=== PATIENT | male | born 1960 | race Caucasian/White ===

== ENCOUNTER 2020-09-11 16:56 | Emergency (ER) | payer MEDICARE, MEDICAID, SELFPAY ==
[2020-09-11 17:02] VITALS: BP 127/85; PULSE 70; PULSE 97; RESP 18; TEMP 37.1; O2SAT 97; BMI 28.1
[2020-09-11 17:18] VITALS: PULSE 97; RESP 18; O2SAT 100
--- NOTE | 2020-09-11 17:22 | ED_ITS ---
HPI - General Adult General Chief complaint: General Medical Stated complaint: N/V/D Time Seen by Provider: 09/11/20 17:11 Source: patient Mode of arrival: EMS Limitations: no limitations History of Present Illness HPI narrative: patient comes to emergency room complaining of cough, epistaxis, shortness of breath. Patient states it has been ongoing for 4-5 days, also complaining of nausea vomiting and diarrhea. Patient states no one else at home is sick but him. Patient reporting subjective fever and chills MD complaint: cough Related Data Allergies Allergy/AdvReac Type Severity Reaction Status Date / Time No Known Allergies Allergy Unverified 07/21/20 19:11 [No Known Allergies*] Review of Systems Review of Systems: Constitutional : No Weight loss, reports subjective fever, chills, night sweats and fatigue ENT/Mouth : No Hearing loss, No Ear Pain, No Nasal Congestion, No Sinus Pain, No Hoarseness, No sore throat, No Rhinorrhea, No Swallowing Difficulty, reports 2 episodes of epistaxis yesterday Eyes: No Eye Pain, No Swelling, No Redness, No Foreign Body, No Discharge, No Vision Changes Cardiovascular : No Chest Pain, No Dyspnea on Exertion, No Orthopnea, No Edema, No Palpitations Respiratory : patient complaining of dry cough, intermittent shortness of breath, Worse with coughing Gastrointestinal : reports nausea vomiting and diarrhea, no abdominal pain Genitourinary : no irregular bleeding, No Dysuria, No Urinary Frequency, No Hematuria, No Urinary Incontinence, No Urgency, No Flank Pain, No Urinary Flow Changes, No Hesitancy Musculoskeletal : No joint pain, No Myalgias, No Joint Swelling Skin : No Skin Lesions, No rash Neuro : No Weakness, No Numbness, No Paresthesias, No Loss of Consciousness, No Dizziness, No Headache Psych : No Anxiety/Panic, No Depression, No SI/HI/AH/VH, No Social Issues, Heme/Lymph: No Bruising, No Bleeding,No Lymphadenopathy Endocrine : No Polyuria, No Polydipsia, No Temperature Intolerance PMF Past Medical History Medical History Anxiety Depression ETOH abuse EtOH dependence Social History Social History Alcohol intake: current Alcohol intake frequency: 3 or more drinks per day Alc ohol type: beer, wine and hard liquor Smoking Status: Current every day smoker Use of substances other than those prescribed or required for medical reasons: Yes Advance Directives: No Advance Directives Information Provided: Yes Physical Exam Vital Signs: Vital Signs: Last Vital Signs Temp 98.8 F 09/11/20 21:05 Pulse 86 09/11/20 21:05 Resp 16 09/11/20 18:52 BP 126/77 09/11/20 21:05 Pulse Ox 99 09/11/20 21:05 Body Mass Index 28.1 Appearance: Alert. Oriented X3. seems anxious. Eyes: Pupils equal, round and reactive to light. ENT: Pharynx normal. Neck: Normal inspection. Neck supple. No lymph nodes noted. No crepitus CVS: Normal heart rate and rhythm. Pulses normal. Normal S1 and S2 Respiratory: No wheezing, bilateral crackles, good air movement Abdomen: Soft and nontender. No rigidity. No distention. good BS x4 Skin: Skin warm and dry. Normal skin color. Normal skin turgor. Extremities: No lower extremity edema. No lower extremity edema. No Lacera tions. No Rash Neuro: Oriented X 3. No motor deficit. No sensory deficit. Moving all extermities. No slurred speech. Course Course Course Narrative: patient thickening lactic acid was drawn after 1 L of fluids, patient already received 3 L. patient is sleeping comfortably, no vomiting, patient has been sleeping comfortably. When patient woke up, patient became angry that she is being discharged, states that he does not want to be discharged, patient states that he does not have a ride and wants to stay for a few more hours sleeping, Patient started spitting on the floor. sepsis is not suspected. At this time, patient has no signs or symptoms of alcohol withdrawal Medical Decision Making Lab Data Result diagrams: 09/11/20 18:23 09/11/20 18:23 Labs: Lab Results 09/11/20 09/11/20 09/11/20 Range/Units 18:23 18:23 18:23 WBC 11.3 H (4.8-10.8) X10*3/uL RBC 4.68 (4.60-5.80) X10*6/uL Hgb 14.9 (14.0-18.0) g/dl Hct 41.2 L (42-52) % MCV 88.0 (80-98) fL MCH 31.8 (27.0-33.0) pg MCHC 36.2 H (31.0-36.0) g/dl RDW 12.5 (11.0-16.0) % Plt Count 275 (160-400) X10*3/uL MPV 9.1 L (9.4-12.4) fL Immature Gran % (Auto) 0.8 H (0.0-0.4) % Neut % (Auto) 78.3 H (45-73) % Lymph % (Auto) 12.5 L (20-40) % Carter % (Auto) 6.7 (2-11) % Eos % (Auto) 1.2 (0-4) % Baso % (Auto) 0.5 (0-2) % Lymph # (Auto) 1.4 (1.2-4.9) X10*3/uL Carter # (Auto) 0.8 (0.1-1.2) X10*3/uL Eos # (Auto) 0.1 (0.0-0.4) X10*3/uL Baso # (Auto) 0.1 (0.0-0.2) X10*3/uL Abs Immat Gran (auto) 0.09 H (0.00-0.03) X10*3/uL Absolute Neuts (auto) 8.8 H (2.0-8.3) X10*3/uL Absolute Nucleated RBC 0.000 (0.0-0.012) X10*3/uL Nucleated RBC % (auto) 0.0 (0.0-0.2) /100WBC Sodium 137 (135-145) mmol/L Potassium 3.6 (3.3-5.1) mmol/l Chloride 101 (96-108) mmol/L Carbon Dioxide 21 L (22-29) mmol/L Anion Gap 19 (12-20) BUN 6 L (9-16) mg/dL Creatinine 0.81 (0.5-1.4) mg/dL Estim Creat Clear Calc 87.3 Estimated GFR > 60 Random Glucose 87 (60-115) mg/dL Lactic Acid 3.1 H* (0.5-2.0) mmol/L Calcium 8.8 (8.4-10.2) mg/dL Total Bilirubin 1.1 H (0.0-1.0) mg/dL Direct Bilirubin 0.4 (0.0-0.5) mg/dL AST 67 H (5-37) U/L ALT 61 H (0-40) U/L Alkaline Phosphatase 87 (39-117) U/L Total Protein 7.0 (6.5-8.0) g/dL Albumin 4.1 (3.5-5.0) g/dL Urine Color Urine Appearance Urine pH (5.0-8.0) Ur Specific [place] (1.005-1.025) Urine Protein (NEG-TRACE) MG/DL Urine Glucose (UA) (NEG) MG/DL Urine Ketones (NEG) MG/DL Urine Blood (NEG) Urine Nitrite (NEG) Ur Leukocyte Esterase (NEG) Urine RBC (0) /HPF Urine WBC (0-4) /HPF Ur Squamous Epith Cells /LPF Urine Bacteria /LPF Urine Opiates Screen (Not Detect) Ur Barbiturates Screen (Not Detect) Ur Phencyclidine Scrn (Not Detect) Ur Amphetamines Screen (Not Detect) U Benzodiazepines Scrn (Not Detect) Urine Cocaine Screen (Not Detect) U Marijuana (THC) Screen (Not Detect) Ethyl Alcohol mg/dL Coronavirus (PCR) (Negative) 09/11/20 09/11/20 09/11/20 Range/Units 18:23 18:23 18:23 WBC (4.8-10.8) X10*3/uL RBC (4.60-5.80) X10*6/uL Hgb (14.0-18.0) g/dl Hct (42-52) % MCV (80-98) fL MCH (27.0-33.0) pg MCHC (31.0-36.0) g/dl RDW (11.0-16.0) % Plt Count (160-400) X10*3/uL MPV (9.4-12.4) fL Immature Gran % (Auto) (0.0-0.4) % Neut % (Auto) (45-73) % Lymph % (Auto) (20-40) % Carter % (Auto) (2-11) % Eos % (Auto) (0-4) % Baso % (Auto) (0-2) % Lymph # (Auto) (1.2-4.9) X10*3/uL Carter # (Auto) (0.1-1.2) X10*3/uL Eos # (Auto) (0.0-0.4) X10*3/uL Baso # (Auto) (0.0-0.2) X10*3/uL Abs Immat Gran (auto) (0.00-0.03) X10*3/uL Absolute Neuts (auto) (2.0-8.3) X10*3/uL Absolute Nucleated RBC (0.0-0.012) X10*3/uL Nucleated RBC % (auto) (0.0-0.2) /100WBC Sodium (135-145) mmol/L Potassium (3.3-5.1) mmol/l Chloride (96-108) mmol/L Carbon Dioxide (22-29) mmol/L Anion Gap (12-20) BUN (9-16) mg/dL Creatinine (0.5-1.4) mg/dL Estim Creat Clear Calc Estimated GFR Random Glucose (60-115) mg/dL Lactic Acid (0.5-2.0) mmol/L Calcium (8.4-10.2) mg/dL Total Bilirubin (0.0-1.0) mg/dL Direct Bilirubin (0.0-0.5) mg/dL AST (5-37) U/L ALT (0-40) U/L Alkaline Phosphatase (39-117) U/L Total Protein (6.5-8.0) g/dL Albumin (3.5-5.0) g/dL Urine Color Urine Appearance Urine pH (5.0-8.0) Ur Specific [place] (1.005-1.025) Urine Protein (NEG-TRACE) MG/DL Urine Glucose (UA) (NEG) MG/DL Urine Ketones (NEG) MG/DL Urine Blood (NEG) Urine Nitrite (NEG) Ur Leukocyte Esterase (NEG) Urine RBC (0) /HPF Urine WBC (0-4) /HPF Ur Squamous Epith Cells /LPF Urine Bacteria /LPF Urine Opiates Screen Not Detected (Not Detect) Ur Barbiturates Screen Not Detected (Not Detect) Ur Phencyclidine Scrn Not Detected (Not Detect) Ur Amphetamines Screen Not Detected (Not Detect) U Benzodiazepines Scrn Not Detected (Not Detect) Urine Cocaine Screen POSITIVE H (Not Detect) U Marijuana (THC) Screen Not Detected (Not Detect) Ethyl Alcohol 15 mg/dL Coronavirus (PCR) NEGATIVE (Negative) 09/11/20 09/11/20 Range/Units 19:21 20:20 WBC (4.8-10.8) X10*3/uL RBC (4.60-5.80) X10*6/uL Hgb (14.0-18.0) g/dl Hct (42-52) % MCV (80-98) fL MCH (27.0-33.0) pg MCHC (31.0-36.0) g/dl RDW (11.0-16.0) % Plt Count (160-400) X10*3/uL MPV (9.4-12.4) fL Immature Gran % (Auto) (0.0-0.4) % Neut % (Auto) (45-73) % Lymph % (Auto) (20-40) % Carter % (Auto) (2-11) % Eos % (Auto) (0-4) % Baso % (Auto) (0-2) % Lymph # (Auto) (1.2-4.9) X10*3/uL [place] # (Auto) (0.1-1.2) X10*3/uL Eos # (Auto) (0.0-0.4) X10*3/uL Baso # (Auto) (0.0-0.2) X10*3/uL Abs Immat Gran (auto) (0.00-0.03) X10*3/uL Absolute Neuts (auto) (2.0-8.3) X10*3/uL Absolute Nucleated RBC (0.0-0.012) X10*3/uL Nucleated RBC % (auto) (0.0-0.2) /100WBC Sodium (135-145) mmol/L Potassium (3.3-5.1) mmol/l Chloride (96-108) mmol/L Carbon Dioxide (22-29) mmol/L Anion Gap (12-20) BUN (9-16) mg/dL Creatinine (0.5-1.4) mg/dL Estim Creat Clear Calc Estimated GFR Random Glucose (60-115) mg/dL Lactic Acid 2.2 H* (0.5-2.0) mmol/L Calcium (8.4-10.2) mg/dL Total Bilirubin (0.0-1.0) mg/dL Direct Bilirubin (0.0-0.5) mg/dL AST (5-37) U/L ALT (0-40) U/L Alkaline Phosphatase (39-117) U/L Total Protein (6.5-8.0) g/dL Albumin (3.5-5.0) g/dL Urine Color YELLOW Urine Appearance CLEAR Urine pH 6.5 (5.0-8.0) Ur Specific [place] 1.015 (1.005-1.025) Urine Protein NEG (NEG-TRACE) MG/DL Urine Glucose (UA) NEG (NEG) MG/DL Urine Ketones 15 (NEG) MG/DL Urine Blood 2+ H (NEG) Urine Nitrite NEG (NEG) Ur Leukocyte Esterase NEG (NEG) Urine RBC 1-4 (0) /HPF Urine WBC 0 (0-4) /HPF Ur Squamous Epith Cells NONE /LPF Urine Bacteria NONE /LPF Urine Opiates Screen (Not Detect) Ur Barbiturates Screen (Not Detect) Ur Phencyclidine Scrn (Not Detect) Ur Amphetamines Screen (Not Detect) U Benzodiazepines Scrn (Not Detect) Urine Cocaine Screen (Not Detect) U Marijuana (THC) Screen (Not Detect) Ethyl Alcohol mg/dL Coronavirus (PCR) (Negative) Discharge Plan Discharge Clinical Impression: Acute dehydration, Alcohol abuse, Cocaine abuse Patient Disposition: Home, Self-Care Instructions: Cocaine Abuse (ED), Abuse of Alcohol (ED) Additional Instructions: please stop using alcohol and cocaine. Please follow-up with your primary care physician tomorrow. If you have any worsening or new symptoms, please return to the emergency room or call 911
--- NOTE | 2020-09-11 17:47 | XR_ITS ---
EXAMINATION: XR CHEST CLINICAL INFORMATION: Cough COMPARISON: 05/13/2020 TECHNIQUE: Frontal view of the chest was obtained. FINDINGS: No significant abnormality is noted involving the heart, lungs, mediastinum, bony thorax or soft tissues. XR/XR chest 1V IMPRESSION: Unremarkable examination.
[2020-09-11 18:33] LABS: MANUAL DIFF FLAG NO
[2020-09-11] MEDS: 0.9 % Sodium Chloride 1,000 ML 999 ML IVCONT ×3 (18:36→21:05)
[2020-09-11 18:51] LABS: Basophils Absolute Auto 0.1 X10*3/uL (0.0-0.2); Basophils Percent Auto 0.5 % (0-2); Eosinophils Absolute Auto 0.1 X10*3/uL (0.0-0.4); Eosinophils Percent Auto 1.2 % (0-4); Hematocrit 41.2 % (42-52); Hemoglobin 14.9 g/dl (14.0-18.0); Imm Gran Abs Auto 0.09 X10*3/uL (0.00-0.03); Imm Gran Pct Auto 0.8 % (0.0-0.4); Lymphocytes Absolute Auto 1.4 X10*3/uL (1.2-4.9); Lymphocytes Percent Auto 12.5 % (20-40); Mean Corpuscular HGB Conc 36.2 g/dl (31.0-36.0); Mean Corpuscular Hemoglobin 31.8 pg (27.0-33.0); Mean Platelet Volume 9.1 fL (9.4-12.4); Monocytes Absolute Auto 0.8 X10*3/uL (0.1-1.2); Monocytes Percent Auto 6.7 % (2-11); Neutrophils Absolute Auto 8.8 X10*3/uL (2.0-8.3); Neutrophils Percent Auto 78.3 % (45-73); Platelet Count 275 X10*3/uL (160-400); Red Blood Count 4.68 X10*6/uL (4.60-5.80); Red Cell Distribution Width 12.5 % (11.0-16.0); White Blood Count 11.3 X10*3/uL (4.8-10.8)
[2020-09-11 18:52] VITALS: BP 128/79; PULSE 87; RESP 16; TEMP 37.1; O2SAT 99
[2020-09-11 18:52] LABS: Ethanol 15 mg/dL
[2020-09-11 18:56] LABS: Alanine Aminotransferase 61 U/L (0-40); Albumin Level 4.1 g/dL (3.5-5.0); Alkaline Phosphatase 87 U/L (39-117); Anion Gap 19 (12-20); Aspartate Amino Transferase 67 U/L (5-37); Bilirubin Direct 0.4 mg/dL (0.0-0.5); Bilirubin Total 1.1 mg/dL (0.0-1.0); Blood Urea Nitrogen 6 mg/dL (9-16); Calcium 8.8 mg/dL (8.4-10.2); Carbon Dioxide 21 mmol/L (22-29); Chloride 101 mmol/L (96-108); Creatinine Clr Calc Pharmacy 87.3; Estimated Glomerular Filt Rate > 60; Glucose Random 87 mg/dL (60-115); Potassium 3.6 mmol/l (3.3-5.1); Sodium 137 mmol/L (135-145)
[2020-09-11 18:57] LABS: Amphetamine Screen Urine Not Detected (Not Detect); Barbiturates, Urine Not Detected (Not Detect); Benzodiazepines Screen Urine Not Detected (Not Detect); Cannabinoid Screen Urine Not Detected (Not Detect); Cocaine Screen Urine POSITIVE (Not Detect); Lactic Acid 3.1 mmol/L (0.5-2.0); Opiate Screen Urine Not Detected (Not Detect); Phencyclidine Screen Urine Not Detected (Not Detect)
[2020-09-11 19:27] LABS: Glucose Urine UA NEG (NEG); Leukocyte Esterase Urine NEG (NEG); Nitrite Urine NEG (NEG); PH 6.5 (5.0-8.0); Specific Gravity - Urine 1.015 (1.005-1.025); Urine Blood 2+ (NEG); Urine Ketones 15 MG/DL (NEG); Urine Protein NEG (NEG-TRACE)
[2020-09-11 19:28] LABS: Appearance Urine CLEAR; Color Urine YELLOW
[2020-09-11 19:33] LABS: WBC Urine 0 /HPF (0-4)
[2020-09-11 20:43] LABS: Lactic Acid 2.2 mmol/L (0.5-2.0)
[2020-09-11 21:05] VITALS: BP 126/77; PULSE 86; TEMP 37.1; O2SAT 99
[2020-09-11] MEDS: ondansetron HCL 4 MG/2 ML VIAL IVPUSH (21:05)
[2020-09-11 21:22] LABS: SARS COV2 PCR INHOUSE NEGATIVE (Negative)
[2020-09-11 22:00] VITALS: BP 142/76; PULSE 82; O2SAT 95
--- NOTE | 2020-09-11 22:06 | PC.NURSE ---
called pharmacy for banana bag that is ordered
[2020-09-11 22:23] LABS: Reflex Lactate? Lactic Acid Added
[2020-09-11] MEDS: Prochlorperazine Edisylate 10 MG/2 ML VIAL IVPUSH (22:24)
[2020-09-11 22:54] VITALS: BP 145/79; PULSE 81; TEMP 36.6; O2SAT 95
--- NOTE | 2020-09-11 22:55 | PC.NURSE ---
nausea and vomiting improved following zofran and compazine, pt has been sleeping for the pat 2 hours, wakes easily.
--- NOTE | 2020-09-11 23:04 | PC.NURSE ---
pt refusing 3rd lactic acid, getting dressed for discharge.
== END 2020-09-11 23:07 | disposition home or self-care (01) ==
PROVIDERS: Emergency Provider Emergency Medicine
DX: E86.0 Dehydration (principal); R05 Cough; F10.10 Alcohol abuse, uncomplicated; F14.10 Cocaine abuse, uncomplicated; Y90.0 Blood alcohol level of less than 20 mg/100 ml; F17.200 Nicotine dependence, unspecified, uncomplicated; Z20.828 Contact with and (suspected) exposure to other viral communicable diseases; Z71.6 Tobacco abuse counseling; Z71.51 Drug abuse counseling and surveillance of drug abuser
CPT/HCPCS: 36415; 71045; 80048; 80076; 80307; 80320; 81001; 83605; 85025; 87040; 96361; 96365; 96375; 99284; 99285; J2405; U0003

== ENCOUNTER 2020-11-13 13:01 | Emergency (ER) | payer MEDICARE, MEDICAID, SELFPAY ==
[2020-11-13 13:53] VITALS: BP 127/65; PULSE 108; RESP 16; TEMP 36.7; O2SAT 98; BMI 29.2
--- NOTE | 2020-11-13 14:58 | XR_ITS ---
EXAMINATION: XR CHEST CLINICAL INFORMATION: Patient shortness of breath cough COMPARISON: Chest radiograph from 09/11/2020 TECHNIQUE: 2 views of the chest were obtained. FINDINGS: There is no focal consolidation. There is no pneumothorax. The trachea is midline. Heart and mediastinal silhouette is enlarged. There is no pleural effusion. Degenerative changes of the thoracic spine. Soft tissues are unremarkable. XR/XR chest 2V IMPRESSION: No acute cardiopulmonary process.
--- NOTE | 2020-11-13 15:49 | XR_ITS ---
EXAMINATION: XR THORACIC SPINE XR LUMBAR SPINE CLINICAL INFORMATION: Status post fall with back injury and pain COMPARISON: None TECHNIQUE: 3 views of the thoracic spine and 4 views of the lumbar spine were obtained FINDINGS: 5 nonrib-bearing lumbar-type vertebral bodies. No acute visible fracture or dislocation. Multilevel degenerative changes of the thoracolumbar spine with disc space narrowing, anterior bridging osteophytes, and facet arthropathy. Vertebral body heights and disc spaces are otherwise maintained. Posterior elements are intact. Paraspinal soft tissues are unremarkable. Visualized portions of the chest are unremarkable. Partially visualized tibial arthroplasty. Bowel gas pattern is unremarkable. Atherosclerotic calcifications are visualized. XR/XR lumbar spine 2-3V IMPRESSION: 1. No acute visible fracture or dislocation. 2. Multilevel degenerative changes of the thoracolumbar spine.
--- NOTE | 2020-11-13 15:49 | XR_ITS ---
EXAMINATION: XR THORACIC SPINE XR LUMBAR SPINE CLINICAL INFORMATION: Status post fall with back injury and pain COMPARISON: None TECHNIQUE: 3 views of the thoracic spine and 4 views of the lumbar spine were obtained FINDINGS: 5 nonrib-bearing lumbar-type vertebral bodies. No acute visible fracture or dislocation. Multilevel degenerative changes of the thoracolumbar spine with disc space narrowing, anterior bridging osteophytes, and facet arthropathy. Vertebral body heights and disc spaces are otherwise maintained. Posterior elements are intact. Paraspinal soft tissues are unremarkable. Visualized portions of the chest are unremarkable. Partially visualized tibial arthroplasty. Bowel gas pattern is unremarkable. Atherosclerotic calcifications are visualized. XR/XR thoracic spine 3V IMPRESSION: 1. No acute visible fracture or dislocation. 2. Multilevel degenerative changes of the thoracolumbar spine.
--- NOTE | 2020-11-13 15:53 | ED_ITS ---
HPI - URI/Sore Throat General Chief Complaint: Upper Respiratory Symptoms Stated Complaint: not feeling well,cough,nausea Time Seen by Provider: 11/13/20 14:57 Source: patient Mode of arrival: ambulatory Limitations: no limitations History of Present Illness HPI Narrative: 60yoM c PMHx of alcohol abuse, anxiety and depression presenting to the ED c c/o URI symptoms for the past few days worse today which include c hills, body aches, generalized fatigue, sore throat, nausea, diarrhea and cough. Patient reports he recently returned back from [place] and was in the clubs drinking and no one including him were wearing mass. He also reports that a few days ago he was getting out of bed with his socks and his socks slipped any hit his mid back on the rales of his bed and since then has been having pain. Patient also interested in detox at this time. Denies head injury or loss of consciousness. Denies any fevers, headaches, dizziness, changes in vision, chest pain, shortness of breath, palpitations, dyspnea on exertion, orthopnea, vomiting, abdominal pain, dysuria or any other symptoms complaints or concerns at this time. Denies any SI/HI/auditory or visual hallucinations thoughts of self-injury. Reports that he feels safe at home. Has aide that comes every day and help some with his daily activities. Related Data Previous Rx's Medication Instructions Recorded azithromycin See Rx Instructions .ROUTE 11/13/20 .COMPLEX #6 tab lorazepam [Ativan] 1 mg PO TID PRN #10 tab 11/13/20 Allergies Allergy/AdvReac Type Severity Reaction Status Date / Time No Known Allergies Allergy Unverified 07/21/20 19:11 [No Known Allergies*] Review of Systems Review of Systems: Constitutional : + Fall/trauma, No Weight loss, No Fever, + Chills, ENT/Mouth : No Hearing loss, No Ear Pain, No Nasal Congestion, No Sinus Pain, No Hoarseness, + sore throat, No Rhinorrhea, No Swallowing Difficulty Cardiovascular : No Chest Pain, No SOB Respiratory : + Cough, No Dyspnea Gastrointestinal : + Nausea, No Vomiting, + Diarrhea, No abdominal Pain, No Hematochezia, No Melena Genitourinary : No Dysuria, No Urinary Frequency, No Hematuria, No Urinary or Bowel Incontinence/retention Musculoskeletal : + Back pain, No neck pain, No joint stiffness, No joint swelling Skin : No Skin Lesions, No rash or signs of infection Neuro : No Weakness, No radiation, No Numbness, No Paresthesias, No headache, no loss of bowel or bladder incontinence, no saddle anesthesia Denies history of IV drug usage. Yes all other systems are reviewed and are negative [facility] Past Medical History Attestation statement: The following information was validated with the patient. Medical History Anxiety Depression ETOH abuse EtOH dependence Social History Social History Alcohol intake: current Alcohol intake frequency: 3 or more drinks per day Alcohol type: beer, wine and hard liquor Smoking Status: Current every day smoker Advance Directives: No Advance Directives Information Provided: Yes Physical Exam Vital Signs: Vital Signs: Last Vital Signs Temp 98.0 F 11/13/20 13:53 Pulse 108 H 11/13/20 13:53 Resp 16 11/13/20 13:53 BP 127/65 11/13/20 13:53 Pulse Ox 98 11/13/20 13:53 Body Mass Index 29.2 vital signs have been reviewed as normal and appeared to be correct. Blood pressure tachycardic. Heart rate normal. Respiration rate normal. Temperature normal. Oxygen saturation normal. Appearance: Alert. Oriented X3. No acute distress. Head: Normal external exam. Normocephalic. Atraumatic. Eyes: PERRLA. EOMI. Conjunctiva and sclera normal. Eyelids normal. ENT: EAC normal. TM's Normal. Pharynx normal. Uvula midline. Moist mucous membranes. Neck: Normal inspection. Neck supple. FROM. No adenopathy. No meningeal signs. CVS: Normal heart rate and rhythm. Heart sound normal. No murmurs noted. Pulses normal throughout. Respiratory: No respiratory distress. Painless inspiration. Breath sounds normal. No wheezes/rales/rhonchi noted. Chest nontender. No accessory muscle usage noted or decreased air movement noted. Abdomen: Soft and nontender. Bowel sounds normal in all 4 quadrants. No distention noted. No organomegaly noted. No visible injury noted. Back: No CVA tenderness. Full range of motion noted. No obvious deformities, or edema. Mild para-spinal muscular tenderness from thoracic to lumbar region to coccyx. Full ROM in back and lower extremities. 5/5 strength hip extension/flexion, abduction, adduction. Mild Lumbar pain with hip flexion against resistance. Straight leg raise test negative on right; Straight leg raise test negative on left; Reflexes normal ankle and knee bilaterally; EHL motor strength normal bilaterally. Patient has a normal steady gait. No rashes/lesion/induration/fluctuance or signs of infection noted. Skin: Skin warm and dry. Normal skin color. Normal skin turgor. No rashes/lesions/lacerations noted. Extremities: Extremities exhibit normal range of motion. Extremities nontender. Neuro: Oriented X 3. No motor deficit. No sensory deficit. Reflexes normal. Course Course Course Narrative: 15:48PM - 60yoM c PMHx of alcohol abuse, anxiety and depression presenting to the ED c c/o URI symptoms s/p traveling to [place]. Second complaint of a mechanical fall with mid to lower back injury. - Concern for COVID vs PNA vs Viral Syndrome. Spinal fx vs muscle strain - Plan: Labs, CXR, Thoracic/lumbar spine, COVID/RSV/FLU/Rapid strep obtain a care team consult for detox and re-evaluate. Reevaluation(s) Reevaluation #1: - all labs WNL. ETOH level negative. COVID/RSV/flu swab negative. Rapid strep negative. Chest x-ray within normal limits no evidence of pneumonia or any other acute processes. X-ray of thoracic and lumbar spine revealed chronic changes such as arthritis no acute processes noted. - I spoke to Kelly Avilez from the CARE Team who spoke to [facility] and they reported that they will have a bed most likely tomorrow for detox therefore they requested a drug screen and EKG for medical clearance Time: 17:25 Reevaluation #2: EKG normal sinus rhythm no acute ischemic changes and similar compared to prior EKG. Obtained at this time awaiting results. Time: 17:54 MDM - URI/Sore Throat Medical Records Attestation: I reviewed the patient's medical records. Lab Data Attestation: I reviewed the patient's lab results. Result diagrams: 11/13/20 16:49 11/13/20 16:49 Labs: Lab Results 11/13/20 11/13/20 11/13/20 Range/Units 15:30 16:48 16:49 WBC 10.6 (4.8-10.8) X10*3/uL RBC 5.05 (4.60-5.80) X10*6/uL Hgb 16.1 (14.0-18.0) g/dl Hct 45.6 (42-52) % MCV 90.3 (80-98) fL MCH 31.9 (27.0-33.0) pg MCHC 35.3 (31.0-36.0) g/dl RDW 12.4 (11.0-16.0) % Plt Count 292 (160-400) X10*3/uL MPV 9.2 L (9.4-12.4) fL Immature Gran % (Auto) 0.6 H (0.0-0.4) % Neut % (Auto) 74.4 H (45-73) % Lymph % (Auto) 14.7 L (20-40) % [place] % (Auto) 7.6 (2-11) % Eos % (Auto) 1.9 (0-4) % Baso % (Auto) 0.8 (0-2) % Lymph # (Auto) 1.6 (1.2-4.9) X10*3/uL [place] # (Auto) 0.8 (0.1-1.2) X10*3/uL Eos # (Auto) 0.2 (0.0-0.4) X10*3/uL Baso # (Auto) 0.1 (0.0-0.2) X10*3/uL Abs Immat Gran (auto) 0.06 H (0.00-0.03) X10*3/uL Absolute Neuts (auto) 7.9 (2.0-8.3) X10*3/uL Absolute Nucleated RBC 0.000 (0.0-0.012) X10*3/uL Nucleated RBC % (auto) 0.0 (0.0-0.2) /100WBC Hold Blue Top Sodium (135-145) mmol/L Potassium (3.3-5.1) mmol/l Chloride (96-108) mmol/L Carbon Dioxide (22-29) mmol/L Anion Gap (12-20) BUN (9-16) mg/dL Creatinine (0.5-1.4) mg/dL Estim Creat Clear Calc Estimated GFR Random Glucose (60-115) mg/dL Calcium (8.4-10.2) mg/dL Magnesium (1.6-2.6) mg/dL Total Bilirubin (0.0-1.0) mg/dL Direct Bilirubin (0.0-0.5) mg/dL AST (5-37) U/L ALT (0-40) U/L Alkaline Phosphatase (39-117) U/L Total Protein (6.5-8.0) g/dL Albumin (3.5-5.0) g/dL Ethyl Alcohol < 10 mg/dL Coronavirus (PCR) NEGATIVE (Negative) Influenza Type A (PCR) NEGATIVE (Negative) Influenza Type B (PCR) NEGATIVE (Negative) RSV RNA Qual (PCR) NEGATIVE (Negative) 11/13/20 11/13/20 Range/Units 16:49 16:49 WBC (4.8-10.8) X10*3/uL RBC (4.60-5.80) X10*6/uL Hgb (14.0-18.0) g/dl Hct (42-52) % MCV (80-98) fL MCH (27.0-33.0) pg MCHC (31.0-36.0) g/dl RDW (11.0-16.0) % Plt Count (160-400) X10*3/uL MPV (9.4-12.4) fL Immature Gran % (Auto) (0.0-0.4) % Neut % (Auto) (45-73) % Lymph % (Auto) (20-40) % [place] % (Auto) (2-11) % Eos % (Auto) (0-4) % Baso % (Auto) (0-2) % Lymph # (Auto) (1.2-4.9) X10*3/uL [place] # (Auto) (0.1-1.2) X10*3/uL Eos # (Auto) (0.0-0.4) X10*3/uL Baso # (Auto) (0.0-0.2) X10*3/uL Abs Immat Gran (auto) (0.00-0.03) X10*3/uL Absolute Neuts (auto) (2.0-8.3) X10*3/uL Absolute Nucleated RBC (0.0-0.012) X10*3/uL Nucleated RBC % (auto) (0.0-0.2) /100WBC Hold Blue Top SEE NOTE Sodium 140 (135-145) mmol/L Potassium 4.1 (3.3-5.1) mmol/l Chloride 106 (96-108) mmol/L Carbon Dioxide 21 L (22-29) mmol/L Anion Gap 17 (12-20) BUN 10 D (9-16) mg/dL Creatinine 0.81 (0.5-1.4) mg/dL Estim Creat Clear Calc 88.7 Estimated GFR > 60 Random Glucose 100 (60-115) mg/dL Calcium 8.9 (8.4-10.2) mg/dL Magnesium 2.3 (1.6-2.6) mg/dL Total Bilirubin 0.9 (0.0-1.0) mg/dL Direct Bilirubin 0.4 (0.0-0.5) mg/dL AST 29 D (5-37) U/L ALT 39 (0-40) U/L Alkaline Phosphatase 91 (39-117) U/L Total Protein 7.1 (6.5-8.0) g/dL Albumin 4.2 (3.5-5.0) g/dL Ethyl Alcohol mg/dL Coronavirus (PCR) (Negative) Influenza Type A (PCR) (Negative) Influenza Type B (PCR) (Negative) RSV RNA Qual (PCR) (Negative) Imaging Data Chest x-ray: Attestation: I personally reviewed and interpreted this imaging study as follows: Radiologist's impression: FINDINGS: There is no focal consolidation. There is no pneumothorax. The trachea is midline. Heart and mediastinal silhouette is enlarged. There is no pleural effusion. Degenerative changes of the thoracic spine. Soft tissues are unremarkable. IMPRESSION: No acute cardiopulmonary process. Thoracic/lumbar x-rays: Attestation: I personally reviewed and interpreted this imaging study as follows: Radiologist's impression: FINDINGS: 5 nonrib-bearing lumbar-type vertebral bodies. No acute visible fracture or dislocation. Multilevel degenerative changes of the thoracolumbar spine with disc space narrowing, anterior bridging osteophytes, and facet arthropathy. Vertebral body heights and disc spaces are otherwise maintained. Posterior elements are intact. Paraspinal soft tissues are unremarkable. Visualized portions of the chest are unremarkable. Partially visualized tibial arthroplasty. Bowel gas pattern is unremarkable. Atherosclerotic calcifications are visualized. IMPRESSION: 1. No acute visible fracture or dislocation. 2. Multilevel degenerative changes of the thoracolumbar spine. ECG Data Attestation: I personally reviewed and interpreted this ECG as follows: ECG interpretation date: 11/13/20 ECG interpretation time: 17:24 Interpretation: Normal sinus rhythm with a ventricular rate of 85 with a normal VA interval normal QRS duration normal QT/QTC interval. No acute ischemic changes and similar when compared to prior EKG 06/12/2020. Discharge Plan Discharge Clinical Impression: Viral infection, Fall, Back strain Patient Disposition: Home, Self-Care Instructions: Viral Syndrome (ED) Additional Instructions: You had a negative COVID swab/RSV/flu and rapid strep. You spoke to the care team and they called [facility] and they might have a bed for detox tomorrow please continue calling [facility] for possible admission tomorrow. Prescriptions: New lorazepam [Ativan] 1 mg tablet 1 mg PO TID PRN (Reason: anxiety) Qty: 10 RF: 0 azithromycin 250 mg tablet See Rx Instructions .ROUTE .COMPLEX Qty: 6 RF: 0 Referrals: Physician,Unknown [Primary Care Provider] - 2 days (your pcp) Print Language: Belarusian
[2020-11-13 16:34] LABS: Influenza A PCR NEGATIVE (Negative); Influenza B PCR NEGATIVE (Negative); Resp Syncy Virus RNA Qual PCR NEGATIVE (Negative); SARS COV2 PCR INHOUSE NEGATIVE (Negative)
--- NOTE | 2020-11-13 16:54 | ECG_ITS ---
Test Reason : UPPER RESPIRATORY Blood Pressure : / mmHG Vent. Rate : 085 BPM Atrial Rate : 085 BPM P-R Int : 120 ms QRS Dur : 084 ms QT Int : 360 ms P-R-T Axes : 043 051 059 degrees QTc Int : 428 ms Normal sinus rhythm Normal ECG When compared with ECG of 12-JUN-2020 10:53, No significant change was found Referred By: Lucretia Eckert Electronically Signed By:DIVINA DAUGHERTY MD
[2020-11-13 16:55] LABS: Basophils Absolute Auto 0.1 X10*3/uL (0.0-0.2); Basophils Percent Auto 0.8 % (0-2); Eosinophils Absolute Auto 0.2 X10*3/uL (0.0-0.4); Eosinophils Percent Auto 1.9 % (0-4); Hematocrit 45.6 % (42-52); Hemoglobin 16.1 g/dl (14.0-18.0); Imm Gran Abs Auto 0.06 X10*3/uL (0.00-0.03); Imm Gran Pct Auto 0.6 % (0.0-0.4); Lymphocytes Absolute Auto 1.6 X10*3/uL (1.2-4.9); Lymphocytes Percent Auto 14.7 % (20-40); MANUAL DIFF FLAG NO; Mean Corpuscular HGB Conc 35.3 g/dl (31.0-36.0); Mean Corpuscular Hemoglobin 31.9 pg (27.0-33.0); Mean Corpuscular Volume 90.3 fL (80-98); Mean Platelet Volume 9.2 fL (9.4-12.4); Monocytes Absolute Auto 0.8 X10*3/uL (0.1-1.2); Monocytes Percent Auto 7.6 % (2-11); Neutrophils Absolute Auto 7.9 X10*3/uL (2.0-8.3); Neutrophils Percent Auto 74.4 % (45-73); Platelet Count 292 X10*3/uL (160-400); Red Blood Count 5.05 X10*6/uL (4.60-5.80); Red Cell Distribution Width 12.4 % (11.0-16.0); White Blood Count 10.6 X10*3/uL (4.8-10.8)
[2020-11-13 17:14] LABS: Ethanol < 10 mg/dL
[2020-11-13 17:18] LABS: Alanine Aminotransferase 39 U/L (0-40); Albumin Level 4.2 g/dL (3.5-5.0); Alkaline Phosphatase 91 U/L (39-117); Anion Gap 17 (12-20); Aspartate Amino Transferase 29 U/L (5-37); Bilirubin Direct 0.4 mg/dL (0.0-0.5); Bilirubin Total 0.9 mg/dL (0.0-1.0); Blood Urea Nitrogen 10 mg/dL (9-16); Calcium 8.9 mg/dL (8.4-10.2); Carbon Dioxide 21 mmol/L (22-29); Chloride 106 mmol/L (96-108); Creatinine Clr Calc Pharmacy 88.7; Estimated Glomerular Filt Rate > 60; Glucose Random 100 mg/dL (60-115); Magnesium 2.3 mg/dL (1.6-2.6); Potassium 4.1 mmol/l (3.3-5.1); Sodium 140 mmol/L (135-145); Total Protein 7.1 g/dL (6.5-8.0)
[2020-11-13 17:58] VITALS: BP 157/75; PULSE 97; RESP 18; TEMP 36.6; O2SAT 97
[2020-11-13 18:09] LABS: Amphetamine Screen Urine Not Detected (Not Detect); Barbiturates, Urine Not Detected (Not Detect); Benzodiazepines Screen Urine Not Detected (Not Detect); Cannabinoid Screen Urine Not Detected (Not Detect); Cocaine Screen Urine Not Detected (Not Detect); Opiate Screen Urine Not Detected (Not Detect); Phencyclidine Screen Urine Not Detected (Not Detect)
== END 2020-11-13 18:18 | disposition home or self-care (01) ==
PROVIDERS: Physician Assistant Medical; Emergency Provider Emergency Medicine
DX: B34.9 Viral infection, unspecified (principal); M54.5 Low back pain; F33.1 Major depressive disorder, recurrent, moderate; M79.10 Myalgia, unspecified site; R05 Cough; Z20.822 Contact with and (suspected) exposure to COVID-19; Z79.899 Other long term (current) drug therapy
CPT/HCPCS: 0241U; 36415; 71046; 72072; 72100; 80048; 80076; 80307; 80320; 83735; 85025; 87071; 87147; 87880; 93005; 99284

== ENCOUNTER 2021-09-30 15:35 | Emergency (ER) | payer MEDICARE, MEDICAID, SELFPAY ==
--- NOTE | ~2021-09-30 | XR_ITS ---
EXAMINATION: XR CHEST CLINICAL INFORMATION: Chest pain. COMPARISON: Chest radiograph dated 11/13/2020. TECHNIQUE: 2 views of the chest were obtained. FINDINGS: The lungs are clear. The cardiomediastinal silhouette is normal in size. There is no pleural effusion or pneumothorax. No acute osseous abnormality. XR/XR chest 2V IMPRESSION: No acute cardiopulmonary findings.
--- NOTE | ~2021-09-30 | XR_ITS ---
EXAMINATION: XR SHOULDER, RIGHT CLINICAL INFORMATION: Right shoulder pain following a fall. COMPARISON: None TECHNIQUE: AP external rotation, Grashey, scapular Y, and axillary views of the right shoulder. FINDINGS: No acute fracture or dislocation. Large acromioclavicular marginal osteophytes with prominent subacromial spurring. Severe glenohumeral joint space narrowing with bony remodeling and large marginal osteophytes. Small ossification adjacent to the greater tuberosity which could represent an unfused osteophyte versus calcific tendinitis. XR/XR shoulder RT min 2V IMPRESSION: No acute fracture or dislocation. Severe glenohumeral and acromioclavicular osteoarthritis. Prominent subacromial spurring. Unfused osteophyte versus calcific tendinitis adjacent to the greater tuberosity.
--- NOTE | ~2021-09-30 | CT_ITS ---
EXAMINATION: CT HEAD WITHOUT CONTRAST CT CERVICAL SPINE WITHOUT CONTRAST CLINICAL INFORMATION: Fall, hit head, neck pain. COMPARISON: None TECHNIQUE: Contiguous axial imaging was performed from the skull base to vertex without intravenous administration of contrast. Contiguous axial imaging was performed from the upper chest through the skull base without intravenous administration of contrast. Coronal and sagittal reformats were obtained at the acquisition workstation. This CT examination was performed using dose optimization techniques as appropriate, variously including the following: *Automated exposure control *Adjustment of mA and/or kV according to patient size (this includes techniques or standardized protocols for targeted exams where dose is matched to indication/reason for exam; i.e. extremities or head) *Use of iterative reconstruction technique DLP: 390 mGy-cm FINDINGS: Head: There is no evidence of acute intracranial hemorrhage or edematous territorial infarction. A few foci of hypoattenuation in the periventricular and deep white matter are consistent with mild microangiopathy. Hernandez-white matter differentiation is preserved. The ventricles are normal in size and configuration. No evidence for obstructive hydrocephalus. No abnormal mass effect or midline shift. No extra-axial fluid collections. No acute soft tissue or osseous abnormalities. Partial opacification of the frontal sinuses and several ethmoid air cells. The mastoids are clear. Cervical Spine: The atlantooccipital and atlantoaxial articulations remain well aligned. Straightening of the normal cervical lordosis. Otherwise, there is anatomic alignment of the vertebral bodies and posterior elements. No evidence of acute fracture or subluxation. Multilevel cervical spondylosis with disc space narrowing, anterior osteophytes and uncovertebral hypertrophy leading to varying degrees of neural foraminal encroachment and central canal narrowing. There is no prevertebral soft tissue swelling. The thyroid gland and remaining cervical soft tissues are normal in appearance. The lung apices demonstrate pleural thickening/scarring. CT/CT cervical spine wo con IMPRESSION: No acute intracranial pathology. Mild chronic microangiopathy. No acute cervical abnormalities. Moderate multilevel cervical spondylosis.
[2021-09-30 15:39] VITALS: BP 168/84; PULSE 110; O2SAT 96
[2021-09-30 15:40] VITALS: BP 139/80; PULSE 100; RESP 18; TEMP 36.4; O2SAT 100; BMI 32.9
--- NOTE | 2021-09-30 15:50 | ECG_ITS ---
Test Reason : DYSPNEA Blood Pressure : / mmHG Vent. Rate : 097 BPM Atrial Rate : 097 BPM P-R Int : 122 ms QRS Dur : 086 ms QT Int : 360 ms P-R-T Axes : 044 036 054 degrees QTc Int : 457 ms Normal sinus rhythm Normal ECG When compared with ECG of 13-NOV-2020 17:24, No significant change was found Referred By: Yue Lino Electronically Signed By:JIAN JOSHI MD
--- NOTE | 2021-09-30 15:51 | ED.ALCOHOL ---
HPI - Alcohol General Chief Complaint: ETOH/Substance Use Stated Complaint: detox Time Seen by Provider: 09/30/21 15:42 Source: patient Mode of arrival: EMS Limitations: no limitations History of Present Illness HPI narrative: 61-year-old male past medical history significant for ETOH abuse/dependence, depression, anxiety presents to the emergency department with complaints of chest pain, right shoulder pain, and seeking detox from alcohol. Patient tells me that he has been drinking a lot more than he should, he states that he usually drinks 6-7 tall boys of beer a day or as much as possible and he usually drinks 2-4 shots of whiskey per day. He tells 4 days ago he fell, injuring his right shoulder, he states his drinking habits have been getting worse, and he noticed this after falling. He complains of right shoulder pain worse with movement better at rest. Also mentions he is having substernal chest pain , it is severe, stabbing in nature 10/10 and nonradiating. He tells me other than this he is feeling fine, but he wants to cut down on drinking. He tells me he has been in detox before, any feels like it helped him for the time being. He mentions his last drink was about 40 minutes ago. MD complaint: alcohol intoxication and alcohol dependence Last drink: Just prior to admission (40 mins ago ) Amount of alcohol consumed: few beers Chronic alcohol use: Yes Previous visits for alcohol intoxication: No Recent trauma: Yes (fall 3-4 days ago ) Associated symptoms: other (chest pain, right shoulder pain. ) Treatments prior to arrival: none Related Data Previous Rx's Medication Instructions Recorded azithromycin 250 mg tablet See Rx Instructions .ROUTE 11/13/20 .COMPLEX #6 tab lorazepam 1 mg tablet (Ativan) 1 mg PO TID PRN #10 tab 11/13/20 Allergies Allergy/AdvReac Type Severity Reaction Status Date / Time No Known Allergies Allergy Unverified 07/21/20 19:11 [No Known Allergies*] Review of Systems Review of Systems: Constitutional : No Fever, No Chills ENT/Mouth : No sore throat, No Rhinorrhea Eyes: No Eye Pain, No Swelling, No Redness Cardiovascular : + Chest Pain, No SOB Respiratory : No Cough, No Sputum Gastrointestinal : No Nausea, No Vomiting, No Diarrhea, No abdominal Pain Genitourinary : No Dysuria, No Hematuria Musculoskeletal : + joint pain, No Myalgias, No Joint Swelling Skin : No Skin Lesions, No rash Neuro : No Weakness, No Numbness Psych : No Anxiety, No Depression, No SI/HI/AH/VH, + alcohol use Heme/Lymph: No Bruising, No Bleeding Endocrine : No Polyuria, No Polydipsia All other systems reviewed and are negative PMFSH Past Medical History Attestation statement: The following information was validated with the patient. Source: old records reviewed and nursing notes reviewed Medical History Anxiety Depression ETOH abuse EtOH dependence Social History Social History Alcohol intake: current Alcohol intake frequency: 3 or more drinks per day Alcohol type: beer Patient Tobacco Use Status: Current someday Tobacco user Advance Directives: No Advance Directives Information Provided: No Physical Exam Vital Signs: Vital Signs: Last Vital Signs Temp 97.6 F 09/30/21 15:40 Pulse 100 09/30/21 15:40 Resp 18 09/30/21 15:40 BP 139/80 09/30/21 15:40 Pulse Ox 100 09/30/21 15:40 Body Mass Index 32.9 VSS Appearance: Alert.? Oriented X3.? No acute distress.? Appears anxious. Head: Normocephalic, atraumatic, no step-offs or deformities Eyes: Pupils equal, round and reactive to light.? ENT: Pharynx normal.?No tongue fasciculation Neck: Normal inspection.? Neck supple.? CVS: Normal heart rate and rhythm.? Pulses normal.?+ pain with palpation of anterior chest wall Respiratory: No respiratory distress.? Breath sounds normal.? Abdomen: Soft and nontender.? Skin: Skin warm and dry.? Normal skin color.? Normal skin turgor.? Extremities: No lower extremity edema.? No calf ttp. 5/5 strength to bilateral upper and lower extremities. No resting tremors or fasciculations noted. Back: No midline tenderness, no C-spine tenderness, full range of motion, no CVA tenderness bilaterally Neuro: Oriented X 3.? No motor deficit.? No sensory deficit. CN 2-12 intact. Course Reevaluation(s) Reevaluation #1: Chest x-ray with no acute findings. X-ray of right shoulder significant for osteoarthritis, no acute fractures or dislocations. No acute electrolyte abnormalities. Transaminases noted to be elevated, likely secondary to ETOH abuse/dependence. Ethanol 174. Trop 5.[address] head/brain and c-spine will rule out bleed given patients ETOH history At this time patient tells me that his chest pain has resolved, it only hurts with palpation. This is likely costochondritis secondary to his fall. I do not suspect that this is ACS, no need for 2nd troponin at this time. I discussed this case with who agrees with my plan. Patient has been medically cleared, and is safe for discharge to a detox facility. Patient has been given strict return precautions, he should return to the emergency department with new or worsening symptoms, chest pain, shortness of breath, fevers, chills, nausea, vomiting, abdominal pain, weakness, vision changes, headache neck pain. I have advised patient to stop drinking, and highly encouraged him to go to detox. Time: 16:44 Reevaluation #2: Spoke to cost recovery technician who states that [facility] in [place] has a bed for the patient whenever patient is medically cleared. He will work on figuring out a ride for the patient. Time: 17:19 Reevaluation #3: CT head/brain and cervical spine negative. Time: 17:24 Additional Reevaluation(s): 1725 At this time 1725 patient has been medically cleared. He will be going to detox at around 9:00 p.m.. At this time he has been placed in physician observation to allow more time for placement in a detox. At time being placed in physician observation vital signs are stable. Lungs are clear, S1-S2 appreciated free of murmurs, abdomen soft nontender nondistended, no focal neuro deficits. Patient is well, and excited to go to detox. customer care team coach is currently working on getting patient arrived to the [facility] detox facility in [place]. MDM - Alcohol MDM Narrative Medical decision making narrative: 0926 61-year-old male past medical history significant for anxiety, depression, alcohol abuse/dependence presents to the emergency department seeking detox and with right shoulder pain status post fall 3-4 days ago, and severe 10/10 nonradiating substernal chest pain x1 day. Patient tells me he drinks as much as possible regarding beer and 2-4 shots of whisky a day. He states that he drinks every day. Last drink was approximately 40 minutes prior to his arrival. He has never had an alcohol withdrawal seizure in the past. Upon exam patient appears anxious, no acute distress. S1-S2 appreciated free of murmurs. There is pain with palpation of anterior chest wall. Lungs are clear to auscultation. Abdomen soft nontender nondistended. 5/5 strength upper and lower extremities. No focal neuro deficits. No resting tremors. No fasciculations noted upon exam. No asterixis or signs of acute alcohol withdrawal at this time. Patient does not appear to be in acute alcohol withdrawal at this time. Plan at this time is to obtain an x-ray of the right shoulder, chest, basic labs, ethanol, troponin. I will consult the care team and cost recovery technician haim. I will give patient fluids, Zofran and Ativan. Patient is not complaining of headache, dizziness, vision changes, or neck pain, at this time I do not think a CT of the head is warranted. He is also not on blood thinners. Medical Records Attestation: I reviewed the patient's medical records. Lab Data Attestation: I reviewed the patient's lab results. Result diagrams: 09/30/21 15:57 09/30/21 15:57 Labs: Lab Results 09/30/21 09/30/21 09/30/21 Range/Units 15:57 15:57 15:57 WBC 10.5 (4.8-10.8) X10*3/uL RBC 5.10 (4.60-5.80) X10*6/uL Hgb 16.0 (14.0-18.0) g/dl Hct 45.8 (42.0-52.0) % MCV 89.8 (80.0-98.0) fL MCH 31.4 (27.0-33.0) pg MCHC 34.9 (31.0-36.0) g/dl RDW 12.5 (11.0-16.0) % Plt Count 331 (160-400) X10*3/uL MPV 8.8 L (9.4-12.4) fL Immature Gran % (Auto) 0.7 H (0.0-0.4) % Neut % (Auto) 75.9 H (45-73) % Lymph % (Auto) 13.8 L (20-40) % [place] % (Auto) 7.8 (2-11) % Eos % (Auto) 1.1 (0-4) % Baso % (Auto) 0.7 (0-2) % Lymph # (Auto) 1.5 (1.2-4.9) X10*3/uL [place] # (Auto) 0.8 (0.1-1.2) X10*3/uL Eos # (Auto) 0.1 (0.0-0.4) X10*3/uL Baso # (Auto) 0.1 (0.0-0.2) X10*3/uL Abs Immat Gran (auto) 0.07 H (0.00-0.03) X10*3/uL Absolute Neuts (auto) 7.9 (2.0-8.3) x10*3/uL Absolute Nucleated RBC 0.000 (0.0-0.012) X10*3/uL Nucleated RBC % (auto) 0.0 (0.0-0.2) /100WBC Sodium 143 (135-145) mmol/L Potassium 4.0 (3.3-5.1) mmol/L Chloride 106 (96-108) mmol/L Carbon Dioxide 23 (22-29) mmol/L Anion Gap 18 (12-20) BUN 8 L (9-16) mg/dL Creatinine 0.97 (0.5-1.4) mg/dL Estim Creat Clear Calc 72.1 Estimated GFR > 60 Random Glucose 105 (60-115) mg/dL Calcium 9.4 (8.4-10.2) mg/dL Magnesium 2.4 (1.6-2.6) mg/dL Total Bilirubin 0.5 (0.0-1.0) mg/dL AST 40 H (5-37) U/L ALT 48 H (0-40) U/L Alkaline Phosphatase 81 (39-117) U/L Troponin I High Sens (<3.5-35.0) ng/L Total Protein 6.9 (6.5-8.0) g/dL Albumin 4.0 (3.5-5.0) g/dL Ethyl Alcohol mg/dL COVID-19 ([facility]IA) Negative (Negative) COVID-19 Clin Com See Note 09/30/21 09/30/21 Range/Units 15:57 15:57 WBC (4.8-10.8) X10*3/uL RBC (4.60-5.80) X10*6/uL Hgb (14.0-18.0) g/dl Hct (42.0-52.0) % MCV (80.0-98.0) fL MCH (27.0-33.0) pg MCHC (31.0-36.0) g/dl RDW (11.0-16.0) % Plt Count (160-400) X10*3/uL MPV (9.4-12.4) fL Immature Gran % (Auto) (0.0-0.4) % Neut % (Auto) (45-73) % Lymph % (Auto) (20-40) % [place] % (Auto) (2-11) % Eos % (Auto) (0-4) % Baso % (Auto) (0-2) % Lymph # (Auto) (1.2-4.9) X10*3/uL [place] # (Auto) (0.1-1.2) X10*3/uL Eos # (Auto) (0.0-0.4) X10*3/uL Baso # (Auto) (0.0-0.2) X10*3/uL Abs Immat Gran (auto) (0.00-0.03) X10*3/uL Absolute Neuts (auto) (2.0-8.3) x10*3/uL Absolute Nucleated RBC (0.0-0.012) X10*3/uL Nucleated RBC % (auto) (0.0-0.2) /100WBC Sodium (135-145) mmol/L Potassium (3.3-5.1) mmol/L Chloride (96-108) mmol/L Carbon Dioxide (22-29) mmol/L Anion Gap (12-20) BUN (9-16) mg/dL Creatinine (0.5-1.4) mg/dL Estim Creat Clear Calc Estimated GFR Random Glucose (60-115) mg/dL Calcium (8.4-10.2) mg/dL Magnesium (1.6-2.6) mg/dL Total Bilirubin (0.0-1.0) mg/dL AST (5-37) U/L ALT (0-40) U/L Alkaline Phosphatase (39-117) U/L Troponin I High Sens 5.2 (<3.5-35.0) ng/L Total Protein (6.5-8.0) g/dL Albumin (3.5-5.0) g/dL Ethyl Alcohol 174 mg/dL COVID-19 ([facility]LVIA) (Negative) COVID-19 Clin Com Imaging Data Chest x-ray: Attestation: I personally reviewed and interpreted this imaging study as follows: Radiologist's impression: FINDINGS: The lungs are clear. The cardiomediastinal silhouette is normal in size. There is no pleural effusion or pneumothorax. No acute osseous abnormality. XR/XR chest 2V IMPRESSION: No acute cardiopulmonary findings. Right shoulder x-ray.: Attestation: I personally reviewed and interpreted this imaging study as follows: Radiologist's impression: XR/XR shoulder RT min 2V IMPRESSION: No acute fracture or dislocation. ? Severe glenohumeral and acromioclavicular osteoarthritis. Prominent subacromial spurring. ? Unfused osteophyte versus calcific tendinitis adjacent to the greater tuberosity. CT head/brain, cervical spine.: Attestation: I personally reviewed and interpreted this imaging study as follows: Radiologist's impression: CT/CT cervical spine wo con IMPRESSION: No acute intracranial pathology. ? Mild chronic microangiopathy. ? No acute cervical abnormalities. ? Moderate multilevel cervical spondylosis. ? ECG Data ECG #1: Attestation: I personally reviewed and interpreted this ECG as follows: ECG interpretation date: 09/30/21 ECG interpretation time: 16:12 Prior ECG tracings: available for review Interpretation: Ventricular rate of 97, FL normal QRS normal, QT/ QTC normal. EKG shows normal sinus rhythm. No ST elevations or inversions. No acute ischemia. No acute changes when compared with November 13, 2020. Critical Care Time Critical Care Time Critical Care Time: No Discharge Plan Discharge Clinical Impression: ETOH abuse, Acute costochondritis, Acute pain of right shoulder EtOH dependence Qualifiers: Substance use status: uncomplicated Qualified Code(s): F10.20 - Alcohol dependence, uncomplicated Fall Qualifiers: Encounter type: initial encounter Qualified Code(s): W19.XXXA - Unspecified fall, initial encounter Osteoarthritis Qualifiers: Osteoarthritis location: shoulder Osteoarthritis type: primary Laterality: right Qualified Code(s): M19.011 - Primary osteoarthritis, right shoulder Patient Disposition: Home, Self-Care Instructions: Abuse of Alcohol (ED), Alcohol Dependence (ED), Alcohol Use Disorder (ED) Additional Instructions: Take your medications as prescribed. Follow-up with your primary care provider this week. Return to the emergency department with new or worsening symptoms. Such as fevers, chills, nausea, vomiting, abdominal pain, chest pain, shortness of breath, headache, vision changes, weakness. In case of emergency call 911 Prescriptions: No Action lorazepam [Ativan] 1 mg tablet 1 mg PO TID PRN (Reason: anxiety) Qty: 10 RF: 0 azithromycin 250 mg tablet See Rx Instructions .ROUTE .COMPLEX Qty: 6 RF: 0 Referrals: Physician,Unknown J [Primary Care Provider] - 2 days
[2021-09-30 16:02] LABS: Basophils Absolute Auto 0.1 X10*3/uL (0.0-0.2); Basophils Percent Auto 0.7 % (0-2); Eosinophils Absolute Auto 0.1 X10*3/uL (0.0-0.4); Eosinophils Percent Auto 1.1 % (0-4); Hematocrit 45.8 % (42.0-52.0); Imm Gran Abs Auto 0.07 X10*3/uL (0.00-0.03); Imm Gran Pct Auto 0.7 % (0.0-0.4); Lymphocytes Absolute Auto 1.5 X10*3/uL (1.2-4.9); Lymphocytes Percent Auto 13.8 % (20-40); Mean Corpuscular HGB Conc 34.9 g/dl (31.0-36.0); Mean Corpuscular Hemoglobin 31.4 pg (27.0-33.0); Mean Corpuscular Volume 89.8 fL (80.0-98.0); Mean Platelet Volume 8.8 fL (9.4-12.4); Monocytes Absolute Auto 0.8 X10*3/uL (0.1-1.2); Monocytes Percent Auto 7.8 % (2-11); Neutrophils Absolute Auto 7.9 x10*3/uL (2.0-8.3); Neutrophils Percent Auto 75.9 % (45-73); Platelet Count 331 X10*3/uL (160-400); Red Cell Distribution Width 12.5 % (11.0-16.0); White Blood Count 10.5 X10*3/uL (4.8-10.8)
[2021-09-30 16:03] LABS: MANUAL DIFF FLAG NO
[2021-09-30] MEDS: ondansetron HCL 4 MG/2 ML VIAL IVPUSH (16:08)
[2021-09-30] MEDS: 0.9 % Sodium Chloride 1,000 ML 999 ML IV (16:09)
[2021-09-30] MEDS: LORazepam 2 MG/ML VIAL 1 MG IVPUSH (16:12)
[2021-09-30 16:21] LABS: Ethanol 174 mg/dL
[2021-09-30 16:23] LABS: Alanine Aminotransferase 48 U/L (0-40); Alkaline Phosphatase 81 U/L (39-117); Anion Gap 18 (12-20); Aspartate Amino Transferase 40 U/L (5-37); Bilirubin Total 0.5 mg/dL (0.0-1.0); Blood Urea Nitrogen 8 mg/dL (9-16); Calcium 9.4 mg/dL (8.4-10.2); Carbon Dioxide 23 mmol/L (22-29); Chloride 106 mmol/L (96-108); Creatinine Clr Calc Pharmacy 72.1; Estimated Glomerular Filt Rate > 60; Glucose Random 105 mg/dL (60-115); Magnesium 2.4 mg/dL (1.6-2.6); Sodium 143 mmol/L (135-145); Total Protein 6.9 g/dL (6.5-8.0)
[2021-09-30 16:30] LABS: Troponin-I High Sensitivity 5.2 ng/L (<3.5-35.0)
[2021-09-30 16:37] LABS: COVID-19 Test Negative (Negative); IDNOW Serial# 9DD0AD1C
--- NOTE | 2021-09-30 17:40 | PC.NURSE ---
Pt is going to [facility] in [place] around 9pm tonight. Pt is tolerating PO intake and does not show any signs of withdrawal at this time.
--- NOTE | 2021-09-30 17:43 | MHC.RECOVSUP ---
Recovery Support note: Patient is a 61 year old Jordanian speaking male who presented to [facility] ED seeking detox, reporting alcohol use and a recent fall. Overhead Crane Technician met with patient to discuss ATS treatment. Patient referred to [facility]. Patient has been accepted to [facility] with an admission time scheduled for 2200. Nursing staff report patient can arrive as early as 2100 and can wait in the lobby. Yellow cab unable to transport that late and patient does not have family to provide transportation. Discussed case with CARE Team. Plan for CARE Team to order a Lyft for patient to [facility]. Discussed case with patient's ED provider.
[2021-09-30 18:36] VITALS: BP 116/66; PULSE 93; RESP 16; O2SAT 95
--- NOTE | 2021-09-30 19:13 | PC.NURSE ---
RN assumed care at 1900. Pt sleeping at this time. Vitals stable. [place] snot appear in distress. Will continue to monitor.
--- NOTE | 2021-09-30 21:14 | MHC.CARE ---
CARE Team ordered a Lyft to bring pt to [facility] for detox and provided pt with corporate driver's information.
== END 2021-09-30 21:23 | disposition home or self-care (01) ==
PROVIDERS: Physician Assistant; Emergency Provider Emergency Medicine
DX: F10.20 Alcohol dependence, uncomplicated (principal); Y90.6 Blood alcohol level of 120-199 mg/100 ml; M94.0 Chondrocostal junction syndrome [Tietze]; M25.511 Pain in right shoulder; M19.011 Primary osteoarthritis, right shoulder; F41.9 Anxiety disorder, unspecified; F17.200 Nicotine dependence, unspecified, uncomplicated; F32.A Depression, unspecified; Z20.822 Contact with and (suspected) exposure to COVID-19; Z91.81 History of falling; Z79.899 Other long term (current) drug therapy
CPT/HCPCS: 36415; 70450; 71046; 72125; 73030; 80053; 82077; 83735; 84484; 85025; 87635; 93005; 96361; 96374; 96375; 99285; J2060; J2405

== ENCOUNTER 2021-10-08 06:32 | Emergency (ER) | payer MEDICARE, MEDICAID, SELFPAY ==
--- NOTE | 2021-10-08 | ECG_ITS ---
Test Reason : GENERAL MEDICAL Blood Pressure : / mmHG Vent. Rate : 100 BPM Atrial Rate : 100 BPM P-R Int : 124 ms QRS Dur : 084 ms QT Int : 336 ms P-R-T Axes : 041 038 038 degrees QTc Int : 433 ms Normal sinus rhythm Normal ECG When compared with ECG of 30-SEP-2021 16:12, No significant change was found Referred By: Kingsley Olivares Electronically Signed By:YRN BABB
--- NOTE | ~2021-10-08 | XR_ITS ---
EXAMINATION: XR CHEST CLINICAL INFORMATION: Cough. COMPARISON: Chest x-ray 09/30/2021. TECHNIQUE: AP upright portable view of the chest was obtained. FINDINGS: The lung dove are well expanded and appear clear bilaterally. The cardiac silhouette is normal. There are no pleural effusions or pneumothorax. The central pulmonary vasculature is normal. The hilar regions appear normal. There are no acute osseous findings. XR/XR chest 1V IMPRESSION: 1. There are no acute cardiopulmonary findings.
[2021-10-08 06:36] VITALS: BP 220/120; PULSE 130; O2SAT 98; BMI 29.2
--- NOTE | 2021-10-08 06:39 | ED.GENADULT ---
HPI - General Adult General Chief complaint: General Medical Stated complaint: FEELING UNWELL/FLU LIKE SYMPTOMS Time Seen by Provider: 10/08/21 06:37 Source: patient Mode of arrival: EMS Limitations: no limitations History of Present Illness HPI narrative: This is a 61 years old the patient presented to the emergency department complaining of malaise, stating that he is withdrawing from alcohol Onset (ago): day(s) (1) Radiation: non-radiation Severity: moderate Pain Consistency: constant Relieving factors: none Exacerbating factors: none Associated symptoms: denies other symptoms Related Data Previous Rx's Medication Instructions Recorded azithromycin 250 mg tablet See Rx Instructions .ROUTE 11/13/20 .COMPLEX #6 tab lorazepam 1 mg tablet (Ativan) 1 mg PO TID PRN #10 tab 11/13/20 Allergies Allergy/AdvReac Type Severity Reaction Status Date / Time No Known Allergies Allergy Unverified 10/08/21 06:39 [No Known Allergies*] Review of Systems Review of Systems: Yes all other systems are reviewed and are negative Constitutional: Constitutional: Reports fatigue and Reports weakness Cardiovascular: Cardiovascular: Reports no additional cardiovascular complaints Respiratory: Respiratory: Reports no additional respiratory complaints Musculoskeletal: Musculoskeletal: Reports no additional musculoskeletal complaints Neurologic: Reports weakness Endocrine: Endocrine: Reports fatigue PMFSH Past Medical History Medical History Anxiety Depression ETOH abuse EtOH dependence Social History Social History Alcohol intake: current Alcohol intake frequency: 3 or more drinks per day Alcohol type: beer Patient Tobacco Use Status: Current someday Tobacco user Advance Directives: No Advance Directives Information Provided: Yes Physical Exam Vital Signs: Vital Signs: Last Vital Signs Temp 98.5 F 10/08/21 10:33 Pulse 121 H 10/08/21 10:33 Resp 18 10/08/21 10:33 BP 152/95 H 10/08/21 10:33 Pulse Ox 98 10/08/21 10:33 BMI result Body Mass Index 29.2 Const: General: cooperative and anxious Nutritional Appearance: average body habitus HENMT: Other: examination the head eyes ears nose and throat is within normal limit Face and sinus: Yes normal facial exam Mouth: Normal oral and palatal mucosa present Throat: Yes posterior oropharynx normal Neck: Neck: Yes normal visual inspection Thyroid: Thyroid normal Chest: Chest palpation & inspection: normal inspection of the chest Resp: Effort & Inspection: normal respiratory effort Auscultation: clear to auscultation bilaterally Cardio: Jugular venous distension: no JVD Rate: regular rate Rhythm: regular rhythm GI: Inspection: Yes normal to inspection Palpation (GI): Soft to palpation, not firm and nontender Auscultation: normal bowel sounds Rectal Exam - Male: Yes visual inspection normal Skin: General skin exam: no rashes or lesions noted, elasticity normal, turgor normal and atrophy Course Reevaluation(s) Reevaluation #1: Remain hemodynamically stable, labs okay, he is requesting alcohol detox , will consult care team Reevaluation #2: seen by crisis pt will be going to detox accepted to [facility] Medical Decision Making Lab Data Result diagrams: 10/08/21 08:35 10/08/21 08:35 Labs: Lab Results 10/08/21 10/08/21 10/08/21 Range/Units 08:35 08:35 08:35 WBC 8.9 (4.8-10.8) X10*3/uL RBC 5.18 (4.60-5.80) X10*6/uL Hgb 16.3 (14.0-18.0) g/dl Hct 46.3 (42.0-52.0) % MCV 89.4 (80.0-98.0) fL MCH 31.5 (27.0-33.0) pg MCHC 35.2 (31.0-36.0) g/dl RDW 12.4 (11.0-16.0) % Plt Count 282 (160-400) X10*3/uL MPV 8.6 L (9.4-12.4) fL Immature Gran % (Auto) 0.4 (0.0-0.4) % Neut % (Auto) 72.9 (45-73) % Lymph % (Auto) 14.6 L (20-40) % Cobb % (Auto) 9.0 (2-11) % Eos % (Auto) 2.4 (0-4) % Baso % (Auto) 0.7 (0-2) % Lymph # (Auto) 1.3 (1.2-4.9) X10*3/uL Cobb # (Auto) 0.8 (0.1-1.2) X10*3/uL Eos # (Auto) 0.2 (0.0-0.4) X10*3/uL Baso # (Auto) 0.1 (0.0-0.2) X10*3/uL Abs Immat Gran (auto) 0.04 H (0.00-0.03) X10*3/uL Absolute Neuts (auto) 6.5 (2.0-8.3) x10*3/uL Absolute Nucleated RBC 0.000 (0.0-0.012) X10*3/uL Nucleated RBC % (auto) 0.0 (0.0-0.2) /100WBC Sodium 141 (135-145) mmol/L Potassium 4.2 (3.3-5.1) mmol/L Chloride 106 (96-108) mmol/L Carbon Dioxide 22 (22-29) mmol/L Anion Gap 17 (12-20) BUN 8 L (9-16) mg/dL Creatinine 0.84 (0.5-1.4) mg/dL Estim Creat Clear Calc 84.4 Estimated GFR > 60 Random Glucose 112 (60-115) mg/dL Calcium 9.3 (8.4-10.2) mg/dL Magnesium 2.0 (1.6-2.6) mg/dL Total Bilirubin 0.5 (0.0-1.0) mg/dL AST 49 H (5-37) U/L ALT 78 H (0-40) U/L Alkaline Phosphatase 81 (39-117) U/L Total Protein 7.0 (6.5-8.0) g/dL Albumin 4.2 (3.5-5.0) g/dL Ethyl Alcohol mg/dL Influenza Type A (PCR) NEGATIVE (Negative) Influenza Type B (PCR) NEGATIVE (Negative) RSV RNA Qual (PCR) NEGATIVE (Negative) SARS-CoV-2 RNA (RT-PCR) NEGATIVE (Negative) 10/08/21 Range/Units 08:35 WBC (4.8-10.8) X10*3/uL RBC (4.60-5.80) X10*6/uL Hgb (14.0-18.0) g/dl Hct (42.0-52.0) % MCV (80.0-98.0) fL MCH (27.0-33.0) pg MCHC (31.0-36.0) g/dl RDW (11.0-16.0) % Plt Count (160-400) X10*3/uL MPV (9.4-12.4) fL Immature Gran % (Auto) (0.0-0.4) % Neut % (Auto) (45-73) % Lymph % (Auto) (20-40) % Cobb % (Auto) (2-11) % Eos % (Auto) (0-4) % Baso % (Auto) (0-2) % Lymph # (Auto) (1.2-4.9) X10*3/uL Cobb # (Auto) (0.1-1.2) X10*3/uL Eos # (Auto) (0.0-0.4) X10*3/uL Baso # (Auto) (0.0-0.2) X10*3/uL Abs Immat Gran (auto) (0.00-0.03) X10*3/uL Absolute Neuts (auto) (2.0-8.3) x10*3/uL Absolute Nucleated RBC (0.0-0.012) X10*3/uL Nucleated RBC % (auto) (0.0-0.2) /100WBC Sodium (135-145) mmol/L Potassium (3.3-5.1) mmol/L Chloride (96-108) mmol/L Carbon Dioxide (22-29) mmol/L Anion Gap (12-20) BUN (9-16) mg/dL Creatinine (0.5-1.4) mg/dL Estim Creat Clear Calc Estimated GFR Random Glucose (60-115) mg/dL Calcium (8.4-10.2) mg/dL Magnesium (1.6-2.6) mg/dL Total Bilirubin (0.0-1.0) mg/dL AST (5-37) U/L ALT (0-40) U/L Alkaline Phosphatase (39-117) U/L Total Protein (6.5-8.0) g/dL Albumin (3.5-5.0) g/dL Ethyl Alcohol 27 mg/dL Influenza Type A (PCR) (Negative) Influenza Type B (PCR) (Negative) RSV RNA Qual (PCR) (Negative) SARS-CoV-2 RNA (RT-PCR) (Negative) Discharge Plan Discharge Clinical Impression: Alcohol abuse, Alcohol withdrawal Patient Disposition: Home, Self-Care Instructions: Abuse of Alcohol (ED) Additional Instructions: You are been accepted to [facility],please go there as discussed Prescriptions: No Action lorazepam [Ativan] 1 mg tablet 1 mg PO TID PRN (Reason: anxiety) Qty: 10 RF: 0 azithromycin 250 mg tablet See Rx Instructions .ROUTE .COMPLEX Qty: 6 RF: 0 Discharge Date/Time: 10/08/21 12:25
[2021-10-08 06:46] VITALS: BP 157/90; PULSE 111; RESP 21; TEMP 37.6
[2021-10-08] MEDS: chlordiazePOXIDE HCl 25 MG CAPSULE 100 MG PO (06:52)
[2021-10-08 08:40] LABS: MANUAL DIFF FLAG NO
[2021-10-08 08:41] LABS: Basophils Absolute Auto 0.1 X10*3/uL (0.0-0.2); Basophils Percent Auto 0.7 % (0-2); Eosinophils Absolute Auto 0.2 X10*3/uL (0.0-0.4); Eosinophils Percent Auto 2.4 % (0-4); Hematocrit 46.3 % (42.0-52.0); Hemoglobin 16.3 g/dl (14.0-18.0); Imm Gran Abs Auto 0.04 X10*3/uL (0.00-0.03); Imm Gran Pct Auto 0.4 % (0.0-0.4); Lymphocytes Absolute Auto 1.3 X10*3/uL (1.2-4.9); Lymphocytes Percent Auto 14.6 % (20-40); Mean Corpuscular HGB Conc 35.2 g/dl (31.0-36.0); Mean Corpuscular Hemoglobin 31.5 pg (27.0-33.0); Mean Corpuscular Volume 89.4 fL (80.0-98.0); Mean Platelet Volume 8.6 fL (9.4-12.4); Monocytes Absolute Auto 0.8 X10*3/uL (0.1-1.2); Neutrophils Absolute Auto 6.5 x10*3/uL (2.0-8.3); Neutrophils Percent Auto 72.9 % (45-73); Platelet Count 282 X10*3/uL (160-400); Red Blood Count 5.18 X10*6/uL (4.60-5.80); Red Cell Distribution Width 12.4 % (11.0-16.0); White Blood Count 8.9 X10*3/uL (4.8-10.8)
[2021-10-08 08:52] LABS: Ethanol 27 mg/dL
[2021-10-08 08:56] LABS: Alanine Aminotransferase 78 U/L (0-40); Albumin Level 4.2 g/dL (3.5-5.0); Alkaline Phosphatase 81 U/L (39-117); Anion Gap 17 (12-20); Aspartate Amino Transferase 49 U/L (5-37); Bilirubin Total 0.5 mg/dL (0.0-1.0); Blood Urea Nitrogen 8 mg/dL (9-16); Calcium 9.3 mg/dL (8.4-10.2); Carbon Dioxide 22 mmol/L (22-29); Chloride 106 mmol/L (96-108); Creatinine Clr Calc Pharmacy 84.4; Estimated Glomerular Filt Rate > 60; Glucose Random 112 mg/dL (60-115); Potassium 4.2 mmol/L (3.3-5.1); Sodium 141 mmol/L (135-145)
[2021-10-08 09:21] LABS: Influenza A PCR NEGATIVE (Negative); Influenza B PCR NEGATIVE (Negative); Resp Syncy Virus RNA Qual PCR NEGATIVE (Negative); SARS COV2 PCR INHOUSE NEGATIVE (Negative)
--- NOTE | 2021-10-08 10:17 | PC.NURSE ---
pt medically cleared for transfer to the POD. RN notified.
[2021-10-08 10:33] VITALS: BP 152/95; PULSE 121; RESP 18; TEMP 36.9; O2SAT 98
[2021-10-08] MEDS: chlordiazePOXIDE HCl 25 MG CAPSULE 50 MG PO (11:57)
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
== END 2021-10-08 12:25 | disposition home or self-care (01) ==
PROVIDERS: Emergency Provider Emergency Medicine
DX: F10.139 Alcohol abuse with withdrawal, unspecified (principal); Y90.1 Blood alcohol level of 20-39 mg/100 ml; Z20.822 Contact with and (suspected) exposure to COVID-19
CPT/HCPCS: 0241U; 36415; 71045; 80053; 82077; 83735; 85025; 93005; 99284

== ENCOUNTER 2025-01-31 18:02 | Inpatient (IN) | payer MEDICARE, MEDICAID, SELFPAY ==
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
[2025-01-31 18:12] VITALS: BP 121/78; BP 130/90; PULSE 109; PULSE 115; RESP 18; TEMP 36.8; O2SAT 95; BMI 26.5
[2025-01-31 18:59] VITALS: BP 152/108; PULSE 105; RESP 18; O2SAT 95
[2025-01-31 19:00] LABS: MANUAL DIFF FLAG NO
[2025-01-31 19:02] LABS: Basophils Absolute Auto 0.1 X10*3/uL (0.0-0.2); Basophils Percent Auto 0.6 % (0-2); Eosinophils Absolute Auto 0.1 X10*3/uL (0.0-0.4); Eosinophils Percent Auto 0.6 % (0-4); Hemoglobin 14.3 g/dl (14.0-18.0); Imm Gran Abs Auto 0.05 X10*3/uL (0.00-0.03); Imm Gran Pct Auto 0.4 % (0.0-0.4); Lymphocytes Absolute Auto 1.5 X10*3/uL (1.2-4.9); Lymphocytes Percent Auto 11.6 % (20-40); Mean Corpuscular HGB Conc 36.7 g/dl (31.0-36.0); Mean Corpuscular Hemoglobin 30.8 pg (27.0-33.0); Mean Corpuscular Volume 84.1 fL (80.0-98.0); Mean Platelet Volume 8.6 fL (9.4-12.4); Neutrophils Absolute Auto 10.1 x10*3/uL (2.0-8.3); Neutrophils Percent Auto 78.8 % (45-73); Platelet Count 315 X10*3/uL (160-400); Red Blood Count 4.64 X10*6/uL (4.60-5.80); Red Cell Distribution Width 12.5 % (11.0-16.0); White Blood Count 12.9 X10*3/uL (4.8-10.8)
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
[2025-01-31 19:15] LABS: Alanine Aminotransferase 41 U/L (0-40); Albumin Level 3.7 g/dL (3.5-5.0); Alkaline Phosphatase 107 U/L (39-117); Anion Gap 19 (12-20); Aspartate Amino Transferase 229 U/L (5-37); Bilirubin Total 0.6 mg/dL (0.0-1.0); Blood Urea Nitrogen 9 mg/dL (9-16); Calcium 8.5 mg/dL (8.4-10.2); Carbon Dioxide 21 mmol/L (22-29); Chloride 105 mmol/L (96-108); Creatinine Clr Calc Pharmacy 85.6; Estimated Glomerular Filt Rate > 60; Ethanol 331 mg/dL; Glucose Random 117 mg/dL (60-115); Lipase 24 U/L (8-78); Magnesium 2.5 mg/dL (1.6-2.6); Potassium 3.7 mmol/L (3.3-5.1); Sodium 141 mmol/L (135-145); Total Protein 6.5 g/dL (6.5-8.0)
[2025-01-31] MEDS: iohexoL 350 MG/ML 100 ML INFUS..BTL 85 ML IV (19:29)
[2025-01-31 20:00] VITALS: BP 126/75; PULSE 94; RESP 18; TEMP 36.4; O2SAT 94
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
[2025-01-31 21:35] LABS: Appearance Urine Clear; Color Urine Yellow; Glucose Urine UA Negative (Negative); Leukocyte Esterase Urine Negative (Negative); Nitrite Urine Negative (Negative); UMIC TRIGGER UACC YES; Urine Blood Large (3+) (Negative); Urine Ketones Trace mg/dL (Negative); Urine Protein 30 (1+) mg/dL (Neg-Trace)
[2025-01-31 21:42] LABS: Bacteria Urine None Seen (None Seen); Hyaline Casts Urine 0-2 /LPF (0-2); RBC Urine 0-2 /HPF (0-2); Squamous Epithelial Cell Urine 0-2 /HPF (0-2); WBC Urine 0-5 /HPF (0-5)
[2025-01-31] MEDS: LORazepam 2 MG/ML VIAL 1 MG IVPUSH (21:54)
[2025-01-31 22:00] VITALS: BP 102/59; PULSE 102; RESP 18; TEMP 36.7; O2SAT 93
[2025-02-01] VITALS (7 sets, daily range): BP systolic 109–156; BP diastolic 53–76; PULSE 65–100; RESP 14–18; TEMP 36.8–37.3; O2SAT 93–100
--- NOTE | 2025-02-01 07:11 | PC.NURSE ---
patient a&ox3, vss, rr equal/non labored, rose cath patient/draining, denying pain,call ordaz within reach, plan of care ongoing
[2025-02-01] MEDS: LORazepam 2 MG/ML VIAL IVPUSH (09:32)
--- NOTE | 2025-02-01 11:42 | PC.NURSE ---
pt sleeping, wakes to verbal stimulus, complains of 9/10 generalized pain, rose cath patient/draining, rr equal/non labored, cafeteria monitor sinus tach, call ordaz within reach, plan of care ongoing
--- NOTE | 2025-02-01 12:41 | MHC.RECOVRN ---
Met with pt to follow up. Pt reports he is still interested in ATS in a day or two. Pt had been provided with written resources, denies questions or concerns for t/w. [facility] and follow up with provider regarding restarting naltrexone, if pt so desires. ED provider aware.
[2025-02-01] MEDS: 0.9 % Sodium Chloride 1,000 ML 999 ML IV ×2 (16:56→17:30)
--- NOTE | 2025-02-01 17:09 | P.HPHOSP_ITS ---
History of Present Illness Date of Service: 02/01/25 Chief Complaint: Rhabdomyolysis 64-year-old male with history of alcohol use disorder depression and anxiety presents requesting detox from home. When questioned he states he was on the floor for an unknown amount of time and could not get up. Workup in emergency room including cervical spine head abdomen pelvis and chest CTs failed to demonstrate any acute abnormalities. Initial blood work was significant for a total creatinine kinase of 10,972. When examined patient was actively withdrawing. In the emergency room he received several doses of pulse dose Ativan with limited effect. Review of Systems 2 Review of Systems: Denies chest pain Denies shortness of breath Denies nausea vomiting diarrhea Denies fever chills PMFSH Medical History EtOH dependence ETOH abuse Depression Anxiety Social History Alcohol intake: current Alcohol intake frequency: 3 or more drinks per day Alcohol type: hard liquor Patient Tobacco Use Status: Current someday Tobacco user Smoked in Last 30 Days: Yes Use of substances other than those prescribed or required for medical reasons: No Advance Directives: No Advance Directives Information Provided: Yes Meds Allergies Allergy/AdvReac Type Severity Reaction Status Date / Time No Known Allergies Allergy Verified 01/31/25 18:20 [No Known Allergies*] Active Medications: Current Medications Acetaminophen (Acetaminophen 325 Mg Tablet) 650 mg PO Q6H PRN PRN Reason: Pain, Mild 1-3,fever,headache Calcium Carbonate (Calcium Carbonate 750 Mg Tab.Chew) 750 mg PO Q4H PRN PRN Reason: Heartburn Sodium Chloride (Ns) 1,000 mls @ 999 mls/hr IV .Q1H1M [facility] Stop: 02/01/25 17:30 Last Admin: 02/01/25 16:56 Dose: 999 mls/hr Sodium Chloride (Ns) 1,000 mls @ 999 mls/hr IV .Q1H1M [facility] Stop: 02/01/25 17:30 Lactated Ringer's (Lr) 1,000 mls @ 150 mls/hr IVCONT .Q6H40M [facility] Lorazepam (Lorazepam 1 Mg Tablet) 2 mg PO Q3H PRN PRN Reason: Alcohol Withdrawal Magnesium Hydroxide (Milk Of Magnesia 30 Ml Oral.Susp) 30 ml PO DAILY PRN PRN Reason: Constipation Melatonin (Melatonin 3 Mg Tablet) 6 mg PO BEDTIME PRN PRN Reason: Insomnia Ondansetron HCl (Ondansetron Hcl 4 Mg/2 Ml Vial) 4 mg IVPUSH Q8H PRN PRN Reason: Nausea and Vomiting Pharmacy Consult (Consult Rx Etoh Phenob Im/Po) 1 each MISCELLANE ONCE PRN; Protocol PRN Reason: Consult order Sodium Chloride (0.9 % Sodium Chloride Flush 3 Ml Syringe) 3 ml IVFLUSH QSHIFT [facility] Physical Exam 2 Vital Signs and Narrative: Vital Signs: Last Vital Signs Temp 99.1 F 02/01/25 15:53 Pulse 66 02/01/25 15:53 Resp 16 02/01/25 15:53 BP 156/74 H 02/01/25 15:53 Pulse Ox 100 02/01/25 15:53 O2 Del Method Room Air 02/01/25 15:53 BMI result Body Mass Index 26.5 Const: Other: Awake alert tremulous Resp: Other: Clear to auscultation bilaterally no rales rhonchi or wheezes Cardio: Other: No S4; positive S1-S2; no S3 murmurs rubs or gallops GI: Other: Soft nontender nondistended normoactive bowel sounds Neuro: Other: Cranial nerves 2-12 grossly intact as tested. Moving all extremities with equal power. Sensation and gait could not be tested Extrem: Other: No edema bilaterally Results Labs 01/31/25 18:57 01/31/25 18:57 Labs: Laboratory Results - last 24 hr 01/31/25 01/31/25 02/01/25 18:57 21:26 15:07 MCV 84.1 MCH 30.8 MCHC 36.7 H RDW 12.5 Plt Count 315 MPV 8.6 L Immature Gran % (Auto) 0.4 Neut % (Auto) 78.8 H Lymph % (Auto) 11.6 L [place] % (Auto) 8.0 Eos % (Auto) 0.6 Baso % (Auto) 0.6 Lymph # (Auto) 1.5 [place] # (Auto) 1.0 Eos # (Auto) 0.1 Baso # (Auto) 0.1 Abs Immat Gran (auto) 0.05 H Absolute Neuts (auto) 10.1 H Absolute Nucleated RBC 0.000 Nucleated RBC % (auto) 0.0 Anion Gap 19 Estim Creat Clear Calc 85.6 Estimated GFR > 60 Random Glucose 117 H Calcium 8.5 D Magnesium 2.5 Total Bilirubin 0.6 AST 229 H ALT 41 H Alkaline Phosphatase 107 Total Creatine Kinase 85794 H Total Protein 6.5 Albumin 3.7 Lipase 24 Urine Color Yellow Urine Appearance Clear Urine pH 6.0 Ur Specific [place] 1.020 Urine Protein 30 (1+) H Urine Glucose (UA) Negative Urine Ketones Trace Urine Blood Large (3+) H Urine Nitrite Negative Ur Leukocyte Esterase Negative Urine RBC 0-2 Urine WBC 0-5 Ur Squamous Epith Cells 0-2 Urine Bacteria None Seen Hyaline Casts 0-2 Ethyl Alcohol 331 H* Assessment and Plan (1) Rhabdomyolysis: Qualifiers: Rhabdomyolysis type: traumatic Encounter type: initial encounter Q ualified Code(s): T79.6XXA - Traumatic ischemia of muscle, initial encounter Status: Acute (2) Alcohol use disorder: Status: Acute (3) Acute urinary retention: Status: Acute Plan 64-year-old male with a history of alcohol use disorder presents to the emergency room after unknown downtime at home. Patient states he fell and was unable to get up after a drinking binge. He is unclear the duration of his downtime. In the emergency room workup consistent with rhabdomyolysis along with acute alcohol withdrawal 1. Acute rhabdomyolysis -we will repeat total CK however given hematuria we will alkalinize urine with [id number] at 150 an hour -follow renals/divalents -continue [place] to monitor adequate urine output 2. Acute alcohol withdrawal -start phenobarb protocol at 10 milligrams/kilogram loading dose -CIWA scale -seizure precautions Lovenox Full code We will required at least 2 midnights going forward of inpatient stay to treat acute rhabdomyolysis with IV fluids and maintain on CIWA scale. This can not be achieved a lesser acute setting Quality Stroke Does the patient have a stroke diagnosis?: No VTE Prior VTE?: No VTE Risk Level:: Medical - moderate - high VTE Device Contraindication: Treatment Not Indicated VTE Drug Contraindication: N/A - Med Ordered
[2025-02-01] MEDS: PHENobarbitaL sodium 130 MG/ML IM ONCE 237 MG IM (17:29)
[2025-02-01 17:39] LABS: MANUAL DIFF FLAG NO
[2025-02-01 17:42] LABS: Basophils Absolute Auto 0.1 X10*3/uL (0.0-0.2); Basophils Percent Auto 0.5 % (0-2); Eosinophils Absolute Auto 0.1 X10*3/uL (0.0-0.4); Eosinophils Percent Auto 1.3 % (0-4); Hematocrit 36.3 % (42.0-52.0); Hemoglobin 13.2 g/dl (14.0-18.0); Imm Gran Abs Auto 0.07 X10*3/uL (0.00-0.03); Imm Gran Pct Auto 0.7 % (0.0-0.4); Lymphocytes Absolute Auto 0.9 X10*3/uL (1.2-4.9); Lymphocytes Percent Auto 8.5 % (20-40); Mean Corpuscular HGB Conc 36.4 g/dl (31.0-36.0); Mean Corpuscular Hemoglobin 31.3 pg (27.0-33.0); Mean Platelet Volume 9.6 fL (9.4-12.4); Monocytes Absolute Auto 0.8 X10*3/uL (0.1-1.2); Monocytes Percent Auto 7.1 % (2-11); Neutrophils Absolute Auto 8.7 x10*3/uL (2.0-8.3); Neutrophils Percent Auto 81.9 % (45-73); Platelet Count 212 X10*3/uL (160-400); Red Blood Count 4.22 X10*6/uL (4.60-5.80); Red Cell Distribution Width 12.3 % (11.0-16.0); White Blood Count 10.6 X10*3/uL (4.8-10.8)
--- NOTE | 2025-02-01 17:43 | PC.NURSE ---
pt a&o person/place, pt medicated with phenobarb per order, pt changed to inpt bed, traffic monitor specialist intact, ivf running per order, calling pharmacy for missing med, seizure precautions placed, call ordaz within reach, plan of care ongoing.
[2025-02-01 18:02] LABS: Alanine Aminotransferase 27 U/L (0-40); Alkaline Phosphatase 86 U/L (39-117); Anion Gap 12 (12-20); Aspartate Amino Transferase 143 U/L (5-37); Bilirubin Total 1.4 mg/dL (0.0-1.0); Blood Urea Nitrogen 10 mg/dL (9-16); Calcium 7.9 mg/dL (8.4-10.2); Carbon Dioxide 24 mmol/L (22-29); Chloride 106 mmol/L (96-108); Creatinine Clr Calc Pharmacy 96.5; Estimated Glomerular Filt Rate > 60; Glucose Fasting 100 mg/dL (60-99); Sodium 138 mmol/L (135-145); Total Protein 5.4 g/dL (6.5-8.0)
[2025-02-01 18:34] LABS: Influenza A PCR NEGATIVE (Negative); Influenza B PCR NEGATIVE (Negative); Resp Syncy Virus RNA Qual PCR NEGATIVE (Negative); SARS COV2 PCR INHOUSE NEGATIVE (Negative)
[2025-02-01] MEDS: Sodium Bicarbonate 8.4% 150 MEQ in Dextrose 5 % 850 ML 100 MEQ IV (18:49)
--- NOTE | 2025-02-01 18:54 | PHA.MEDREC ---
Pharmacy Consult ? Medication Reconciliation Pharmacy has completed the medication reconciliation. Contacted [facility] for med list. Patient states he is ONLY taking Gabapentin and trazodone at bedtime. In the past year Finasteride, tamsulosin, b12, and naltrexone have been filled at the [facility] ,but patient states he has not been taking .
[2025-02-01] MEDS: PHENobarbitaL sodium 65 MG/ML VIAL Q3Hx2 178 MG IM (20:32)
--- NOTE | 2025-02-01 20:43 | PC.NURSE ---
Patient is alert and oriented x3, VSS, doughnut fryer in place, sinus rhythm hr 80-83. Patient complaints of generalized pain 6/10 at present, CIWA score 2, patient medicated with phenobarb IM per MAR, tolerated well. Patient curretnly resting in a hospital bed, seizure precautions in place, call ordaz within patient's reach.
[2025-02-01 22:45] LABS: B Type Natriuretic Peptide 37 pg/mL (<100)
--- NOTE | 2025-02-01 23:26 | PM.EVENT ---
Event Note Date of Service: 02/01/25 Event Note: Received sign out per Dr. Whitlock, checked Bicarb and it is now normalized so Bicarb drip stopped and started NS. CPKs trending down but still highly elevated. Giving 250 mls of 0.9 NS X2 over 2 hours and will then start 125 mls per hour. UPdated Dr Lopez as well. Time Spent With Patient Time: Total time managing care of this patient today ____ minutes.
[2025-02-02] VITALS (7 sets, daily range): BP systolic 122–135; BP diastolic 60–72; PULSE 74–97; RESP 14–18; TEMP 36.1–36.8; O2SAT 95–99
[2025-02-02] MEDS: 0.9 % Sodium Chloride 500 ML 250 ML IVCONT (00:27)
[2025-02-02] MEDS: 0.9 % Sodium Chloride Flush 3 ML SYRINGE IVFLUSH ×2 (00:30→08:51)
[2025-02-02] MEDS: PHENobarbitaL sodium 65 MG/ML VIAL Q3Hx2 178 MG IM (00:30)
[2025-02-02] MEDS: 0.9 % Sodium Chloride 1,000 ML 125 ML IVCONT ×3 (02:53→20:48)
[2025-02-02 08:18] LABS: MANUAL DIFF FLAG NO
[2025-02-02 08:29] LABS: Basophils Percent Auto 0.4 % (0-2); Eosinophils Absolute Auto 0.4 X10*3/uL (0.0-0.4); Hematocrit 36.7 % (42.0-52.0); Hemoglobin 13.2 g/dl (14.0-18.0); Imm Gran Abs Auto 0.04 X10*3/uL (0.00-0.03); Imm Gran Pct Auto 0.4 % (0.0-0.4); Lymphocytes Absolute Auto 0.9 X10*3/uL (1.2-4.9); Lymphocytes Percent Auto 9.8 % (20-40); Mean Corpuscular Hemoglobin 31.2 pg (27.0-33.0); Mean Corpuscular Volume 86.8 fL (80.0-98.0); Mean Platelet Volume 9.9 fL (9.4-12.4); Monocytes Absolute Auto 0.5 X10*3/uL (0.1-1.2); Monocytes Percent Auto 5.8 % (2-11); Neutrophils Absolute Auto 7.2 x10*3/uL (2.0-8.3); Neutrophils Percent Auto 79.6 % (45-73); Platelet Count 240 X10*3/uL (160-400); Red Blood Count 4.23 X10*6/uL (4.60-5.80); Red Cell Distribution Width 12.2 % (11.0-16.0); White Blood Count 9.1 X10*3/uL (4.8-10.8)
[2025-02-02 08:48] LABS: Alanine Aminotransferase 27 U/L (0-40); Albumin Level 2.9 g/dL (3.5-5.0); Alkaline Phosphatase 84 U/L (39-117); Anion Gap 9 (12-20); Aspartate Amino Transferase 114 U/L (5-37); Bilirubin Total 1.2 mg/dL (0.0-1.0); Blood Urea Nitrogen 7 mg/dL (9-16); Calcium 8.1 mg/dL (8.4-10.2); Carbon Dioxide 27 mmol/L (22-29); Chloride 107 mmol/L (96-108); Creatinine Clr Calc Pharmacy 103.1; Estimated Glomerular Filt Rate > 60; Glucose Random 86 mg/dL (60-115); Potassium 3.5 mmol/L (3.3-5.1); Sodium 139 mmol/L (135-145); Total Protein 5.3 g/dL (6.5-8.0)
[2025-02-02] MEDS: PHENobarbitaL 15 MG TABLET 45 MG PO ×2 (08:51→20:37)
[2025-02-02] MEDS: ondansetron HCL 4 MG/2 ML VIAL IVPUSH (08:56)
[2025-02-02] MEDS: Acetaminophen 325 MG TABLET 650 MG PO (09:05)
--- NOTE | 2025-02-02 09:14 | MHC.CM.PN ---
IMM 02/02/25, Pt lives alone, he states that his PCP is Dr. Henry at [facility], we have Tessa Kim as PCP, he said he has a card with her name, has not met her. No HCP, discussed, he declined to complete one at this time. He said he has home health services 1 x a week for 2-3 hrs. For DME: he has walker, cane, scooter. He is a . He will need assistance with transportation home at [place]. DCP: home, self care. CM to follow for DC needs.
--- NOTE | 2025-02-02 11:14 | HO.ADDICTCON ---
History of Present Illness Date of Service: 02/02/2025 Chief Complaint: rhabdomyolosis HPI Narrative: Patient is a 64 year old male, medically admitted with rhabdomyolysis and acute alcohol withdrawal. Seen yesterday by Recovery Support RN while in ED as he was considering ATS admission, however labs showed rhabdo and withdrawal sx were also present, so decision admit. Patient seen in room 474. He is awake, alert, engaged in interview. Reports he started drinking 4-5 days ago after 2 years of not drinking any alcohol. He had been receiving Vivitrol injections up until a couple of months ago , when he says he decided to switch back to oral naltrexone. He states oral naltrexone not as effective in managing cravings. Drinking 6 22 oz beers and 6 nips of whiskey daily, prior to presenting to ED. He is engaged in treatment with [facility] and his providers are on [place] . He lives at [facility] on [address] and feels that he has strong supports He reports feeling pain all over, especially in my legs --notified attending, Dr. Perez Also reporting nausea. CIWA score 4 this morning. Pheno taper in place. No restlessness or diaphoresis noted ETOh level 323 at admission UDS not collected--patient denies any substance use aside from alcohol AUDIT-C Brief Intervention This insurance underwriter sales met with patient to discuss current alcohol use and concerns related to increased risk of alcohol related problems. Discussed how alcohol use has impacted health, including negative impact on mental health and overall physical wellbeing. Discussed risk reduction strategies including drinking below the recommended limit. Medical Evaluation Reviewed: Yes Review of Systems Constitutional: Reports as per HPI, Reports difficulty sleeping, Reports malaise and Reports weakness Gastrointestinal: Denies loose stools and Reports nausea Reports weakness Psychiatric: Reports anxiety Diagnostics Vital Signs (24Hr): Vital Signs - 24 hr 02/01/25 11:15 02/01/25 15:53 02/01/25 17:58 Temperature 98.8 F 99.1 F Pulse Rate 95 66 81 Respiratory Rate 15 16 15 Blood Pressure 130/66 156/74 H 138/70 Pulse Oximetry 93 100 Oxygen Delivery Method Room Air Room Air Room Air 02/01/25 20:41 02/02/25 00:33 02/02/25 02:00 Temperature 98.4 F 98.3 F 98.0 F Pulse Rate 92 79 77 Respiratory Rate 16 14 16 Blood Pressure 109/76 135/72 127/69 Pulse Oximetry 94 95 95 Oxygen Delivery Method Room Air Room Air Room Air 02/02/25 03:37 02/02/25 08:00 Temperature 98.0 F 96.9 F Pulse Rate 74 97 Respiratory Rate 16 17 Blood Pressure 125/62 127/72 Pulse Oximetry 96 99 Oxygen Delivery Method Room Air Room Air BMI result Body Mass Index 26.5 Labs 02/02/25 07:10 02/02/25 07:10 Labs: Laboratory Results - last 48 hr 01/31/25 01/31/25 02/01/25 18:57 21:26 15:07 WBC 12.9 H RBC 4.64 Hgb 14.3 Hct 39.0 L MCV 84.1 MCH 30.8 MCHC 36.7 H RDW 12.5 Plt Count 315 MPV 8.6 L Immature Gran % (Auto) 0.4 Neut % (Auto) 78.8 H Lymph % (Auto) 11.6 L Glenn % (Auto) 8.0 Eos % (Auto) 0.6 Baso % (Auto) 0.6 Lymph # (Auto) 1.5 Glenn # (Auto) 1.0 Eos # (Auto) 0.1 Baso # (Auto) 0.1 Abs Immat Gran (auto) 0.05 H Absolute Neuts (auto) 10.1 H Absolute Nucleated RBC 0.000 Nucleated RBC % (auto) 0.0 Sodium 141 Potassium 3.7 Chloride 105 Carbon Dioxide 21 L Anion Gap 19 BUN 9 Creatinine 0.71 Estim Creat Clear Calc 85.6 Estimated GFR > 60 Random Glucose 117 H Fasting Glucose Calcium 8.5 D Magnesium 2.5 Total Bilirubin 0.6 AST 229 H ALT 41 H Alkaline Phosphatase 107 Total Creatine Kinase 26173 H B-Natriuretic Peptide Total Protein 6.5 Albumin 3.7 Lipase 24 Urine Color Yellow Urine Appearance Clear Urine pH 6.0 Ur Specific [place] 1.020 Urine Protein 30 (1+) H Urine Glucose (UA) Negative Urine Ketones Trace Urine Blood Large (3+) H Urine Nitrite Negative Ur Leukocyte Esterase Negative Urine RBC 0-2 Urine WBC 0-5 Ur Squamous Epith Cells 0-2 Urine Bacteria None Seen Hyaline Casts 0-2 Ethyl Alcohol 331 H* Influenza Type A (PCR) Influenza Type B (PCR) RSV RNA Qual (PCR) SARS-CoV-2 RNA (RT-PCR) 0302/01/25 02/01/25 17:35 17:48 22:14 WBC 10.6 RBC 4.22 L Hgb 13.2 L Hct 36.3 L MCV 86.0 MCH 31.3 MCHC 36.4 H RDW 12.3 Plt Count 212 D MPV 9.6 Immature Gran % (Auto) 0.7 H Neut % (Auto) 81.9 H Lymph % (Auto) 8.5 L Glenn % (Auto) 7.1 Eos % (Auto) 1.3 Baso % (Auto) 0.5 Lymph # (Auto) 0.9 L [place] # (Auto) 0.8 Eos # (Auto) 0.1 Baso # (Auto) 0.1 Abs Immat Gran (auto) 0.07 H Absolute Neuts (auto) 8.7 H Absolute Nucleated RBC 0.000 Nucleated RBC % (auto) 0.0 Sodium 138 Potassium 4.0 Chloride 106 Carbon Dioxide 24 Anion Gap 12 BUN 10 Creatinine 0.63 Estim Creat Clear Calc 96.5 Estimated GFR > 60 Random Glucose Fasting Glucose 100 H Calcium 7.9 L D Magnesium Total Bilirubin 1.4 H AST 143 H ALT 27 Alkaline Phosphatase 86 Total Creatine Kinase 9374 H 7672 H B-Natriuretic Peptide 37 Total Protein 5.4 L Albumin 3.0 L Lipase Urine Color Urine Appearance Urine pH Ur Specific [place] Urine Protein Urine Glucose (UA) Urine Ketones Urine Blood Urine Nitrite Ur Leukocyte Esterase Urine RBC Urine WBC Ur Squamous Epith Cells Urine Bacteria Hyaline Casts Ethyl Alcohol Influenza Type A (PCR) NEGATIVE Influenza Type B (PCR) NEGATIVE RSV RNA Qual (PCR) NEGATIVE SARS-CoV-2 RNA (RT-PCR) NEGATIVE 02/02/25 07:10 WBC 9.1 RBC 4.23 L Hgb 13.2 L Hct 36.7 L MCV 86.8 MCH 31.2 MCHC 36.0 RDW 12.2 Plt Count 240 MPV 9.9 Immature Gran % (Auto) 0.4 Neut % (Auto) 79.6 H Lymph % (Auto) 9.8 L [place] % (Auto) 5.8 Eos % (Auto) 4.0 Baso % (Auto) 0.4 Lymph # (Auto) 0.9 L [place] # (Auto) 0.5 Eos # (Auto) 0.4 Baso # (Auto) 0.0 Abs Immat Gran (auto) 0.04 H Absolute Neuts (auto) 7.2 Absolute Nucleated RBC 0.000 Nucleated RBC % (auto) 0.0 Sodium 139 Potassium 3.5 Chloride 107 Carbon Dioxide 27 Anion Gap 9 L BUN 7 L Creatinine 0.59 Estim Creat Clear Calc 103.1 Estimated GFR > 60 Random Glucose 86 Fasting Glucose Calcium 8.1 L Magnesium Total Bilirubin 1.2 H AST 114 H ALT 27 Alkaline Phosphatase 84 Total Creatine Kinase B-Natriuretic Peptide Total Protein 5.3 L Albumin 2.9 L Lipase Urine Color Urine Appearance Urine pH Ur Specific [place] Urine Protein Urine Glucose (UA) Urine Ketones Urine Blood Urine Nitrite Ur Leukocyte Esterase Urine RBC Urine WBC Ur Squamous Epith Cells Urine Bacteria Hyaline Casts Ethyl Alcohol Influenza Type A (PCR) Influenza Type B (PCR) RSV RNA Qual (PCR) SARS-CoV-2 RNA (RT-PCR) Mental Status Exam Mental Status Exam Patient Appearance: Appropriate Level of Consciousness: Awake and Appropriate Patient Behavior: Appropriate Affect Description: Flat Speech Pattern: Clear Hallucinations: None Judgement: Good Medications Medications Current Medications Acetaminophen (Acetaminophen 325 Mg Tablet) 650 mg PO Q6H PRN PRN Reason: Pain, Mild 1-3,fever,headache Last Admin: 02/02/25 09:05 Dose: 650 mg Calcium Carbonate (Calcium Carbonate 750 Mg Tab.Chew) 750 mg PO Q4H PRN PRN Reason: Heartburn Gabapentin (Gabapentin 300 Mg Capsule) 300 mg PO BEDTIME [facility] Sodium Chloride (Ns) 1,000 mls @ 125 mls/hr IVCONT .Q8H [facility] Last Admin: 02/02/25 02:53 Dose: 125 mls/hr Lorazepam (Lorazepam 1 Mg Tablet) 2 mg PO Q3H PRN PRN Reason: Alcohol Withdrawal Magnesium Hydroxide (Milk Of Magnesia 30 Ml Oral.Susp) 30 ml PO DAILY PRN PRN Reason: Constipation Melatonin (Melatonin 3 Mg Tablet) 6 mg PO BEDTIME PRN PRN Reason: Insomnia Ondansetron HCl (Ondansetron Hcl 4 Mg/2 Ml Vial) 4 mg IVPUSH Q8H PRN PRN Reason: Nausea and Vomiting Last Admin: 02/02/25 08:56 Dose: 4 mg Pharmacy Consult (Consult Rx Etoh Phenob Im/Po) 1 each MISCELLANE ONCE PRN; Protocol PRN Reason: Consult order Phenobarbital (Phenobarbital 15 Mg Tablet) 45 mg PO BID [facility] Stop: 02/03/25 21:01 Last Admin: 02/02/25 08:51 Dose: 45 mg Phenobarbital (Phenobarbital 30 Mg Tablet) 30 mg PO BID [facility] Stop: 02/05/25 21:01 Phenobarbital (Phenobarbital 30 Mg Tablet) 30 mg PO DAILY [facility] Stop: 02/07/25 09:01 Sodium Chloride (0.9 % Sodium Chloride Flush 3 Ml Syringe) 3 ml IVFLUSH QSHIFT [facility] Last Admin: 02/02/25 08:51 Dose: 3 ml Allergies Allergies Allergy/AdvReac Type Severity Reaction Status Date / Time No Known Allergies Allergy Verified 01/31/25 18:20 [No Known Allergies*] Assessment & Plan Assessment & Plan (1) Alcohol use disorder: Status: Acute Code(s): F10.90 - Alcohol use, unspecified, uncomplicated Assessment and Plan: pheno taper, thiamine and folic acid in place will follow up prior to d/c to restart Naltrexone and [facility] Total time managing care of this patient today __40__ minutes. PMFSH Past Medical History Medical History EtOH dependence ETOH abuse Depression Anxiety Social History Social History Household Members: None Housing: Apartment Do you presently have visiting nurse or other home services: Yes Alcohol intake: current Alcohol intake frequency: 3 or more drinks per day Alcohol type: hard liquor Patient Tobacco Use Status: Current everyday Tobacco user Tobacco use type: Cigarette Cigarettes Per Day: 5 service: Yes
--- NOTE | 2025-02-02 12:49 | HO.PM.IMPN ---
Subjective Subjective Date of Service: 02/02/25 Interval History: requesting for diet, feels a little shaky and has unsteady gait, complaining of generalized pain. denies anxiety, no chest pain, no palpitations, no hallucinations, no acute events overnight Review of Systems all other system reviewed and resolved Physical Exam Vital Signs: Vital Signs: Last Vital Signs Temp 97.5 F 02/02/25 11:35 Pulse 82 02/02/25 11:35 Resp 18 02/02/25 11:35 BP 122/68 02/02/25 11:35 Pulse Ox 97 02/02/25 11:35 O2 Del Method Room Air 02/02/25 11:35 BMI result Body Mass Index 26.5 Const: Other: General resting comfortably in no acute distress. Neck no JVD. CVS regular rate rhythm, Respiratory lungs clear to auscultation, no respiratory distress, no wheeze, no rhonchi. Gastrointestinal abdomen soft, non tender, bowel sounds audible, Extremities no edema. Neuro non focal . Skin no rash appropriate affect Objective Data Active Medications Acetaminophen (Acetaminophen 325 Mg Tablet) 650 mg PO Q6H PRN PRN Reason: Pain, Mild 1-3,fever,headache Last Admin: 02/02/25 09:05 Dose: 650 mg Documented By: GARETT Calcium Carbonate (Calcium Carbonate 750 Mg Tab.Chew) 750 mg PO Q4H PRN PRN Reason: Heartburn Gabapentin (Gabapentin 300 Mg Capsule) 300 mg PO BEDTIME [facility] Sodium Chloride (Ns) 1,000 mls @ 125 mls/hr IVCONT .Q8H [facility] Last Admin: 02/02/25 02:53 Dose: 125 mls/hr Documented By: IGNACIA Lorazepam (Lorazepam 1 Mg Tablet) 2 mg PO Q3H PRN PRN Reason: Alcohol Withdrawal Magnesium Hydroxide (Milk Of Magnesia 30 Ml Oral.Susp) 30 ml PO DAILY PRN PRN Reason: Constipation Melatonin (Melatonin 3 Mg Tablet) 6 mg PO BEDTIME PRN PRN Reason: Insomnia Ondansetron HCl (Ondansetron Hcl 4 Mg/2 Ml Vial) 4 mg IVPUSH Q8H PRN PRN Reason: Nausea and Vomiting Last Admin: 02/02/25 08:56 Dose: 4 mg Documented By: GARETT Pharmacy Consult (Consult Rx Etoh Phenob Im/Po) 1 each MISCELLANE ONCE PRN; Protocol PRN Reason: Consult order Phenobarbital (Phenobarbital 15 Mg Tablet) 45 mg PO BID [facility] Stop: 02/03/25 21:01 Last Admin: 02/02/25 08:51 Dose: 45 mg Documented By: GARETT Phenobarbital (Phenobarbital 30 Mg Tablet) 30 mg PO BID [facility] Stop: 02/05/25 21:01 Phenobarbital (Phenobarbital 30 Mg Tablet) 30 mg PO DAILY [facility] Stop: 02/07/25 09:01 Sodium Chloride (0.9 % Sodium Chloride Flush 3 Ml Syringe) 3 ml IVFLUSH QSHIFT [facility] Last Admin: 02/02/25 08:51 Dose: 3 ml Documented By: GARETT Labs 02/02/25 07:10 02/02/25 07:10 Labs: Laboratory Results - last 24 hr 02/01/25 02/01/25 02/01/25 15:07 17:35 17:48 MCV 86.0 MCH 31.3 MCHC 36.4 H RDW 12.3 Plt Count 212 D MPV 9.6 Immature Gran % (Auto) 0.7 H Neut % (Auto) 81.9 H Lymph % (Auto) 8.5 L [place] % (Auto) 7.1 Eos % (Auto) 1.3 Baso % (Auto) 0.5 Lymph # (Auto) 0.9 L [place] # (Auto) 0.8 Eos # (Auto) 0.1 Baso # (Auto) 0.1 Abs Immat Gran (auto) 0.07 H Absolute Neuts (auto) 8.7 H Absolute Nucleated RBC 0.000 Nucleated RBC % (auto) 0.0 Anion Gap 12 Estim Creat Clear Calc 96.5 Estimated GFR > 60 Random Glucose Fasting Glucose 100 H Calcium 7.9 L D Total Bilirubin 1.4 H AST 143 H ALT 27 Alkaline Phosphatase 86 Total Creatine Kinase 89372 H 9374 H B-Natriuretic Peptide Total Protein 5.4 L Albumin 3.0 L Influenza Type A (PCR) NEGATIVE Influenza Type B (PCR) NEGATIVE RSV RNA Qual (PCR) NEGATIVE SARS-CoV-2 RNA (RT-PCR) NEGATIVE 02/01/25 02/02/25 22:14 07:10 MCV 86.8 MCH 31.2 MCHC 36.0 RDW 12.2 Plt Count 240 MPV 9.9 Immature Gran % (Auto) 0.4 Neut % (Auto) 79.6 H Lymph % (Auto) 9.8 L [place] % (Auto) 5.8 Eos % (Auto) 4.0 Baso % (Auto) 0.4 Lymph # (Auto) 0.9 L [place] # (Auto) 0.5 Eos # (Auto) 0.4 Baso # (Auto) 0.0 Abs Immat Gran (auto) 0.04 H Absolute Neuts (auto) 7.2 Absolute Nucleated RBC 0.000 Nucleated RBC % (auto) 0.0 Anion Gap 9 L Estim Creat Clear Calc 103.1 Estimated GFR > 60 Random Glucose 86 Fasting Glucose Calcium 8.1 L Total Bilirubin 1.2 H AST 114 H ALT 27 Alkaline Phosphatase 84 Total Creatine Kinase 7672 H B-Natriuretic Peptide 37 Total Protein 5.3 L Albumin 2.9 L Influenza Type A (PCR) Influenza Type B (PCR) RSV RNA Qual (PCR) SARS-CoV-2 RNA (RT-PCR) Assessment and Plan (1) Rhabdomyolysis: Status: Acute (2) Alcohol use disorder: Status: Acute (3) Acute urinary retention: Status: Acute Plan 64-year-old male with a history of alcohol use disorder presents to the emergency room after unknown downtime at home. Patient states he fell and was unable to get up after a drinking binge. He is unclear the duration of his downtime. In the emergency room workup consistent with rhabdomyolysis along with acute alcohol withdrawal 1. Acute rhabdomyolysis due to fall - CPK trending down continue IV fluids - stable renal function, monitor CPK and BMP DC [place] catheter 2. Acute alcohol withdrawal - continue phenobarb protocol, add thiamine and folic acid -CIWA scale 4/6 -seizure precautions, seen by Addiction Team 3. generalized pain due to fall as needed analgesics /PT/ stable potassium and magnesium. resume gabapentin. Lovenox Full code will require continued inpatient hospitalization to treat acute rhabdomyolysis with IV fluids and maintain on CIWA scale. This can not be achieved a lesser acute setting Quality Stroke Does the patient have a stroke diagnosis?: No VTE Prior VTE?: No VTE Risk Level:: Medical - moderate - high VTE Device Contraindication: Treatment Not Indicated VTE Drug Contraindication: N/A - Med Ordered
[2025-02-02] MEDS: Folic Acid 1 MG TABLET PO (13:00)
[2025-02-02] MEDS: Thiamine HCL 100 MG TABLET PO (13:00)
[2025-02-02 20:36] LABS: Glucose, Whole Blood 132 mg/dL (60-115)
[2025-02-02] MEDS: Tamsulosin HCL 0.4 MG CAPSULE PO (20:37)
[2025-02-02] MEDS: Gabapentin 300 MG CAPSULE PO (20:37)
--- NOTE | 2025-02-02 21:43 | PC.NURSE ---
pt bladder scanned at 21:00 for 615mmls. pt taken to commode and unable to void. MD notified and ordered to straight cath. pt straight cathed for 600mls.
[2025-02-03] VITALS (7 sets, daily range): BP systolic 107–143; BP diastolic 57–74; PULSE 65–95; RESP 16–19; TEMP 36.1–37.1; O2SAT 94–100
[2025-02-03] MEDS: 0.9 % Sodium Chloride 1,000 ML 125 ML IVCONT ×2 (05:46→12:17)
[2025-02-03] MEDS: Folic Acid 1 MG TABLET PO (08:33)
[2025-02-03] MEDS: PHENobarbitaL 15 MG TABLET 45 MG PO ×2 (08:33→19:43)
[2025-02-03] MEDS: Acetaminophen 325 MG TABLET 650 MG PO (08:34)
[2025-02-03] MEDS: Thiamine HCL 100 MG TABLET PO (08:34)
[2025-02-03 11:05] LABS: Anion Gap 11 (12-20); Blood Urea Nitrogen 7 mg/dL (9-16); Calcium 7.9 mg/dL (8.4-10.2); Carbon Dioxide 24 mmol/L (22-29); Chloride 109 mmol/L (96-108); Creatinine Clr Calc Pharmacy 88.1; Estimated Glomerular Filt Rate > 60; Glucose Random 117 mg/dL (60-115); Potassium 3.9 mmol/L (3.3-5.1); Sodium 140 mmol/L (135-145)
--- NOTE | 2025-02-03 13:01 | MHC.CM.PN ---
Addendum entered by Yvette Cartwright 02/03/25 13:53: This CM received a phone call from pts gearcase assembler at [facility], Christian Schumacher ([phone]), per Christian, he feels strongly that this pt could benefit from getting detox at the [facility] . This CM has relayed information to monomer recovery operator to review that recommendation. Original Note: EMR reviewed and per MD rounds, pt is not medically cleared for discharge due to management of rhabdomyolysis and ETOH withdrawal.
--- NOTE | 2025-02-03 14:41 | HO.PM.IMPN ---
Subjective Subjective Date of Service: 02/03/25 Interval History: Complaining of cough requesting for cough medication, denies sore throat, no fevers, no chills smokes 10-15 cigarettes a day, complaining of generalized pain mostly legs and anterior chest wall since his fall. Events from last night noted [place] catheter placed since patient was requiring straight caths for bladder scan greater than 500 Review of Systems All other system reviewed and are negative. Physical Exam Vital Signs: Vital Signs: Last Vital Signs Temp 97.6 F 02/03/25 11:00 Pulse 73 02/03/25 11:00 Resp 18 02/03/25 11:00 BP 140/66 H 02/03/25 11:00 Pulse Ox 96 02/03/25 11:00 O2 Del Method Room Air 02/03/25 11:00 BMI result Body Mass Index 26.5 Const: Other: General resting comfortably in no acute distress. Neck no JVD. CVS regular rate rhythm, Respiratory lungs clear to auscultation, no respiratory distress, no wheeze, no rhonchi. Gastrointestinal abdomen soft, non tender, bowel sounds audible, Extremities no edema. Neuro non focal . Skin no rash appropriate affect Objective Data Active Medications Acetaminophen (Acetaminophen 325 Mg Tablet) 650 mg PO Q6H PRN PRN Reason: Pain, Mild 1-3,fever,headache Last Admin: 02/03/25 08:34 Dose: 650 mg Documented By: GARETT Calcium Carbonate (Calcium Carbonate 750 Mg Tab.Chew) 750 mg PO Q4H PRN PRN Reason: Heartburn Folic Acid (Folic Acid 1 Mg Tablet) 1 mg PO DAILY [facility] Last Admin: 02/03/25 08:33 Dose: 1 mg Documented By: GARETT Gabapentin (Gabapentin 300 Mg Capsule) 300 mg PO BEDTIME [facility] Last Admin: 02/02/25 20:37 Dose: 300 mg Documented By: IGNACIA Sodium Chloride (Ns) 1,000 mls @ 125 mls/hr IVCONT .Q8H [facility] Last Admin: 02/03/25 12:17 Dose: 125 mls/hr Documented By: GARETT Lorazepam (Lorazepam 1 Mg Tablet) 2 mg PO Q3H PRN PRN Reason: Alcohol Withdrawal Magnesium Hydroxide (Milk Of Magnesia 30 Ml Oral.Susp) 30 ml PO DAILY PRN PRN Reason: Constipation Melatonin (Melatonin 3 Mg Tablet) 6 mg PO BEDTIME PRN PRN Reason: Insomnia Ondansetron HCl (Ondansetron Hcl 4 Mg/2 Ml Vial) 4 mg IVPUSH Q8H PRN PRN Reason: Nausea and Vomiting Last Admin: 02/02/25 08:56 Dose: 4 mg Documented By: GARETT Pharmacy Consult (Consult Rx Etoh Phenob Im/Po) 1 each MISCELLANE ONCE PRN; Protocol PRN Reason: Consult order Phenobarbital (Phenobarbital 15 Mg Tablet) 45 mg PO BID [facility] Stop: 02/03/25 21:01 Last Admin: 02/03/25 08:33 Dose: 45 mg Documented By: GARETT Phenobarbital (Phenobarbital 30 Mg Tablet) 30 mg PO BID [facility] Stop: 02/05/25 21:01 Phenobarbital (Phenobarbital 30 Mg Tablet) 30 mg PO DAILY [facility] Stop: 02/07/25 09:01 Sodium Chloride (0.9 % Sodium Chloride Flush 3 Ml Syringe) 3 ml IVFLUSH QSHIFT [facility] Last Admin: 02/03/25 08:34 Dose: Not Given Documented By: GARETT Non-Admin Reason: IV Running Tamsulosin HCl (Tamsulosin Hcl 0.4 Mg Capsule) 0.4 mg PO BEDTIME [facility] Last Admin: 02/02/25 20:37 Dose: 0.4 mg Documented By: IGNACIA Thiamine HCl (Thiamine Hcl 100 Mg Tablet) 100 mg PO DAILY [facility] Last Admin: 02/03/25 08:34 Dose: 100 mg Documented By: GARETT Labs 02/02/25 07:10 02/03/25 10:34 Labs: Laboratory Results - last 24 hr 02/02/25 02/03/25 20:07 10:34 Anion Gap 11 L Estim Creat Clear Calc 88.1 Estimated GFR > 60 POC Glucose 132 H Random Glucose 117 H Calcium 7.9 L Magnesium 2.0 Total Creatine Kinase 1843 H Assessment and Plan (1) Rhabdomyolysis: Status: Acute (2) Acute urinary retention: Status: Acute (3) Alcohol use disorder: Status: Acute Plan 64-year-old male with a history of alcohol use disorder presents to the emergency room after unknown downtime at home. Patient states he fell and was unable to get up after a drinking binge. He is unclear the duration of his downtime. In the emergency room workup consistent with rhabdomyolysis along with acute alcohol withdrawal 1. Acute rhabdomyolysis due to fall - CPK trending down gradually, continue IV fluids - stable renal function, monitor CPK and BMP 2. Acute alcohol withdrawal - continue phenobarb protocol, add thiamine and folic acid -seizure precautions, seen by Addiction Team 3. generalized pain due to fall as needed analgesics /PT/ stable potassium and magnesium. resume gabapentin. 4. Urinary retention continue [place] catheter Flomax 0.4 mg added, patient has issues with voiding in the past takes a long time to empty bladder recommend outpatient urology follow-up and voiding trial in 2 weeks. 5. Tobacco use disorder Counseling done, place on nicotine patch, added cough medication. Felixx Full code will require continued inpatient hospitalization to treat acute rhabdomyolysis with IV fluids and maintain on CIWA scale. This can not be achieved a lesser acute setting Quality Stroke Does the patient have a stroke diagnosis?: No VTE Prior VTE?: No VTE Risk Level:: Medical - moderate - high VTE Device Contraindication: Treatment Not Indicated VTE Drug Contraindication: N/A - Med Ordered
[2025-02-03] MEDS: Nicotine 14 MG PATCH.TD24 TRANSDERMA (15:11)
[2025-02-03] MEDS: guaiFENesin DM 100/10/5 ML 5 ML SYRUP 10 ML PO (15:12)
--- NOTE | 2025-02-03 15:18 | P.PNADD_ITS ---
Subjective Subjective Date of Service: 02/03/25 Reason For Visit: rhabdomyolosis Interim History: Patient seen in follow up for AUD and withdrawal Today, patient much more engaged in interview Denies tremor, some nausea Still reporting pain all over Requesting to restart Naltrexone Hopeful about possibly regaining employment Review of Systems Constitutional: Reports as per HPI Mental Status Exam Mental Status Exam Patient Appearance: Appropriate Level of Consciousness: Awake, Appropriate and Alert Patient Behavior: Appropriate and Talkative Mood Description: Calm Affect Description: Calm Hallucinations: None Diagnostics Vital Signs (24Hr): Vital Signs - 24 hr 02/02/25 16:00 02/02/25 20:00 02/03/25 00:00 Temperature 97.7 F 98.3 F 97.4 F Pulse Rate 81 84 95 Respiratory Rate 17 16 16 Blood Pressure 126/66 130/60 130/74 Pulse Oximetry 95 96 94 Oxygen Delivery Method Room Air Room Air Room Air 02/03/25 04:00 02/03/25 07:03 02/03/25 11:00 Temperature 96.9 F 97.9 F 97.6 F Pulse Rate 65 68 73 Respiratory Rate 16 18 18 Blood Pressure 122/59 L 140/74 H 140/66 H Pulse Oximetry 94 99 96 Oxygen Delivery Method Room Air Room Air Room Air BMI result Body Mass Index 26.5 Labs 02/02/25 07:10 02/03/25 10:34 Labs: Laboratory Results - last 48 hr 02/01/25 02/01/25 02/01/25 15:07 17:35 17:48 WBC 10.6 RBC 4.22 L Hgb 13.2 L Hct 36.3 L MCV 86.0 MCH 31.3 MCHC 36.4 H RDW 12.3 Plt Count 212 D MPV 9.6 Immature Gran % (Auto) 0.7 H Neut % (Auto) 81.9 H Lymph % (Auto) 8.5 L Bland % (Auto) 7.1 Eos % (Auto) 1.3 Baso % (Auto) 0.5 Lymph # (Auto) 0.9 L Bland # (Auto) 0.8 Eos # (Auto) 0.1 Baso # (Auto) 0.1 Abs Immat Gran (auto) 0.07 H Absolute Neuts (auto) 8.7 H Absolute Nucleated RBC 0.000 Nucleated RBC % (auto) 0.0 Sodium 138 Potassium 4.0 Chloride 106 Carbon Dioxide 24 Anion Gap 12 BUN 10 Creatinine 0.63 Estim Creat Clear Calc 96.5 Estimated GFR > 60 POC Glucose Random Glucose Fasting Glucose 100 H Calcium 7.9 L D Magnesium Total Bilirubin 1.4 H AST 143 H ALT 27 Alkaline Phosphatase 86 Total Creatine Kinase 17569 H 9374 H B-Natriuretic Peptide Total Protein 5.4 L Albumin 3.0 L Influenza Type A (PCR) NEGATIVE Influenza Type B (PCR) NEGATIVE RSV RNA Qual (PCR) NEGATIVE SARS-CoV-2 RNA (RT-PCR) NEGATIVE 02/01/25 02/02/25 02/02/25 22:14 07:10 20:07 WBC 9.1 RBC 4.23 L Hgb 13.2 L Hct 36.7 L MCV 86.8 MCH 31.2 MCHC 36.0 RDW 12.2 Plt Count 240 MPV 9.9 Immature Gran % (Auto) 0.4 Neut % (Auto) 79.6 H Lymph % (Auto) 9.8 L Bland % (Auto) 5.8 Eos % (Auto) 4.0 Baso % (Auto) 0.4 Lymph # (Auto) 0.9 L Bland # (Auto) 0.5 Eos # (Auto) 0.4 Baso # (Auto) 0.0 Abs Immat Gran (auto) 0.04 H Absolute Neuts (auto) 7.2 Absolute Nucleated RBC 0.000 Nucleated RBC % (auto) 0.0 Sodium 139 Potassium 3.5 Chloride 107 Carbon Dioxide 27 Anion Gap 9 L BUN 7 L Creatinine 0.59 Estim Creat Clear Calc 103.1 Estimated GFR > 60 POC Glucose 132 H Random Glucose 86 Fasting Glucose Calcium 8.1 L Magnesium Total Bilirubin 1.2 H AST 114 H ALT 27 Alkaline Phosphatase 84 Total Creatine Kinase 7672 H B-Natriuretic Peptide 37 Total Protein 5.3 L Albumin 2.9 L Influenza Type A (PCR) Influenza Type B (PCR) RSV RNA Qual (PCR) SARS-CoV-2 RNA (RT-PCR) 02/03/25 10:34 WBC RBC Hgb Hct MCV MCH MCHC RDW Plt Count MPV Immature Gran % (Auto) Neut % (Auto) Lymph % (Auto) Bland % (Auto) Eos % (Auto) Baso % (Auto) Lymph # (Auto) Bland # (Auto) Eos # (Auto) Baso # (Auto) Abs Immat Gran (auto) Absolute Neuts (auto) Absolute Nucleated RBC Nucleated RBC % (auto) Sodium 140 Potassium 3.9 Chloride 109 H Carbon Dioxide 24 Anion Gap 11 L BUN 7 L Creatinine 0.69 Estim Creat Clear Calc 88.1 Estimated GFR > 60 POC Glucose Random Glucose 117 H Fasting Glucose Calcium 7.9 L Magnesium 2.0 Total Bilirubin AST ALT Alkaline Phosphatase Total Creatine Kinase 1843 H B-Natriuretic Peptide Total Protein Albumin Influenza Type A (PCR) Influenza Type B (PCR) RSV RNA Qual (PCR) SARS-CoV-2 RNA (RT-PCR) Medications Medications Current Medications Acetaminophen (Acetaminophen 325 Mg Tablet) 650 mg PO Q6H PRN PRN Reason: Pain, Mild 1-3,fever,headache Last Admin: 02/03/25 08:34 Dose: 650 mg Calcium Carbonate (Calcium Carbonate 750 Mg Tab.Chew) 750 mg PO Q4H PRN PRN Reason: Heartburn Folic Acid (Folic Acid 1 Mg Tablet) 1 mg PO DAILY [facility] Last Admin: 02/03/25 08:33 Dose: 1 mg Gabapentin (Gabapentin 300 Mg Capsule) 300 mg PO BEDTIME [facility] Last Admin: 02/02/25 20:37 Dose: 300 mg Guaifenesin/Dextromethorphan (Guaifenesin Dm 100/10/5 Ml 5 Ml Syrup) 10 ml PO Q6H PRN PRN Reason: Cough Last Admin: 02/03/25 15:12 Dose: 10 ml Sodium Chloride (Ns) 1,000 mls @ 125 mls/hr IVCONT .Q8H [facility] Last Admin: 02/03/25 12:17 Dose: 125 mls/hr Lorazepam (Lorazepam 1 Mg Tablet) 2 mg PO Q3H PRN PRN Reason: Alcohol Withdrawal Magnesium Hydroxide (Milk Of Magnesia 30 Ml Oral.Susp) 30 ml PO DAILY PRN PRN Reason: Constipation Melatonin (Melatonin 3 Mg Tablet) 6 mg PO BEDTIME PRN PRN Reason: Insomnia Nicotine (Nicotine 14 Mg Patch.Td24) 14 mg TRANSDERMA DAILY [facility] Last Admin: 02/03/25 15:11 Dose: 14 mg Ondansetron HCl (Ondansetron Hcl 4 Mg/2 Ml Vial) 4 mg IVPUSH Q8H PRN PRN Reason: Nausea and Vomiting Last Admin: 02/02/25 08:56 Dose: 4 mg Pharmacy Consult (Consult Rx Etoh Phenob Im/Po) 1 each MISCELLANE ONCE PRN; Protocol PRN Reason: Consult order Phenobarbital (Phenobarbital 15 Mg Tablet) 45 mg PO BID [facility] Stop: 02/03/25 21:01 Last Admin: 02/03/25 08:33 Dose: 45 mg Phenobarbital (Phenobarbital 30 Mg Tablet) 30 mg PO BID [facility] Stop: 02/05/25 21:01 Phenobarbital (Phenobarbital 30 Mg Tablet) 30 mg PO DAILY [facility] Stop: 02/07/25 09:01 Sodium Chloride (0.9 % Sodium Chloride Flush 3 Ml Syringe) 3 ml IVFLUSH QSHIFT [facility] Last Admin: 02/03/25 15:12 Dose: Not Given Tamsulosin HCl (Tamsulosin Hcl 0.4 Mg Capsule) 0.4 mg PO BEDTIME [facility] Last Admin: 02/02/25 20:37 Dose: 0.4 mg Thiamine HCl (Thiamine Hcl 100 Mg Tablet) 100 mg PO DAILY [facility] Last Admin: 02/03/25 08:34 Dose: 100 mg Allergies Allergies Allergy/AdvReac Type Severity Reaction Status Date / Time No Known Allergies Allergy Verified 01/31/25 18:20 [No Known Allergies*] Assessment & Plan Assessment & Plan (1) Alcohol use disorder: Status: Acute Code(s): F10.90 - Alcohol use, unspecified, uncomplicated Assessment and Plan: * completing pheno taper * restart naltrexone in AM * recovery support RN to follow up regarding community follow up Total time managing care of this patient today _25___ minutes.
--- NOTE | 2025-02-03 16:11 | MHC.RECOVRN ---
Spoke with Christian, pts director of casework from [place] [employer]. Christian reports he has been working with patient for 7-8 years and informs t/w pt has been to [facility] many times and believes it would be beneficial for pt to transfer there. Christian reports [facility] contains ATS and inpatient behavioral health. Christian reports historically, pt will be in recovery 4-6 months prior to a recurrence. Christian does report pt had been in recovery over 1 year prior to most recent recurrence. T/w asked Christian if pt could go to building [facility] even if he was through acute withdrawal. Christian unsure. T/w left message with a supervisor speech at [facility] to find out above information. Awaiting return call. After speaking with Christian, t/w met with pt to inquire if he would be interested in inpatient [place] treatment. Pt reports he is unsure and would like to think about it as he might be able to salvage his job and needs to meet with someone next week. Plan for patient to ponder and t/w to follow up tomorrow.
[2025-02-03] MEDS: Tamsulosin HCL 0.4 MG CAPSULE PO (19:44)
[2025-02-03] MEDS: Gabapentin 300 MG CAPSULE PO (19:45)
[2025-02-03] MEDS: Melatonin 3 MG TABLET 6 MG PO (19:46)
[2025-02-03] MEDS: traZODone HCL 50 MG TABLET 150 MG PO (20:21)
[2025-02-03] MEDS: traMADoL HCL 50 MG TABLET 25 MG PO (20:21)
[2025-02-04] VITALS (7 sets, daily range): BP systolic 111–152; BP diastolic 50–72; PULSE 58–89; RESP 12–19; TEMP 35.9–37; O2SAT 94–100
[2025-02-04] MEDS: guaiFENesin DM 100/10/5 ML 5 ML SYRUP 10 ML PO (09:18)
[2025-02-04] MEDS: Nicotine 14 MG PATCH.TD24 TRANSDERMA (09:18)
[2025-02-04] MEDS: Naltrexone HCl 50 MG TABLET PO (09:19)
[2025-02-04] MEDS: Thiamine HCL 100 MG TABLET PO (09:19)
[2025-02-04] MEDS: PHENobarbitaL 30 MG TABLET PO ×2 (09:19→20:49)
[2025-02-04] MEDS: Folic Acid 1 MG TABLET PO (09:19)
[2025-02-04] MEDS: 0.9 % Sodium Chloride Flush 3 ML SYRINGE IVFLUSH ×3 (09:20→23:30)
[2025-02-04 10:37] LABS: Anion Gap 7 (12-20); Blood Urea Nitrogen 7 mg/dL (9-16); Calcium 8.5 mg/dL (8.4-10.2); Carbon Dioxide 29 mmol/L (22-29); Chloride 108 mmol/L (96-108); Creatinine Clr Calc Pharmacy 96.5; Estimated Glomerular Filt Rate > 60; Glucose Random 139 mg/dL (60-115); Potassium 3.9 mmol/L (3.3-5.1); Sodium 140 mmol/L (135-145)
--- NOTE | 2025-02-04 12:39 | P.PNIM_ITS ---
Subjective Subjective Date of Service: 02/04/25 Interval History: Complaining of generalized pain mostly lower back and legs, has been mostly in bed since admission. Tolerating diet no nausea, no vomiting, no abdominal pain, no acute events overnight. Denies tremors, no worsening anxiety, no palpitations, no sweating. Review of Systems All other system reviewed and are negative Physical Exam 2 Vital Signs: Vital Signs: Last Vital Signs Temp 98.6 F 02/04/25 11:45 Pulse 76 02/04/25 11:45 Resp 16 02/04/25 11:45 BP 111/50 L 02/04/25 11:45 Pulse Ox 97 02/04/25 11:45 O2 Del Method Room Air 02/04/25 11:45 BMI result Body Mass Index 26.5 Const: Other: General resting comfortably in no acute distress. Neck no JVD. CVS regular rate rhythm, Respiratory lungs clear to auscultation, no respiratory distress, no wheeze, no rhonchi. Gastrointestinal abdomen soft, non tender, bowel sounds audible, Extremities no edema, . Neuro non focal . Skin no rash, right knee abrasion/dry scab. appropriate affect Objective Data Active Medications Acetaminophen (Acetaminophen 325 Mg Tablet) 650 mg PO Q6H PRN PRN Reason: Pain, Mild 1-3,fever,headache Last Admin: 02/03/25 08:34 Dose: 650 mg Documented By: GARETT Calcium Carbonate (Calcium Carbonate 750 Mg Tab.Chew) 750 mg PO Q4H PRN PRN Reason: Heartburn Folic Acid (Folic Acid 1 Mg Tablet) 1 mg PO DAILY [facility] Last Admin: 02/04/25 09:19 Dose: 1 mg Documented By: STEVEN Gabapentin (Gabapentin 300 Mg Capsule) 300 mg PO BEDTIME [facility] Last Admin: 02/03/25 19:45 Dose: 300 mg Documented By: ANAM Guaifenesin/Dextromethorphan (Guaifenesin Dm 100/10/5 Ml 5 Ml Syrup) 10 ml PO Q6H PRN PRN Reason: Cough Last Admin: 02/04/25 09:18 Dose: 10 ml Documented By: STEVEN Magnesium Hydroxide (Milk Of Magnesia 30 Ml Oral.Susp) 30 ml PO DAILY PRN PRN Reason: Constipation Melatonin (Melatonin 3 Mg Tablet) 6 mg PO BEDTIME PRN PRN Reason: Insomnia Last Admin: 02/03/25 19:46 Dose: 6 mg Documented By: ANAM Naltrexone HCl (Naltrexone Hcl 50 Mg Tablet) 50 mg PO DAILY [facility] Last Admin: 02/04/25 09:19 Dose: 50 mg Documented By: STVEEN Nicotine (Nicotine 14 Mg Patch.Td24) 14 mg TRANSDERMA DAILY [facility] Last Admin: 02/04/25 09:18 Dose: 14 mg Documented By: STEVEN Ondansetron HCl (Ondansetron Hcl 4 Mg/2 Ml Vial) 4 mg IVPUSH Q8H PRN PRN Reason: Nausea and Vomiting Last Admin: 02/02/25 08:56 Dose: 4 mg Documented By: RIOSCLILA Oxycodone HCl (Oxycodone Hcl Immed Release 5 Mg Tablet) 5 mg PO Q6H PRN PRN Reason: Pain, Moderate(Pain Scale 4-6) Pharmacy Consult (Consult Rx Etoh Phenob Im/Po) 1 each MISCELLANE ONCE PRN; Protocol PRN Reason: Consult order Phenobarbital (Phenobarbital 30 Mg Tablet) 30 mg PO BID [facility] Stop: 02/05/25 21:01 Last Admin: 02/04/25 09:19 Dose: 30 mg Documented By: STEVEN Phenobarbital (Phenobarbital 30 Mg Tablet) 30 mg PO DAILY [facility] Stop: 02/07/25 09:01 Sodium Chloride (0.9 % Sodium Chloride Flush 3 Ml Syringe) 3 ml IVFLUSH QSHIFT [facility] Last Admin: 02/04/25 09:20 Dose: 3 ml Documented By: STEVEN Tamsulosin HCl (Tamsulosin Hcl 0.4 Mg Capsule) 0.4 mg PO BEDTIME [facility] Last Admin: 02/03/25 19:44 Dose: 0.4 mg Documented By: ANAM Thiamine HCl (Thiamine Hcl 100 Mg Tablet) 100 mg PO DAILY [facility] Last Admin: 02/04/25 09:19 Dose: 100 mg Documented By: STEVEN Trazodone HCl (Trazodone Hcl 50 Mg Tablet) 150 mg PO BEDTIME PRN PRN Reason: Insomnia Last Admin: 02/03/25 20:21 Dose: 150 mg Documented By: ANAM Labs 02/02/25 07:10 02/04/25 09:40 Labs: Laboratory Results - last 24 hr 02/04/25 09:40 Hold Purple Top SEE NOTE Anion Gap 7 L Estim Creat Clear Calc 96.5 Estimated GFR > 60 Random Glucose 139 H Calcium 8.5 D Total Creatine Kinase 797 H Assessment and Plan (1) Rhabdomyolysis: Status: Acute (2) Acute urinary retention: Status: Acute (3) Alcohol use disorder: Status: Acute Plan 64-year-old male with a history of alcohol use disorder presents to the emergency room after unknown downtime at home. Patient states he fell and was unable to get up after a drinking binge. He is unclear the duration of his downtime. In the emergency room workup consistent with rhabdomyolysis along with acute alcohol withdrawal 1. Acute rhabdomyolysis due to fall - [place] 77138 to 797, dc IV fluids, push by mouth fluids - stable renal function - recommend ambulation out of bed to chair, consult PT of unsteady gait 2. Acute alcohol withdrawal - continue phenobarb protocol, thiamine and folic acid -seizure precautions, seen by Addiction Team patient thinking about inpatient treatment at [place]. 3. generalized pain due to fall as needed analgesics /PT/ stable potassium and magnesium. Continue home dose of gabapentin. 4. Urinary retention continue [place] catheter Flomax 0.4 mg added, patient has issues with voiding in the past takes a long time to empty bladder ,recommend outpatient urology follow-up and voiding trial in 2 weeks. 5. Tobacco use disorder Counseling done, place on nicotine patch, cough medication. Lovenox Full code will require continued inpatient hospitalization to treat acute rhabdomyolysis and phenobarb protocol for alcohol withdrawal, maintain on CIWA scale. This can not be achieved in less acute setting. Quality Stroke Does the patient have a stroke diagnosis?: No VTE Prior VTE?: No VTE Risk Level:: Medical - moderate - high VTE Device Contraindication: Treatment Not Indicated VTE Drug Contraindication: N/A - Med Ordered
--- NOTE | 2025-02-04 12:47 | MHC.RECOVRN ---
Met with pt to follow up regarding interest in ATS. Pt sitting in bed, awake, alert, engages in conversation. Pt reports he would like to have meeting with former employer prior to going into treatment. Plan for pt to discharge home when medically clear and [facility] Pt denies questions or concerns for t/w.
[2025-02-04] MEDS: oxyCODONE HCl Immed Release 5 MG TABLET PO ×2 (12:52→20:49)
--- NOTE | 2025-02-04 14:35 | MHC.CM.PN ---
PT is recommending STR; CM will follow.
[2025-02-04] MEDS: ondansetron HCL 4 MG/2 ML VIAL IVPUSH (15:47)
--- NOTE | 2025-02-04 16:14 | MHC.CM.PN ---
PT recommending STR. Patient is agreeable to plan and has accepted a bed at [facility], 1st choice. CM will continue to follow.
[2025-02-04] MEDS: Gabapentin 300 MG CAPSULE PO (20:49)
[2025-02-04] MEDS: Tamsulosin HCL 0.4 MG CAPSULE PO (20:49)
[2025-02-04] MEDS: traZODone HCL 50 MG TABLET 150 MG PO (21:53)
[2025-02-05] VITALS (8 sets, daily range): BP systolic 106–128; BP diastolic 57–69; PULSE 61–84; RESP 16–18; TEMP 36.2–37.2; O2SAT 95–98
[2025-02-05] MEDS: oxyCODONE HCl Immed Release 5 MG TABLET PO ×2 (03:34→12:31)
[2025-02-05] MEDS: Thiamine HCL 100 MG TABLET PO (08:36)
[2025-02-05] MEDS: PHENobarbitaL 30 MG TABLET PO ×2 (08:36→21:06)
[2025-02-05] MEDS: Nicotine 14 MG PATCH.TD24 TRANSDERMA (08:36)
[2025-02-05] MEDS: Folic Acid 1 MG TABLET PO (08:36)
[2025-02-05] MEDS: 0.9 % Sodium Chloride Flush 3 ML SYRINGE IVFLUSH (08:39)
--- NOTE | 2025-02-05 13:57 | MHC.CM.PN ---
IMM 02/05/25 Per MD rounds Patient is medically cleared to discharge to [facility] today. [facility] has initiated the insurance authorization process. Authorization is still pending.
--- NOTE | 2025-02-05 15:59 | P.DS_ITS ---
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 When questioned he states he was on the floor for an unknown amount of time and could not get up. Workup in emergency room including cervical spine head abdomen pelvis and chest CTs failed to demonstrate any acute abnormalities. Initial blood work was significant for a total creatinine kinase of 10,972. When examined patient was actively withdrawing. In the emergency room he received several doses of pulse dose Ativan with limited effect. Hospital course: 64-year-old male with a history of alcohol use disorder presents to the emergency room after unknown downtime at home. Patient states he fell and was unable to get up after a drinking binge. He is unclear the duration of his downtime. In the emergency room workup consistent with rhabdomyolysis along with acute alcohol withdrawal 1. Acute rhabdomyolysis due to fall, CP[place] 66352 to 797, treated w ith IV fluids renal function stable recommend to drink plenty of fluids seen by Physical therapy they are recommending short-term rehab, therefore being discharged to rehab facility. 2. Acute alcohol withdrawal treated with phenobarb protocol, thiamine and folic acid, seen by Addiction Team [facility]. 3. generalized pain due to fall recommend to take Tylenol/oxycodone as needed and continue home gabapentin. 4. Urinary retention continue [place] catheter, Flomax 0.4 mg , patient has issues with voiding in the past takes a long time to empty bladder ,recommend outpatient urology follow-up and voiding trial in 2 weeks. 5. Tobacco use disorder Counseling done, place on nicotine patch. Time Attestation Discharge Coordination Time (in mins): 40 Quality: Safe Use of Opioids Does Pt have an Active Cancer Diagnosis on the Problem List?: No Quality: Stroke Does the patient have a stroke diagnosis?: No Physical Exam Vital Signs: Vital Signs: Last Vital Signs Temp 97.9 F 02/05/25 15:45 Pulse 76 02/05/25 15:45 Resp 16 02/05/25 15:45 BP 113/69 02/05/25 15:45 Pulse Ox 97 02/05/25 15:45 O2 Del Method Room Air 02/05/25 15:45 BMI result Body Mass Index 26.5 Const: Other: General resting comfortably in no acute distress. Neck no JVD. CVS regular rate rhythm, Respiratory lungs clear to auscultation, no respiratory distress, no wheeze, no rhonchi. Gastrointestinal abdomen soft, non tender, bowel sounds audible, Extremities no edema, . Neuro non focal . Skin right knee abrasion/dry scab. appropriate affect Discharge Plan Discharge Anticipated Discharge Date/Time: 02/05/25 15:54 Patient Disposition: Xfer SNF Discharge Diagnosis: Alcohol use disorder/withdrawal Rhabdomyolysis Mechanical fall Urinary retention Referrals: Tessa Kim MD [Primary Care Provider] - 1 Week Discharge Medications: New thiamine mononitrate (vit B1) 100 mg Tablet 100 mg PO DAILY Qty: 30 0RF nicotine 14 mg/24 hr Patch 24 Hour 14 mg transdermal DAILY Qty: 28 0RF folic acid 1 mg Tablet 1 mg PO DAILY Qty: 30 0RF acetaminophen 325 mg Tablet 650 mg PO Q6H PRN (Reason: Pain, Mild 1-3,Fever,Headache) Qty: 30 0RF tamsulosin 0.4 mg Capsule 0.4 mg PO BEDTIME Qty: 30 0RF oxycodone 5 mg Tablet 5 mg PO Q6H PRN (Reason: Pain, Moderate(Pain Scale 4-6)) Qty: 20 0RF Rx Instructions: Partial Fill upon patient request. Continued trazodone 100 mg Tablet 150 mg PO BEDTIME PRN (Reason: Sleep) gabapentin 300 mg Capsule 300 mg PO BEDTIME Discharge Orders: Discharge Order (Routine); Ordered 02/05/25 Ordered By: Merced Perez Diet: Advance to usual diet Activity on Discharge: As tolerated Stand Alone Forms: Patient Portal Discharge page Print Language: Portuguese Care Plan Goals: Alcohol use disorder treated with phenobarb protocol strongly recommend to abstain from alcohol Mechanical fall/rhabdomyolysis drink plenty of fluids Take high-protein diet/ensure b.i.d. Urinary retention continue [place] catheter take Flomax and outpatient follow-up with Urology Health Concerns: Alcohol use disorder. Plan of Treatment: Outpatient follow-up with primary care physician and Urology Dr. Espinal in 2 weeks for voiding trial Assessment: As above
[2025-02-05] MEDS: Gabapentin 300 MG CAPSULE PO (21:06)
[2025-02-05] MEDS: Tamsulosin HCL 0.4 MG CAPSULE PO (21:06)
--- NOTE | 2025-02-05 21:59 | PC.NURSE ---
Patient scheduled for 1800 discharge to [facility] facility, patient still here after rounds report at 1915, EMS running behind. Patient in room, sitting in recliner, ate his dinner, IV removed by previous shift RN, Charge nurse completed discharge paperwork previous shift, monitored until supervisor of instruction by this leader writer, alert, oriented, no complaints of pain, vss rose catheter draining yellow urine and emptied by LOCKSTITCH COLLAR SETTER just prior to EMS pickup. Bedtime medications due were administered by this leader writer and discharge medication list was updated. Patient report given to EMS male staff, patient left agreeably with all belongings, discharge papers, and via stretcher at 2132.
--- NOTE | 2025-02-08 10:45 | PC.NURSE ---
On 02/04/25 at 1252 patient was administered oxycodone 5 mg for pain 06/13 per patient request.
== END 2025-02-05 21:38 | disposition skilled nursing facility (03) | DRG 565 ==
LOC: HO.ED 02-01 16:26 → HO.EDOVER 02-01 17:08 → HO.IMC 02-02 00:27 → HO.S3 02-04 14:16
PROVIDERS: Physician Assistant Medical; Admitting Provider Hospitalist; Emergency Provider Emergency Medicine; PCP Pediatrics; Visit Provider Hospitalist
DX: T79.6XXA Traumatic ischemia of muscle, initial encounter (principal); F10.239 Alcohol dependence with withdrawal, unspecified; F17.210 Nicotine dependence, cigarettes, uncomplicated; Z71.6 Tobacco abuse counseling; Z20.822 Contact with and (suspected) exposure to COVID-19; Y90.8 Blood alcohol level of 240 mg/100 ml or more; W19.XXXA Unspecified fall, initial encounter; F10.229 Alcohol dependence with intoxication, unspecified; R31.0 Gross hematuria; R33.9 Retention of urine, unspecified; Z79.899 Other long term (current) drug therapy
CPT/HCPCS: 0241U; 36415; 70450; 71250; 72125; 74177; 80048; 80053; 80307; 81001; 82550; 82947; 83690; 83735; 83880; 85025; 97110; 97116; 97162; 99285; J2060; J2405; J2560; Q9967; S9485

== ENCOUNTER → 2025-01-31 18:23 | Outpatient (BNV) | payer MEDICARE, MEDICAID, SELFPAY | PROVIDERS: Emergency Provider Emergency Medicine; PCP Pediatrics; Visit Provider Student in an Organized Health Care Education/Training Program | DX: N32.89 Other specified disorders of bladder (principal); S29.9XXA Unspecified injury of thorax, initial encounter; M47.812 Spondylosis without myelopathy or radiculopathy, cervical region; S09.90XA Unspecified injury of head, initial encounter | CPT/HCPCS: 70450; 71250; 72125; 74177 ==

== ENCOUNTER → 2025-02-01 17:02 | Outpatient (BNV) | payer MEDICARE, MEDICAID, SELFPAY | PROVIDERS: Admitting Provider Hospitalist; Emergency Provider Emergency Medicine; PCP Pediatrics; Visit Provider Nurse Practitioner Psychiatric/Mental Health | DX: F10.90 Alcohol use, unspecified, uncomplicated (principal) | CPT/HCPCS: 99231 ==

== ENCOUNTER → 2025-02-01 17:02 | Outpatient (BNV) | payer MEDICARE, MEDICAID, SELFPAY | PROVIDERS: Admitting Provider Hospitalist; Emergency Provider Emergency Medicine; PCP Pediatrics; Visit Provider Nurse Practitioner Psychiatric/Mental Health | DX: F10.90 Alcohol use, unspecified, uncomplicated (principal) | CPT/HCPCS: 99222 ==

== ENCOUNTER → 2025-02-01 17:02 | Outpatient (BNV) | payer MEDICARE, MEDICAID, SELFPAY | PROVIDERS: Admitting Provider Hospitalist; Emergency Provider Emergency Medicine; PCP Pediatrics; Visit Provider Hospitalist | DX: T79.6XXA Traumatic ischemia of muscle, initial encounter (principal); F10.90 Alcohol use, unspecified, uncomplicated; R33.8 Other retention of urine | CPT/HCPCS: 99223; 99233; 99239; 99499 ==

== ENCOUNTER 2025-02-08 14:44 | Emergency (ER) | payer OTHER, SELFPAY ==
[2025-02-08 14:51] VITALS: BP 124/38; BP 132/68; PULSE 78; PULSE 82; RESP 16; TEMP 37.4; O2SAT 100; O2SAT 99; BMI 25.0
--- NOTE | 2025-02-08 15:15 | PC.NURSE ---
a&ox4. vss and up to date. pt [facility] from [facility] c/o redness/swelling/pain to tip of penis. [facility] attempted to aspirate the tip of his penis w/o success. pt presenting d/t increased pain. denies fevers/chills/drainage. recent rose catheter changed on 01/27. catheter patent/draining/intact draining clear pale yellow urine. abdomen nondistended. pt changed into hospital attire. pending evaluation by provider. on RA w/o difficulty. no sob/wob noted. respirations even/unlabored. plan of care ongoing. call ordaz placed within reach.
--- NOTE | 2025-02-08 16:28 | ED_ITS ---
HPI - Male Genitourinary General Chief complaint: Urogenital-Male Stated complaint: PT STS F/C AREA PAIN/RED PER EMS Time Seen by Provider: 02/08/25 16:18 Source: patient Limitations: no limitations History of Present Illness ED Provider: Nella Rose PA-C HPI Narrative: 64-year-old male with a history of alcohol use disorder, depression, anxiety, recent urinary retention now with indwelling Rose, just discharged from the hospital on February 05 for the retention with alcohol withdrawal, presents from rehab with penile pain x2 days. Patient developed swelling inferior to the glans penis 2 days ago. Swelling, erythema and pain have progressed. Related Data Home Medications ?Medication ?Instructions ?Recorded ?Confirmed gabapentin 300 mg capsule 300 mg PO BEDTIME 02/01/25 02/01/25 trazodone 100 mg tablet 150 mg PO BEDTIME PRN Sleep 02/01/25 02/01/25 Previous Rx's ?Medication ?Instructions ?Recorded acetaminophen 325 mg tablet 650 mg (2 x 325 mg) PO Q6H PRN 02/05/25 Pain, Mild 1-3,Fever,Headache #30 tabs folic acid 1 mg tablet 1 mg PO DAILY #30 tabs 02/05/25 nicotine 14 mg/24 hr daily 14 mg transdermal DAILY #28 ea 02/05/25 transdermal patch oxycodone 5 mg tablet 5 mg PO Q6H PRN Pain, 02/05/25 Moderate(Pain Scale 4-6) #20 tabs tamsulosin 0.4 mg capsule 0.4 mg PO BEDTIME #30 caps 02/05/25 thiamine mononitrate (vit B1) 100 100 mg PO DAILY #30 tabs 02/05/25 mg tablet Allergies Allergy/AdvReac Type Severity Reaction Status Date / Time No Known Allergies Allergy Verified 02/08/25 14:53 [No Known Allergies*] Review of Systems 2 Review of Systems: Yes all other systems are reviewed and are negative Constitutional: Constitutional: Denies fatigue and Denies fever(s) Gastrointestinal: Gastrointestinal: Denies abdominal pain, Denies nausea and Denies vomiting Genitourinary: Genitourinary: Denies dysuria and Denies penile discharge Endocrine: Endocrine: Denies fatigue PMF Past Medical History Attestation statement: The following information was validated with the patient. Medical History EtOH dependence ETOH abuse Depression Anxiety Social History Social History Household Members: None Housing: Apartment Do you presently have visiting nurse or other home services: Yes Alcohol intake: current Alcohol intake frequency: 3 or more drinks per day Alcohol type: hard liquor Patient Tobacco Use Status: Current everyday Tobacco user Tobacco use type: Cigarette Cigarettes Per Day: 5 Smoked in Last 30 Days: Yes Use of substances other than those prescribed or required for medical reasons: No Advance Directives: No Advance Directives Information Provided: No Do you have a plan to hurt others: No Plan service: Yes Physical Exam 2 Vital Signs: Vital Signs: Last Vital Signs Temp 99.2 F 02/08/25 17:57 Pulse 82 02/08/25 17:57 Resp 16 02/08/25 17:57 BP 131/69 02/08/25 17:57 Pulse Ox 98 02/08/25 17:57 O2 Del Method Room Air 02/08/25 17:57 BMI result Body Mass Index 25.0 Const: Other: Alert Orientation/consciousness: patient oriented x3 Resp: Effort & Inspection: normal respiratory effort Cardio: Other: Normal peripheral perfusion : Other: paraphimosis noted, no erythema noted over the glans penis itself no penile discharge Skin: Other: Warm dry no rash Neuro: General: patient oriented x3, gait normal, no focal motor deficits and CN's II-XI intact bilaterally Psych: Other: Calm cooperative Course Consultations Consultation #1: Dr. Espinal, gave me additional instructions on how to retract the foreskin back into place, the patient does not require any medication Time: 18:02 Medications Administered Discontinued Medications Generic Name Dose Route Start Last Admin Trade Name Freq PRN Reason Stop Dose Admin Triamcinolone Acetonide 1 appl 02/08/25 17:41 02/08/25 18:48 Triamcinolone Acet 0.1% Lotion 60 Ml Bottle TOPICAL 02/08/25 17:42 Not Given ONCE ONE Medical Decision Making Medical Decision Making MDM Narrative: 64-year-old male with a history of alcohol use disorder, depression, anxiety, recent urinary retention now with indwelling Rose, just discharged from the hospital on February 05 for the retention with alcohol withdrawal, presents from rehab with penile pain x2 days. Patient developed swelling inferior to the glans penis 2 days ago. Swelling, erythema and pain have progressed. Problem: Alcohol use disorder, urinary retention History: Per patient I have considered the following differential diagnoses: Balanitis, paraphimosis, urethritis, UTI Plan: Screening labs including a urinalysis were obtained everything is normal. I have reached out to Urology, was given instruction on how to replace the foreskin, we will attempt. In the meantime I had applied ice to the site. I have independently reviewed the following tests: Labs: No leukocytosis, not anemic, no electrolyte abnormality, urine not infected Lab Data 02/08/25 16:58 02/08/25 16:58 Labs: Lab Results 02/08/25 02/08/25 Range/Units 16:51 16:58 WBC 9.2 (4.8-10.8) X10*3/uL RBC 4.29 L (4.60-5.80) X10*6/uL Hgb 13.5 L (14.0-18.0) g/dl Hct 37.8 L (42.0-52.0) % MCV 88.1 (80.0-98.0) fL MCH 31.5 (27.0-33.0) pg MCHC 35.7 (31.0-36.0) g/dl RDW 12.8 (11.0-16.0) % Plt Count 279 (160-400) X10*3/uL MPV 9.0 L (9.4-12.4) fL Immature Gran % (Auto) 1.7 H (0.0-0.4) % Neut % (Auto) 74.4 H (45-73) % Lymph % (Auto) 11.0 L (20-40) % [place] % (Auto) 9.2 (2-11) % Eos % (Auto) 3.2 (0-4) % Baso % (Auto) 0.5 (0-2) % Lymph # (Auto) 1.0 L (1.2-4.9) X10*3/uL [place] # (Auto) 0.8 (0.1-1.2) X10*3/uL Eos # (Auto) 0.3 (0.0-0.4) X10*3/uL Baso # (Auto) 0.1 (0.0-0.2) X10*3/uL Abs Immat Gran (auto) 0.16 H (0.00-0.03) X10*3/uL Absolute Neuts (auto) 6.8 (2.0-8.3) x10*3/uL Absolute Nucleated RBC 0.000 (0.0-0.012) X10*3/uL Nucleated RBC % (auto) 0.0 (0.0-0.2) /100WBC Sodium 141 (135-145) mmol/L Potassium 5.1 D (3.3-5.1) mmol/L Chloride 107 (96-108) mmol/L Carbon Dioxide 27 (22-29) mmol/L Anion Gap 12 (12-20) BUN 11 (9-16) mg/dL Creatinine 0.67 (0.5-1.4) mg/dL Estim Creat Clear Calc 90.8 Estimated GFR > 60 Random Glucose 95 (60-115) mg/dL Calcium 8.8 (8.4-10.2) mg/dL Urine Color Yellow Urine Appearance Clear Urine pH 6.5 (5.0-9.0) Ur Specific [place] <= 1.005 (1.005-1.025) Urine Protein Negative (Neg-Trace) mg/dL Urine Glucose (UA) Negative (Negative) mg/dL Urine Ketones Negative (Negative) mg/dL Urine Blood Trace H (Negative) Urine Nitrite Negative (Negative) Ur Leukocyte Esterase Negative (Negative) Urine RBC 0-2 (0-2) /HPF Urine WBC 0-5 (0-5) /HPF Ur Squamous Epith Cells 0-2 (0-2) /HPF Urine Bacteria None Seen (None Seen) Hyaline Casts 0-2 (0-2) /LPF Discharge Plan Discharge Clinical Impression: Paraphimosis Patient Disposition: Xfer SNF Instructions: Acute Paraphimosis (ED) Additional Instructions: Your foreskin was put back in proper position. Be sure to keep the area clean and dry. Remember you need to follow up with Urology within 2 weeks to have the Rose catheter removed. Prescriptions: No Action trazodone 100 mg Tablet 150 mg PO BEDTIME PRN (Reason: Sleep) gabapentin 300 mg Capsule 300 mg PO BEDTIME thiamine mononitrate (vit B1) 100 mg Tablet 100 mg PO DAILY Qty: 30 0RF nicotine 14 mg/24 hr Patch 24 Hour 14 mg transdermal DAILY Qty: 28 0RF folic acid 1 mg Tablet 1 mg PO DAILY Qty: 30 0RF acetaminophen 325 mg Tablet 650 mg PO Q6H PRN (Reason: Pain, Mild 1-3,Fever,Headache) Qty: 30 0RF tamsulosin 0.4 mg Capsule 0.4 mg PO BEDTIME Qty: 30 0RF oxycodone 5 mg Tablet 5 mg PO Q6H PRN (Reason: Pain, Moderate(Pain Scale 4-6)) Qty: 20 0RF Rx Instructions: Partial Fill upon patient request. Referrals: Vance Espinal MD [Physician] - (urinary retention, rose in place) Print Language: Czech
[2025-02-08 16:49] VITALS: BP 129/68; PULSE 82; RESP 16; TEMP 37.1; O2SAT 97
[2025-02-08 17:00] LABS: Appearance Urine Clear; Color Urine Yellow; Glucose Urine UA Negative (Negative); Leukocyte Esterase Urine Negative (Negative); Nitrite Urine Negative (Negative); PH 6.5 (5.0-9.0); Specific Gravity - Urine <= 1.005 (1.005-1.025); UMIC TRIGGER UACC YES; Urine Blood Trace (Negative); Urine Ketones Negative (Negative); Urine Protein Negative (Neg-Trace)
[2025-02-08 17:02] LABS: MANUAL DIFF FLAG NO
[2025-02-08 17:03] LABS: Bacteria Urine None Seen (None Seen); Hyaline Casts Urine 0-2 /LPF (0-2); RBC Urine 0-2 /HPF (0-2); Squamous Epithelial Cell Urine 0-2 /HPF (0-2); WBC Urine 0-5 /HPF (0-5)
[2025-02-08 17:03] LABS: Basophils Absolute Auto 0.1 X10*3/uL (0.0-0.2); Basophils Percent Auto 0.5 % (0-2); Eosinophils Absolute Auto 0.3 X10*3/uL (0.0-0.4); Eosinophils Percent Auto 3.2 % (0-4); Hematocrit 37.8 % (42.0-52.0); Hemoglobin 13.5 g/dl (14.0-18.0); Imm Gran Abs Auto 0.16 X10*3/uL (0.00-0.03); Imm Gran Pct Auto 1.7 % (0.0-0.4); Mean Corpuscular HGB Conc 35.7 g/dl (31.0-36.0); Mean Corpuscular Hemoglobin 31.5 pg (27.0-33.0); Mean Corpuscular Volume 88.1 fL (80.0-98.0); Monocytes Absolute Auto 0.8 X10*3/uL (0.1-1.2); Monocytes Percent Auto 9.2 % (2-11); Neutrophils Absolute Auto 6.8 x10*3/uL (2.0-8.3); Neutrophils Percent Auto 74.4 % (45-73); Platelet Count 279 X10*3/uL (160-400); Red Blood Count 4.29 X10*6/uL (4.60-5.80); Red Cell Distribution Width 12.8 % (11.0-16.0); White Blood Count 9.2 X10*3/uL (4.8-10.8)
--- NOTE | 2025-02-08 17:04 | PC.NURSE ---
urine/labs obtained/sent to lab by [facility] [facility].
[2025-02-08 17:25] LABS: Anion Gap 12 (12-20); Blood Urea Nitrogen 11 mg/dL (9-16); Calcium 8.8 mg/dL (8.4-10.2); Carbon Dioxide 27 mmol/L (22-29); Chloride 107 mmol/L (96-108); Creatinine Clr Calc Pharmacy 90.8; Estimated Glomerular Filt Rate > 60; Glucose Random 95 mg/dL (60-115); Potassium 5.1 mmol/L (3.3-5.1); Sodium 141 mmol/L (135-145)
[2025-02-08 17:57] VITALS: BP 131/69; PULSE 82; RESP 16; TEMP 37.3; O2SAT 98
--- NOTE | 2025-02-08 17:58 | PC.NURSE ---
pt noted to have increased redness/swelling to tip of penis. provider bedside to assess. ice pack applied to affected area. urology consult being completed by provider. plan of care ongoing.
--- OUTSIDE RECORDS SUMMARY | 2025-02-08 18:52 | XMS_ITS | Clinical Summary ---
Author Organization [facility] [place] Address [address] [place] [address] Care Team Providers Care Dry Box Tender Name Role Phone Juan Manuel Marquez Primary Care Provider [phone] Surgical History Surgery Date Site/Laterality Comments UPPER GASTROINTESTINAL ENDOSCOPY 05/19/2010 PROCEDURE: [place] UPPER GI ENDOSCOPY PERFORMED; COMMENT: Gaping lower esophageal sphincter COLONOSCOPY 01/13/2010 PROCEDURE: HISTORICAL COLONOSCOPY; COMMENT: Negative, repeat 10 yrs HIP ARTHROPLASTY 11/06/2018 Left PROCEDURE: HISTORICAL HIP REPLACEMENT Medical History Medical History Date Comments Alcohol dependence 09/02/2020 DX:Alcohol de pendence (HCC) Anxiety 09/02/2020 DX:Anxiety BPH (benign prostatic hyperplasia) 09/02/2020 DX:BPH (benign prostatic hyperplasia) Hyperlipidemia 09/02/2020 DX:Hyperlipidemi a Insomnia 09/02/2020 DX:Insomnia Major depressive disorder, r ecurrent, moderate (CMS/HCC) 09/02/2020 DX:Major depressive disorder , recurrent, moderate (HCC) Osteoarthritis 09/02/2020 DX:Osteoarthriti s; COMMENT: Hip S/P hip replacement, left 09/02/2020 DX:S/P hip replacement, left GERD (gastroesophageal reflux disease) 0 DX:GERD (gastroesophageal reflux disease) Social History Tobacco Use Types Packs/Day Years Used Date Smoking Tobacco: Every Day Cigarettes Alcohol Use Standard Drinks/Week Comments No 0 (1 standard drink = 0.6 oz pur e alcohol) Sex and Gender Information Value Date Recorded Sex Assigned at Not on file Legal Sex Male 2:25 AM EST Gender Identity Not on file Sexual Orientation Not on file Obstetrics History Plan of Treatment Health Maintenance Due Date Last Done Comments DTaP,Tdap,and Td Vaccines (1 - Tdap) 1977 Pneumococcal Vaccine: 50+ Ye ars (1 of 1 - PCV) 2008 Zoster Vaccines (1 of 2) 2008 COVID-19 Vaccine (2023-2 5 season) 2024 Influenza Vaccine (#1) 2024 RSV Immunization Adult Patie nts (1 - 1-dose 75+ series) 2033 HIB Vaccines Aged Out No longer eligi ble based on patient's age to complete this topic HPV Vaccines Aged Out No longer eligi ble based on patient's age to complete this topic Hepatitis A Vaccines Aged Out No long er eligible based on patient's age to complete this topic Hepatitis B Vaccines Aged Out No long er eligible based on patient's age to complete this topic IPV Vaccines Aged Out No longer eligi ble based on patient's age to complete this topic MMR Vaccines Aged Out No longer eligi ble based on patient's age to complete this topic Meningococcal ACWY Vaccine Aged Out N o longer eligible based on patient's age to complete this topic Meningococcal B Vaccine Aged Out No l onger eligible based on patient's age to complete this topic RSV Immunization Patients Un nona 20 months Aged Out No longer eligible b ased on patient's age to complete this topic Varicella Vaccines Aged Out No longer eligible based on patient's age to complete this topic Care Teams Dry Box Tender Relationship Specialty Start Date End Date Juan Manuel Marquez PA [address] [place] [address] PCP - General Sterilization Specialist 07/12/20
[2025-02-08] MEDS: Lidocaine/Racepinep/Tetracaine 3 ML GEL.PF.APP TOPICAL (18:55)
--- NOTE | 2025-02-08 18:57 | PC.NURSE ---
foreskin retracted/put back into place. pt verbalizing pain level has decreased at this time. LET gel applied to affected area to promote comfort. effectiveness pending.
[2025-02-08 19:30] VITALS: BP 129/65; PULSE 79; RESP 16; TEMP 37; O2SAT 99
--- NOTE | 2025-02-08 19:40 | PC.NURSE ---
attempted to call report x3.
--- NOTE | 2025-02-08 19:46 | PC.NURSE ---
attempted to call report x3 times again, no answer.
--- NOTE | 2025-02-08 19:51 | PC.NURSE ---
ems at bedside for report. attempted to call floor x3 times, no answer. charge master specialist aware at this time.
[2025-02-08 19:52] VITALS: BP 129/65; PULSE 79; RESP 16; TEMP 37; O2SAT 99
--- NOTE | 2025-02-08 20:40 | PC.NURSE ---
report called to Monisha PENNY at [facility].
== END 2025-02-08 19:52 | disposition skilled nursing facility (03) ==
PROVIDERS: Physician Assistant Medical; Emergency Provider Emergency Medicine
DX: N47.2 Paraphimosis (principal); R33.9 Retention of urine, unspecified; R10.2 Pelvic and perineal pain; N48.89 Other specified disorders of penis; Z79.899 Other long term (current) drug therapy; F17.210 Nicotine dependence, cigarettes, uncomplicated
CPT/HCPCS: 36415; 80048; 81001; 81003; 85025; 99284

== ENCOUNTER 2025-06-22 10:47 | Emergency (ER) | payer OTHER, MEDICARE, SELFPAY ==
[2025-06-22 11:09] VITALS: BP 118/67; PULSE 103; RESP 16; TEMP 37.1; O2SAT 96; BMI 27.5
[2025-06-22 11:10] VITALS: BP 150/80; PULSE 98; O2SAT 96
--- NOTE | 2025-06-22 11:12 | ECG_ITS ---
Test Reason : CP Blood Pressure : */* mmHG Vent. Rate : 95 BPM Atrial Rate : 95 BPM P-R Int : 120 ms QRS Dur : 80 ms QT Int : 300 ms P-R-T Axes : 45 -35 64 degrees QTcB Int : 377 ms Normal sinus rhythm Left axis deviation Minimal voltage criteria for LVH, may be normal variant ( R in aVL ) Inferior infarct , possibly acute ACUTE UT / STEMI Consider right ventricular involvement in acute inferior infarct Abnormal ECG When compared with ECG of 08-Oct-2021 06:55, Significant changes have occurred Referred By: Generic ED Physician Electronically Signed By: DIVINA DAUGHERTY MD
--- NOTE | 2025-06-22 11:26 | ED.CHESTPAIN ---
HPI - Chest Pain General Chief Complaint: Chest Pain Stated Complaint: CHEST PAIN X4 Time Seen by Provider: 06/22/25 11:01 Source: patient, EMS and old records reviewed Mode of arrival: EMS Limitations: no limitations History of Present Illness ED Provider: DALIA HPI narrative: 65 yo male with PMH of ETOH use disorder no hx of drug use notes on and off chest pain with nausea and shortness of breath. Yesterday it started going to down both arms. He notes it won't go away. He has no injuries to his shoulders. He states no recent URIs. He did try to take the muscle relaxer but no relief. He notes he is a smoker but has no known history of CAD. He denies any cocaine or IVDA. He notes the pain is across his chest into both shoulders and does hurt when he breathes and tries to exert himself. He has no recent travel or procedure and no prior hx of DVT/PE Patient came in via BLS - no prehospital 12 lead was done. MD complaint: chest pain Onset (ago): day(s) (4) Timing of current episode: episodic Prior episodes: No Onset: during rest and during exertion Pain location: substernal Pain radiation: right arm and left arm Severity: severe Quality: other (pressure ) Relieving factors: nothing Exacerbating factors: exertion and inspiration Associated symptoms: nausea and dyspnea Treatment prior to arrival: aspirin (by EMS 324mg) Related Data Home Medications ?Medication ?Instructions ?Recorded ?Confirmed gabapentin 300 mg capsule 300 mg PO BEDTIME 02/01/25 02/01/25 trazodone 100 mg tablet 150 mg PO BEDTIME PRN Sleep 02/01/25 02/01/25 Previous Rx's ?Medication ?Instructions ?Recorded acetaminophen 325 mg tablet 650 mg (2 x 325 mg) PO Q6H PRN 02/05/25 Pain, Mild 1-3,Fever,Headache #30 tabs folic acid 1 mg tablet 1 mg PO DAILY #30 tabs 02/05/25 nicotine 14 mg/24 hr daily 14 mg transdermal DAILY #28 ea 02/05/25 transdermal patch oxycodone 5 mg tablet 5 mg PO Q6H PRN Pain, 02/05/25 Moderate(Pain Scale 4-6) #20 tabs tamsulosin 0.4 mg capsule 0.4 mg PO BEDTIME #30 caps 02/05/25 thiamine mononitrate (vit B1) 100 100 mg PO DAILY #30 tabs 02/05/25 mg tablet Allergies Allergy/AdvReac Type Severity Reaction Status Date / Time No Known Allergies (No Known Allergy Verified 06/22/25 11:10 Allergies*) Review of Systems Review of Systems: Constitutional : No Weight loss, No Fever, No Chills ENT/Mouth : No sore throat, No Rhinorrhea Eyes: No Eye Pain, No Swelling Cardiovascular : pos Chest Pain, pos SOB, pos Dyspnea on Exertion, No Orthopnea, No Edema, No Palpitations Respiratory : No Cough, No Sputum Gastrointestinal : pos Nausea, No Vomiting, No Diarrhea, No abdominal Pain, No Hematochezia, No Melena Genitourinary : No Dysuria, No Urinary Frequency Musculoskeletal : No joint pain, No Myalgias, No Joint Swelling Skin : No Skin Lesions, No rash Neuro : No Weakness, No Numbness, No Dizziness, No Headache All other systems reviewed and are negative [facility] Past Medical History Attestation statement: The following information was validated with the patient. Source: old records reviewed Medical History EtOH dependence ETOH abuse Depression Anxiety Social History Social History Household Members: None Housing: Apartment Do you presently have visiting nurse or other home services: Yes Alcohol intake: current Alcohol intake frequency: 3 or more drinks per day Alcohol type: hard liquor Patient Tobacco Use Status: Current everyday Tobacco user Tobacco use type: Cigarette Cigarettes Per Day: 5 Smoked in Last 30 Days: Yes Use of substances other than those prescribed or required for medical reasons: No Advance Directives: Yes Advance Directives Information Provided: Yes Advance Directives on File: No Do you have a plan to hurt others: No Plan service: Yes Physical Exam Vital Signs: Vital Signs: Last Vital Signs Temp 98.8 F 06/22/25 11:09 Pulse 96 06/22/25 11:43 Resp 18 06/22/25 11:43 BP 122/78 06/22/25 11:43 Pulse Ox 97 06/22/25 11:43 O2 Del Method Room Air 06/22/25 11:43 BMI result Body Mass Index 29.9 Appearance: Alert. Oriented X3. anxious appears uncomfortable mild acute distress. Eyes: Pupils equal, round and reactive to light. ENT: Pharynx normal. Neck: Normal inspection. Neck supple. CVS: Normal heart rate and rhythm. Pulses normal. distal pulses intact Respiratory: No respiratory distress. Breath sounds normal. Abdomen: Soft and nontender. Skin: Skin warm and clammy. Normal skin color. Normal skin turgor. Extremities: No lower extremity edema. No calf ttp Neuro: Oriented X 3. No motor deficit. No sensory deficit. CN2-12 intact Course Course Course Narrative: handed EKG at 1125 - notified unit secretary to call [facility] and for 911 EMS transfer 1136 accepted by fellow by under Dr. Aj Medications Administered Generic Name Dose Route Start Last Admin Trade Name Freq PRN Reason Stop Dose Admin Lactated Ringer's 1,000 mls @ 999 mls/hr 06/22/25 11:29 06/22/25 11:36 Lr IV 06/22/25 12:29 999 mls/hr .Q1H1M ONE Administration Discontinued Medications Generic Name Dose Route Start Last Admin Trade Name Freq PRN Reason Stop Dose Admin Atorvastatin Calcium 80 mg 06/22/25 11:29 06/22/25 11:35 Atorvastatin Calcium 80 Mg Tablet PO 06/22/25 11:30 80 mg ONCE ONE Administration Fentanyl 50 mcg 06/22/25 11:29 06/22/25 11:35 Fentanyl Citrate/Pf 100 Mcg/2 Ml Vial IVPUSH 06/22/25 11:30 50 mcg ONCE ONE Administration Protocol Heparin Sodium (Porcine) 4,000 unit 06/22/25 11:29 06/22/25 11:35 Heparin Sodium,Porcine 5,000 Unit/Ml Vial IVPUSH 06/22/25 11:30 4,000 unit ONCE ONE Administration Ticagrelor 180 mg 06/22/25 11:29 06/22/25 11:34 Ticagrelor 90 Mg Tablet PO 06/22/25 11:30 180 mg ONCE ONE Administration Medical Decision Making Medical Decision Making [facility] Narrative: 65 yo male with PMH of ETOH use disorder presents with nausea/dyspnea/ chest pain on and off x 4 days now with radiation down both shoulders - he has no known CAD he has no hx of cocaine abuse or IVDA. At this time handed EKG 1125 and noted JESSICA with q waves but with active chest pain will active STEMI protocol - already given 324mg aspirin by EMS, will add on brilinta, heparin, statin and start on IVF and IV fentanyl for pain. NO risk factors for VTE, distal pulses intact and no back pain - BP normal doubt dissection. Differential Diagnosis Differential Diagnoses: The differential diagnosis associated with the presentation includes STEMI, ACS Admission/Observation Consideration of admission/observation: Escalation of care including admission/observation considered Consult Healthcare Provider Management of the patient was discussed with: Pre Certification Specialist transfer to [facility] cath discussed with interventional fellow under Dr. Aj Lab Data MDM Lab Attestation statement: I reviewed the patient's lab results. 06/22/25 11:31 06/22/25 11:31 Labs: Lab Results 06/22/25 Range/Units 11:33 Hold Purple Top SEE NOTE Independent Interpretation I performed an independent interpretation of an: EKG Interpretation: Rate: 95 Rhythm: NSR Ravalli: left Normal P waves. Normal FLOR. Normal QRS complex. ST T wave : JESSICA elevation in III and aVF with ST depressions I and aVL qTC: 377 prior studies: changed from prior The study has been interpreted contemporaneously by me. . Independent Historian Clinical information obtained from an independent historian. History obtained from or confirmed by: EMS External Record Review External record reviewed: Outpatient record Critical Care Time Critical Care Time Critical Care Time: Yes Total Critical Care Time: 30 Attestation: review of records, medical consult, STEMI protocol, transfer to cardiac label rewinder, IV fentanyl for pain. I attest to this time spent taking care of the patient Discharge Plan Discharge Clinical Impression: ST elevation myocardial infarction (STEMI) Qualifiers: Involved coronary artery: unspecified coronary artery Qualified Code(s): I21.3 - ST elevation (STEMI) myocardial infarction of unspecified site Chest pain Qualifiers: Chest pain type: precordial pain Qualified Code(s): R07.2 - Precordial pain Patient Disposition: er [facility] Hospital Transfer Details: [facility] Prescriptions: No Action trazodone 100 mg Tablet 150 mg PO BEDTIME PRN (Reason: Sleep) gabapentin 300 mg Capsule 300 mg PO BEDTIME thiamine mononitrate (vit B1) 100 mg Tablet 100 mg PO DAILY Qty: 30 0RF nicotine 14 mg/24 hr Patch 24 Hour 14 mg transdermal DAILY Qty: 28 0RF folic acid 1 mg Tablet 1 mg PO DAILY Qty: 30 0RF acetaminophen 325 mg Tablet 650 mg PO Q6H PRN (Reason: Pain, Mild 1-3,Fever,Headache) Qty: 30 0RF tamsulosin 0.4 mg Capsule 0.4 mg PO BEDTIME Qty: 30 0RF oxycodone 5 mg Tablet 5 mg PO Q6H PRN (Reason: Pain, Moderate(Pain Scale 4-6)) Qty: 20 0RF Rx Instructions: Partial Fill upon patient request. Print Language: Sammarinese
[2025-06-22] MEDS: Lactated Ringers 1,000 ML 999 ML IV (11:36)
[2025-06-22 11:40] VITALS: BMI 29.9
[2025-06-22 11:43] VITALS: BP 122/78; PULSE 96; RESP 18; O2SAT 97
[2025-06-22 11:50] LABS: Hematocrit 44.8 % (42.0-52.0); Hemoglobin 15.6 g/dl (14.0-18.0); Imm Gran Abs Auto 0.24 X10*3/uL (0.00-0.03); Imm Gran Pct Auto 1.3 % (0.0-0.4); Lymphocytes Absolute Auto 1.0 X10*3/uL (1.2-4.9); MANUAL DIFF FLAG SCAN; Mean Corpuscular HGB Conc 34.8 g/dl (31.0-36.0); Mean Corpuscular Hemoglobin 31.0 pg (27.0-33.0); Mean Corpuscular Volume 89.1 fL (80.0-98.0); NRBC Abs Auto 0.000 X10*3/uL (0.0-0.012); NRBC Pct Auto 0.0 /100WBC (0.0-0.2); Platelet Count 253 X10*3/uL (160-400); Red Blood Count 5.03 X10*6/uL (4.60-5.80); SCAN SMEAR FLAG 1; White Blood Count 18.4 X10*3/uL (4.8-10.8)
[2025-06-22 11:51] LABS: INTERNATIONAL NORM RATIO 1.2 (0.9-1.1); Prothrombin Time 13.6 SEC (10.9-12.4)
--- NOTE | 2025-06-22 11:52 | PC.NURSE ---
EKG print out read acute [place], Dr. Mitchell physically closest to patient made aware, STEMI alert called. Patient given bilat 20 G IV, labs drawn, meds given per order see MAR. Mathur transfer currently enroute to [facility] laboratory director.
[2025-06-22 11:55] VITALS: BP 122/78; PULSE 96; RESP 18; TEMP 37.1; O2SAT 97
[2025-06-22 12:11] LABS: Alanine Aminotransferase 35 U/L (0-40); Albumin Level 3.9 g/dL (3.5-5.0); Alkaline Phosphatase 89 U/L (39-117); Anion Gap 12 (12-20); Aspartate Amino Transferase 72 U/L (5-37); Blood Urea Nitrogen 10 mg/dL (9-16); Calcium 9.2 mg/dL (8.4-10.2); Carbon Dioxide 22 mmol/L (22-29); Chloride 105 mmol/L (96-108); Creatinine Clr Calc Pharmacy 88.4; Estimated Glomerular Filt Rate > 60; Magnesium 2.2 mg/dL (1.6-2.6); Potassium 4.3 mmol/L (3.3-5.1); Sodium 135 mmol/L (135-145); Total Protein 6.9 g/dL (6.5-8.0)
[2025-06-22 12:22] LABS: Resp Syncy Virus RNA Qual PCR NEGATIVE (Negative); SARS COV2 PCR INHOUSE NEGATIVE (Negative)
[2025-06-22 12:34] LABS: Troponin-I High Sensitivity 18721.4 ng/L (<3.5-35.0)
--- OUTSIDE RECORDS SUMMARY | 2025-06-22 12:58 | XMS_ITS | Encounter Summary ---
Author Organization [employer] Address [address] [place] [address] Care Team Providers Care Railroad Conductor Name Role Phone Juan Manuel Marquez Primary Care Provider [phone] Encounter Details Date Type Department Care Team (Late st Contact Info) Description 02/11/[address] [facility] - Main Lab [address] [facility] [place] [address] Yoly Farmer, [facility] [address] [facility] [address] [place] [address] Chronic kidney disease, unspecified Social History Tobacco Use Types Packs/Day Years Used Date Smoking Tobacco: Every Day Cigarettes Alcohol Use Standard Drinks/Week Comments No 0 (1 standard drink = 0.6 oz pur e alcohol) Sex and Gender Information Value Date Recorded Sex Assigned at Not on file Legal Sex Male 2:25 AM EST Gender Identity Not on file Sexual Orientation Not on file documented as of this encounter Plan of Treatment Not on file documented as of this encounter Procedures Procedure Name Priority Date/Time Associated Diagnosis Comments COMPLETE BLOOD COUNT Routine 02/11/2025 5:39 AM EDT Chronic kidney disease, unspecified CREATINE KINASE Routine 02/11/2025 5:39 AM EDT Chronic kidney disease, unspecified BASIC METABOLIC PANEL Routine 02/11/2025 5:39 AM EDT Chronic kidney disease, unspecified documented in this encounter Results * Creatine kinase (02/11/2025 5:39 AM EDT) Total CK 68 22 - 269 unit/L LAB CHEMISTRY METHOD 02/11/2025 11:52 AM [facility] Blood Venous blood specimen / Unknown Venipuncture / Unknown 02/11/2025 5:39 AM EDT 02/11/2025 10:44 AM EDT Yoly Farmer INTERMEDIATE DESIGNER LAB BLOOD ORDERABLES Fin al Result [facility] [address] [place] [address], * (ABNORMAL) Basic metabolic panel (02/11/2025 5:39 AM EDT) [facility] Sodium 139 133 - 145 mmol/L LAB CHEMISTRY METHOD 02/11/2025 11:52 AM [facility] Potassium 4.5 3.5 - 5.5 mmol/L LAB CHEMISTRY METHOD 02/11/2025 11:52 AM [facility] Chloride 106 96 - 110 mmol/L LAB CHEMISTRY METHOD 02/11/2025 11:52 AM [facility] CO2 27 21 - 32 mmol/L LAB CHEMISTRY METHOD 02/11/2025 11:52 AM [facility] Anion Gap 6 3 - 11 LAB CHEMISTRY METHOD 02/11/2025 11:52 AM [facility] Glucose 92 70 - 100 mg/dL LAB CHEMISTRY METHOD 02/11/2025 11:52 AM [facility] BUN 15 5 - 25 mg/dL LAB CHEMISTRY METHOD 02/11/2025 11:52 AM [facility] Creatinine 0.59(L) 0.70 - 1.30 mg/dL LAB CHEMISTRY METHOD 02/11/2025 11:52 AM [facility] eGFR 107 >=60 mL/min/1. 73m2 LAB CHEMISTRY METHOD 02/11/2025 11:52 AM EDT [facility] Comment:Calculation based on the Chronic Kidney Disease Epidemiology Collaboration (CKD-EPI) equation refit without adjustment for race. BUN/Creatinine Ratio 25.4 LAB CHEMISTRY METHOD 02/11/2025 11:52 AM [facility] Calcium 8.7 8.5 - 10.5 mg/dL LAB CHEMISTRY METHOD 02/11/2025 11:52 AM [facility] Blood Venous blood specimen / Unknown Venipuncture / Unknown 02/11/2025 5:39 AM EDT 02/11/2025 10:44 AM EDT Yoly Farmer INTERMEDIATE DESIGNER LAB BLOOD ORDERABLES Fin al Result [facility] [address] [place] [address], * (ABNORMAL) Complete blood count (02/11/2025 5:39 AM EDT) WBC 9.6 4.8 - 10.8 K/mcL LAB HEMETOLOGY METHOD 02/11/2025 11:21 AM [facility] RBC 4.00(L) 4.50 - 5.50 M/mcL LAB HEMETOLOGY METHOD 02/11/2025 11:21 AM [facility] Hemoglobin 12.3(L) 13.5 - 17.5 g/dL LAB HEMETOLOGY METHOD 02/11/2025 11:21 AM [facility] Hematocrit 37.0(L) 42.0 - 54.0 % LAB HEMETOLOGY METHOD 02/11/2025 11:21 AM [facility] MCV 92.7 79.0 - 98.0 FL LAB HEMETOLOGY METHOD 02/11/2025 11:21 AM [facility] MCH 30.8 27.0 - 32.0 pcg LAB HEMETOLOGY METHOD 02/11/2025 11:21 AM EDT [facility] MCHC 33.2 32.0 - 37.0 g/dL LAB HEMETOLOGY METHOD 02/11/2025 11:21 AM EDT [facility] RDW 13.0 11.0 - 15.0 % LAB HEMETOLOGY METHOD 02/11/2025 11:21 AM EDT [facility] Platelets 291 130 - 400 K/mcL LAB HEMETOLOGY METHOD 02/11/2025 11:21 AM EDT [facility] MPV 10.0 7.0 - 11.0 FL LAB HEMETOLOGY METHOD 02/11/2025 11:21 AM EDT [facility] NRBC 0.0 <1.0 % LAB HEMETOLOGY METHOD 02/11/2025 11:21 AM EDT [facility] NRBC Absolute 0.00 <0.10 K/mcL LAB HEMETOLOGY METHOD 02/11/2025 11:21 AM EDT [facility] Blood Venous blood specimen / Unknown Venipuncture / Unknown 02/11/2025 5:39 AM EDT 02/11/2025 10:44 AM EDT Yoly Farmer INTERMEDIATE DESIGNER LAB BLOOD ORDERABLES Fin al Result [facility] [address] [place] [address], documented in this encounter Visit Diagnoses Diagnosis Chronic kidney disease, unspecified documented in this encounter Additional Health Concerns Infection Onset Date Last Indicated Resolved Time Respiratory Rule-Out 03/29/2025 03/29/2025 025 11:59 AM EDT COVID-19 Rule-Out 03/29/2025 03/29/2025 03/29/2025 11:59 AM EDT documented as of this encounter Care Teams Railroad Conductor Relationship Specialty Start Date End Date Juan Manuel Marquez PA [address] [place] [address] PCP - General Box Chipper 07/12/20 documented as of this encounter
--- NOTE | 2025-06-22 13:26 | PC.NURSE ---
Late entry patient left dept w/ bolus of LR running.
== END 2025-06-22 11:49 | disposition short-term general hospital (02) ==
PROVIDERS: Emergency Provider Emergency Medicine
DX: I21.3 ST elevation (STEMI) myocardial infarction of unspecified site (principal); R07.2 Precordial pain; R07.9 Chest pain, unspecified; R06.02 Shortness of breath; R11.0 Nausea; M25.512 Pain in left shoulder; M25.511 Pain in right shoulder; F32.A Depression, unspecified; Z79.899 Other long term (current) drug therapy
CPT/HCPCS: 36415; 80053; 83735; 84484; 85025; 85610; 87637; 93005; 96374; 96375; 99285; 99291; J1644; J3010; J7120

== ENCOUNTER → 2025-06-22 11:12 | Outpatient (BNV) | payer MEDICARE, SELFPAY | PROVIDERS: Emergency Provider Emergency Medicine; Visit Provider Internal Medicine Cardiovascular Disease | DX: I21.3 ST elevation (STEMI) myocardial infarction of unspecified site (principal) | CPT/HCPCS: 93010 ==

== ENCOUNTER 2025-07-08 08:15 | Outpatient (AMB) | payer OTHER, MEDICARE, SELFPAY ==
--- NOTE | 2025-07-08 08:18 | A.OFFVIS_ITS ---
Vital Signs 07/08/25 08:19 Height 5 ft 4 in Weight 156 lb 15.506 oz BMI 26.9 BP 100/52 L Blood Pressure Location Lt brachial Position Sitting Pulse 85 Pulse Source Pulse Oximeter Intake Visit Reasons: [facility] d/c cath Furniture Packer Required: No Allergies No Known Allergies (No Known Allergies*) Allergy (Verified 07/08/25 08:21) Medication List - Last Reconciled 07/08/25 by NADIA Zimmerman acetaminophen 650 mg (2 x 325 mg) PO Q6H PRN aspirin 81 mg PO DAILY atorvastatin (Lipitor) 80 mg PO BEDTIME folic acid 1 mg PO DAILY gabapentin 300 mg PO BEDTIME metoprolol succinate ER 25 mg PO DAILY nicotine 14 mg transdermal DAILY oxycodone 5 mg PO Q6H PRN tamsulosin 0.4 mg PO BEDTIME thiamine mononitrate (vit B1) 100 mg PO DAILY ticagrelor (Brilinta) 90 mg PO BID trazodone 150 mg PO BEDTIME PRN valsartan 20 mg PO DAILY HPI HPI [facility] d/c cath: Details: Clayton is a 65-year-old male with past medical history of alcohol use, smoking who recently presented to [facility] with chest discomfort, radiating to his arms with nausea and shortness of breath. He ruled in for inferior STEMI and was transferred to [facility] for cardiac catheterization which showed 100% occlusion of mid RCA with thrombus, PCI performed. He was started on appropriate med management and now presents for follow-up. Today he reports he has been doing well since his hospital discharge. On the day he went to the hospital he says his symptoms had already been occurring for 3 days and were increasing. He has some vague chest discomfort periodically which he has difficulty describing. He has no symptoms like what brought him to the hospital. He denies shortness of breath, PND, orthopnea or edema. No lightheadedness, presyncope, syncope. He ambulates with a cane and tells me he attends a day program. He has issues with right leg discomfort and prior left hip replacement. He reports compliance with his meds but is unsure of exactly what he is taking. [facility] Medical History EtOH dependence ETOH abuse Depression Anxiety Surgical History History of cardiac cath Social History Household Members: None Housing: Apartment Do you presently have visiting nurse or other home services: Yes Alcohol intake: current Alcohol intake frequency: 3 or more drinks per day Alcohol type: hard liquor Patient Tobacco Use Status: Current everyday Tobacco user Tobacco use type: Cigarette Cigarettes Per Day: 5 service: Yes Review of Systems Const All systems reviewed & are unremarkable except as noted in HPI and below ENT Denies dizziness Card Reports chest pain (vague discomfort), Denies chest pain at rest, Denies chest pain with activity, Denies rapid heart rate, Denies pedal edema, Denies edema, Denies leg edema, Denies lightheadedness, Denies palpitations, Denies dyspnea, Denies dyspnea on exertion and Denies orthopnea Resp Denies cough, Denies dyspnea and Denies dyspnea on exertion GI Denies hematochezia and Denies change in stool character Musc Details: uses cane for balance Denies abnormal gait, Denies limited range of motion, Denies muscle cramps, Denies muscle weakness, Denies numbness, Denies radiating pain into limb, Denies stiffness and Denies tingling Neuro Denies abnormal gait, Denies dizziness, Denies numbness and Denies tingling Endo Denies palpitations Physical Exam Vital Signs: Last Vital Signs Pulse 85 07/08/25 08:19 BP 100/52 L 07/08/25 08:19 BMI result Body Mass Index 26.9 Const General: cooperative, healthy appearing, comfortable and no acute distress Orientation/consciousness: patient oriented x3 Neck Neck: Yes normal visual inspection and Yes no JVD Resp Effort & Inspection: normal respiratory effort Auscultation: clear to auscultation bilaterally, no crackles, no rales, no rhonchi and no wheezes Cardio Rate: regular rate Rhythm: regular rhythm Heart sounds: S1 normal heart sound present, S2 normal heart sound present, no gallops, no murmurs and no rubs Neuro General: patient oriented x3 Extrem Other: right radial cath site with easily palpable right radial pulse, right hand assessment normal General: Yes normal to inspection and No no pedal edema Psych Appearance: grossly normal Mental Status: mental status grossly normal Speech and movement: Normal speech and movement present Assessment & Plan Assessment & Plan (1) ST elevation myocardial infarction (STEMI) of inferior wall: Code(s): I21.19 - ST elevation (STEMI) myocardial infarction involving other coronary artery of inferior wall Category: Medical Plan: Inferior STEMI 06/22/2025. Cardiac catheterization confirmed mid RCA 100% stenosis with thrombosis treated with PCI. EF reported as normal, basal to mid inferior akinesis. No recurrent symptoms like his prior angina. Continue aspirin indefinitely. Continue Brilinta uninterrupted for at least 1 year. Continue high-dose atorvastatin with ideal LDL goal less than 70. Continue metoprolol and valsartan. Will check echocardiogram in 6 weeks to reassess EF and wall motion. Will arrange for cardiac rehab. Cardiology follow-up 3 months, sooner if needed (2) History of cardiac cath: Comment: 06/22/2025 mid LAD 50% stenosis, left circumflex mild irregularities, less than 30% stenosis, RCA mid 100% stenosis with thrombus, PCI performed, left ventriculography with normal EF with basal to mid inferior akinesis Code(s): Z98.890 - Other specified postprocedural states Category: Surgical Plan: Right radial catheterization site well healed (3) Smoking addiction: Code(s): F17.200 - Nicotine dependence, unspecified, uncomplicated Category: Social Hx Plan: Continues to smoke daily. He has Chantix available to him but states he has not started it. He has nicotine patches which he says do not help. Encouraged to try the Chantix. (4) Hospital discharge follow-up: Code(s): Z09 - Encounter for follow-up examination after completed treatment for conditions other than malignant neoplasm Category: Medical Plan: Discharge notes reviewed (5) S/P coronary artery stent placement: Code(s): Z95.5 - Presence of coronary angioplasty implant and graft Category: Surgical Plan: PCI of the mid RCA Plan Time spent on chart review, documentation, interview, assessment, patient education Orders: Orders CA echo transthoracic complete [address]19 - ST elevation (STEMI) myocardial infarction involving other coronary artery of inferior wall, Z95.5 - Presence of coronary angioplasty implant and graft Cardiac Rehab Today I21.19 - ST elevation (STEMI) myocardial infarction involving other coronary artery of inferior wall, Z95.5 - Presence of coronary angioplasty implant and graft Coding Level of Care Code Est Pt Level 4 (34361) Complex EM visit Add On G2211 Diagnoses ST elevation myocardial infarction (STEMI) of inferior wall I21.19 History of cardiac cath Z98.890 Smoking addiction F17.200 Hospital discharge follow-up Z09 S/P coronary artery stent placement Z95.5 Time Spent (min) 32
[2025-07-08 08:19] VITALS: BP 100/52; PULSE 85; BMI 26.9
--- OUTSIDE RECORDS SUMMARY | 2025-07-08 08:33 | XMS_ITS | Clinical Summary ---
Author Organization [facility] Address [address] [place] [address] Phone Care Team Providers Care Oil Expeller Operator Name Role Phone Juan Manuel Marquez Primary Care Provider [phone] [phone] Allergies Active Allergy Reactions Criticality Noted Date Comments Levonorgestrel-Ethinyl Estrad Itching 2024 Medications finasteride (PROSCAR) 5 mg tablet Take 1 tablet (5 mg total) by mouth 1 (one) time each day. 07/02/2024 Active FLUoxetine (PROzac) 20 mg capsule Take 1 capsule (20 mg total) by mouth 1 (one) time each day. 11/15/2021 Active folic acid (FOLVITE) 1 mg tablet Take 1 tablet (1,000 mcg total) by mouth 1 (one) time each day. 11/27/2017 Active gabapentin (NEURONTIN) 300 mg capsule Take 1 capsule (300 mg total) by mouth at bedtime. 03/11/2025 Active traZODone (DESYREL) 150 mg tablet Take 1 tablet (150 mg total) by mouth at bedtime as needed for sleep. 11/15/2021 Active Active Problems Problem Noted Date Diagnosed Date Sepsis, due to unspecified o rganism, unspecified whether acute organ dysfunction present ([facility] V24, [facility] V28) 03/28/2025 Surgical History Surgery Date Site/Laterality Comments UPPER GASTROINTESTINAL ENDOSCOPY 05/19/2010 PROCEDURE: [place] UPPER GI ENDOSCOPY PERFORMED; COMMENT: Gaping lower esophageal sphincter COLONOSCOPY 01/13/2010 PROCEDURE: HISTORICAL COLONOSCOPY; COMMENT: Negative, repeat 10 yrs HIP ARTHROPLASTY 11/06/2018 Left PROCEDURE: HISTORICAL HIP REPLACEMENT Medical History Medical History Date Comments Alcohol dependence (CMS/HCC V24, CMS/[facility] V28) 09/02/2020 DX:Alcohol dependence ([facility]) Anxiety 09/02/2020 DX:Anxiety BPH (benign prostatic hyperplasia) 09/02/2020 DX:BPH (benign prostatic hyperplasia) Hyperlipidemia 09/02/2020 DX:Hyperlipidemi a Insomnia 09/02/2020 DX:Insomnia Major depressive disorder, r ecurrent, moderate ([facility] V24, [facility] V28) 09/02/2020 DX:Major depressiv e disorder, recurrent, moderate ([facility]) Osteoarthritis 09/02/2020 DX:Osteoarthriti s; COMMENT: Hip S/P hip replacement, left 09/02/2020 DX:S/P hip replacement, left GERD (gastroesophageal reflux disease) 0 DX:GERD (gastroesophageal reflux disease) Social History Tobacco Use Types Packs/Day Years Used Date Smoking Tobacco: Every Day Cigarettes Alcohol Use Standard Drinks/Week Comments Yes 6 (1 standard drink = 0.6 oz pur e alcohol) drinks daily Housing Instability Answer Date Recorde d Are you worried that in the next 2 months you may not have stable housing? No 03/29/2025 Food Access & Nutrition Answer Date Rec orded Do you have access to a vari ety of food including fruits and vegetables? Yes 03/29/2025 Access to Healthcare Answer Date Record ed Within the last 3 months, ho w many times did you visit the emergency department for your medical care? 1 03/29/2025 Health Literacy Answer Date Recorded How often do you need to hav e someone help you when you read instructions, pamphlets, or other written material from your doctor or pharmacy? Never 03/29/2025 Caregiver: How often do you need to have someone help you when you read instructions, pamphlets, or other written material from your doctor or pharmacy? Not on file 03/29/2025 Financial Risk Answer Date Recorded How hard is it for you to pa y for the very basics like food, housing, medical care, and air conditioning / heating? Not very hard 03/29/2025 Transportation Answer Date Recorded Has the lack of transportati on kept you from meetings, work, or from getting things needed for daily living? No Has the lack of transportati on kept you from medical appointments or from getting medications? No 03/29/2025 Social Isolation Answer Date Recorded How often do you feel lonely or isolated from ose around you? Always 03/29/2025 Food Risk Answer Date Recorded Within the past 12 months we worried whether our food would run out before we got money to buy more. Never true 03/29/2025 Within the past 12 months th e food we bought just didn't last and we didn't have money to get more. Never true 03/29/2025 Dependent Care Answer Date Recorded Do you need help finding or paying for care for your loved ones. For example, child welfare worker or elderly care for an older adult? No 03/29/2025 Education Answer Date Recorded Do you think completing more education or training, like finishing a GED, going to college, or learning a trade, would be helpful for you? No 03/29/2025 Employment and Income Answer Date Recor ded During the last four weeks, have you been actively looking for work? No 03/29/2025 Living Situation Answer Date Recorded What is your living situation? 0 03/29/2025 Interpersonal Safety Answer Date Record ed Physical Abuse 03/29/2025 Verbal Abuse 03/29/2025 Sex and Gender Information Value Date Recorded Sex Assigned at Not on file Legal Sex Male 2:25 AM EST Gender Identity Not on file Sexual Orientation Not on file Obstetrics History Last Filed Vital Signs Vital Sign Reading Time Taken Comments Blood Pressure 133/68 03/30/2025 8:03 AM EDT Pulse 62 03/30/2025 8:03 AM EDT Temperature 36.3 C (97.4 F) 03/30/2025 8:03 AM EDT Respiratory Rate 14 03/30/2025 8:03 AM EDT Oxygen Saturation 100% 03/30/2025 8:03 AM EDT Inhaled Oxygen Concentration - - Weight 79.4 kg (175 lb) 03/28/2025 11:56 AM EDT Height 170.7 cm (5' 7.2 ) 03/28/2025 11:56 AM ED T Body Mass Index 27.25 03/28/2025 11:56 AM EDT Plan of Treatment Health Maintenance Due Date Last Done Comments RSV Immunization Adult Patients (1 - Risk 60-74 years 1-dose series) 2018 Hepatitis A Vaccines (2 of 3 - Hep A Twinrix risk 3-dose series) 07/31/2023 07/03/2023 Hepatitis B Vaccines (2 of 3 - Hep B Twinrix risk 3-dose series) 07/31/2023 07/03/2023 Depression Screening 11/04/2024 Abdominal Aortic Aneurysm (AAA) Screen 02/11/2025 Cholesterol Screening (Lipid Panel) 02/11/2025 Colorectal Cancer Screening: Colonoscopy 02/11/2025 Hepatitis C Screening 02/11/2025 Medicare Annual Wellness Visit 02/11/2025 COVID-19 Vaccine ( season) 2025 10/09/2022, 10/19/2021, 01/31/2021, Additional history exists Influenza Vaccine (#1) 2025 , 09/04/2023, 08/07/2023, Additional history exists Social Influencers of Health Screening 03/29/2026 03/29/2025 Falls Risk Assessment 03/30/2026 03/30/2025 DTaP,Tdap,and Td Vaccines (9 - Td or Tdap) 02/14/2028 02/13/2018, 02/13/2018, 02/03/2018, Additional history exists Zoster Vaccines Completed 09/23/2018, 01/10/2018 Pneumococcal Vaccine: 50+ Years Completed 07/05/2022, 09/21/2020, 08/25/2014, Additional history exists HIB Vaccines Aged Out No longer eligi [...] to complete this topic RSV Immunization Patients Under 20 months Aged Out No longer eligible based on patient's age to complete this topic Varicella Vaccines Aged Out No longer eligible based on patient's age to complete this topic Insurance [place] - [place] [employer] MEDICARE Advance Directives * Full Code - Default (Latest Code Status on File) Date Activated Date Inactivated Comments 03/29/2025 2:10 AM 03/30/2025 3:28 PM This is orde r is used when code status has not been discussed with the patient, or code status is otherwise unknown/unconfirmed To update the patient's code status, place a code status order. Do not modify or discontinue any currently active code status orders. * Full Code - Confirmed Date Activated Date Inactivated Comments 03/28/2025 10:27 PM 03/29/2025 2:10 AM This code s tatus was ascertained in the following way: Code status discussion: discussion with patient To update the patient's code status, place a code status order. Do not modify or discontinue any currently active code status orders. Care Teams Oil Expeller Operator Relationship Specialty Start Date End Date Juan Manuel Marquez PA [address] [place] [address] PCP - General Nutrition Manager 07/12/20
--- OUTSIDE RECORDS SUMMARY | 2025-07-08 08:33 | XMS_ITS | Encounter Summary ---
Author Organization [employer] Address [address] [place] [address] Care Team Providers Care Pharmacist Technician Name Role Phone Juan Manuel Marquez Primary Care Provider [phone] Encounter Details Date Type Department Care Team (Late st Contact Info) Description 02/11/[address] [facility] - Main Lab [address] [facility] [place] [address] Yoly Farmer, [facility] [address] [facility] [address] [place] [address] Chronic kidney disease, unspecified Social [...] unit/L LAB CHEMISTRY METHOD 02/11/2025 11:52 AM [facility] Blood Venous blood specimen / Unknown Venipuncture / Unknown 02/11/2025 5:39 AM EDT 02/11/2025 10:44 AM EDT Yoly Farmer SIDING MECHANIC LAB BLOOD ORDERABLES Fin al Result [facility] [address] [place] [address], * (ABNORMAL) Basic metabolic panel (02/11/2025 5:39 AM EDT) [facility] Sodium 139 133 - 145 mmol/L LAB CHEMISTRY METHOD 02/11/2025 11:52 AM [facility] Potassium 4.5 3.5 - 5.5 mmol/L LAB CHEMISTRY METHOD 02/11/2025 11:52 AM [facility] Chloride 106 96 - 110 mmol/L LAB CHEMISTRY METHOD 02/11/2025 11:52 AM [facility] CO2 27 21 - 32 mmol/L LAB CHEMISTRY METHOD 02/11/2025 11:52 AM [facility] Anion Gap 6 3 - 11 LAB CHEMISTRY METHOD 02/11/2025 11:52 AM [facility] Glucose 92 70 - 100 mg/dL LAB CHEMISTRY METHOD 02/11/2025 11:52 AM [facility] BUN 15 5 - 25 mg/dL LAB CHEMISTRY METHOD 02/11/2025 11:52 AM [facility] Creatinine 0.59(L) 0.70 - 1.30 mg/dL LAB CHEMISTRY METHOD 02/11/2025 11:52 AM [facility] eGFR 107 >=60 mL/min/1. 73m2 LAB CHEMISTRY METHOD 02/11/2025 11:52 AM EDT [facility] Comment:Calculation based on the Chronic Kidney Disease Epidemiology Collaboration (CKD-EPI) equation refit without adjustment for race. BUN/Creatinine Ratio 25.4 LAB CHEMISTRY METHOD 02/11/2025 11:52 AM [facility] Calcium 8.7 8.5 - 10.5 mg/dL LAB CHEMISTRY METHOD 02/11/2025 11:52 AM [facility] Blood Venous blood specimen / Unknown Venipuncture / Unknown 02/11/2025 5:39 AM EDT 02/11/2025 10:44 AM EDT Yoly Farmer SIDING MECHANIC LAB BLOOD ORDERABLES Fin al Result [facility] [address] [place] [address], * (ABNORMAL) Complete blood count (02/11/2025 5:39 AM EDT) WBC 9.6 4.8 - 10.8 K/mcL LAB HEMETOLOGY METHOD 02/11/2025 11:21 AM [facility] RBC 4.00(L) 4.50 - 5.50 M/mcL LAB HEMETOLOGY METHOD 02/11/2025 11:21 AM [facility] Hemoglobin 12.3(L) 13.5 - 17.5 g/dL LAB HEMETOLOGY METHOD 02/11/2025 11:21 AM [facility] Hematocrit 37.0(L) 42.0 - 54.0 % LAB HEMETOLOGY METHOD 02/11/2025 11:21 AM [facility] MCV 92.7 79.0 - 98.0 FL LAB HEMETOLOGY METHOD 02/11/2025 11:21 AM [facility] MCH 30.8 27.0 - 32.0 pcg [...] EDT 02/11/2025 10:44 AM EDT Yoly Farmer SIDING MECHANIC LAB BLOOD ORDERABLES Fin al Result [facility] [address] [place] [address], documented in this encounter Visit Diagnoses Diagnosis Chronic kidney disease, unspecified documented in this encounter Additional Health Concerns Infection Onset Date Last Indicated Resolved Time Respiratory Rule-Out 03/29/2025 03/29/2025 025 11:59 AM EDT COVID-19 Rule-Out 03/29/2025 03/29/2025 03/29/2025 11:59 AM EDT documented as of this encounter Care Teams Pharmacist Technician Relationship Specialty Start Date End Date Juan Manuel Marquez PA [address] [place] [facility] [place] [place] [address] PCP - General Extract Operator 07/12/20 documented as of this encounter
== END 2025-07-08 08:45 | disposition home or self-care (01) ==
PROVIDERS: Visit Provider Nurse Practitioner Family
DX: I21.19 ST elevation (STEMI) myocardial infarction involving other coronary artery of inferior wall (principal); Z98.890 Other specified postprocedural states; F17.200 Nicotine dependence, unspecified, uncomplicated; Z09 Encounter for follow-up examination after completed treatment for conditions other than malignant neoplasm; Z95.5 Presence of coronary angioplasty implant and graft
CPT/HCPCS: 99214; G2211

== ENCOUNTER → 2025-07-08 08:15 | Outpatient (BNVA) | payer MEDICARE, SELFPAY | PROVIDERS: Visit Provider Nurse Practitioner Family | DX: Z09 Encounter for follow-up examination after completed treatment for conditions other than malignant neoplasm (principal); I25.2 Old myocardial infarction; F17.210 Nicotine dependence, cigarettes, uncomplicated; Z95.5 Presence of coronary angioplasty implant and graft; Z98.890 Other specified postprocedural states; Z71.6 Tobacco abuse counseling | CPT/HCPCS: 99212 ==

== ENCOUNTER 2025-07-20 09:29 | Outpatient (REF) | payer OTHER, SELFPAY ==
--- OUTSIDE RECORDS SUMMARY | 2025-07-20 12:04 | XMS_ITS | Encounter Summary ---
Author Organization [employer] Address [address] [place] [address] Care Team Providers Care Coat Finisher Name Role Phone Juan Manuel Marquez Primary Care Provider [phone] Encounter Details Date Type Department Care Team (Late st Contact Info) Description 02/11/2025 Lab Requisition [facility] - Main Lab [address] [facility] [place] [address] Yoly Farmer, [facility] [address] [facility] [address] [place] [address] Chronic kidney disease, unspecified Social [...] unit/L LAB CHEMISTRY METHOD 02/11/2025 11:52 AM [facility] Blood Venous blood specimen / Unknown Venipuncture / Unknown 02/11/2025 5:39 AM EDT 02/11/2025 10:44 AM EDT Yoly Farmer [employer] LAB BLOOD ORDERABLES Fin al Result [facility] [address] [place] [address], * (ABNORMAL) Basic metabolic panel (02/11/2025 5:39 AM EDT) [facility] Sodium 139 133 - 145 mmol/L LAB CHEMISTRY METHOD 02/11/2025 11:52 AM [facility] Potassium 4.5 3.5 - 5.5 mmol/L LAB CHEMISTRY METHOD 02/11/2025 11:52 AM [facility] Chloride 106 96 - 110 mmol/L LAB CHEMISTRY METHOD 02/11/2025 11:52 AM [facility] CO2 27 21 - 32 mmol/L LAB CHEMISTRY METHOD 02/11/2025 11:52 AM [facility] Anion Gap 6 3 - 11 LAB CHEMISTRY METHOD 02/11/2025 11:52 AM [facility] Glucose 92 70 - 100 mg/dL LAB CHEMISTRY METHOD 02/11/2025 11:52 AM [facility] BUN 15 5 - 25 mg/dL LAB CHEMISTRY METHOD 02/11/2025 11:52 AM [facility] Creatinine 0.59(L) 0.70 - 1.30 mg/dL LAB CHEMISTRY METHOD 02/11/2025 11:52 AM [facility] eGFR 107 >=60 mL/min/1. 73m2 LAB CHEMISTRY METHOD 02/11/2025 11:[address] [facility] Comment:Calculation based on the Chronic Kidney Disease Epidemiology Collaboration (CKD-EPI) equation refit without adjustment for race. BUN/Creatinine Ratio 25.4 LAB CHEMISTRY METHOD 02/11/2025 11:52 AM [facility] Calcium 8.7 8.5 - 10.5 mg/dL LAB CHEMISTRY METHOD 02/11/2025 11:52 AM [facility] Blood Venous blood specimen / Unknown Venipuncture / Unknown 02/11/2025 5:39 AM EDT 02/11/2025 10:44 AM EDT Yoly Farmer [employer] LAB BLOOD ORDERABLES Fin al Result [facility] [address] [place] [address], * (ABNORMAL) Complete blood count (02/11/2025 5:39 AM EDT) WBC 9.6 4.8 - 10.8 K/mcL LAB HEMETOLOGY METHOD 02/11/2025 11:21 AM [facility] RBC 4.00(L) 4.50 - 5.50 M/mcL LAB HEMETOLOGY METHOD 02/11/2025 11:21 AM [facility] Hemoglobin 12.3(L) 13.5 - 17.5 g/dL LAB HEMETOLOGY METHOD 02/11/2025 11:21 AM [facility] Hematocrit 37.0(L) 42.0 - 54.0 % LAB HEMETOLOGY METHOD 02/11/2025 11:21 AM [facility] MCV 92.7 79.0 - 98.0 FL LAB HEMETOLOGY METHOD 02/11/2025 11:21 AM [facility] MCH 30.8 27.0 - 32.0 pcg LAB HEMETOLOGY METHOD 02/11/2025 11:[address] [facility] MCHC 33.2 32.0 - 37.0 g/dL LAB HEMETOLOGY METHOD 02/11/2025 11:[address] [facility] RDW 13.0 11.0 - 15.0 % LAB HEMETOLOGY METHOD 02/11/2025 11:[address] [facility] Platelets 291 130 - 400 K/mcL LAB HEMETOLOGY METHOD 02/11/2025 11:[address] [facility] MPV 10.0 7.0 - 11.0 FL LAB HEMETOLOGY METHOD 02/11/2025 11:[address] [facility] NRBC 0.0 <1.0 % LAB HEMETOLOGY METHOD 02/11/2025 11:[address] [facility] NRBC Absolute 0.00 <0.10 K/mcL LAB HEMETOLOGY METHOD 02/11/2025 11:[address] [facility] Blood Venous blood specimen / Unknown Venipuncture / Unknown 02/11/2025 5:39 AM EDT 02/11/2025 10:44 AM EDT Yoly Farmer [employer] LAB BLOOD ORDERABLES Fin al Result [facility] [address] [place] [address], documented in this encounter Visit Diagnoses Diagnosis Chronic kidney disease, unspecified documented in this encounter Additional Health Concerns Infection Onset Date Last Indicated Resolved Time Respiratory Rule-Out 03/29/2025 03/29/2025 025 11:59 AM EDT COVID-19 Rule-Out 03/29/2025 03/29/2025 03/29/2025 11:59 AM EDT documented as of this encounter Care Teams Coat Finisher Relationship Specialty Start Date End Date Juan Manuel Marquez PA [address] [place] [facility] [place] [address] PCP - General Freelance Graphic Designer 07/12/20 documented as of this encounter
--- OUTSIDE RECORDS SUMMARY | 2025-07-20 12:04 | XMS_ITS | Clinical Summary ---
Author Organization [facility] Address [address] [place] [address] Phone Care Team Providers Care Medical Radiation Therapist Name Role Phone Juan Manuel Marquez Primary Care Provider [phone] [phone] Allergies Active Allergy Reactions Criticality Noted Date [...] rganism, unspecified whether acute organ dysfunction present ([facility] V24, [facility] V28) 03/28/2025 Surgical History Surgery Date Site/Laterality Comments UPPER GASTROINTESTINAL ENDOSCOPY 05/19/2010 PROCEDURE: [place] UPPER GI ENDOSCOPY PERFORMED; COMMENT: Gaping lower esophageal sphincter COLONOSCOPY 01/13/2010 PROCEDURE: HISTORICAL COLONOSCOPY; COMMENT: Negative, repeat 10 yrs HIP ARTHROPLASTY 11/06/2018 Left PROCEDURE: HISTORICAL HIP REPLACEMENT Medical History Medical History Date Comments Alcohol dependence (CMS/HCC V24, CMS/[facility] V28) 09/02/2020 DX:Alcohol dependence ([facility]) Anxiety 09/02/2020 DX:Anxiety BPH (benign prostatic hyperplasia) 09/02/2020 DX:BPH (benign prostatic hyperplasia) Hyperlipidemia 09/02/2020 DX:Hyperlipidemi a Insomnia 09/02/2020 DX:Insomnia Major depressive disorder, r ecurrent, moderate ([facility] V24, [facility] V28) 09/02/2020 DX:Major depressiv e disorder, recurrent, moderate ([facility]) Osteoarthritis 09/02/2020 DX:Osteoarthriti s; COMMENT: Hip [...] care for your loved ones. For example, attendant children's institution or elderly care for an older adult? [...] currently active code status orders. Care Teams Medical Radiation Therapist Relationship Specialty Start Date End Date Juan Manuel Marquez PA [address] [place] [address] PCP - General Annealing Furnace Operator 07/12/20
[2025-07-20 14:11] LABS: Cannabinoid Screen Urine Not Detected (Not Detect)
== END 2025-07-20 09:30 | disposition home or self-care (01) ==
LOC: HO.LAB 09:29
PROVIDERS: PCP Family Medicine; Visit Provider Internal Medicine
DX: Z51.81 Encounter for therapeutic drug level monitoring (principal)
CPT/HCPCS: 80307

== ENCOUNTER 2025-07-28 13:30 | Outpatient (RCR) | payer OTHER, SELFPAY | END 2025-08-06 09:10 | disposition home or self-care (01) | LOC: HO.CR 13:30 | PROVIDERS: PCP Family Medicine; Visit Provider Family Medicine | DX: I21.3 ST elevation (STEMI) myocardial infarction of unspecified site (principal) | CPT/HCPCS: 93798 ==

== ENCOUNTER 2025-07-30 12:56 | Emergency (ER) | payer OTHER, SELFPAY ==
[2025-07-30] VITALS (7 sets, daily range): BP systolic 115–170; BP diastolic 59–100; PULSE 69–117; RESP 16–20; TEMP 36.4–36.6; O2SAT 93–98; BMI 27.1
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
--- NOTE | ~2025-07-30 | XR_ITS ---
EXAMINATION: XR CHEST CLINICAL INFORMATION: cough COMPARISON: 10/08/2021 and 09/30/2021 TECHNIQUE: 2 views of the chest were obtained. FINDINGS: No significant abnormality is noted involving the heart, lungs, mediastinum, or soft tissues. Moderate degenerative change with osteophyte are noted in the right shoulder. There is narrowing of the right subacromial space. XR/XR chest 2V IMPRESSION: Stable chest x-ray, no acute disease. Suspected right rotator cuff tear with severe narrowing of the subacromial space. Moderate right shoulder degenerative change. Electronically signed by: Bernardo Rich MD 07/30/2025 03:22 PM EDT
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
--- NOTE | 2025-07-30 14:32 | PC.NURSE ---
Patient removed c-collar.
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
--- OUTSIDE RECORDS SUMMARY | 2025-07-30 14:52 | XMS_ITS | Data Portability ---
Author Organization [facility], Main Office Address [address] [place] [address] Care Team Providers [employer] Name Role Phone ALLIE ROUSE - 2ND FLOOR OTHER Assessment Encounter Date Assessment Date Assessment LastModified by Organization Details LastModified Time 02/11/2025 02/11/2025 greater than 40 minutes spent coordinating discharge today Not available 02/11/2025 08:26:36 Plan of Treatment Reminders Order Date Submit Date Provider Last Modified By Organization Details Last Modified Time Details Appointments None record ed. Lab None record ed. Referral None record ed. Procedures None record ed. Surgeries None record ed. Imaging None record ed. Medication Orders None record ed. Patient TargetsNo targets recorded. Patient InstructionsNo instructions recorded. Reason for Referral None Reported. 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 722251000 Active 2024 Yoly Farmer NP [address] [facility], [address], [place], [address], [facility] [employer] [facility] 5 13:54:45 Retention of urine 390449124 Active 2024 Yoly Farmer NP [address] [facility], [address], [place], [address], [facility] [employer] 5 13:54:58 Fall Active 2024 Yoly Farmer NP [address] [facility], [address], [place], [address], [facility] [employer] [facility] 13:55:14 Non-traumat ic rhabdomyoly sis 241665392 Active 2024 Yoly Farmer NP [address] [facility], [address], [place], [address], [facility] 5 13:55:25 Tobacco dependence caused by cigarettes 2602171955943 9107 Active 2024 Yoly Farmer NP [address] [facility], [address], [place], [address], [facility] 5 13:55:47 Problem Notes None recorded. Medical Equipment None Reported. Allergies No known drug allergies Vitals Date Recorded Body weight Heart rate Respiratory rate Body temperature Oxygen saturation Oxygen saturation in Arterial blood by Pulse oximetry Systolic And Diastolic Provider Name and Address Organization Details Last Updated DateTime 5 16708.2 2 g 80 /min 18 /min 97.1 [degF] 99.98 % 99.98 % 119/62 mm[Hg] Yoly Farmer NP [address] [facility], [facility] [address], [place], [address], [facility] 5 13:34:56 Date Recorded Body weight Heart rate Respiratory rate Body temperature Oxygen saturation Oxygen saturation in Arterial blood by Pulse oximetry Systolic And Diastolic Provider Name and Address Organization Details Last Updated DateTime 5 56399.2 2 g 78 /min 18 /min 97.4 [degF] 99 % 99 % 121/67 mm[Hg] Yoly Farmer NP [address] [facility], [address], [place], [address], [facility] 5 08:46:28 Date Recorded Body weight Heart rate Respiratory rate Body temperature Oxygen saturation Oxygen saturation in Arterial blood by Pulse oximetry Systolic And Diastolic Provider Name and Address Organization Details Last Updated DateTime 5 87820.2 2 g 78 /min 18 /min 97.7 [degF] 98 % 98 % 121/67 mm[Hg] Yoly Farmer NP [address] [facility], [facility] [address], [place], [address], [facility] 5 08:02:51 Social History Question Answer Notes LastModified by Organizat ion Details LastModified Time Tobacco Smoking Status Current Every Day Smoker Yoly Farmer NP [address] [facility], [facility] [address], [place], [address], [facility] 02/08/2025 14:13:32 Do You Have An Advance Directive? No Information not available 02/08/2025 What Is Your Level Of Caffeine Consumption? None Information not available 02/08/2025 What Is Your Code Status? Full Code Information not available 02/08/2025 Where Do You Live? Apartment Information not available 02/08/2025 What Was The Date Of Your Most Recent Tobacco Screening? 02/08/2025 [facility]toh And Smoking Counseling [facility] [place] Information not available 02/08/2025 Do You Have An Out Of Hospital DNR? No Information not available 02/08/2025 What Is Your Relationship Status? Unknown Information not available 02/08/2025 How Much Tobacco Do You Smoke? 1 PPD Information not available 02/08/2025 Has Tobacco Cessation Counseling Been Provided? Yes Information not available 02/08/2025 On What Date Was Tobacco Cessation Counseling Provided? 02/08/2025 Information not available 02/08/2025 Sex: Male Functional Status Question Answer Note LastModified by Organizat ion Details LastModified Time Do you use any illicit or recreational drugs? No Information not available 02/08/2025 Do you or have you ever used any other forms of tobacco or nicotine? No Information not available 02/08/2025 Mental Status None recorded. Family History Nothing Reported. Medical History No medical history recorded. Past Encounters Encounter ID Performer Location Encounter Start Date Encounter Closed Date Diagnosis/Indication Diagnosis SNOMED-CT Code Diagnosis ICD10 Code Diagnosis IMO Codes Diagnosis Note [id number] Yoly Farmer NP [facility] [place] [address] [place] [address] 02/08/2025 13:34:17 02/15/2025 11:43:25 Phimosis 185980617 N47.1 02615 with large phimosis non reducible today after 20 minutes of pressurese nd to ER for eval and treatment Tobacco de pendence caused by cigarettes 5070726926 1301133 F17.037 9713385 cont NRTnicotin e patch 14 mcg qd Non-trauma tic rhabdomyolysis 528478072 M62.82 01821999 rhabo ?resolved with ivf in hospitalbm p and cbc with ckpush po fluids Fall W19.XXXD 1652103 fall at homeoxy prn paintyl prn painsuppor tive carept ot eval and treat Retention of urine 45798 4002 R33.9 49008 noted retention in ERfoley in place and recfu with dr erica stone for removal 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 613343155 F10.19 3153066 hx of etoh abuse with relapse treated in er, sp phenobarb proptocolr estart naltrexone and vivitrol outptabsta in for etoh Generalize d aches and pains 69380345 R52 45514 sp fall with generalize painoxy prntyl prn [id number] Yoly Farmer, [place] [facility] [address] [address] 02/10/2025 08:38:42 02/15/2025 12:33:59 Phimosis 334641973 N47.1 75477 resolved in ERfu with urology Tobacco de pendence caused by cigarettes 8113075498 9118088 F17.385 0310511 continues to smoke and plans to smokeencou rage pt to quitstop NRTstop nicotine patch 14 mcg qd Non-trauma tic rhabdomyolysis 120484680 M62.82 51839005 rhabo ?resolved with ivf in hospitalbm p and cbc with ck not done yet, will reorderpus h po fluids Fall W19.XXXD 7584337 fall at home, no falls hereoxy prn paintyl prn painsuppor tive carept ot eval and treat Retention of urine 78595 4002 R33.9 61634 noted retention in ERfoley in place and rec fu with dr erica stone for removal, however he refuses to have rose in today and will remove per request02/10 nsg to follow with monitoring abd distension and and urine outpt q shift as no bladder scanner is available heremonito r need to straight cathnsg to fu with urology 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 904458328 F10.19 4600242 hx of etoh abuse with relapse treated in er, sp phenobarb protocolre start naltrexone and vivitrol outptabsta in for etoh Generalize d aches and pains 82582635 R52 57164 sp fall with generalize paindc oxy prn as he has no pain and only used oncetyl prn [id number] Yoly Farmer NP [address] [place] [address] 02/11/2025 08:01:58 02/15/2025 13:03:21 Retention of urine 807538524 R33.9 47181 noted retention in ER, now voiding without difficulty this amhosp rec fu with dr maldonado outpt for removal, however pt requested removal yest and has voiding 1000cc sinceretur n to ER for abd distention or not able to peensg to fu with urologysta rted on flomax 0.4 mg po qhs Tobacco de pendence caused by cigarettes 9023027964 4802153 F17.825 0106983 continues to smoke and plans to smokeencou rage pt to quitpt refused nicotine patch 14 mcg qdfu outpt with pcp Phimosis 310158184 N47.1 36168 resolved in ERfu with urology outpt Non-trauma tic rhabdomyolysis 997232388 M62.82 97064899 rhabo ?resolved with ivf in hospitalla bs done this am, will call him if labs abnormal as he wants to go home this ampush po fluids Fall W19.XXXD 2006716 fall at home, no falls hereoxy prn pain, will need to wean oxycodonet yl prn painsuppor tive caresafety measures 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 233535481 F10.19 4774355 hx of etoh abuse with relapse treated in er, sp phenobarb protocolre start naltrexone and vivitrol outptabsta in for etohfu with pcp outpt Generalize d aches and pains 09730654 R52 90632 sp fall with generalize painwean oxycodone 14 tabs, no further scripts will be writtentyl prn Health Concerns Section Related Observation LastModified by Organization Detai ls LastModified Time None Recorded Concern Status LastModified by Organization Details LastModified Time None Recorded Advance Directives Directive N: Payers Insurance Date Sequence Insurance Name Policy Number Policy Daigle Covered Member ID Daigle Member ID Guarantor Name 02/08/2025 1 [place]ARE [place]: [facility] Clayton Mike [id number] Clayton Mike 02/15/2025 1 [facility] (MEDICARE REPLACEMENT/A DVANTAGE - PPO) [id number] Clayton Mike [id number] Clayton Mike Notes Date Note Type Note Provider Name and Address Organization Details Recorded Time 02/08/2025 text/html Pt is a 64 yo m with pmh etoh use disorder, depression, and anxiety who presented to the ER requesting detox who was found on the floor for unknown time dx with rhabdomylosis with ck of 10,972 and active etoh withdrawal and urinary retention. It was felt he would benefit from rehab. Workup included ct scan, cspine, and ct abd notable for bladder distension and rose placed. He required IVF, ativan, and phenobarbital. He was started on tylenol, folic acid, nicotine patch, oxycodone prn, tamsulosin, and thiamine On exam, Clayton is alert and oriented x 3. He is in pain due to penis pain . Reports it has been 2 days and getting more swollen. Has rose present and draining. He has a large phimosis not reducible after 20 minutes of pressure reduction attempted. Will send to ER for treatment and eval. He is agreeable as he is afraid it will fall off if it doesn't get fixed. He does have fair blood flow to penis tip with large phimosis to left side noted. Per addiction consult note: He started drinking 4-5 days prior hospital admit after 2 yrs of sobriety. A few months ago he was on vivitrol and naltrexone. He reported drinking 6 22 oz beers and 6 nips of whiskey daily. He is followed by the [place] and lives at [place] [address]. Plan to restart naltrexone [facility]. MOLST: DNR/DNI/DNHMORSE: high risk Yoly Farmer, [place] [address] [facility], [address], [place], [address], [facility] [employer] 02/08/2025 14:27:39 02/10/2025 text/html Clayton is seen for an acute rounding visit. He is a 64 yo m with pmh etoh use disorder, depression, and anxiety who presented to the ER requesting detox who was found on the floor for unknown time dx with rhabdomylosis with ck of 10,972 and active etoh withdrawal and urinary retention. It was felt he would benefit from rehab. Hosp Workup included ct scan, cspine, and ct abd notable for bladder distension and rose placed. He required IVF, ativan, and phenobarbital. He was started on tylenol, folic acid, nicotine patch, oxycodone prn, tamsulosin, and thiamine Since here he is walking around the unit with walker without difficulty. He was sent back to the ER requiring lidocaine for reduction of phimosis and sent back later that evening on Thursday 02/08. He is smoking and nicotine patch removed. Today Clayton states he is leaving tomorrow and needs to get back to work and insists on removing the rose today. He is aware there is a risk and will still need to fu with urology but will do a voiding trial today as requested. On exam, His penis has the foreskin pulled back no phimosis noticed. He is alert and oriented x 3. Lungs clear. MOLST: DNR/DNI/DNHMORSE: high risk Yoly Farmer, [place] [address] [facility], [address], [place], [address], [facility] [employer] 02/10/2025 09:15:00 02/11/2025 text/html Clayton is seen for a discharge visit. Clayton is a 64 yo m with pmh etoh use disorder, depression, and anxiety who presented to the ER requesting detox who was found on the floor for unknown time dx with rhabdomylosis with ck of 10,972 and active etoh withdrawal and urinary retention. It was felt he would benefit from rehab. Hosp Workup included ct scan, cspine, and ct abd notable for bladder distension and rose placed. He required IVF, ativan, and phenobarbital. He was started on tylenol, folic acid, nicotine patch, oxycodone prn, tamsulosin, and thiamine He was sent back to the ER requiring lidocaine for reduction of phimosis and sent back later that evening on Thursday 02/08 as it was too painful to be reduced here. His rose was removed yesterday am and since has voided 1000cc this am. He is aware he should fu with urology and his pcp. He is aware he will need to return to urologist or ER if he cannot pee. His rhabdomyolosis cpk was drawn this am and will check result and call him this afternoon if there are any abnormalities. He is drinking lots of water. He may resume his naltexone outpt with pcp as before. Since here he is walking around the unit with walker without difficulty occasionally using a walker. He is smoking and nicotine patch removed. On exam, He is alert and oriented x 3. Lungs clear. He is insistent on leaving this am to go to work today. No other concerns. Reports diffuse pain from the fall resolving. MOLST: DNR/DNI/DNHMORSE: high risk Yoly Farmer NP [address] [facility], [address], [place], [address], [facility] [employer] [facility] 02/11/2025 08:26:41
[2025-07-30 15:27] LABS: MANUAL DIFF FLAG NO
[2025-07-30 15:34] LABS: Hematocrit 39.2 % (42.0-52.0); Hemoglobin 14.2 g/dl (14.0-18.0); Imm Gran Abs Auto 0.13 X10*3/uL (0.00-0.03); Imm Gran Pct Auto 1.2 % (0.0-0.4); Lymphocytes Absolute Auto 1.9 X10*3/uL (1.2-4.9); Mean Corpuscular HGB Conc 36.2 g/dl (31.0-36.0); Mean Corpuscular Hemoglobin 31.4 pg (27.0-33.0); Mean Corpuscular Volume 86.7 fL (80.0-98.0); NRBC Abs Auto 0.000 X10*3/uL (0.0-0.012); NRBC Pct Auto 0.0 /100WBC (0.0-0.2); Platelet Count 288 X10*3/uL (160-400); Red Blood Count 4.52 X10*6/uL (4.60-5.80); White Blood Count 10.8 X10*3/uL (4.8-10.8)
[2025-07-30 15:42] LABS: Cannabinoid Screen Urine Not Detected (Not Detect)
[2025-07-30 15:48] LABS: Alanine Aminotransferase 23 U/L (0-40); Albumin Level 3.9 g/dL (3.5-5.0); Alkaline Phosphatase 94 U/L (39-117); Anion Gap 12 (12-20); Aspartate Amino Transferase 24 U/L (5-37); Blood Urea Nitrogen 7 mg/dL (9-16); Calcium 8.2 mg/dL (8.4-10.2); Carbon Dioxide 26 mmol/L (22-29); Chloride 112 mmol/L (96-108); Creatinine Clr Calc Pharmacy 81.3; Estimated Glomerular Filt Rate > 60; Magnesium 2.5 mg/dL (1.6-2.6); Potassium 3.8 mmol/L (3.3-5.1); Sodium 146 mmol/L (135-145); Total Protein 6.6 g/dL (6.5-8.0)
--- NOTE | 2025-07-30 18:02 | PC.NURSE ---
Patient to transition home via a chair van.
== END 2025-07-30 19:25 | disposition home or self-care (01) ==
PROVIDERS: Emergency Provider Emergency Medicine Emergency Medical Services; PCP Family Medicine
DX: S00.83XA Contusion of other part of head, initial encounter (principal); F10.20 Alcohol dependence, uncomplicated; V00.831A Fall from motorized mobility scooter, initial encounter; Y93.89 Activity, other specified; Y92.480 Sidewalk as the place of occurrence of the external cause; Y99.8 Other external cause status; Z72.0 Tobacco use
CPT/HCPCS: 36415; 70450; 71046; 80053; 80307; 83735; 85025; 99284

== ENCOUNTER → 2025-07-30 14:53 | Outpatient (BNV) | payer OTHER, SELFPAY | PROVIDERS: Emergency Provider Emergency Medicine Emergency Medical Services; PCP Family Medicine; Visit Provider Radiology Diagnostic Radiology | DX: S09.90XA Unspecified injury of head, initial encounter (principal); R05.9 Cough, unspecified; M19.011 Primary osteoarthritis, right shoulder; V00.141A Fall from scooter (nonmotorized), initial encounter | CPT/HCPCS: 70450; 71046 ==

== ENCOUNTER 2025-09-17 09:45 | Inpatient (IN) | payer OTHER, SELFPAY ==
--- OUTSIDE RECORDS SUMMARY | 2025-09-13 13:27 | XMS_ITS | Encounter Summary ---
Author Organization [facility] Address [address] [place] [address] Care Team Providers Care Computer Numerical Control Programmer Name Role Phone Juan Manuel Marquez Primary Care Provider [phone] Reason for Visit * Reason Comments Alcohol Intoxication Fall Encounter Details Date Type Department Care Team (Late st Contact Info) Description 09/13/2025 1:27 PM EST - 09/13/2025 6:17 PM EST Emergency [facility] Emergency [address] [place] [address] Chest pain, unspecified type (Primary Dx) Discharge Disposition: Home or Self Care Social History Tobacco Use Types Packs/Day Years [...] do you feel lonely or isolated from th ose around you? Always 03/29/2025 Food Risk [...] for your loved ones. For example, child care attendant school or elderly care for an older adult? [...] Date Recorded What is your living situation? Unrecognized valu e 03/29/2025 Interpersonal Safety Answer Date Record ed Physical Abuse Unrecognized value 03/29/2025 Verbal Abuse Unrecognized value 03/29/2025 Sex and Gender Information Value Date Recorded Sex Assigned at Not on file Legal Sex Male 2:25 AM EST Gender Identity Not on file Sexual Orientation Not on file documented as of this encounter Last Filed Vital Signs Vital Sign Reading Time Taken Comments Blood Pressure 129/77 09/13/2025 2:28 PM EST Pulse 88 09/13/2025 2:28 PM EST Temperature 36.6 C (97.9 F) 09/13/2025 2:27 PM EST Respiratory Rate 20 09/13/2025 2:27 PM EST Oxygen Saturation 96% 09/13/2025 2:27 PM EST Inhaled Oxygen Concentration - - Weight 75.8 kg (167 lb) 09/13/2025 3:38 PM EST Height 162.6 cm (5' 4 ) 09/13/2025 3:38 PM EST Body Mass Index 28.67 09/13/2025 3:38 PM EST documented in this encounter Functional Status * Are you deaf or do you have serious difficulty hearing? Answer Date of Assessment Author No 03/29/2025 10:19 AM Martha Montelongo RN * Are you blind or do you have serious difficulty seeing, even when wearing glasses? Answer Date of Assessment Author No 03/29/2025 10:19 AM Martha Montelongo RN * Do you have serious difficulty walking or climbing stairs? Answer Date of Assessment Author No 03/29/2025 10:19 AM Martha Montelongo RN * Do you have serious difficulty dressing or bathing? Answer Date of Assessment Author No 03/29/2025 10:19 AM Martha Montelongo RN * Because of a physical, mental, or emotional condition, do you have serious difficulty doing errandsalone such as visiting the doctor? Answer Date of Assessment Author No 03/29/2025 10:19 AM Martha Montelongo RN * Calculated C-SSRS Risk Score (Lifetime/Recent) Answer Date of Assessment Author No Risk Indicated 09/13/2025 3:43 PM EST Tremayne Douglass RN * [place] Suicide Severity Rating Scale (Screener/Recent Self-Report) Question Answer Date of Assessment Author 1. Wish to be (Past 1 Month) No 025 3:43 PM Tremayne Georges RN 2. Non-Specific Active Suici [place] Thoughts (Past 1 Month) No 09/13/2025 3:43 PM Jorge Luis Georges RN 6. Suicidal Behavior (Lifetime) No 3:43 PM EST Tremayne Douglass RN documented as of this encounter Mental Status * Because of a physical, mental, or emotional condition, do you have serious difficulty concentrating, remembering, or making decisions? (5 years old or older) Answer Entry Date Author No 03/29/2025 10:19 AM Martha Montelongo RN documented in this encounter Discharge Instructions * Discharge Instructions* ADELAIDA Smith - 09/13/2025 5:16 PM EST Please do not drink alcohol this is dangerous for your health. You do have a high normal troponin which is a marker for cardiac ischemia recommend follow-up with your primary care provider for outpatient cardiology referral. Return to emergency department chest pain worsened with exertion chest pain with shortness of breath chest pain with nausea or sweating any new worsening or concerning symptoms. * Attachments The following attachments cannot be sent through Care Everywhere. * Chest Pain (Beninese) documented in this encounter Medications at Time of Discharge aspirin 81 mg chewable tablet Chew 1 tablet (81 mg total) 1 (one) time each day. 06/24/2025 atorvastatin (LIPITOR) 80 mg tablet Take 1 tablet (80 mg total) by mouth at bedtime. 06/24/2025 colchicine (COLCRYS) 0.6 mg tablet Take 1 tablet (0.6 mg total) by mouth 2 (two) times a day. 06/24/2025 FLUoxetine (PROzac) 20 mg capsule Take 1 capsule (20 mg total) by mouth 1 (one) time each day. 11/15/2021 folic acid (FOLVITE) 1 mg tablet Take 1 tablet (1,000 mcg total) by mouth 1 (one) time each day. 11/27/2017 gabapentin (NEURONTIN) 300 mg capsule Take 1 capsule (300 mg total) by mouth at bedtime. 03/11/2025 metoprolol succinate (TOPROL-XL) 25 mg 24 hr tablet Take 1 tablet (25 mg total) by mouth 1 (one) time each day. 06/24/2025 naltrexone (DEPADE) 50 mg tablet Take 1 tablet (50 mg total) by mouth 1 (one) time each day. For alcohol use disorder 11/27/2017 nicotine (NICODERM CQ) 21 mg/24 hr Apply 1 patch topically 1 (one) time each day at the same time. 08/02/2025 ticagrelor (BRILINTA) 90 mg tablet Take 1 tablet (90 mg total) by mouth 2 (two) times a day. 06/24/2025 traZODone (DESYREL) 150 mg tablet Take 1 tablet (150 mg total) by mouth at bedtime as needed for sleep. 11/15/2021 valsartan (DIOVAN) 40 mg tablet Take 0.5 tablets (20 mg total) by mouth 1 (one) time each day. For CHF 08/31/2025 varenicline tartrate (Chantix Continuing Month Box) 1 mg tablet Take 1 tablet (1 mg total) by mouth 2 (two) times a day. Use with nicotine patch combination 06/24/2025 6 finasteride (PROSCAR) 5 mg tablet Take 1 tablet (5 mg total) by mouth 1 (one) time each day. 07/02/2024 5 Flomax 0.4 mg 24 hr capsule Take 1 capsule (0.4 mg total) by mouth 1 (one) time each day. 08/07/2025 5 documented as of this encounter Discharge Disposition Disposition Code Departure Means Destination Comment s Home or Self Prison Reviewed discharge instructions with patient who verbalizes understanding and was advised to return to ED if symptoms worsen. Patient seen leaving ED with steady gait and no acute distress at this time. documented in this encounter Progress Notes * Tremayne Douglass RN - 09/13/2025 1:28 PM EST BIBA from home, neighbor/patient called (unclear), neighbor found pt on ground. ETOH confirmed per pt, states he drank beer for the past 3 days. Initially reported chest pain, denies at presentation.C/O 310 right ankle pain, no other complaints. No visible deformity per EMS. * ADELAIDA Smith - 09/13/2025 1:20 PM EST HPI Chief Complaint Patient presents with Alcohol Intoxication Fall Patient 65-year-old male with past medical history significant for alcohol dependence hyperlipidemia depression GERD brought in by ambulance after neighbor found him on the ground patient states left-sided chest pain to EMS, denies this to nursing, then tells me left-sided chest pain has been intermittent but that he has been more musculoskeletal without palpitations dyspnea arm pain or jaw pain.Patient's discomfort is not exertional in nature. He states that he has been drinking for the past 3 days which is normal for him without history of alcohol withdrawal seizures. The patient without productive cough fevers. History provided by: Patient and EMS personnel nurseryperson used: Babita Real Total: 0 [place] Coma Scale Score: 15 Patient History Medical History[1] Surgical History[2] Family History[3] Social History Tobacco Use Smoking status: Every Day Current packs/day: 1.00 Types: Cigarettes Smokeless tobacco: Not on file Substance Use Topics Alcohol use: Yes Alcohol/week: 6.0 standard drinks of alcohol Types: 2 Cans of beer, 4 Shots of liquor per week Comment: drinks daily Drug use: Not Currently Review of Systems Review of Systems All other systems reviewed and are negative. Physical Exam ED Triage Vitals [09/13/25 1427] Temp Heart Rate Resp BP 36.6 ??C (97.9 ??F) 88 20 129/77 SpO2 Temp Source Heart Rate Source Patient Position 96 % Oral Monitor Lying BP Location FiO2 (%) Right arm;Upper -- Physical Exam Vitals and nursing note reviewed. Constitutional: Appearance: Normal appearance. HENT: Head: Normocephalic and atraumatic. Cardiovascular: Rate and Rhythm: Normal rate and regular rhythm. Pulses: Normal pulses. Heart sounds: Normal heart sounds. Pulmonary: Effort: Pulmonary effort is normal. Breath sounds: Normal breath sounds. Abdominal: Palpations: Abdomen is soft. Tenderness: There is no abdominal tenderness. There is no right CVA tenderness, left CVA tenderness, guarding or rebound. Musculoskeletal: General: Normal range of motion. Cervical back: Normal range of motion and neck supple. Skin: General: Skin is warm and dry. Capillary Refill: Capillary refill takes less than 2 seconds. Neurological: General: No focal deficit present. Mental Status: He is alert. ED Course & MDM ED Course as of 09/13/25 1727 Mon Sep 13, 2025 1409 POCT Glucose, blood(!) reviewed [AW] 1512 CBC and differential(!) No clinically significant abnormality. No leukocytosis leukopenia acute anemia platelet abnormality. [AW] 1512 Troponin I High Sensitivity High normal [AW] 1512 Magnesium normal [AW] 1512 Lipase normal [AW] 1512 Comprehensive Metabolic Panel (CMP)(!) No metabolic derangement, no acidemia, no evidence of hepatic or renal injury [AW] 1702 EKG obtained at 1419, normal sinus rhythm normal axis rate [address] segment elevation depression present no ischemic T wave changes present. [AW] 1702 XR Chest 2 Views IMPRESSION: FINDINGS/IMPRESSION: Normal heart size and pulmonary vascularity. Lungs are clear and costophrenic angles are sharp. No acute osseous abnormality. Degenerative changes of the shoulders and spine. [AW] 1726 Patient with reassuring workup, patient does have high normal troponin. This is stable. Patient encouraged to follow-up with primary care doctor. Return precautions given [AW] ED Course User Index [AW] ADELAIDA Smith Clinical Impressions as of 09/13/25 1727 Chest pain, unspecified type Medical Decision Making Differential diagnosis includes musculoskeletal strain sprain, ACS, PE, pneumonia, viral syndrome. Patient's history not suggestive of dissection, pleural effusion, biliary tree pathology. Patient afebrile hemodynamically stable. Patient is clinically sober ambulatory without assistance.Patient without signs suggestive of alcohol withdrawal. Will rule out emergent medical condition. See ED course. Very low suspicion for PE given absence of hypoxia or pleuritic chest pain or tachycardia, D-dimer is not pursued. CTA is not pursued. Procedures [1] Past Medical History: Diagnosis Date Alcohol dependence ([facility] V24, [facility] V28) 09/02/2020 DX:Alcohol dependence (HCC) Anxiety 09/02/2020 DX:Anxiety BPH (benign prostatic hyperplasia) 09/02/2020 DX:BPH (benign prostatic hyperplasia) GERD (gastroesophageal reflux disease) 09/02/2020 DX:GERD (gastroesophageal reflux disease) Hyperlipidemia 09/02/2020 DX:Hyperlipidemia Insomnia 09/02/2020 DX:Insomnia Major depressive disorder, recurrent, moderate ([facility] V24, [facility] V28) 09/02/2020 DX:Major depressive disorder, recurrent, moderate ([facility]) Osteoarthritis 09/02/2020 DX:Osteoarthritis; COMMENT: Hip S/P hip replacement, left 09/02/2020 DX:S/P hip replacement, left [2] Past Surgical History: Procedure Laterality Date COLONOSCOPY 01/13/2010 PROCEDURE: HISTORICAL COLONOSCOPY; COMMENT: Negative, repeat 10 yrs HIP ARTHROPLASTY Left 11/06/2018 PROCEDURE: HISTORICAL HIP REPLACEMENT UPPER GASTROINTESTINAL ENDOSCOPY 05/19/2010 PROCEDURE: DC UPPER GI ENDOSCOPY PERFORMED; COMMENT: Gaping lower esophageal sphincter [3] No family history on file. ADELAIDA Smith 09/13/25 1727 Cosigned by Main Duncan MD at 09/13/2025 7:38 PM EST documented in this encounter Plan of Treatment Not on file documented as of this encounter Procedures Procedure Name Priority Date/Time Associated Diagnosis Comments TROPONIN I HIGH SENSITIVITY STAT 09/13/2025 4:20 PM EST XR CHEST 2 VIEWS STAT 09/13/2025 3:06 PM EST ECG 12-LEAD STAT 09/13/2025 2:19 PM EST TROPONIN I HIGH SENSITIVITY STAT 09/13/2025 2:13 PM EST CBC WITH AUTO DIFFERENTIAL STAT 09/13/2025 2:13 PM EST CBC AND DIFFERENTIAL STAT 09/13/2025 2:13 PM EST MAGNESIUM STAT 09/13/2025 2:13 PM EST LIPASE STAT 09/13/2025 2:13 PM EST COMPREHENSIVE METABOLIC PANEL STAT 09/13/2025 2:13 PM EST POCT GLUCOSE BLOOD Routine 09/13/2025 1: 58 PM EST documented in this encounter Results * Troponin I high sensitivity (09/13/2025 4:20 PM EST) High Sensitivity Troponin I 45 <=79 ng/L LAB CHEMISTRY METHOD 09/13/2025 5:09 PM EST [facility] ([facility] Blood Venous blood specimen / Unknown Venipuncture / Unknown 09/13/2025 4:20 PM EST 09/13/2025 4:38 PM EST Narrative [facility] ([facility]) [facility] - 09/13/2025 5:09 PM EST High levels of biotin in samples may falsely decrease hsTroponin values. Use caution when interpreting hsTroponin results in patients taking biotin who exhibit renal impairment (eGFR <60) or in patients taking more than 20 mg/day of biotin. us Carri SON LAB BLOOD ORDERABLES Fin al Result [facility] ([facility]) [facility] [address] [place] [address], [place] [phone] * XR Chest 2 Views (09/13/2025 3:06 PM EST) Anatomical Region Laterality Modality Body Radiographic Ana Paula ging 09/13/2025 3:23 PM EST Impressions 09/13/2025 3:23 PM EST FINDINGS/IMPRESSION: Normal heart size and pulmonary vascularity. Lungs are clear and costophrenic angles are sharp. No acute osseous abnormality. Degenerative changes of the shoulders and spine. -------- FINAL REPORT -------- Dictated By: Huber Toledo Dictated Date: 09/13/2025 15:23 ET Assigned Physician: Huber Toledo Reviewed and Electronically Signed By: Huber Toledo Signed Date: 09/13/2025 15:23 ET Workstation ID: [id number] Transcribed By: Self Edit Transcribed Date: 09/13/2025 15:23 ET Narrative 09/13/2025 3:23 PM EST XR CHEST 2 VIEWS INDICATION: chest pain TECHNIQUE: XR CHEST 2 VIEWS COMPARISON: None Procedure Note Huber Toledo MD - 09/13/2025 XR CHEST 2 VIEWS INDICATION: chest pain TECHNIQUE: XR CHEST 2 VIEWS COMPARISON: None IMPRESSION: FINDINGS/IMPRESSION: Normal heart size and pulmonary vascularity. Lungsare clear and costophrenic angles are sharp. No acute osseousabnormality. Degenerative changes of the shoulders and spine. -------- FINAL REPORT -------- Dictated By: Huber Toledo Dictated Date: 09/13/2025 15:23 ET Assigned Physician: Huber Toledo Reviewed and Electronically Signed By: Huber Toledo Signed Date: 09/13/2025 15:23 ET Workstation ID: [id number] Transcribed By: Self Edit Transcribed Date: 09/13/2025 15:23 ET us Carri SON IMG XR PROCEDURES Final Result * 12-Lead ECG (09/13/2025 2:19 PM EST) Ventricular Rate ECG 91 BPM GEMUSE Atrial Rate 91 BPM GEMUSE P-R Interval 124 ms GEMUSE QRS Duration 84 ms GEMUSE Q-T Interval 374 ms GEMUSE QTc 460 ms GEMUSE P Wave Arnold 48 degrees GEMUSE R Arnold -20 degrees GEMUSE ECG Interpretation Normal sinus rhythm Normal ECG When compared with ECG of 28-MAR-2025 12:38, T wave inversion now evident in Inferior leads Confirmed by MD Ramos, Vargas ([id number]) on 09/13/2025 5:19:16 PM GEMUSE 09/13/2025 2:19 PM EST 09/13/2025 5:19 PM EST us Carri SON ECG ORDERABLES Final Re sult GEMUSE * (ABNORMAL) CBC auto differential (09/13/2025 2:13 PM EST) Pathologist [facility] WBC 9.8 4.8 - 10.8 K/mcL LAB HEMETOLOGY METHOD 09/13/2025 2:44 PM EST [facility] RBC 4.60 4.50 - 5.50 M/[facility] LAB HEMETOLOGY METHOD 09/13/2025 2:44 PM EST [facility] Hemoglobin 14.2 13.5 - 17.5 g/dL LAB HEMETOLOGY METHOD 09/13/2025 2:44 PM EST [facility] Hematocrit 41.7(L) 42.0 - 54.0 % LAB HEMETOLOGY METHOD 09/13/2025 2:44 PM EST [facility] MCV 90.8 79.0 - 98.0 FL LAB HEMETOLOGY METHOD 09/13/2025 2:44 PM [facility] MCH 30.9 27.0 - 32.0 pcg LAB HEMETOLOGY METHOD 09/13/2025 2:44 PM [facility] MCHC 34.1 32.0 - 37.0 g/dL LAB HEMETOLOGY METHOD 09/13/2025 2:44 PM [facility] RDW 13.8 11.0 - 15.0 % LAB HEMETOLOGY METHOD 09/13/2025 2:44 PM [facility] Platelets 378 130 - 400 K/mcL LAB HEMETOLOGY METHOD 09/13/2025 2:44 PM [facility] MPV 8.9 7.0 - 11.0 FL LAB HEMETOLOGY METHOD 09/13/2025 2:44 PM [facility] NRBC 0.0 <1.0 % LAB HEMETOLOGY METHOD 09/13/2025 2:44 PM [facility] NRBC Absolute 0.00 <0.10 K/mcL LAB HEMETOLOGY METHOD 09/13/2025 2:44 PM [facility] Neutrophils Relative 61.4 % LAB HEMETOLOGY METHOD 09/13/2025 2:44 PM [facility] Lymphocytes Relative 27.3 % LAB HEMETOLOGY METHOD 09/13/2025 2:44 PM [facility] Monocytes Relative 7.4 % LAB HEMETOLOGY METHOD 09/13/2025 2:44 PM [facility] Eosinophils Relative 1.5 % LAB HEMETOLOGY METHOD 09/13/2025 2:44 PM [facility] Basophils Relative 1.1 % LAB HEMETOLOGY METHOD 09/13/2025 2:44 PM [facility] Immature Granulocytes Relative 1.3 % LAB HEMETOLOGY METHOD 09/13/2025 2:44 PM EST [facility] Neutrophils Absolute 5.98 1.50 - 7.00 K/mcL LAB HEMETOLOGY METHOD 09/13/2025 2:44 PM EST [facility] Lymphocytes Absolute 2.66 1.00 - 5.00 K/mcL LAB HEMETOLOGY METHOD 09/13/2025 2:44 PM EST [facility] Monocytes Absolute 0.72 0.20 - 1.00 K/mcL LAB HEMETOLOGY METHOD 09/13/2025 2:44 PM EST [facility] Eosinophils Absolute 0.15 0.00 - 0.50 K/[facility] LAB HEMETOLOGY METHOD 09/13/2025 2:44 PM EST [facility] Basophils Absolute 0.11 0.00 - 0.20 K/mcL LAB HEMETOLOGY METHOD 09/13/2025 2:44 PM EST [facility] Immature Granulocytes Absolute 0.13(H) 0.00 - 0.03 K/mcL LAB HEMETOLOGY METHOD 09/13/2025 2:44 PM EST [facility] Blood Venous blood specimen / Unknown Venipuncture / Unknown 09/13/2025 2:13 PM EST 09/13/2025 2:33 PM EST Carri SON LAB BLOOD ORDERABLES Fin al Result [facility]) [facility] [address] [place] [address], * Lipase (09/13/2025 2:13 PM EST) Lipase 29 13 - 75 unit/L LAB CHEMISTRY METHOD 09/13/2025 3:08 PM EST [facility] Blood Venous blood specimen / Unknown Venipuncture / Unknown 09/13/2025 2:13 PM EST 09/13/2025 2:33 PM EST Carri SON LAB BLOOD ORDERABLES Fin al Result Performing Organization Address City/[facility]/ZIP Co de Phone Number [facility] [address] [place] [address], [place] [phone] * Magnesium (09/13/2025 2:13 PM EST) [facility] Magnesium 2.5 1.9 - 2.6 mg/dL LAB CHEMISTRY METHOD 09/13/2025 3:08 PM EST [facility] Blood Venous blood specimen / Unknown Venipuncture / Unknown 09/13/2025 2:13 PM EST 09/13/2025 2:33 PM EST Carri SON LAB BLOOD ORDERABLES Fin al Result Performing Organization Address [facility] de Phone Number [facility] [address] [place] [address], [place] [phone] * Troponin I High Sensitivity (09/13/2025 2:13 PM EST) [facility] High Sensitivity Troponin I 47 <=79 ng/L LAB CHEMISTRY METHOD 09/13/2025 3:08 PM EST [facility] Blood Venous blood specimen / Unknown Venipuncture / Unknown 09/13/2025 2:13 PM EST 09/13/2025 2:33 PM EST Narrative [facility] - 09/13/2025 3:08 PM EST High levels of biotin in samples may falsely decrease hsTroponin values. Use caution when interpreting hsTroponin results in patients taking biotin who exhibit renal impairment (eGFR <60) or in patients taking more than 20 mg/day of biotin. Carri SON LAB BLOOD ORDERABLES Fin al Result Performing Organization Address City/[facility] Co de Phone Number [facility] [address] [place] [address], [place] [phone] * (ABNORMAL) Comprehensive Metabolic Panel (CMP) (09/13/2025 2:13 PM EST) Sodium 144 133 - 145 mmol/L LAB CHEMISTRY METHOD 09/13/2025 3:09 PM [facility] Potassium 3.9 3.5 - 5.5 mmol/L LAB CHEMISTRY METHOD 09/13/2025 3:09 PM [facility] Chloride 110 96 - 110 mmol/L LAB CHEMISTRY METHOD 09/13/2025 3:09 PM [facility] CO2 26 21 - 32 mmol/L LAB CHEMISTRY METHOD 09/13/2025 3:09 PM [facility] Anion Gap 8 3 - 11 LAB CHEMISTRY METHOD 09/13/2025 3:09 PM [facility] Glucose 128(H) 70 - 100 mg/dL LAB CHEMISTRY METHOD 09/13/2025 3:09 PM [facility] BUN 8 5 - 25 mg/dL LAB CHEMISTRY METHOD 09/13/2025 3:09 PM [facility] Creatinine 0.89 0.70 - 1.30 mg/dL LAB CHEMISTRY METHOD 09/13/2025 3:09 PM [facility] eGFR 94 >=60 mL/min/1. 73m2 LAB CHEMISTRY METHOD 09/13/2025 3:09 PM [facility] Comment:Calculation based on the Chronic Kidney Disease Epidemiology Collaboration (CKD-EPI) equation refit without adjustment for race. BUN/Creatinine Ratio 9.0 LAB CHEMISTRY METHOD 09/13/2025 3:09 PM [facility] Calcium 8.6 8.5 - 10.5 mg/dL LAB CHEMISTRY METHOD 09/13/2025 3:09 PM [facility] AST (SGOT) 23 10 - 42 unit/L LAB CHEMISTRY METHOD 09/13/2025 3:09 PM [facility] ALT (SGPT) 37 10 - 60 unit/L LAB CHEMISTRY METHOD 09/13/2025 3:09 PM EST [facility] Alkaline Phosphatase 101 42 - 121 unit/L LAB CHEMISTRY METHOD 09/13/2025 3:09 PM [facility] Total Protein 7.3 6.0 - 8.0 g/dL LAB CHEMISTRY METHOD 09/13/2025 3:09 PM [facility] Albumin 3.7 3.2 - 5.0 g/dL LAB CHEMISTRY METHOD 09/13/2025 3:09 PM [facility] Total Bilirubin 0.3 0.0 - 1.4 mg/dL LAB CHEMISTRY METHOD 09/13/2025 3:09 PM [facility] Blood Venous blood specimen / Unknown Venipuncture / Unknown 09/13/2025 2:13 PM EST 09/13/2025 2:33 PM EST Carri SON LAB BLOOD ORDERABLES Fin al Result [facility] [address] [place] [address], [place] [phone] * (ABNORMAL) POCT Glucose, blood (09/13/2025 1:58 PM EST) Glucose POCT 139(H) 70 - 100 mg/dL 09/13/2025 1:59 PM EST [facility] Blood Capillary blood specimen / Unknown 09/13/2025 1:58 PM EST 09/13/2025 2:00 PM EST us Generic Provider Poct LAB POINT OF CARE TEST DOCKED DEVICE UNSOLICITED RESULTS Final Result Performing Organization Address City/[facility]/ZIP Co de Phone Number [facility] [address] [place] [address], [place] [phone] documented in this encounter Visit Diagnoses Diagnosis Chest pain, unspecified type- Primary documented in this encounter Orders Lab Orders Without Results Count Last Ordered D ate First Ordered Date POCT GLUCOSE, BLOOD 1 09/13/2025 documented in this encounter Care Teams Computer Numerical Control Programmer Relationship Specialty Start Date End Date Juan Manuel Marquez PA [address] [place] [address] PCP - General Bi Data Architect 07/12/20 documented as of this encounter
--- OUTSIDE RECORDS SUMMARY | 2025-09-13 13:27 | XMS_ITS | Encounter Summary ---
Author Organization [facility] Address [address] [place] [address] Care Team Providers Care Rodeo Clown Name Role Phone Juan Manuel Marquez Primary Care Provider [phone] Reason for Visit * Reason Comments Alcohol Intoxication Fall Encounter Details Date Type Department Care Team (Late st Contact Info) Description 09/13/2025 1:27 PM EST - 09/13/2025 6:[address] [facility] [address] [place] [address] Chest pain, unspecified type (Primary [...] care for your loved ones. For example, special needs child caregiver or elderly care for an older adult? [...] 3:43 PM EST Tremayne Douglass RN * [place] Suicide Severity Rating Scale (Screener/Recent Self-Report) Question [...] sent through Care Everywhere. * Chest Pain (Emirati) documented in this encounter Medications at Time of Discharge aspirin 81 mg chewable tablet Chew 1 tablet (81 mg total) 1 (one) time each day. 06/24/2025 atorvastatin (LIPITOR) 80 mg tablet Take 1 tablet (80 mg total) by mouth at bedtime. 06/24/2025 colchicine (COLCRYS) 0.6 mg tablet Take 1 tablet (0.6 mg total) by mouth 2 (two) times a day. 06/24/2025 metoprolol succinate (TOPROL-XL) 25 mg 24 hr [...] mouth 2 (two) times a day. 06/24/2025 valsartan (DIOVAN) 40 mg tablet Take 0.5 tablets (20 mg total) by mouth 1 (one) time each day. For CHF 08/31/2025 varenicline tartrate (Chantix Continuing Month Box) 1 mg tablet Take 1 tablet (1 mg total) by mouth 2 (two) times a day. Use with nicotine patch combination 06/24/2025 FLUoxetine (PROzac) 20 mg capsule Take 1 capsule (20 mg total) by mouth 1 (one) time each day. 11/15/2021 folic acid (FOLVITE) 1 mg tablet Take 1 tablet (1,000 mcg total) by mouth 1 (one) time each day. 11/27/2017 gabapentin (NEURONTIN) 300 mg capsule Take 1 capsule (300 mg total) by mouth at bedtime. 03/11/2025 traZODone (DESYREL) 150 mg tablet Take 1 tablet (150 mg total) by mouth at bedtime as needed for sleep. 11/15/2021 Flomax 0.4 mg 24 hr capsule Take 1 capsule (0.4 mg total) by mouth 1 (one) time each day. 08/07/2025 finasteride (PROSCAR) 5 mg tablet Take 1 tablet (5 mg total) by mouth 1 (one) time each day. 07/02/2024 5 documented as of this encounter Discharge Disposition Disposition Code Departure Means Destination Comment s Home or Self [facility] Reviewed discharge instructions with patient who verbalizes [...] Initially reported chest pain, denies at presentation.C/O 3/10 right ankle pain, no other complaints. 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 V24, [facility] V28) 09/02/2020 DX:Alcohol dependence (HCC) Anxiety 09/02/2020 DX:Anxiety BPH (benign prostatic hyperplasia) 09/02/2020 DX:BPH (benign prostatic hyperplasia) GERD (gastroesophageal reflux disease) 09/02/2020 DX:GERD (gastroesophageal reflux disease) Hyperlipidemia 09/02/2020 DX:Hyperlipidemia Insomnia 09/02/2020 DX:Insomnia Major depressive disorder, recurrent, moderate ([facility] V24, [facility] [...] HIP REPLACEMENT UPPER GASTROINTESTINAL ENDOSCOPY 05/19/2010 PROCEDURE: NE UPPER GI ENDOSCOPY PERFORMED; COMMENT: Gaping lower [...] LAB CHEMISTRY METHOD 09/13/2025 5:09 PM EST [facility] Blood Venous blood specimen / Unknown Venipuncture / Unknown 09/13/2025 4:20 PM EST 09/13/2025 4:38 PM EST Narrative [facility] - 09/13/2025 5:09 PM EST High levels of biotin in samples may falsely decrease hsTroponin values. Use caution when interpreting hsTroponin results in patients taking biotin who exhibit renal impairment (eGFR <60) or in patients taking more than 20 mg/day of biotin. us Carri SON LAB BLOOD ORDERABLES Fin al Result [facility] [address] [place] [address], [place] [phone] * XR Chest 2 Views (09/13/2025 3:06 PM EST) Anatomical Region Laterality Modality Body Radiographic Ana Palua ging 09/13/2025 3:23 PM EST Impressions 09/13/2025 [...] Signed Date: 09/13/2025 15:23 ET Workstation ID: [id number] Transcribed By: Self Edit Transcribed Date: 09/13/2025 [...] Signed Date: 09/13/2025 15:23 ET Workstation ID: [id number] Transcribed By: Self Edit Transcribed Date: 09/13/2025 15:23 ET us Carri SON IMG XR PROCEDURES Final Result * 12-Lead ECG (09/13/2025 2:19 PM EST) Ventricular Rate ECG 91 BPM GEMUSE Atrial Rate 91 BPM GEMUSE P-R Interval 124 ms GEMUSE QRS Duration 84 ms GEMUSE Q-T Interval 374 ms GEMUSE QTc 460 ms GEMUSE P Wave Sawyer 48 degrees GEMUSE R Sawyer -20 degrees GEMUSE ECG Interpretation Normal sinus rhythm Normal ECG When compared with ECG of 28-MAR-2025 12:38, T wave inversion now evident in Inferior leads Confirmed by MD Ramos, Vargas ([id number]) on 09/13/2025 5:19:16 PM GEMUSE 09/13/2025 2:19 PM EST 09/13/2025 5:19 PM EST us Carri SON ECG ORDERABLES Final Re sult GEMUSE * (ABNORMAL) CBC auto differential (09/13/2025 2:13 PM EST) Pathologist [facility] WBC 9.8 4.8 - 10.8 K/mcL LAB HEMETOLOGY METHOD 09/13/2025 2:44 PM EST [facility] RBC 4.60 4.50 - 5.50 M/[facility] LAB HEMETOLOGY METHOD 09/13/2025 2:44 PM EST [facility] Hemoglobin 14.2 13.5 - 17.5 g/dL LAB HEMETOLOGY METHOD 09/13/2025 2:44 PM EST [facility] Hematocrit 41.7(L) 42.0 - 54.0 % LAB HEMETOLOGY METHOD 09/13/2025 2:44 PM EST [facility] MCV 90.8 79.0 - 98.0 FL LAB HEMETOLOGY METHOD 09/13/2025 2:44 PM [facility] MCH 30.9 27.0 - 32.0 pcg LAB HEMETOLOGY METHOD 09/13/2025 2:44 PM [facility] MCHC 34.1 32.0 - 37.0 g/dL LAB HEMETOLOGY METHOD 09/13/2025 2:44 PM [facility] RDW 13.8 11.0 - 15.0 % LAB HEMETOLOGY METHOD 09/13/2025 2:44 PM [facility] Platelets 378 130 - 400 K/mcL LAB HEMETOLOGY METHOD 09/13/2025 2:44 PM [facility] MPV 8.9 7.0 - 11.0 FL LAB HEMETOLOGY METHOD 09/13/2025 2:44 PM [facility] NRBC 0.0 <1.0 % LAB HEMETOLOGY METHOD 09/13/2025 2:44 PM [facility] NRBC Absolute 0.00 <0.10 K/mcL LAB HEMETOLOGY METHOD 09/13/2025 2:44 PM [facility] Neutrophils Relative 61.4 % LAB HEMETOLOGY METHOD 09/13/2025 2:44 PM [facility] Lymphocytes Relative 27.3 % LAB HEMETOLOGY METHOD 09/13/2025 2:44 PM [facility] Monocytes Relative 7.4 % LAB HEMETOLOGY METHOD 09/13/2025 2:44 PM [facility] Eosinophils Relative 1.5 % LAB HEMETOLOGY METHOD 09/13/2025 2:44 PM [facility] Basophils Relative 1.1 % LAB HEMETOLOGY METHOD 09/13/2025 2:44 PM [facility] Immature Granulocytes Relative 1.3 % LAB HEMETOLOGY METHOD 09/13/2025 2:44 PM EST [facility] Neutrophils Absolute 5.98 1.50 - 7.00 K/mcL LAB HEMETOLOGY METHOD 09/13/2025 2:44 PM EST [facility] Lymphocytes Absolute 2.66 1.00 - 5.00 K/mcL LAB HEMETOLOGY METHOD 09/13/2025 2:44 PM EST [facility] Monocytes Absolute 0.72 0.20 - 1.00 K/mcL LAB HEMETOLOGY METHOD 09/13/2025 2:44 PM EST [facility] Eosinophils Absolute 0.15 0.00 - 0.50 K/[facility] HEMETOLOGY METHOD 09/13/2025 2:44 PM EST [facility] Basophils Absolute 0.11 0.00 - 0.20 K/mcL LAB HEMETOLOGY METHOD 09/13/2025 2:44 PM EST [facility] Immature Granulocytes Absolute 0.13(H) 0.00 - 0.03 K/mcL LAB HEMETOLOGY METHOD 09/13/2025 2:44 PM EST [facility] Blood Venous blood specimen / Unknown Venipuncture / Unknown 09/13/2025 2:13 PM EST 09/13/2025 2:33 PM EST Carri SON LAB BLOOD ORDERABLES Fin al Result [facility]) [facility] [address] [place] [address], * Lipase (09/13/2025 2:13 PM EST) Lipase 29 13 - 75 unit/L LAB CHEMISTRY METHOD 09/13/2025 3:08 PM EST [facility] Blood Venous blood specimen / Unknown Venipuncture / Unknown 09/13/2025 2:13 PM EST 09/13/2025 2:33 PM EST Carri SON LAB BLOOD ORDERABLES Fin al Result Performing Organization Address City/[facility]/ZIP Co de Phone Number [facility] [address] [place] [address], [place] [phone] * Magnesium (09/13/2025 2:13 PM EST) [facility] Magnesium 2.5 1.9 - 2.6 mg/dL LAB CHEMISTRY METHOD 09/13/2025 3:08 PM EST [facility] Blood Venous blood specimen / Unknown Venipuncture / Unknown 09/13/2025 2:13 PM EST 09/13/2025 2:33 PM EST Carri SON LAB BLOOD ORDERABLES Fin al Result Performing Organization Address [facility] de Phone Number [facility] [address] [place] [address], [place] [phone] * Troponin I High Sensitivity (09/13/2025 2:13 PM EST) [facility] High Sensitivity Troponin I 47 <=79 ng/L LAB CHEMISTRY METHOD 09/13/2025 3:08 PM EST [facility] Blood Venous blood specimen / Unknown Venipuncture / Unknown 09/13/2025 2:13 PM EST 09/13/2025 2:33 PM EST Narrative [facility] - 09/13/2025 3:08 PM EST High levels of biotin in samples may falsely decrease hsTroponin values. Use caution when interpreting hsTroponin results in patients taking biotin who exhibit renal impairment (eGFR <60) or in patients taking more than 20 mg/day of biotin. Carri SON LAB BLOOD ORDERABLES Fin al Result Performing Organization Address City/[facility] Co de Phone Number [facility] [address] [place] [address], [place] [phone] * (ABNORMAL) Comprehensive Metabolic Panel (CMP) (09/13/2025 2:13 PM EST) Sodium 144 133 - 145 mmol/L LAB CHEMISTRY METHOD 09/13/2025 3:09 PM [facility] Potassium 3.9 3.5 - 5.5 mmol/L LAB CHEMISTRY METHOD 09/13/2025 3:09 PM [facility] Chloride 110 96 - 110 mmol/L LAB CHEMISTRY METHOD 09/13/2025 3:09 PM [facility] CO2 26 21 - 32 mmol/L LAB CHEMISTRY METHOD 09/13/2025 3:09 PM [facility] Anion Gap 8 3 - 11 LAB CHEMISTRY METHOD 09/13/2025 3:09 PM [facility] Glucose 128(H) 70 - 100 mg/dL LAB CHEMISTRY METHOD 09/13/2025 3:09 PM [facility] BUN 8 5 - 25 mg/dL LAB CHEMISTRY METHOD 09/13/2025 3:09 PM [facility] Creatinine 0.89 0.70 - 1.30 mg/dL LAB CHEMISTRY METHOD 09/13/2025 3:09 PM [facility] eGFR 94 >=60 mL/min/1. 73m2 LAB CHEMISTRY METHOD 09/13/2025 3:09 PM [facility] Comment:Calculation based on the Chronic Kidney Disease Epidemiology Collaboration (CKD-EPI) equation refit without adjustment for race. BUN/Creatinine Ratio 9.0 LAB CHEMISTRY METHOD 09/13/2025 3:09 PM [facility] Calcium 8.6 8.5 - 10.5 mg/dL LAB CHEMISTRY METHOD 09/13/2025 3:09 PM [facility] AST (SGOT) 23 10 - 42 unit/L LAB CHEMISTRY METHOD 09/13/2025 3:09 PM [facility] ALT (SGPT) 37 10 - 60 unit/L LAB CHEMISTRY METHOD 09/13/2025 3:09 PM EST [facility] Alkaline Phosphatase 101 42 - 121 unit/L LAB CHEMISTRY METHOD 09/13/2025 3:09 PM [facility] Total Protein 7.3 6.0 - 8.0 g/dL LAB CHEMISTRY METHOD 09/13/2025 3:09 PM [facility] Albumin 3.7 3.2 - 5.0 g/dL LAB CHEMISTRY METHOD 09/13/2025 3:09 PM [facility] Total Bilirubin 0.3 0.0 - 1.4 mg/dL LAB CHEMISTRY METHOD 09/13/2025 3:09 PM [facility] Blood Venous blood specimen / Unknown Venipuncture / Unknown 09/13/2025 2:13 PM EST 09/13/2025 2:33 PM EST Carri SON LAB BLOOD ORDERABLES Fin al Result [facility] [address] [place] [address], [place] [phone] * (ABNORMAL) POCT Glucose, blood (09/13/2025 1:58 PM EST) Glucose POCT 139(H) 70 - 100 mg/dL 09/13/2025 1:59 PM EST [facility] Blood Capillary blood specimen / Unknown 09/13/2025 1:58 PM EST 09/13/2025 2:00 PM EST us Generic Provider Poct LAB POINT OF CARE TEST DOCKED DEVICE UNSOLICITED RESULTS Final Result Performing Organization Address City/[facility]/ZIP Co de Phone Number [facility] [address] [place] [address], [place] [phone] documented in this encounter Visit Diagnoses Diagnosis Chest pain, unspecified type- Primary documented in this encounter Orders Lab Orders Without Results Count Last Ordered D ate First Ordered Date POCT GLUCOSE, BLOOD 1 09/13/2025 documented in this encounter Care Teams Rodeo Clown Relationship Specialty Start Date End Date Juan Manuel Marquez PA [address] [place] [address] PCP - General [employer] Worker 07/12/20 documented as of this encounter
--- OUTSIDE RECORDS SUMMARY | 2025-09-15 06:30 | XMS_ITS | Encounter Summary ---
Author Organization [facility] Address [address] [place] [id number] Care Team Providers Care Neon Glass Bender Name Role Phone Juan Manuel Marquez Primary Care Provider [phone] Reason for Visit * Reason Comments Abdominal Pain * Auth/Cert Specialty Diagnoses / Procedures Referred By Naren t Referred To Contact Diagnoses Postobstructive diuresis Procedures / Vargas Morales MD [address] [place] [address] Phone: tel: fax: [facility] Emergency [address] [place] [phone] Phone: tel: Referral ID Status Reason Start Date Expiration Date Visits Re quested Visits Authorized [id number] 1 1 Encounter Details Date Type Department Care Team (Latest Contact Info) Description 09/15/2025 6:30 AM EST - 09/16/2025 1:43 PM EST Hospital Encounter [facility] [address] [place] [phone] Anna Pillai MD [address] [place] [address] Vargas Morales MD [address] [place] [phone] Michael Nieves MD [address] [place] [address] Postobstructive diuresis (Primary Dx); Sepsis, due to unspecified organism, unspecified whether acute organ dysfunction present ([facility] V24, [facility] V28) Discharge Disposition: Home or Self Care Social [...] your loved ones. For example, child care counselor or elderly care for an older adult? [...] Date Record ed Physical Abuse Unrecognized value 09/16/2025 Verbal Abuse Unrecognized value 09/16/2025 Sex and Gender Information Value Date Recorded Sex Assigned at Not on file Legal Sex Male 2:25 AM EST Gender Identity Not on file Sexual Orientation Not on file documented as of this encounter Last Filed Vital Signs Vital Sign Reading Time Taken Comments Blood Pressure 114/52 09/16/2025 11:33 AM EST Pulse 81 09/16/2025 11:33 AM EST Temperature 36.7 C (98 F) 09/16/2025 11:33 AM EST Respiratory Rate 18 09/16/2025 11:33 AM EST Oxygen Saturation 95% 09/16/2025 11:33 AM EST Inhaled Oxygen Concentration - - Weight 75.8 kg (167 lb) 09/15/2025 6:33 AM EST Height 162.6 cm (5' 4 ) 09/15/2025 6:33 AM EST Body Mass Index 28.67 09/15/2025 6:33 AM EST documented in this encounter Functional Status [...] Date of Assessment Author No Risk Indicated 09/15/2025 6:42 AM Marcela Ramon RN * Kane Suicide Severity Rating Scale (Screener/Recent Self-Report) Question Answer Date of Assessment Author 1. Wish to be (Past 1 Month) No 09/15/2025 6:42 AM Marleni Davison RN 2. Non-Specific Active Suici [place] Thoughts (Past 1 Month) No 09/15/2025 6:42 AM Sathya Davison RN 6. Suicidal Behavior (Lifetime) No 6:42 AM Marcela Davison RN documented as of this encounter Mental Status * Because of a physical, mental, or emotional condition, do you have serious difficulty concentrating, remembering, or making decisions? (5 years old or older) Answer Entry Date Author No 03/29/2025 10:19 AM Martha Montelongo RN documented in this encounter Discharge Summaries * Michael Nieves MD - 09/16/2025 1:43 PM EST Images from the original note were not included. DISCHARGE SUMMARY Patient Information Clayton Mike : 1960 [65 y.o.] Admitting Provider Vargas Morales MD Discharge Provider Michael Nieves MD, No att. providers found Primary Care Physician ADELAIDA Arita Admission Date 09/15/2025 Discharge Date 09/16/2025 Discharge disposition-Home Summary of Hospital Problems Primary Discharge Diagnosis: Acute urinary retention Hospital Course Summary Admission HPI from H&P per admitting physician/LEONIE- Rob?? 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 Relatively vague historian in general in the ER had some difficulty teasing out the leadup to the presentation however it appears that a neighbor called 911 for the patient who endorsed feeling generally unwell. He ultimately did endorse some abdominal pain and had the urge to urinate but is having difficulty. Given the diagnosis of BPH, this is not completely unusual for him. He has been referred to urology but never met with urology. He has a Rose catheter in place now and is feeling better overall. He believes some of his lingering symptoms may be due to his alcohol use and subsequent withdrawal. Endorses a history of mild withdrawal syndrome but denies seizures, DTs, ICU lev el of care. Denies significant fevers. On arrival in the hospital, initial blood pressure was 144/81. Heart rate of 99. Respirations of 18with an SpO2 of 94% on room air and a temperature of 37.3 ??C. He had initial labs showing no significant leukocytosis. Anemia with H&H of 12.8 and 37.3 is seen. Slight hypokalemia 3.4, remainderof electrolytes are within normal limits. Nonfasting glucose 123. Renal function is preserved. Liver function testing is within normal limits. Elevated ammonia of 56 is noted. VBG was obtained and reviewed. A single high-sensitivity troponin resulted at 50, 1 hour repeat was 48. Respiratory tract viral panel is without infectious etiology. Ethanol level at 0640 this morning was 153. UA showing 75white blood cells and moderate bacteria. Urine culture is pending. ECG was without significant evidence of ischemia. Chest x-ray showed no pneumonia or pulmonary edema. CT abdomen and pelvis shows diffuse bladder wall thickening possibly related to cystitis or chronic bladder outlet obstruction andmild right and no left hydronephrosis. See remainder of radiology report for further details. Foleycatheter was ultimately placed and patient has put out about 1300 cc of urine. Repeat electrolytes are within normal limits. Admission to the medicine team has been requested. Brief Hospital course Patient is a 65 years old male who presented to the hospital with complaints of abdominal pain and overall not feeling well including generalized weakness. - Found to have urinary retention and Rose catheter was placed and he put on more than 1300 cc urine in the ED after Rose catheter placement. - CT scan abdomen pelvis showed diffuse bladder wall thickening possibly related to cystitis or chronic bladder outlet obstruction and mild right and no left hydronephrosis. - In light of postobstructive diuresis concern patient was admitted for further management. - Patient started on Flomax, finasteride. Electrolytes remained stable. Patient had urine cultures done that grew less than 100,000 CFU gram-negative bacilli. No significant UTI symptoms. Patient wastreated with antibiotic in the hospital. I have sent cefdinir for 3 days after patient was discharged and I will call the patient to inform. -[facility] I have suggested outpatient follow-up with PCP and urologist as he will require void trial outpatient.. Rose catheter education provided Physical Exam at time of Discharge Temp (24hrs), Av.8 ??C (98.3 ??F), Min:36.4 ??C (97.5 ??F), Max:37.3 ??C (99.1 ??F) Body mass index is 28.67 kg/m??. No results found for: PTWT , PTHT Physical Exam General-patient appears comfortable, no acute distress HEENT-NCAT Eyes-anicteric Cardiology-no significant murmur appreciated Respiratory-no significant wheezing appreciated abdomen-nontender nondistended Extremity-no significant lower extremity edema noted Neurology-awake alert oriented to time place and person Skin-warm and dry Follow-Up Instructions and Recommendations Outpatient follow-up with urologist for void trial Discharge Medications Your medication list CHANGE how you take these medications Instructions Last Dose Given Next Dose Due tamsulosin 0.4 mg 24 hr capsule Commonly known as: FLOMAX What changed: You were already taking a medication with the same name, and this prescription was added. Make sure you understand how and when to take each. Take 1 capsule (0.4 mg total) by mouth 1 (one) time each day. Capsules should be taken 30 minutes following the same meal each day. tamsulosin 0.4 mg 24 hr capsule Commonly known as: Flomax Start taking on: September 17, 2025 What changed: additional instructions Take 1 capsule (0.4 mg total) by mouth 1 (one) time each day. Capsules should be taken 30 minutes following the same meal each day. CONTINUE taking these medications Instructions Last Dose Given Next Dose Due aspirin 81 mg chewable tablet Chew 1 tablet (81 mg total) 1 (one) time each day. atorvastatin 80 mg tablet Commonly known as: LIPITOR Take 1 tablet (80 mg total) by mouth at bedtime. Chantix Continuing Month Box 1 mg tablet Generic drug: varenicline tartrate Take 1 tablet (1 mg total) by mouth 2 (two) times a day. Use with nicotine patch combination colchicine 0.6 mg tablet Commonly known as: COLCRYS Take 1 tablet (0.6 mg total) by mouth 2 (two) times a day. finasteride 5 mg tablet Commonly known as: PROSCAR Take 1 tablet (5 mg total) by mouth 1 (one) time each day. FLUoxetine 20 mg capsule Commonly known as: PROzac Take 1 capsule (20 mg total) by mouth 1 (one) time each day. folic acid 1 mg tablet Commonly known as: FOLVITE Take 1 tablet (1,000 mcg total) by mouth 1 (one) time each day. gabapentin 300 mg capsule Commonly known as: NEURONTIN Take 1 capsule (300 mg total) by mouth at bedtime. metoprolol succinate 25 mg 24 hr tablet Commonly known as: TOPROL-XL Take 1 tablet (25 mg total) by mouth 1 (one) time each day. naltrexone 50 mg tablet Commonly known as: DEPADE Take 1 tablet (50 mg total) by mouth 1 (one) time each day. For alcohol use disorder nicotine 21 mg/24 hr Commonly known as: NICODERM CQ Apply 1 patch topically 1 (one) time each day at the same time. ticagrelor 90 mg tablet Commonly known as: BRILINTA Take 1 tablet (90 mg total) by mouth 2 (two) times a day. traZODone 150 mg tablet Commonly known as: DESYREL Take 1 tablet (150 mg total) by mouth at bedtime as needed for sleep. valsartan 40 mg tablet Commonly known as: DIOVAN Take 0.5 tablets (20 mg total) by mouth 1 (one) time each day. For CHF Where to Get Your Medications These medications were sent to [facility] - [address] [phone] finasteride 5 mg tablet tamsulosin 0.4 mg 24 hr capsule tamsulosin 0.4 mg 24 hr capsule Lab Results Component Value Date GLUCOSE 101 (H) 09/16/2025 CALCIUM 8.2 (L) 09/16/2025 NA 142 09/16/2025 K 3.7 09/16/2025 CO2 29 09/16/2025 CL 108 09/16/2025 BUN 10 09/16/2025 CREATININE 0.98 09/16/2025 Lab Results Component Value Date WBC 6.9 09/16/2025 HGB 11.8 (L) 09/16/2025 HCT 34.5 (L) 09/16/2025 MCV 91.0 09/16/2025 PLT 234 09/16/2025 CT Abdomen Pelvis w Contrast Result Date: 09/15/2025 PROCEDURE: CT ABDOMEN/PELVIS INDICATION: Pain TECHNIQUE: CT of the abdomen and pelvis following theintravenous administration of 90cc Isovue 370. Multiplanar reformats. The examination was performedutilizing dose reduction techniques. Total DLP 828 COMPARISON: 03/28/2025 FINDINGS: LOWER THORAX: Lung bases are clear. Small hiatal hernia. Circumferential thickening of the distal esophagus. HEPATOBILIARY: Hepatic steatosis. No focal liver lesions. Gallbladder and biliary tree are normal. SPLEEN:No splenomegaly. PANCREAS: No focal mass or ductal dilatation. ADRENALS: No nodules. KIDNEYS/URETERS: No renal/ureteral calculi or solid renal mass. Mild right and no left hydronephrosis. PELVIC ORGAN S/BLADDER: Circumferential thickening of the bladder with Rose catheter in the decompressed bladder. Prostate is mildly enlarged. PERITONEUM / RETROPERITONEUM: No ascites or free air. No retroperitoneal lymphadenopathy. VESSELS: Abdominal aorta is normal in size. Portal vein is patent. GI TRACT: Colonic diverticulosis. No bowel obstruction or wall thickening. Normal appendix. BONES AND SOFT TISSUES: Left hip arthroplasty. Degenerative changes seen throughout the bones. Superficial soft tissuesare within normal limits. Chronic superior endplate fracture deformity and Schmorl's node at T12. Diffuse bladder wall thickening, possibly related to cystitis or chronic bladder outlet obstruction. Mild right and no left hydronephrosis. Small hiatal hernia. Circumferential thickening of the distal esophagus. Correlate for gastroesophageal reflux. Endoscopy could exclude neoplasm. Hepatic steatosis. -------- FINAL REPORT -------- Dictated By: TUSHAR PATTERSON Dictated Date: 09/15/2025 11:39 ET Assigned Physician: TUSHAR PATTERSON Reviewed and Electronically Signed By: TUSHAR PATTERSON Signed Date: 11/12/703538:52 ET Workstation ID: [id number] Transcribed By: Self Edit Transcribed Date: 09/15/2025 11:39 ET XR Chest 2 Views Result Date: 09/15/2025 XR CHEST 2 VIEWS INDICATION: Cough TECHNIQUE: XR CHEST 2 VIEWS COMPARISON: 09/13/2025 FINDINGS/IMPRESSION: No pneumonia or pulmonary edema. Right apical pleural- parenchymal scarring is unchanged. No pleural effusion or pneumothorax. Cardiac silhouette is normal in size. Degenerative changes seen throughout the bones. -------- FINAL REPORT -------- Dictated By: TUSHAR PATTERSON Dictated Date: 09/15/2025 09:59 ET Assigned Physician: TUSHAR PATTERSON Reviewed and Electronically Signed By: TUSHAR PATTERSON Signed Date: 09/15/2025 10:03 ET Workstation ID: [id number] Transcribed By: Self Edit Transcribed Date: 09/15/2025 09:59 ET About 38 minutes spent independently today in discharge process for this patient including but not limited to chart review, clinical decision making, care coordination. * Chantelle Vega RN - 09/16/2025 1:00 PM EST If concerning symptoms present call your PCP or return to the emergency department. Continue to take medications as prescribed. Continue to attend appointments as scheduled. Please make a post hospital follow up appointment with your PCP and a urologist. documented in this encounter Discharge Instructions * Discharge Instructions* Michael Nieves MD - 09/16/2025 12:23 PM EST Follow up with PCP and urology outpatient * Attachments The following attachments cannot be sent through Care Everywhere. * Caregiver: Caring for an Indwelling Urinary Catheter: General Info ([place]) * Indwelling Urinary Catheter Care: General Info ([place]) documented in this encounter Medications at Time of Discharge aspirin 81 mg chewable tablet Chew 1 tablet (81 mg total) 1 (one) time each day. 06/24/2025 atorvastatin (LIPITOR) 80 mg tablet Take 1 tablet (80 mg total) by mouth at bedtime. 06/24/2025 cefdinir (OMNICEF) 300 mg capsule Take 1 capsule (300 mg total) by mouth 2 (two) times a day for 3 days. 6 each 09/16/2025 5 colchicine (COLCRYS) 0.6 mg tablet Take 1 tablet (0.6 mg total) by mouth 2 (two) times a day. 06/24/2025 finasteride (PROSCAR) 5 mg tablet Take 1 tablet (5 mg total) by mouth 1 (one) time each day. 30 each 09/16/2025 5 FLUoxetine (PROzac) 20 mg capsule Take 1 [...] each day at the same time. 08/02/2025 tamsulosin (FLOMAX) 0.4 mg 24 hr capsule Take 1 capsule (0.4 mg total) by mouth 1 (one) time each day. Capsules should be taken 30 minutes following the same meal each day. 30 each 09/16/2025 6 tamsulosin (Flomax) 0.4 mg 24 hr capsule Take 1 capsule (0.4 mg total) by mouth 1 (one) time each day. Capsules should be taken 30 minutes following the same meal each day. 30 each 09/17/2025 5 ticagrelor (BRILINTA) 90 mg tablet Take 1 [...] Use with nicotine patch combination 06/24/2025 6 documented as of this encounter Ordered Prescriptions Prescription Sig Dispense Quantity Refills Last Filled Start Date End Date cefdinir (OMNICEF) 300 mg capsule Take 1 capsule (300 mg total) by mouth 2 (two) times a day for 3 days. 6 each 09/16/2025 5 tamsulosin (Flomax) 0.4 mg 24 hr capsule Take 1 capsule (0.4 mg total) by mouth 1 (one) time each day. Capsules should be taken 30 minutes following the same meal each day. 30 each 09/17/2025 5 tamsulosin (FLOMAX) 0.4 mg 24 hr capsule Take 1 capsule (0.4 mg total) by mouth 1 (one) time each day. Capsules should be taken 30 minutes following the same meal each day. 30 each 09/16/2025 6 finasteride (PROSCAR) 5 mg tablet Take 1 tablet (5 mg total) by mouth 1 (one) time each day. 30 each 09/16/2025 5 documented in this encounter Discharge Disposition Disposition Code Departure Means Destination Comment s Home or Self Care Car Home documented in this encounter Progress Notes * JULISSA Gomez - 09/16/2025 2:23 PM EST Patient aware and in agreement with discharge plan. 09/16/25 1423 Transportation Transportation at discharge [facility] providing transportation [employer] What day is the transport expected? 09/16/25 Final Discharge Disposition Home or Self Care * Chantelle Vega RN - 09/16/2025 1:35 PM EST Patient alert and oriented. Stable for discharge per Dr. Nieves. Patient expressed some concerns thathe may be getting a cold. Dr. Nieves made aware. Patient still stable for discharge per Dr. Nieves. Discharge instructions provided to patient and rose cath teaching provided. Patient stated he understood the instructions. [employer] to transport patient home. * JULISSA Gomez - 09/16/2025 12:11 PM EST Case management intake: 09/16/25 1210 Initial Transition Plan Initial Transition Plan Home Back up Transition Plan Back up Transition plan Home Health Care Discharge Planning Living Arrangements Alone Type of Residence Private residence (apartment with elevator) Assistive Devices Walker;Cane Medication Coverage Has Med Coverage Under Insurance Plan Yes Medication Affordability No concerns related to payment for meds Informed Choice Informed Choice Given? Yes Transportation Transportation at discharge Taxi HUGH: 09/17/25 Patient confirms demographics and information. [facility] [place] pamphlet provided. hr shared services consultant will remain available to assess and support. * Carmen Marquez RN - 09/16/2025 2:59 AM EST ED RN HANDOFF (All Vargas Below Must Be Completed) Reason/Diagnosis for Admission: Type of Admission: [] Medsurg, [x] Telemetry Already in a Hospital Bed: [] Yes / [x] No Room Considerations/Precautions (ex: fever, diarrhea, or any infectious concerns): [] Yes / [x] No Rib Trim Separator: [x] Yes / [] No If YES, Cardiac Rhythm: [x] NSR, [] SB, [] ST, [] A-FIB, [] A-Flutter, [] Pacemaker, [] 1st Degree HB, [] 2nd Degree HB, [] 3rd Degree HB Reason for Rib Trim Separator: O2 []Yes /[x]No If YES, how many Liters: N/A VS: Visit Vitals BP 135/73 (BP Location: Left arm, Patient Position: Sitting) Pulse 92 Temp 36.9 ??C (98.4 ??F) (Oral) Resp 20 Ht 1.626 m (64 ) Wt 75.8 kg (167 lb) SpO2 99% BMI 28.67 kg/m?? Smoking Status Every Day BSA 1.81 m?? Current Mental Status: A/O x [x]4, []3, []2, []1 IV Access: [x] Yes / [] No Field IV present: [] Yes / [x] No Hx of Violence: [] Yes / [x] No / [] Unknown Current Ambulation Status: GAIT UNSTEADY - stand pivot to commode with assistance. HIGH FALL RISK Fall Risk:[x] Yes / [] No Yellow Bracelet Applied [x] Yes / [] No Yellow Socks Applied [x] Yes / [] No Patient Belongings inventoried and BL completed: [] Yes / [x] No Patient belongings stored in the security closet: [] Yes (If Yes please supply Security bag #): [x] No Patient Medications stored in Pharmacy: [] Yes (If Yes please supply Medication Security bag #): [x] No ED Summary of Care: Pt being admitted for alcohol withdrawal and acute urinary retention requiring rose catheter placement. Pt CIWA has been below 10 for this RN. Submitted by and Phone Extension: Carmen Calvillo RN in Blue Pod * Marcela Rock RN - 09/15/2025 6:35 AM EST Pt coming in with headache/abdominal pain and leg pain, denies n/v/d, pt has productive cough, alsoadmits to etoh use last night is a daily drinker * Anna Pillai MD - 09/15/2025 6:23 AM EST EMERGENCY DEPARTMENT Transition of Care Note Room: 28/ Patient: Clayton Miek PCP: ADELAIDA Arita Patient : 1960 Patient Department: [facility] [address] [facility] [address] Dept: [phone] This patient's care was signed out to me by the offgoing provider. Please see her/his note for further details regarding initial presentation, history of present illness, physical exam, and medical decision making. Sign out: Pt with signs of alcohol withdrawal. Also has urinary retention. Also nausea and abdominal discomfort after drinking 6 beers this morning. He does report a history of BPH. See ED course forfurther care events. Vitals: 09/15/25 1724 BP: 137/73 Pulse: 93 Resp: Temp: SpO2: Anna Pillai MD 09/15/251922 documented in this encounter Plan of Treatment Not on file documented as of this encounter Procedures Procedure Name Priority Date/Time Associated Diagnosis Comments ECG ANNOTATED 09/17/2025 CBC WITH AUTO DIFFERENTIAL Routine 09/16/2025 6:22 AM EST CBC AND DIFFERENTIAL Routine 09/16/2025 6:22 AM EST BASIC METABOLIC PANEL Routine 09/16/2025 6:22 AM EST TROPONIN I HIGH SENSITIVITY Timed 09/15/2025 11:56 AM EST LIPID PANEL WITH REFLEX TO DIRECT LDL Add-On 09/15/2025 11:56 AM EST POTASSIUM STAT 09/15/2025 11:56 AM EST PHOSPHORUS STAT 09/15/2025 11:56 AM EST MAGNESIUM STAT 09/15/2025 11:[address] ABDOMEN PELVIS W CONTRAST STAT 09/15/2025 11:19 AM EST XR CHEST 2 VIEWS STAT 09/15/2025 9:50 AM EST ECG 12-LEAD STAT 09/15/2025 8:49 AM EST URINALYSIS WITH REFLEX MICROSCOPIC AND CULTURE STAT 09/15/2025 8:46 AM EST HERNANDEZ URINE CULTURE TUBE STAT 09/15/2025 8:46 AM EST URINALYSIS WITH REFLEX MICROSCOPIC AND CULTURE STAT 09/15/2025 8:46 AM EST CULTURE URINE STAT 09/15/2025 8:46 AM EST RESPIRATORY VIRUS PANEL MOLECULAR STUDY STAT 09/15/2025 8:05 AM EST TROPONIN I HIGH SENSITIVITY Timed 09/15/2025 7:33 AM EST VENOUS BLOOD GAS STAT 09/15/2025 7:33 AM EST AMMONIA STAT 09/15/2025 7:33 AM EST CBC WITH AUTO DIFFERENTIAL STAT 09/15/2025 6:40 AM EST CBC AND DIFFERENTIAL STAT 09/15/2025 6:40 AM EST MAGNESIUM Add-On 09/15/2025 6:40 AM EST LIPASE STAT 09/15/2025 6:40 AM EST ETHANOL Add-On 09/15/2025 6:40 AM EST COMPREHENSIVE METABOLIC PANEL STAT 09/15/2025 6:40 AM EST documented in this encounter Results * ECG-Annotated (09/17/2025) us Provider Onbase MD ECG ORDERABLES Final Result * (ABNORMAL) CBC auto differential (09/16/2025 6:22 AM EST) WBC 6.9 4.8 - 10.8 K/mcL LAB HEMETOLOGY METHOD 09/16/2025 7:02 AM [facility] RBC 3.80(L) 4.50 - 5.50 M/mcL LAB HEMETOLOGY METHOD 09/16/2025 7:02 AM [facility] Hemoglobin 11.8(L) 13.5 - 17.5 g/dL LAB HEMETOLOGY METHOD 09/16/2025 7:02 AM [facility] Hematocrit 34.5(L) 42.0 - 54.0 % LAB HEMETOLOGY METHOD 09/16/2025 7:02 AM [facility] MCV 91.0 79.0 - 98.0 FL LAB HEMETOLOGY METHOD 09/16/2025 7:02 AM [facility] MCH 31.1 27.0 - 32.0 pcg LAB HEMETOLOGY METHOD 09/16/2025 7:02 AM [facility] MCHC 34.2 32.0 - 37.0 g/dL LAB HEMETOLOGY METHOD 09/16/2025 7:02 AM [facility] RDW 13.2 11.0 - 15.0 % LAB HEMETOLOGY METHOD 09/16/2025 7:02 AM [facility] Platelets 234 130 - 400 K/mcL LAB HEMETOLOGY METHOD 09/16/2025 7:02 AM [facility] MPV 9.3 7.0 - 11.0 FL LAB HEMETOLOGY METHOD 09/16/2025 7:02 AM [facility] NRBC 0.0 <1.0 % LAB HEMETOLOGY METHOD 09/16/2025 7:02 AM [facility] NRBC Absolute 0.00 <0.10 K/mcL LAB HEMETOLOGY METHOD 09/16/2025 7:02 AM [facility] Neutrophils Relative 68.8 % LAB HEMETOLOGY METHOD 09/16/2025 7:02 AM [facility] Lymphocytes Relative 17.2 % LAB HEMETOLOGY METHOD 09/16/2025 7:02 AM [facility] Monocytes Relative 8.8 % LAB HEMETOLOGY METHOD 09/16/2025 7:02 AM [facility] Eosinophils Relative 4.2 % LAB HEMETOLOGY METHOD 09/16/2025 7:02 AM [facility] Basophils Relative 0.7 % LAB HEMETOLOGY METHOD 09/16/2025 7:02 AM [facility] Immature Granulocytes Relative 0.3 % LAB HEMETOLOGY METHOD 09/16/2025 7:02 AM [facility] Neutrophils Absolute 4.71 1.50 - 7.00 K/mcL LAB HEMETOLOGY METHOD 09/16/2025 7:02 AM [facility] Lymphocytes Absolute 1.18 1.00 - 5.00 K/mcL LAB HEMETOLOGY METHOD 09/16/2025 7:02 AM [facility] Monocytes Absolute 0.60 0.20 - 1.00 K/mcL LAB HEMETOLOGY METHOD 09/16/2025 7:02 AM [facility] Eosinophils Absolute 0.29 0.00 - 0.50 K/mcL LAB HEMETOLOGY METHOD 09/16/2025 7:02 AM [facility] Basophils Absolute 0.05 0.00 - 0.20 K/mcL LAB HEMETOLOGY METHOD 09/16/2025 7:02 AM [facility] Immature Granulocytes Absolute 0.02 0.00 - 0.03 K/mcL LAB HEMETOLOGY METHOD 09/16/2025 7:02 AM [facility] Blood Venous blood specimen / Unknown Venipuncture / Unknown 09/16/2025 6:22 AM EST 09/16/2025 6:53 AM EST us Vargas Morales MD LAB BLOOD ORDERABLES Final Result [facility] [address] [place] [address], * (ABNORMAL) Basic metabolic panel (09/16/2025 6:22 AM EST) Sodium 142 133 - 145 mmol/L LAB CHEMISTRY METHOD 09/16/2025 7:25 AM [facility] Potassium 3.7 3.5 - 5.5 mmol/L LAB CHEMISTRY METHOD 09/16/2025 7:25 AM [facility] Chloride 108 96 - 110 mmol/L LAB CHEMISTRY METHOD 09/16/2025 7:25 AM [facility] CO2 29 21 - 32 mmol/L LAB CHEMISTRY METHOD 09/16/2025 7:25 AM [facility] Anion Gap 5 3 - 11 LAB CHEMISTRY METHOD 09/16/2025 7:25 AM [facility] Glucose 101(H) 70 - 100 mg/dL LAB CHEMISTRY METHOD 09/16/2025 7:25 AM [facility] BUN 10 5 - 25 mg/dL LAB CHEMISTRY METHOD 09/16/2025 7:25 AM [facility] Creatinine 0.98 0.70 - 1.30 mg/dL LAB CHEMISTRY METHOD 09/16/2025 7:25 AM [facility] eGFR 85 >=60 mL/min/1. 73m2 LAB CHEMISTRY METHOD 09/16/2025 7:25 AM [facility] Comment:Calculation based on the Chronic Kidney Disease Epidemiology Collaboration (CKD-EPI) equation refit without adjustment for race. BUN/Creatinine Ratio 10.2 LAB CHEMISTRY METHOD 09/16/2025 7:25 AM [facility] Calcium 8.2(L) 8.5 - 10.5 mg/dL LAB CHEMISTRY METHOD 09/16/2025 7:25 AM [facility] Blood Venous blood specimen / Unknown Venipuncture / Unknown 09/16/2025 6:22 AM EST 09/16/2025 6:52 AM EST us Vargas Morales MD LAB BLOOD ORDERABLES Final Result [facility] [address] [place] [address], [place] [phone] * (ABNORMAL) Lipid panel with reflex to direct LDL (09/15/2025 11:56 AM EST) Cholesterol 107 0 - 200 mg/dL LAB CHEMISTRY METHOD 09/15/2025 10:25 PM [facility] Triglycerides 261(H) 0 - 150 mg/dL LAB CHEMISTRY METHOD 09/15/2025 10:25 PM [facility] HDL 47 >=40 mg/dL LAB CHEMISTRY METHOD 09/15/2025 10:25 PM [facility] LDL Calculated 8 0 - 100 mg/dL LAB CHEMISTRY METHOD 09/15/2025 10:25 PM [facility] Comment:Estimated LDL Calcul ated using equation: Total cholesterol - HDL cholesterol - (Triglycerides/5) VLDL Cholesterol Leobardo 52.2 mg/dL LAB CHEMISTRY METHOD 09/15/2025 10:25 PM [facility] Non HDL Chol. (LDL+VLDL) 60 <145 mg/dL LAB CHEMISTRY METHOD 09/15/2025 10:25 PM [facility] Chol/HDL Ratio 2.3 0.0 - 4.4 LAB CHEMISTRY METHOD 09/15/2025 10:25 PM [facility] Blood Venous blood specimen / Unknown Venipuncture / Unknown 09/15/2025 11:56 AM EST 09/15/2025 12:08 PM EST Vargas SON LAB BLOOD ORDERABLES Liana l Result Performing Organization Address [facility]/ZIP Co de Phone Number [facility] [address] [place] [address], [place] [phone] * Phosphorus (09/15/2025 11:56 AM EST) Phosphorus 2.8 2.5 - 4.5 mg/dL LAB CHEMISTRY METHOD 09/15/2025 12:36 PM EST [facility] Blood Venous blood specimen / Unknown Venipuncture / Unknown 09/15/2025 11:56 AM EST 09/15/2025 12:08 PM EST [facility] LAB BLOOD ORDERABLES Final Result Performing Organization Address [facility] Co de Phone Number [facility] [address] [place] [address], [place] [phone] * Magnesium (09/15/2025 11:56 AM EST) [facility] Magnesium 2.1 1.9 - 2.6 mg/dL LAB CHEMISTRY METHOD 09/15/2025 12:36 PM EST [facility] Blood Venous blood specimen / Unknown Venipuncture / Unknown 09/15/2025 11:56 AM EST 09/15/2025 12:08 PM EST us Palomo [facility] LAB BLOOD ORDERABLES Final Result Performing Organization Address [facility]/ZIP Co de Phone Number [facility] [address] [place] [address], [place] [phone] * Potassium (09/15/2025 11:56 AM EST) Potassium 3.7 3.5 - 5.5 mmol/L LAB CHEMISTRY METHOD 09/15/2025 12:36 PM EST [facility] Blood Venous blood specimen / Unknown Venipuncture / Unknown 09/15/2025 11:56 AM EST 09/15/2025 12:08 PM EST us Palomo SON LAB BLOOD ORDERABLES Final Result Performing Organization Address [facility] Co de Phone Number [facility] [address] [place] [address], [place] [phone] * Troponin I high sensitivity (NOW and then in 1 hour) (09/15/2025 11:56 AM EST) Pathologist [facility] High Sensitivity Troponin I 48 <=79 ng/L LAB CHEMISTRY METHOD 09/15/2025 12:38 PM EST [facility] Blood Venous blood specimen / Unknown Venipuncture / Unknown 09/15/2025 11:56 AM EST 09/15/2025 12:08 PM EST Narrative [facility] - 09/15/2025 12:38 PM EST High levels of biotin in samples may falsely decrease hsTroponin values. Use caution when interpreting hsTroponin results in patients taking biotin who exhibit renal impairment (eGFR <60) or in patients taking more than 20 mg/day of biotin. us [facility] LAB BLOOD ORDERABLES Final Result Performing Organization Address [facility] Co de Phone Number [facility] [address] [place] [address], [place] [phone] * CT Abdomen Pelvis w Contrast (09/15/2025 11:19 AM EST) Anatomical Region Laterality Modality Body Computed Tomogra phy 09/15/2025 11:3 9 AM EST Impressions 09/15/2025 11:52 AM EST Diffuse bladder wall thickening, possibly related to cystitis or chronic bladder outlet obstruction. Mild right and no left hydronephrosis. Small hiatal hernia. Circumferential thickening of the distal esophagus. Correlate for gastroesophageal reflux. Endoscopy could exclude neoplasm. Hepatic steatosis. -------- FINAL REPORT -------- Dictated By: TUSHAR PATTERSON Dictated Date: 09/15/2025 11:39 ET Assigned Physician: TUSHAR PATTERSON Reviewed and Electronically Signed By: TUSHAR PATTERSON Signed Date: 09/15/2025 11:52 ET Workstation ID: [id number] Transcribed By: Self Edit Transcribed Date: 09/15/2025 11:39 ET Narrative 09/15/2025 11:52 AM EST PROCEDURE: CT ABDOMEN/PELVIS INDICATION: Pain TECHNIQUE: CT of the abdomen and pelvis following the intravenous administration of 90cc Isovue 370. Multiplanar reformats. The examination was performed utilizing dose reduction techniques. Total DLP 828 COMPARISON: 03/28/2025 FINDINGS: LOWER THORAX: Lung bases are clear. Small hiatal hernia. Circumferential thickening of the distal esophagus. HEPATOBILIARY: Hepatic steatosis. No focal liver lesions. Gallbladder and biliary tree are normal. SPLEEN: No splenomegaly. PANCREAS: No focal mass or ductal dilatation. ADRENALS: No nodules. KIDNEYS/URETERS: No renal/ureteral calculi or solid renal mass. Mild right and no left hydronephrosis. PELVIC ORGANS/BLADDER: Circumferential thickening of the bladder with Rose catheter in the decompressed bladder. Prostate is mildly enlarged. PERITONEUM / RETROPERITONEUM: No ascites or free air. No retroperitoneal lymphadenopathy. VESSELS: Abdominal aorta is normal in size. Portal vein is patent. GI TRACT: Colonic diverticulosis. No bowel obstruction or wall thickening. Normal appendix. BONES AND SOFT TISSUES: Left hip arthroplasty. Degenerative changes seen throughout the bones. Superficial soft tissues are within normal limits. Chronic superior endplate fracture deformity and Schmorl's node at T12. Procedure Note Tushar Patterson MD - 09/15/2025 PROCEDURE: CT ABDOMEN/PELVIS INDICATION: Pain TECHNIQUE: CT of the abdomen and pelvis following the intravenousadministration of 90cc Isovue 370. Multiplanar reformats. The examinationwas performed utilizing dose reduction techniques. Total DLP 828 COMPARISON: 03/28/2025 FINDINGS: LOWER THORAX: Lung bases are clear. Small hiatal hernia. Circumferentialthickening of the distal esophagus. HEPATOBILIARY: Hepatic steatosis. No focal liver lesions. Gallbladderand biliary tree are normal. SPLEEN: No splenomegaly. PANCREAS: No focal mass or ductal dilatation. ADRENALS: No nodules. KIDNEYS/URETERS: No renal/ureteral calculi or solid renal mass. Mildright and no left hydronephrosis. PELVIC ORGANS/BLADDER: Circumferential thickening of the bladder withFoley catheter in the decompressed bladder. Prostate is mildlyenlarged. PERITONEUM / RETROPERITONEUM: No ascites or free air. No retroperitoneallymphadenopathy. VESSELS: Abdominal aorta is normal in size. Portal vein is patent. GI TRACT: Colonic diverticulosis. No bowel obstruction or wallthickening. Normal appendix. BONES AND SOFT TISSUES: Left hip arthroplasty. Degenerative changes seenthroughout the bones. Superficial soft tissues are within normal limits.Chronic superior endplate fracture deformity and Schmorl's node at T12. IMPRESSION: Diffuse bladder wall thickening, possibly related to cystitis or chronicbladder outlet obstruction. Mild right and no left hydronephrosis. Small hiatal hernia. Circumferential thickening of the distal esophagus.Correlate for gastroesophageal reflux. Endoscopy could excludeneoplasm. Hepatic steatosis. -------- FINAL REPORT -------- Dictated By: TUSHAR PATTERSON Dictated Date: 09/15/2025 11:39 ET Assigned Physician: TUSHAR PATTERSON Reviewed and Electronically Signed By: TUSHAR PATTERSON Signed Date: 09/15/2025 11:52 ET Workstation ID: [id number] Transcribed By: Self Edit Transcribed Date: 09/15/2025 11:39 ET [facility] SON IMG CT PROCEDURES Final Res ult * XR Chest 2 Views (09/15/2025 9:50 AM EST) Anatomical Region Laterality Modality Body Radiographic Ana Paula ging 09/15/2025 9:59 AM EST Impressions 09/15/2025 10:03 AM EST FINDINGS/IMPRESSION: No pneumonia or pulmonary edema. Right apical pleural-parenchymal scarring is unchanged. No pleural effusion or pneumothorax. Cardiac silhouette is normal in size. Degenerative changes seen throughout the bones. -------- FINAL REPORT -------- Dictated By: TUSHAR PATTERSON Dictated Date: 09/15/2025 09:59 ET Assigned Physician: TUSHAR PATTERSON Reviewed and Electronically Signed By: TUSHAR PATTERSON Signed Date: 09/15/2025 10:03 ET Workstation ID: [id number] Transcribed By: Self Edit Transcribed Date: 09/15/2025 09:59 ET Narrative 09/15/2025 10:03 AM EST XR CHEST 2 VIEWS INDICATION: Cough TECHNIQUE: XR CHEST 2 VIEWS COMPARISON: 09/13/2025 Procedure Note Tushar Patterson MD - 09/15/2025 XR CHEST 2 VIEWS INDICATION: Cough TECHNIQUE: XR CHEST 2 VIEWS COMPARISON: 09/13/2025 IMPRESSION: FINDINGS/IMPRESSION: No pneumonia or pulmonary edema. Right apicalpleural- parenchymal scarring is unchanged. No pleural effusion orpneumothorax. Cardiac silhouette is normal in size. Degenerative changesseen throughout the bones. -------- FINAL REPORT -------- Dictated By: TUSHAR PATTERSON Dictated Date: 09/15/2025 09:59 ET Assigned Physician: TUSHAR PATTERSON Reviewed and Electronically Signed By: TUSHAR PATTERSON Signed Date: 09/15/2025 10:03 ET Workstation ID: [id number] Transcribed By: Self Edit Transcribed Date: 09/15/2025 09:59 ET [facility] IMG XR PROCEDURES Final Res ult * 12-Lead ECG (09/15/2025 8:49 AM EST) Ventricular Rate ECG 92 BPM GEMUSE Atrial Rate 92 BPM GEMUSE P-R Interval 124 ms GEMUSE QRS Duration 84 ms GEMUSE Q-T Interval 376 ms GEMUSE QTc 464 ms GEMUSE P Wave [place] 64 degrees GEMUSE R [place] -19 degrees GEMUSE T [place] 7 degrees GEMUSE ECG Interpretation Normal sinus rhythm Normal ECG When compared with ECG of 13-SEP-2025 14:19, No significant change was found Confirmed by MARIANO CASAS ([id number]) on 09/15/2025 10:12:24 PM GEMUSE 09/15/2025 8:49 AM EST 09/15/2025 10:12 PM EST [facility] ECG ORDERABLES Final Resul t KT * (ABNORMAL) Culture urine (09/15/2025 8:46 AM EST) Culture, Urine 50,000-100,000 CFU/mL Pseudomonas aeruginosa(A) KULWANT 09/17/2025 10:17 AM EST [facility] Comment: This is an edited result. Previous organism was Gram negative bacilli on 09/16/2025 at 0808 EST. Urine Urine specimen obtained by clean catch procedure / Unknown Non-blood Collection / Unknown 09/15/2025 8:46 AM EST 09/15/2025 9:13 AM EST Narrative Organism Antibiotic Method Susceptibility Pseudomonas aeruginosa Piperacillin/Tazobactam KULWANT <=4 ug/ml: Susceptible Pseudomonas aeruginosa Ceftazidime KULWANT 2 ug/ml: Susceptible Pseudomonas aeruginosa Cefepime KULWANT 1 ug/ml: Susceptible Pseudomonas aeruginosa Meropenem KULWANT <=0.25 ug/ml: Susceptible Pseudomonas aeruginosa Amikacin KULWANT 4 ug/ml: Susceptible Pseudomonas aeruginosa Ciprofloxacin KULWANT 0.25 ug/ml: Susceptible Pseudomonas aeruginosa Levofloxacin KULWANT 0.5 ug/ml: Susceptible [facility] LAB MICROBIOLOGY - GENERAL ORDERABLES Final Result Performing Organization Address [facility] Co de Phone Number [facility] [address] [place] [address], [place] [phone] * Hernandez urine culture tube (09/15/2025 8:46 AM EST) Extra Tube Hold for add-ons. 09/15/2025 10:01 AM EST [facility] Comment:Auto resulted. Urine Urine specimen obtained by clean catch procedure / Unknown Non-blood Collection / Unknown 09/15/2025 8:46 AM EST 09/15/2025 8:52 AM EST [facility] LAB URINE ORDERABLES Final Result [facility] [address] [place] [address], [place] [phone] * (ABNORMAL) Urinalysis with reflex microscopic and culture (09/15/2025 8:46 AM EST) Specific [place] Urine 1.010 1.003 - 1.030 LAB URINALYSIS - AUTOMATED METHOD 09/15/2025 9:13 AM [facility] pH, Urine 6.5 5.0 - 8.0 pH LAB URINALYSIS - AUTOMATED METHOD 09/15/2025 9:13 AM [facility] Leukocytes, Urine Large(A) Negative LAB URINALYSIS - AUTOMATED METHOD 09/15/2025 9:13 AM [facility] Nitrite, Urine Negative Negative LAB URINALYSIS - AUTOMATED METHOD 09/15/2025 9:13 AM [facility] Protein, Urine 30(A) <=Trace mg/dL LAB URINALYSIS - AUTOMATED METHOD 09/15/2025 9:13 AM [facility] Glucose, Urine Negative Negative mg/dL LAB URINALYSIS - AUTOMATED METHOD 09/15/2025 9:13 AM [facility] Ketones, Urine Negative Negative mg/dL LAB URINALYSIS - AUTOMATED METHOD 09/15/2025 9:13 AM [facility] Urobilinogen , Urine 0.2 0.2 - 1.0 mg/dL LAB URINALYSIS - AUTOMATED METHOD 09/15/2025 9:13 AM [facility] Bilirubin, Urine Negative Negative LAB URINALYSIS - AUTOMATED METHOD 09/15/2025 9:13 AM [facility] Blood, Urine Small(A) Negative LAB URINALYSIS - AUTOMATED METHOD 09/15/2025 9:13 AM [facility] RBC, Urine 5(H) 0 - 4 /HPF 09/15/2025 9:13 AM [facility] WBC, Urine 75(H) 0 - 4 /HPF 09/15/2025 9:13 AM EST [facility] Squamous Epithelial, Urine 2 0 - 60 /LPF 09/15/2025 9:13 AM [facility] Bacteria, Urine Moderate(A) Negative /HPF 09/15/2025 9:13 AM EST [facility] Urine Urine specimen obtained by clean catch procedure / Unknown Non-blood Collection / Unknown 09/15/2025 8:46 AM EST 09/15/2025 8:52 AM EST [facility] LAB URINE ORDERABLES Final Result [facility] [address] [place] [address], [place] [phone] * Respiratory virus panel molecular study (09/15/2025 8:05 AM EST) Adenovirus Detection by PCR Not Detected Not Detected LAB MICROBIOLOGY METHOD 09/15/2025 9:18 AM [facility] Influenza A PCR Not Detected Not Detected LAB MICROBIOLOGY METHOD 09/15/2025 9:18 AM [facility] Influenza B PCR Not Detected Not Detected LAB MICROBIOLOGY METHOD 09/15/2025 9:18 AM [facility] Coronavirus 229E Not Detected Not Detected LAB MICROBIOLOGY METHOD 09/15/2025 9:18 AM [facility] Coronavirus HKU1 Not Detected Not Detected LAB MICROBIOLOGY METHOD 09/15/2025 9:18 AM [facility] Coronavirus OC43 Not Detected Not Detected LAB MICROBIOLOGY METHOD 09/15/2025 9:18 AM [facility] Coronavirus NL63 Not Detected Not Detected LAB MICROBIOLOGY METHOD 09/15/2025 9:18 AM [facility] Parainfluenza Virus 1 Not Detected Not Detected LAB MICROBIOLOGY METHOD 09/15/2025 9:18 AM [facility] Parainfluenza Virus 2 Not Detected Not Detected LAB MICROBIOLOGY METHOD 09/15/2025 9:18 AM [facility] Parainfluenza Virus 3 Not Detected Not Detected LAB MICROBIOLOGY METHOD 09/15/2025 9:18 AM [facility] Parainfluenza Virus 4 Not Detected Not Detected LAB MICROBIOLOGY METHOD 09/15/2025 9:18 AM [facility] RSV PCR Not Detected Not Detected LAB MICROBIOLOGY METHOD 09/15/2025 9:18 AM [facility] Human Metapneumovirus A and B Not Detected Not Detected LAB MICROBIOLOGY METHOD 09/15/2025 9:18 AM [facility] Rhinovirus/Entero virus Not Detected Not Detected LAB MICROBIOLOGY METHOD 09/15/2025 9:18 AM [facility] Bordetella pertussis Not Detected Not Detected LAB MICROBIOLOGY METHOD 09/15/2025 9:18 AM [facility] Bordetella parapertussis Not Detected Not Detected LAB MICROBIOLOGY METHOD 09/15/2025 9:18 AM [facility] Mycoplasma pneumo by PCR Not Detected Not Detected LAB MICROBIOLOGY METHOD 09/15/2025 9:18 AM [facility] Chlamydia pneumoniae Not Detected Not Detected LAB MICROBIOLOGY METHOD 09/15/2025 9:18 AM [facility] SARS COV-2 Not Detected Not Detected LAB MICROBIOLOGY METHOD 09/15/2025 9:18 AM [facility] Swab Both anterior nares / Unknown Non-blood Collection / Unknown 09/15/2025 8:05 AM EST 09/15/2025 8:16 AM [facility] - 09/15/2025 9:18 AM EST Testing was performed using the [employer] Respiratory Pathogen PCR Assay. All results must be correlated with the clinical findings. Results should not be used as the sole basis for diagnosis. False Negative results may occur from the presence of sequence variants in the region targeted by the assay or the presence of inhibitors. Results may be affected by concurrent antiviral/antimicrobial therapy or levels of organisms that are below the limit of detection. [facility] MICROBIOLOGY - GENERAL ORDERABLES Final Result Performing Organization Address [facility] de Phone Number [facility] [address] [place] [address], * Troponin I high sensitivity (NOW and then in 1 hour) (09/15/2025 7:33 AM EST) Pathologist [facility] High Sensitivity Troponin I 50 <=79 ng/L LAB CHEMISTRY METHOD 09/15/2025 8:17 AM EST [facility] Blood Venous blood specimen / Unknown Venipuncture / Unknown 09/15/2025 7:33 AM EST 09/15/2025 7:41 AM EST Narrative [facility] - 09/15/2025 8:17 AM EST High levels of biotin in samples may falsely decrease hsTroponin values. Use caution when interpreting hsTroponin results in patients taking biotin who exhibit renal impairment (eGFR <60) or in patients taking more than 20 mg/day of biotin. [facility] BLOOD ORDERABLES Final Result Performing Organization Address [facility] de Phone Number [facility] [address] [place] [address], * (ABNORMAL) Ammonia (09/15/2025 7:33 AM EST) Pathologist [facility] Ammonia 56(H) 11 - 35 mcmol/L LAB CHEMISTRY METHOD 09/15/2025 8:28 AM EST [facility] Comment:Hemolysis present Blood Venous blood specimen / Unknown Venipuncture / Unknown 09/15/2025 7:33 AM EST 09/15/2025 7:42 AM EST [facility] LAB BLOOD ORDERABLES Final Result Performing Organization Address [facility]/ZIP Co de Phone Number [facility] [address] [place] [address], [place] [phone] * (ABNORMAL) Venous blood gas (09/15/2025 7:33 AM EST) pH, Santos 7.45(H) 7.32 - 7.42 pH 09/15/2025 7:39 AM EST [facility] pCO2, Santos 35(L) 41 - 51 mmHg 09/15/2025 7:39 AM EST [facility] pO2, Santos 81(H) 25 - 40 mmHg 09/15/2025 7:39 AM EST [facility] HCO3, Venous 25.4 22.0 - 26.0 mmol/L 09/15/2025 7:39 AM EST [facility] O2 Sat, Santos 98.4 % 09/15/2025 7:39 AM EST [facility] Base Excess, Santos 0.7 -2.0 - 2.0 mmol/L 09/15/2025 7:39 AM EST [facility] Blood Venous blood specimen / Unknown Venipuncture / Unknown 09/15/2025 7:33 AM EST 09/15/2025 7:37 AM EST [facility] LAB BLOOD ORDERABLES Final Result [facility] [address] [place] [address], [place] [phone] * (ABNORMAL) Ethanol (09/15/2025 6:40 AM EST) Ethanol Level 153(H) 0 - 10 mg/dL LAB CHEMISTRY METHOD 09/15/2025 8:13 AM EST [facility] Blood Venous blood specimen / Unknown Venipuncture / Unknown 09/15/2025 6:40 AM EST 09/15/2025 8:13 AM EST us [facility] LAB BLOOD ORDERABLES Final Result Performing Organization Address [facility]/ZIP Co de Phone Number [facility] [address] [place] [address], [place] [phone] * Magnesium (09/15/2025 6:40 AM EST) [facility] Magnesium 2.3 1.9 - 2.6 mg/dL LAB CHEMISTRY METHOD 09/15/2025 8:13 AM EST [facility] Blood Venous blood specimen / Unknown Venipuncture / Unknown 09/15/2025 6:40 AM EST 09/15/2025 8:13 AM EST us [facility] LAB BLOOD ORDERABLES Final Result Performing Organization Address [facility] de Phone Number [facility] [address] [place] [address], [place] [phone] * (ABNORMAL) CBC auto differential (09/15/2025 6:40 AM EST) [facility] WBC 7.9 4.8 - 10.8 K/mcL LAB HEMETOLOGY METHOD 09/15/2025 8:00 AM [facility] RBC 4.10(L) 4.50 - 5.50 M/mcL LAB HEMETOLOGY METHOD 09/15/2025 8:00 AM [facility] Hemoglobin 12.8(L) 13.5 - 17.5 g/dL LAB HEMETOLOGY METHOD 09/15/2025 8:00 AM [facility] Hematocrit 37.3(L) 42.0 - 54.0 % LAB HEMETOLOGY METHOD 09/15/2025 8:00 AM [facility] MCV 90.8 79.0 - 98.0 FL LAB HEMETOLOGY METHOD 09/15/2025 8:00 AM [facility] MCH 31.1 27.0 - 32.0 pcg LAB HEMETOLOGY METHOD 09/15/2025 8:00 AM [facility] MCHC 34.3 32.0 - 37.0 g/dL LAB HEMETOLOGY METHOD 09/15/2025 8:00 AM [facility] RDW 13.5 11.0 - 15.0 % LAB HEMETOLOGY METHOD 09/15/2025 8:00 AM [facility] Platelets 302 130 - 400 K/mcL LAB HEMETOLOGY METHOD 09/15/2025 8:00 AM [facility] MPV 9.1 7.0 - 11.0 FL LAB HEMETOLOGY METHOD 09/15/2025 8:00 AM [facility] NRBC 0.0 <1.0 % LAB HEMETOLOGY METHOD 09/15/2025 8:00 AM [facility] NRBC Absolute 0.00 <0.10 K/mcL LAB HEMETOLOGY METHOD 09/15/2025 8:00 AM [facility] Neutrophils Relative 69.1 % LAB HEMETOLOGY METHOD 09/15/2025 8:00 AM [facility] Lymphocytes Relative 18.4 % LAB HEMETOLOGY METHOD 09/15/2025 8:00 AM [facility] Monocytes Relative 8.5 % LAB HEMETOLOGY METHOD 09/15/2025 8:00 AM [facility] Eosinophils Relative 2.5 % LAB HEMETOLOGY METHOD 09/15/2025 8:00 AM [facility] Basophils Relative 1.0 % LAB HEMETOLOGY METHOD 09/15/2025 8:00 AM [facility] Immature Granulocytes Relative 0.5 % LAB HEMETOLOGY METHOD 09/15/2025 8:00 AM [facility] Neutrophils Absolute 5.45 1.50 - 7.00 K/mcL LAB HEMETOLOGY METHOD 09/15/2025 8:00 AM EST [facility] Lymphocytes Absolute 1.45 1.00 - 5.00 K/[facility] LAB HEMETOLOGY METHOD 09/15/2025 8:00 AM EST [facility] Monocytes Absolute 0.67 0.20 - 1.00 K/[facility] LAB HEMETOLOGY METHOD 09/15/2025 8:00 AM EST [facility] Eosinophils Absolute 0.20 0.00 - 0.50 K/[facility] LAB HEMETOLOGY METHOD 09/15/2025 8:00 AM EST [facility] Basophils Absolute 0.08 0.00 - 0.20 K/[facility] LAB HEMETOLOGY METHOD 09/15/2025 8:00 AM EST [facility] Immature Granulocytes Absolute 0.04(H) 0.00 - 0.03 K/[facility] LAB HEMETOLOGY METHOD 09/15/2025 8:00 AM EST [facility] [facility]) [facility] Blood Venous blood specimen / Unknown Venipuncture / Unknown 09/15/2025 6:40 AM EST 09/15/2025 8:00 AM EST us [facility] LAB BLOOD ORDERABLES Final Result Performing Organization Address [facility]/ZIP Co de Phone Number [facility] [address] [place] [address], [place] [phone] * Lipase (09/15/2025 6:40 AM EST) Lipase 24 13 - 75 unit/L LAB CHEMISTRY METHOD 09/15/2025 8:13 AM EST [facility] Blood Venous blood specimen / Unknown Venipuncture / Unknown 09/15/2025 6:40 AM EST 09/15/2025 8:13 AM EST us [facility] LAB BLOOD ORDERABLES Final Result [facility] [address] [place] [address], [place] [phone] * (ABNORMAL) Comprehensive metabolic panel (09/15/2025 6:40 AM EST) Sodium 142 133 - 145 mmol/L LAB CHEMISTRY METHOD 09/15/2025 8:13 AM EST [facility] Potassium 3.4(L) 3.5 - 5.5 mmol/L LAB CHEMISTRY METHOD 09/15/2025 8:13 AM [facility] Chloride 109 96 - 110 mmol/L LAB CHEMISTRY METHOD 09/15/2025 8:13 AM [facility] CO2 26 21 - 32 mmol/L LAB CHEMISTRY METHOD 09/15/2025 8:13 AM [facility] Anion Gap 7 3 - 11 LAB CHEMISTRY METHOD 09/15/2025 8:13 AM [facility] Glucose 123(H) 70 - 100 mg/dL LAB CHEMISTRY METHOD 09/15/2025 8:13 AM [facility] BUN 9 5 - 25 mg/dL LAB CHEMISTRY METHOD 09/15/2025 8:13 AM [facility] Creatinine 0.84 0.70 - 1.30 mg/dL LAB CHEMISTRY METHOD 09/15/2025 8:13 AM [facility] eGFR 96 >=60 mL/min/1. 73m2 LAB CHEMISTRY METHOD 09/15/2025 8:13 AM [facility] Comment:Calculation based on the Chronic Kidney Disease Epidemiology Collaboration (CKD-EPI) equation refit without adjustment for race. BUN/Creatinine Ratio 10.7 LAB CHEMISTRY METHOD 09/15/2025 8:13 AM [facility] Calcium 8.2(L) 8.5 - 10.5 mg/dL LAB CHEMISTRY METHOD 09/15/2025 8:13 AM [facility] AST (SGOT) 30 10 - 42 unit/L LAB CHEMISTRY METHOD 09/15/2025 8:13 AM EST [facility] ALT (SGPT) 39 10 - 60 unit/L LAB CHEMISTRY METHOD 09/15/2025 8:13 AM EST [facility] Alkaline Phosphatase 89 42 - 121 unit/L LAB CHEMISTRY METHOD 09/15/2025 8:13 AM EST [facility] Total Protein 6.4 6.0 - 8.0 g/dL LAB CHEMISTRY METHOD 09/15/2025 8:13 AM EST [facility] Albumin 3.2 3.2 - 5.0 g/dL LAB CHEMISTRY METHOD 09/15/2025 8:13 AM EST [facility] Total Bilirubin 0.5 0.0 - 1.4 mg/dL LAB CHEMISTRY METHOD 09/15/2025 8:13 AM [facility] Blood Venous blood specimen / Unknown Venipuncture / Unknown 09/15/2025 6:40 AM EST 09/15/2025 8:13 AM EST us [facility] LAB BLOOD ORDERABLES Final Result [facility] [address] [place] [address], documented in this encounter Visit Diagnoses Diagnosis Postobstructive diuresis- Primary Postobstructive diuresis Sepsis, due to unspecified organism, unspecified whether acute organ dysfunction present ([facility] V24, [facility] V28) documented in this encounter Admitting Diagnoses Diagnosis Postobstructive diuresis documented in this encounter Administered Medications Inactive Administered Medications - up to 3 most recent administrations Medication Order MAR Action Action Date Dose Rate Site acetaminophen (TYLENOL) tablet 650 mg 650 mg, oral, Every 4 hours PRN, mild pain, headaches, fever - temperature GREATER than 38 C (100.4 F), Starting on Sat09/15/25 at 2019 Given 09/16/2025 12:19 AM EST 650 mg benzocaine-menthoL (CEPACOL SORE THROAT) 15-3.6 mg lozenge 1 lozenge 1 lozenge, Mouth/Throat, Once, On Sat09/15/25 at 1728, For 1 dose Given 09/15/2025 5:39 PM EST 1 lozenge cefTRIAXone (ROCEPHIN) 1 g in sterile water 10 mL IV syringe 1 g, intravenous, Administer over 3 Minutes, Once, On Sat09/15/25 at 1130, For 1 dose, Do not administer simultaneously with any calcium containing solutions via a Y-site in any patient., Indication: Urinary Tract/Genitourinary Given 09/15/2025 11:32 AM EST 1 g cefTRIAXone (ROCEPHIN) 1 g in sterile water 10 mL IV syringe 1 g, intravenous, Administer over 3 Minutes, Every 24 hours, First dose on Sat09/16/25 at 1100, For 7 days, Do not administer simultaneously with any calcium containing solutions via a Y-site in any patient., Indication: Urinary Tract/Genitourinary Given 09/16/2025 11:54 AM EST 1 g enoxaparin (LOVENOX) injection 40 mg 40 mg, subcutaneous, Every 24 hours scheduled, First dose on Sat09/16/25 at 0900, Indication: VTE/PE Prophylaxis Given 09/16/2025 9:55 AM EST 40 mg Left Lower Abdomen finasteride (PROSCAR) tablet 5 mg 5 mg, oral, Daily, First dose on Sat09/16/25 at 0900, Hazardous Medication Intact: - Single pair of ASTM standard [id number] certified gloves - Eye/face protection if vomit or potential to spit up - Do NOT split, crush, or open dosage units Given 09/16/2025 9:55 AM EST 5 mg folic acid (FOLVITE) tablet 1 mg 1 mg, oral, Daily, First dose on Sat09/16/25 at 0900 Given 09/16/2025 9:55 AM EST 1 mg gabapentin (NEURONTIN) capsule 300 mg 300 mg, oral, Every 8 hours scheduled, First dose on Sat09/15/25 at 0701 Given 09/16/2025 1:35 PM EST 300 mg Given 09/16/2025 5:28 AM EST 300 mg Given 09/16/2025 12:18 AM EST 300 mg iopamidoL (ISOVUE-370) 370 mg iodine /mL (76 %) injection 90 mL 90 mL, intravenous, Once in imaging, Starting on Sat09/15/25 at 1112, For 1 dose Given 09/15/2025 11:18 AM EST 90 mL lactated Ringer's bolus 1,000 mL 1,000 mL, intravenous, at 1,000 mL/hr, Administer over 1 Hours, Once, On Sat09/15/25 at 0701, For 1 dose New Bag 09/15/2025 7:22 AM EST 1,000 mL 1000 mL/hr lactated Ringer's infusion 150 mL/hr, intravenous, Continuous, Starting on Sat09/15/25 at 2020 Rate/Dose Verify 09/16/2025 3:02 AM EST 150 mL/hr 150 mL/hr New Bag 09/16/2025 12:27 AM EST 150 mL/hr 150 mL/hr lidocaine 2 % mucosal jelly urethral, Once, On Sat09/15/25 at 0900, For 1 dose Given 09/15/2025 8:20 AM EST 11 mL LORazepam (ATIVAN) injection 2 mg 2 mg, intravenous, Every 1 hour PRN, CIWA-Ar 10-18, Starting on Sat09/15/25 at 2020, Re-assess CIWA-Ar in 1 hour Hold dose and notify provider for BP LESS than 90/60, RR LESS than 10 per minute, marked somnolence, pooling of secretions, intoxicated symptoms (ataxia, slurred speech.) Notify provider if 12 mg is given within 4 hours. Prior to IV use, lorazepam injection should be DILUTED with an equal volume of compatible solution; Rate of administration should NOT exceed 2 mg/min. LORazepam (ATIVAN) injection 3 mg 3 mg, intravenous, Every 1 hour PRN, CIWA-Ar GREATER than or EQUAL to 19 WITHOUT evidence of seizure OR hallucinations, Starting on Sat09/15/25 at 2020, Re-assess CIWA-Ar in 1 hour Hold dose and notify provider for BP LESS than 90/60, RR LESS than 10 per minute, marked somnolence, pooling of secretions, intoxicated symptoms (ataxia, slurred speech.) Notify provider if 12 mg is given within 4 hours. Prior to IV use, lorazepam injection should be DILUTED with an equal volume of compatible solution; Rate of administration should NOT exceed 2 mg/min. LORazepam (ATIVAN) injection 4 mg 4 mg, intravenous, Every 1 hour PRN, CIWA-Ar GREATER than or EQUAL to 19 AND seizure OR hallucination, Starting on Sat09/15/25 at 2020, Notify provider Re-assess CIWA-Ar in 1 hour Hold dose and notify provider for BP LESS than 90/60, RR LESS than 10 per minute, marked somnolence, pooling of secretions, intoxicated symptoms (ataxia, slurred speech.) Notify provider if 12 mg is given within 4 hours. Prior to IV use, lorazepam injection should be DILUTED with an equal volume of compatible solution; Rate of administration should NOT exceed 2 mg/min. ondansetron (PF) (ZOFRAN) injection 4 mg 4 mg, intravenous, Once, On Sat09/15/25 at 1322, For 1 dose Given 09/15/2025 1:26 PM EST 4 mg ondansetron (PF) (ZOFRAN) injection 4 mg 4 mg, intravenous, Every 8 hours PRN, vomiting, nausea, Starting on Sat09/15/25 at 2019, -ONLY give IV if patient is unable to take orally. -If inadequate response within 30 minutes, proceed to next-line agent or contact provider if no further options ordered. ondansetron ODT (ZOFRAN-ODT) disintegrating tablet 4 mg 4 mg, oral, Every 8 hours PRN, vomiting, nausea, Starting on Sat09/15/25 at 2019, -Give IV if patient is unable to take orally. -If inadequate response within 30 minutes, proceed to next-line agent or contact provider if no further options ordered. For ODT tablets: -Do not remove from blister pack until just before administering. -Patient should allow tablet to dissolve on tongue. prochlorperazine (COMPAZINE) injection 10 mg 10 mg, intravenous, Every 6 hours PRN, nausea, vomiting, Starting on Sat09/15/25 at 2019, 2nd Line Option: -ONLY give IV if patient is unable to take orally. -Give IM if patient does not have IV Access -If inadequate response within 30 minutes, proceed to next-line agent or contact provider if no further options ordered. prochlorperazine (COMPAZINE) suppository 25 mg 25 mg, rectal, Every 12 hours PRN, nausea, vomiting, Starting on Sat09/15/25 at 2019, 2nd Line Option: -ONLY give KS if patient is unable to take orally and cannot receive IV/IM. -If inadequate response within 30 minutes, proceed to next-line agent or contact provider if no further options ordered. prochlorperazine (COMPAZINE) tablet 10 mg 10 mg, oral, Every 6 hours PRN, nausea, vomiting, Starting on Sat09/15/25 at 2019, 2nd Line Option: -Give IV or IM if patient is unable to take orally. -If inadequate response within 30 minutes, proceed to next-line agent or contact provider if no further options ordered. sodium chloride 0.9 % bolus 1,000 mL 1,000 mL, intravenous, at 1,000 mL/hr, Administer over 1 Hours, Once, On Sat09/15/25 at 1924, For 1 dose New Bag 09/15/2025 7:41 PM EST 1,000 mL 1000 mL/hr sodium chloride 0.9 % flush 10 mL 10 mL, intravenous, Once, On Sat09/15/25 at 1113, For 1 dose Given 09/15/2025 11:17 AM EST 10 mL sodium chloride 0.9 % flush 10 mL 10 mL, intravenous, 2 times daily, First dose on Sat09/15/25 at 2100 Given 09/16/2025 9:56 AM EST 10 mL Given 09/16/2025 12:20 AM EST 10 mL sodium chloride 0.9 % flush 10 mL 10 mL, intravenous, As needed, line care, Starting on Sat09/15/25 at 2019 tamsulosin (FLOMAX) 24 hr capsule 0.4 mg 0.4 mg, oral, Daily, First dose on Sat09/15/25 at 2020, For 21 days, For oral administration: capsules should be swallowed whole (Do not crush, chew, or open). For tube administration: open capsule and administer with water (granules should NOT be crushed). Given 09/16/2025 9:55 AM EST 0.4 mg thiamine (VITAMIN B-1) injection 100 mg 100 mg, intravenous, Once, On Sat09/15/25 at 2021, For 1 dose, If ordered IV, push slowly over 2 minutes. Given 09/16/2025 12:19 AM EST 100 mg thiamine (VITAMIN B-1) tablet 100 mg 100 mg, oral, Daily, First dose on Agnes 09/16/25 at 0900 Given 09/16/2025 9:55 AM EST 100 mg documented in this encounter Discontinued Medications Medication Sig Discontinue Reason Start Date End Da te finasteride (PROSCAR) 5 mg tablet Take 1 tablet (5 mg total) by mouth 1 (one) time each day. 07/02/2024 09/16/2025 Flomax 0.4 mg 24 hr capsule Take 1 capsule (0.4 mg total) by mouth 1 (one) time each day. Stop Taking at Discharge 08/07/2025 09/16/2025 documented as of this encounter Historical Medications * This list may reflect changes made after this encounter. varenicline tartrate (Chantix Continuing Month Box) 1 mg tablet Take 1 tablet (1 mg total) by mouth 2 (two) times a day. Use with nicotine patch combination 06/24/2025 valsartan (DIOVAN) 40 mg tablet Take 0.5 tablets (20 mg total) by mouth 1 (one) time each day. For CHF 08/31/2025 ticagrelor (BRILINTA) 90 mg tablet Take 1 tablet (90 mg total) by mouth 2 (two) times a day. 06/24/2025 nicotine (NICODERM CQ) 21 mg/24 hr Apply 1 patch topically 1 (one) time each day at the same time. 08/02/2025 naltrexone (DEPADE) 50 mg tablet Take 1 tablet (50 mg total) by mouth 1 (one) time each day. For alcohol use disorder 11/27/2017 metoprolol succinate (TOPROL-XL) 25 mg 24 hr tablet Take 1 tablet (25 mg total) by mouth 1 (one) time each day. 06/24/2025 colchicine (COLCRYS) 0.6 mg tablet Take 1 tablet (0.6 mg total) by mouth 2 (two) times a day. 06/24/2025 atorvastatin (LIPITOR) 80 mg tablet Take 1 tablet (80 mg total) by mouth at bedtime. 06/24/2025 aspirin 81 mg chewable tablet Chew 1 tablet (81 mg total) 1 (one) time each day. 06/24/2025 Flomax 0.4 mg 24 hr capsule Take 1 capsule (0.4 mg total) by mouth 1 (one) time each day. 08/07/2025 added in this encounter Active and Recently Administered Medications Times are shown in EST. Scheduled Medication Order 09/14/2025 09/15/2025 09/16/2025 benzocaine-menthoL (CEPACOL SORE THROAT) 15-3.6 mg lozenge 1 lozenge (COMPLETED) 1 lozenge, Mouth/Throat, Once, On Sat09/15/25 at 1728, For 1 dose 1739 (Given - Provider: Carmen Marquez RN) cefTRIAXone (ROCEPHIN) 1 g in sterile water 10 mL IV syringe (COMPLETED) 1 g, intravenous, Administer over 3 Minutes, Once, On Sat09/15/25 at 1130, For 1 dose, Do not administer simultaneously with any calcium containing solutions via a Y-site in any patient., Indication: Urinary Tract/Genitourinary 1132 (Given - Provider: Liana Arellano RN) cefTRIAXone (ROCEPHIN) 1 g in sterile water 10 mL IV syringe 1 g, intravenous, Administer over 3 Minutes, Every 24 hours, First dose on Agnes 09/16/25 at 1100, For 7 days, Do not administer simultaneously with any calcium containing solutions via a Y-site in any patient., Indication: Urinary Tract/Genitourinary 1154 (Given - Provid er: Concetta Griffin RN) enoxaparin (LOVENOX) injection 40 mg 40 mg, subcutaneous, Every 24 hours scheduled, First dose on Agnes 09/16/25 at 0900, Indication: VTE/PE Prophylaxis 0955 (Given - Provid er: Concetta Griffin RN) finasteride (PROSCAR) tablet 5 mg 5 mg, oral, Daily, First dose on Agnes 09/16/25 at 0900, Hazardous Medication Intact: - Single pair of ASTM standard [id number] certified gloves - Eye/face protection if vomit or potential to spit up - Do NOT split, crush, or open dosage units 0955 (Given - Provid er: Concetta Griffin RN) folic acid (FOLVITE) tablet 1 mg 1 mg, oral, Daily, First dose on Agnes 09/16/25 at 0900 0955 (Given - Provid er: Concetta Griffin RN) gabapentin (NEURONTIN) capsule 300 mg 300 mg, oral, Every 8 hours scheduled, First dose on Sat09/15/25 at 0701 0722 (Given - Provider: Liana Arellano RN)1326 (Given - Provider: Renetta Healy RN) 0018 (Given - Provider: Carmen Marquez, RN)0528 (Given - Provider: Leonides Caceres, HEMALATHA)1335 (Given - Provider: Concetta Griffin RN) iopamidoL (ISOVUE-370) 370 mg iodine /mL (76 %) injection 90 mL (COMPLETED) 90 mL, intravenous, Once in imaging, Starting on Sat09/15/25 at 1112, For 1 dose 1118 (Given - Provider: Francine Trammell) lactated Ringer's bolus 1,000 mL (COMPLETED) 1,000 mL, intravenous, at 1,000 mL/hr, Administer over 1 Hours, Once, On Sat09/15/25 at 0701, For 1 dose 0722 (New Bag - Provider: Liana Arellano RN)1031 (Stopped - Provider: Liana Arellano RN) lidocaine 2 % mucosal jelly (COMPLETED) urethral, Once, On Sat09/15/25 at 0900, For 1 dose 0820 (Given - Provider: Liana Arellano RN) ondansetron (PF) (ZOFRAN) injection 4 mg (COMPLETED) 4 mg, intravenous, Once, On Sat09/15/25 at 1322, For 1 dose 1326 (Given - Provider: Renetta Healy RN) sodium chloride 0.9 % bolus 1,000 mL (COMPLETED) 1,000 mL, intravenous, at 1,000 mL/hr, Administer over 1 Hours, Once, On Sat09/15/25 at 1924, For 1 dose 1941 (New Bag - Provider: Mak Fleming RN) 0016 (Stopped - Provider: Carmen Marquez, HEMALATHA) sodium chloride 0.9 % flush 10 mL (COMPLETED) 10 mL, intravenous, Once, On Sat09/15/25 at 1113, For 1 dose 1117 (Given - Provider: Francine Trammell) sodium chloride 0.9 % flush 10 mL(Linked Group 1) 10 mL, intravenous, 2 times daily, First dose on Sat09/15/25 at 2100 0020 (Given - Provid er: Carmen Marquez RN)0956 (Given - Provider: Concetta Griffin RN) tamsulosin (FLOMAX) 24 hr capsule 0.4 mg 0.4 mg, oral, Daily, First dose on Sat09/15/25 at 2020, For 21 days, For oral administration: capsules should be swallowed whole (Do not crush, chew, or open). For tube administration: open capsule and administer with water (granules should NOT be crushed). 3 (Hold - Provider: Lela WhiteD - Reason: Other - Comment: Start tomorrow AM per MD) 0955 (Given - Provider: Concetta Griffin RN) thiamine (VITAMIN B-1) injection 100 mg (COMPLETED) 100 mg, intravenous, Once, On Sat09/15/25 at 2021, For 1 dose, If ordered IV, push slowly over 2 minutes. 0019 (Given - Provid er: Carmen Marquez RN) thiamine (VITAMIN B-1) tablet 100 mg 100 mg, oral, Daily, First dose on Agnes 09/16/25 at 0900 0955 (Given - Provid er: Concetta Griffin RN) Continuous Medication Order 09/14/2025 09/15/2025 09/16/2025 lactated Ringer's infusion 150 mL/hr, intravenous, Continuous, Starting on Sat09/15/25 at 2020 0027 (New Bag - Prov ider: Carmen Marquez RN)0028 (Not Given - Provider: Carmen Marquez RN - Reason: Other - Comment: DUPLICATE ORDER)0302 (Rate/Dose Verify - Provider: Carmen Marquez RN)1548 (Due: Order Ending - Provider: Automatic Discharge Provider - Comment: [Order ends at this time. Document the following action when infusion is complete: Stopped]) PRN Medication Order 09/14/2025 09/15/2025 09/16/2025 acetaminophen (TYLENOL) tablet 650 mg 650 mg, oral, Every 4 hours PRN, mild pain, headaches, fever - temperature GREATER than 38 C (100.4 F), Starting on Sat09/15/25 at 2019 0019 (Given - Provid er: Carmen Marquez RN) LORazepam (ATIVAN) injection 2 mg(Linked Group 2) 2 mg, intravenous, Every 1 hour PRN, CIWA-Ar 10-18, Starting on Sat09/15/25 at 2020, Re-assess CIWA-Ar in 1 hour Hold dose and notify provider for BP LESS than 90/60, RR LESS than 10 per minute, marked somnolence, pooling of secretions, intoxicated symptoms (ataxia, slurred speech.) Notify provider if 12 mg is given within 4 hours. Prior to IV use, lorazepam injection should be DILUTED with an equal volume of compatible solution; Rate of administration should NOT exceed 2 mg/min. LORazepam (ATIVAN) injection 3 mg(Linked Group 2) 3 mg, intravenous, Every 1 hour PRN, CIWA-Ar GREATER than or EQUAL to 19 WITHOUT evidence of seizure OR hallucinations, Starting on Sat09/15/25 at 2020, Re-assess CIWA-Ar in 1 hour Hold dose and notify provider for BP LESS than 90/60, RR LESS than 10 per minute, marked somnolence, pooling of secretions, intoxicated symptoms (ataxia, slurred speech.) Notify provider if 12 mg is given within 4 hours. Prior to IV use, lorazepam injection should be DILUTED with an equal volume of compatible solution; Rate of administration should NOT exceed 2 mg/min. LORazepam (ATIVAN) injection 4 mg(Linked Group 2) 4 mg, intravenous, Every 1 hour PRN, CIWA-Ar GREATER than or EQUAL to 19 AND seizure OR hallucination, Starting on Sat09/15/25 at 2020, Notify provider Re-assess CIWA-Ar in 1 hour Hold dose and notify provider for BP LESS than 90/60, RR LESS than 10 per minute, marked somnolence, pooling of secretions, intoxicated symptoms (ataxia, slurred speech.) Notify provider if 12 mg is given within 4 hours. Prior to IV use, lorazepam injection should be DILUTED with an equal volume of compatible solution; Rate of administration should NOT exceed 2 mg/min. ondansetron (PF) (ZOFRAN) injection 4 mg(Linked Group 3) 4 mg, intravenous, Every 8 hours PRN, vomiting, nausea, Starting on Sat09/15/25 at 2019, -ONLY give IV if patient is unable to take orally. -If inadequate response within 30 minutes, proceed to next-line agent or contact provider if no further options ordered. ondansetron ODT (ZOFRAN-ODT) disintegrating tablet 4 mg(Linked Group 3) 4 mg, oral, Every 8 hours PRN, vomiting, nausea, Starting on Sat09/15/25 at 2019, -Give IV if patient is unable to take orally. -If inadequate response within 30 minutes, proceed to next-line agent or contact provider if no further options ordered. For ODT tablets: -Do not remove from blister pack until just before administering. -Patient should allow tablet to dissolve on tongue. prochlorperazine (COMPAZINE) injection 10 mg(Linked Group 4) 10 mg, intravenous, Every 6 hours PRN, nausea, vomiting, Starting on Sat09/15/25 at 2019, 2nd Line Option: -ONLY give IV if patient is unable to take orally. -Give IM if patient does not have IV Access -If inadequate response within 30 minutes, proceed to next-line agent or contact provider if no further options ordered. prochlorperazine (COMPAZINE) suppository 25 mg(Linked Group 4) 25 mg, rectal, Every 12 hours PRN, nausea, vomiting, Starting on Sat09/15/25 at 2019, 2nd Line Option: -ONLY give KS if patient is unable to take orally and cannot receive IV/IM. -If inadequate response within 30 minutes, proceed to next-line agent or contact provider if no further options ordered. prochlorperazine (COMPAZINE) tablet 10 mg(Linked Group 4) 10 mg, oral, Every 6 hours PRN, nausea, vomiting, Starting on Sat09/15/25 at 2019, 2nd Line Option: -Give IV or IM if patient is unable to take orally. -If inadequate response within 30 minutes, proceed to next-line agent or contact provider if no further options ordered. sodium chloride 0.9 % flush 10 mL(Linked Group 1) 10 mL, intravenous, As needed, line care, Starting on Sat09/15/25 at 2019 Linked Groups Order Group 1: Insert peripheral IV (COMPLETED) STAT, Once, On Sat09/15/25 at 2020, For 1 occurrence And Maintain IV access (CANCELED) Until discontinued, Starting on Sat09/15/25 at 2020, Until Specified And Saline lock IV (COMPLETED) Routine, Once, On Sat09/15/25 at 2020, For 1 occurrence And sodium chloride 0.9 % flush 10 mLJump to med 10 mL, intravenous, 2 times daily, First dose on Sat09/15/25 at 2100 And sodium chloride 0.9 % flush 10 mLJump to med 10 mL, intravenous, As needed, line care, Starting on Sat09/15/25 at 2019 Group 2: LORazepam (ATIVAN) injection 2 mgJump to med 2 mg, intravenous, Every 1 hour PRN, CIWA-Ar 10-18, Starting on Sat09/15/25 at 2020, Re-assess CIWA-Ar in 1 hour Hold dose and notify provider for BP LESS than 90/60, RR LESS than 10 per minute, marked somnolence, pooling of secretions, intoxicated symptoms (ataxia, slurred speech.) Notify provider if 12 mg is given within 4 hours. Prior to IV use, lorazepam injection should be DILUTED with an equal volume of compatible solution; Rate of administration should NOT exceed 2 mg/min. Or LORazepam (ATIVAN) injection 3 mgJump to med 3 mg, intravenous, Every 1 hour PRN, CIWA-Ar GREATER than or EQUAL to 19 WITHOUT evidence of seizure OR hallucinations, Starting on Sat09/15/25 at 2020, Re- assess CIWA-Ar in 1 hour Hold dose and notify provider for BP LESS than 90/60, RR LESS than 10 per minute, marked somnolence, pooling of secretions, intoxicated symptoms (ataxia, slurred speech.) Notify provider if 12 mg is given within 4 hours. Prior to IV use, lorazepam injection should be DILUTED with an equal volume of compatible solution; Rate of administration should NOT exceed 2 mg/min. Or LORazepam (ATIVAN) injection 4 mgJump to med 4 mg, intravenous, Every 1 hour PRN, CIWA-Ar GREATER than or EQUAL to 19 AND seizure OR hallucination, Starting on Sat09/15/25 at 2020, Notify provider Re-assess CIWA-Ar in 1 hour Hold dose and notify provider for BP LESS than 90/60, RR LESS than 10 per minute, marked somnolence, pooling of secretions, intoxicated symptoms (ataxia, slurred speech.) Notify provider if 12 mg is given within 4 hours. Prior to IV use, lorazepam injection should be DILUTED with an equal volume of compatible solution; Rate of administration should NOT exceed 2 mg/min. Group 3: ondansetron ODT (ZOFRAN-ODT) disintegrating tablet 4 mgJump to med 4 mg, oral, Every 8 hours PRN, vomiting, nausea, Starting on Sat09/15/25 at 2019, -Give IV if patient is unable to take orally. -If inadequate response within 30 minutes, proceed to next-line agent or contact provider if no further options ordered. For ODT tablets: -Do not remove from blister pack until just before administering. -Patient should allow tablet to dissolve on tongue. Or ondansetron (PF) (ZOFRAN) injection 4 mgJump to med 4 mg, intravenous, Every 8 hours PRN, vomiting, nausea, Starting on Sat09/15/25 at 2019, -ONLY give IV if patient is unable to take orally. -If inadequate response within 30 minutes, proceed to next-line agent or contact provider if no further options ordered. Group 4: prochlorperazine (COMPAZINE) tablet 10 mgJump to med 10 mg, oral, Every 6 hours PRN, nausea, vomiting, Starting on Sat09/15/25 at 2019, 2nd Line Option: -Give IV or IM if patient is unable to take orally. -If inadequate response within 30 minutes, proceed to next-line agent or contact provider if no further options ordered. Or prochlorperazine (COMPAZINE) injection 10 mgJump to med 10 mg, intravenous, Every 6 hours PRN, nausea, vomiting, Starting on Sat09/15/25 at 2019, 2nd Line Option: -ONLY give IV if patient is unable to take orally. -Give IM if patient does not have IV Access -If inadequate response within 30 minutes, proceed to next-line agent or contact provider if no further options ordered. Or prochlorperazine (COMPAZINE) suppository 25 mgJump to med 25 mg, rectal, Every 12 hours PRN, nausea, vomiting, Starting on Sat09/15/25 at 2019, 2nd Line Option: -ONLY give KS if patient is unable to take orally and cannot receive IV/IM. -If inadequate response within 30 minutes, proceed to next-line agent or contact provider if no further options ordered. documented in this encounter Orders Medications Ordered That Juan A ht Not Have Been Administered Count Last Ordered Date First Ordered Date LORazepam (ATIVAN) injection 2 mg 1 LORazepam (ATIVAN) injection 3 mg 1 LORazepam (ATIVAN) injection 4 mg 1 ondansetron (PF) (ZOFRAN) injection 4 mg 1 09/15/2025 ondansetron ODT (ZOFRAN-ODT) disintegrating tablet 4 mg 1 09/15/2025 prochlorperazine (COMPAZINE) injection 10 mg 1 09/15/2025 prochlorperazine (COMPAZINE) suppository 25 mg 1 09/15/2025 prochlorperazine (COMPAZINE) tablet 10 mg 1 09/15/2025 sodium chloride 0.9 % flush 10 mL 1 General Supply Count Last Ordered Date First Or dered Date WALKER 1 09/16/2025 Nursing Count Last Ordered Date First Orde red Date INSERT INDWELLING CATHETER 1 09/15/2025 NURSING GENERAL ASSESSMENTS AND INTERVENTIONS 1 09/15/2025 Consult Count Last Ordered Date First Orde red Date IP CONSULT TO SOCIAL WORK 1 09/16/2025 IV Count Last Ordered Date First Orde red Date INSERT PERIPHERAL IV 1 09/15/2025 SALINE LOCK IV 1 09/15/2025 Admission Count Last Ordered Date First Orde red Date ADMIT TO INPATIENT 1 09/15/2025 Discharge Count Last Ordered Date First Orde red Date DISCHARGE PATIENT 1 09/16/2025 documented in this encounter Additional Health Concerns Infection Onset Date Last Indicated Resolved Time Respiratory Rule-Out 09/15/2025 09/15/2025 025 9:18 AM EST COVID-19 Rule-Out 09/15/2025 09/15/2025 09/15/2025 9:18 AM EST documented as of this encounter Care Teams Neon Glass Bender Relationship Specialty Start Date End Date Juan Manuel Marquez PA [address] [place] [id number] PCP - General Hair Baler 07/12/20 documented as of this encounter
--- OUTSIDE RECORDS SUMMARY | 2025-09-15 06:30 | XMS_ITS | Encounter Summary ---
Author Organization [facility] Address [address] [place] [id number] Care Team Providers Care Unisaw Operator Name Role Phone Juan Manuel Marquez Primary Care Provider [phone] Reason for Visit * Reason Comments Abdominal Pain * Auth/Cert Specialty Diagnoses / Procedures Referred By Naren t Referred To Contact Diagnoses Postobstructive diuresis Procedures / Vargas Morales MD [address] [place] [address] Phone: tel: fax: [facility] Emergency [address] [place] [phone] Phone: tel: Referral ID Status Reason Start Date Expiration Date Visits Re quested Visits Authorized [id number] 1 1 Encounter Details Date Type Department Care Team (Latest Contact Info) Description 09/15/2025 6:30 AM EST - 09/16/2025 1:43 PM EST Hospital Encounter [facility] Intermediate [facility] Unit [address] [place] [phone] Anna Pillai MD [address] [place] [address] Vargas Morales MD [address] [place] [phone] Michael Nieves MD [address] [place] [address] Postobstructive diuresis (Primary Dx); Sepsis, due to unspecified organism, unspecified whether acute organ dysfunction present ([facility] V24, [facility] V28) Discharge Disposition: Home or Self Care [...] your loved ones. For example, child care nurse or elderly care for an older adult? [...] 09/15/2025 6:42 AM Marcela Ramon RN * 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..] for an Indwelling Urinary Catheter: General Info (Dominican) * Indwelling Urinary Catheter Care: General Info (Dominican) documented in this encounter Medications at Time [...] time each day. 30 each 09/16/2025 5 metoprolol succinate (TOPROL-XL) 25 mg 24 hr [...] day at the same time. 08/02/2025 tamsulosin (Flomax) 0.4 mg 24 hr capsule [...] Use with nicotine patch combination 06/24/2025 6 cefdinir (OMNICEF) 300 mg capsule Take 1 capsule (300 mg total) by mouth 2 (two) times a day for 3 days. 6 each 09/16/2025 5 FLUoxetine (PROzac) 20 mg capsule Take 1 capsule (20 mg total) by mouth 1 (one) time each day. 11/15/2021 folic acid (FOLVITE) 1 mg tablet Take 1 tablet (1,000 mcg total) by mouth 1 (one) time each day. 11/27/2017 gabapentin (NEURONTIN) 300 mg capsule Take 1 capsule (300 mg total) by mouth at bedtime. 03/11/2025 tamsulosin (FLOMAX) 0.4 mg 24 hr capsule Take 1 capsule (0.4 mg total) by mouth 1 (one) time each day. Capsules should be taken 30 minutes following the same meal each day. 30 each 09/16/2025 6 traZODone (DESYREL) 150 mg tablet Take 1 tablet (150 mg total) by mouth at bedtime as needed for sleep. 11/15/2021 documented as of this encounter Ordered Prescriptions [...] plan. 09/16/25 1423 Transportation Transportation at discharge [place] providing transportation LYFT What day is the [...] information. [facility]. [place] pamphlet provided. oil well services superintendent will remain available to assess and support. * Carmen Marquez RN - 09/16/2025 2:59 AM EST ED RN HANDOFF (All Vargas Below Must Be Completed) Reason/Diagnosis for Admission: Type of Admission: [] Medsurg, [x] Telemetry Already in a Hospital Bed: [] Yes / [x] No Room Considerations/Precautions (ex: fever, diarrhea, or any infectious concerns): [] Yes / [x] No Flower Shop Manager: [x] Yes / [] No If YES, Cardiac Rhythm: [x] NSR, [] SB, [] ST, [] A-FIB, [] A-Flutter, [] Pacemaker, [] 1st Degree HB, [] 2nd Degree HB, [] 3rd Degree HB Reason for Flower Shop Manager: O2 []Yes /[x]No If YES, how many [...] of Care Note Room: 28/ Patient: Clayton Mike PCP: ADELAIDA Arita Patient : 1960 Patient Department: [facility] [address] [address] Dept: [phone] This patient's care was signed out to [...] 137/73 Pulse: 93 Resp: Temp: SpO2: Anna Pillia MD 09/15/251922 documented in this encounter Plan of Treatment Not on file documented as of this encounter Procedures Procedure Name Priority Date/Time Associated Diagnosis Comments CBC WITH AUTO DIFFERENTIAL Routine 09/16/2025 6:22 [...] EST documented in this encounter Results * (ABNORMAL) CBC auto differential (09/16/2025 6:22 AM EST) [facility] WBC 6.9 4.8 - 10.8 K/mcL LAB HEMETOLOGY METHOD 09/16/2025 7:02 AM [facility] RBC 3.80(L) 4.50 - 5.50 M/mcL LAB HEMETOLOGY METHOD 09/16/2025 7:02 AM [facility] Hemoglobin 11.8(L) 13.5 - 17.5 g/dL LAB HEMETOLOGY METHOD 09/16/2025 7:02 AM [facility] Hematocrit 34.5(L) 42.0 - 54.0 % LAB HEMETOLOGY METHOD 09/16/2025 7:02 AM [facility] MCV 91.0 79.0 - 98.0 FL LAB HEMETOLOGY METHOD 09/16/2025 7:02 AM [facility] MCH 31.1 27.0 - 32.0 pcg LAB HEMETOLOGY METHOD 09/16/2025 7:02 AM [facility] MCHC 34.2 32.0 - 37.0 g/dL LAB HEMETOLOGY METHOD 09/16/2025 7:02 AM [facility] RDW 13.2 11.0 - 15.0 % LAB HEMETOLOGY METHOD 09/16/2025 7:02 AM [facility] Platelets 234 130 - 400 K/mcL LAB HEMETOLOGY METHOD 09/16/2025 7:02 AM [facility] MPV 9.3 7.0 - 11.0 FL LAB HEMETOLOGY METHOD 09/16/2025 7:02 AM [facility] NRBC 0.0 <1.0 % LAB HEMETOLOGY METHOD 09/16/2025 7:02 AM [facility] NRBC Absolute 0.00 <0.10 K/mcL LAB HEMETOLOGY METHOD 09/16/2025 7:02 AM [facility] Neutrophils Relative 68.8 % LAB HEMETOLOGY METHOD 09/16/2025 7:02 AM [facility] Lymphocytes Relative 17.2 % LAB HEMETOLOGY METHOD 09/16/2025 7:02 AM [facility] Monocytes Relative 8.8 % LAB HEMETOLOGY METHOD 09/16/2025 7:02 AM [facility] Eosinophils Relative 4.2 % LAB HEMETOLOGY METHOD 09/16/2025 7:02 AM [facility] Basophils Relative 0.7 % LAB HEMETOLOGY METHOD 09/16/2025 7:02 AM [facility] Immature Granulocytes Relative 0.3 % LAB HEMETOLOGY METHOD 09/16/2025 7:02 AM [facility] Neutrophils Absolute 4.71 1.50 - 7.00 K/mcL LAB HEMETOLOGY METHOD 09/16/2025 7:02 AM [facility] Lymphocytes Absolute 1.18 1.00 - 5.00 K/mcL LAB HEMETOLOGY METHOD 09/16/2025 7:02 AM [facility] Monocytes Absolute 0.60 0.20 - 1.00 K/mcL LAB HEMETOLOGY METHOD 09/16/2025 7:02 AM [facility] Eosinophils Absolute 0.29 0.00 - 0.50 K/mcL LAB HEMETOLOGY METHOD 09/16/2025 7:02 AM [facility] Basophils Absolute 0.05 0.00 - 0.20 K/mcL LAB HEMETOLOGY METHOD 09/16/2025 7:02 AM [facility] Immature Granulocytes Absolute 0.02 0.00 - 0.03 K/mcL LAB HEMETOLOGY METHOD 09/16/2025 7:02 AM [facility] Blood Venous blood specimen / Unknown Venipuncture / Unknown 09/16/2025 6:22 AM EST 09/16/2025 6:53 AM EST us Vargas Morales MD LAB BLOOD ORDERABLES Final Result [facility] [address] [place] [address], * (ABNORMAL) Basic metabolic panel (09/16/2025 6:22 AM EST) Sodium 142 133 - 145 mmol/L LAB CHEMISTRY METHOD 09/16/2025 7:25 AM EST [facility] Potassium 3.7 3.5 - 5.5 mmol/L LAB CHEMISTRY METHOD 09/16/2025 7:25 AM [facility] Chloride 108 96 - 110 mmol/L LAB CHEMISTRY METHOD 09/16/2025 7:25 AM [facility] CO2 29 21 - 32 mmol/L LAB CHEMISTRY METHOD 09/16/2025 7:25 AM [facility] Anion Gap 5 3 - 11 LAB CHEMISTRY METHOD 09/16/2025 7:25 AM [facility] Glucose 101(H) 70 - 100 mg/dL LAB CHEMISTRY METHOD 09/16/2025 7:25 AM [facility] BUN 10 5 - 25 mg/dL LAB CHEMISTRY METHOD 09/16/2025 7:25 AM [facility] Creatinine 0.98 0.70 - 1.30 mg/dL LAB CHEMISTRY METHOD 09/16/2025 7:25 AM [facility] eGFR 85 >=60 mL/min/1. 73m2 LAB CHEMISTRY METHOD 09/16/2025 7:25 AM [facility] Comment:Calculation based on the Chronic Kidney Disease Epidemiology Collaboration (CKD-EPI) equation refit without adjustment for race. BUN/Creatinine Ratio 10.2 LAB CHEMISTRY METHOD 09/16/2025 7:25 AM [facility] Calcium 8.2(L) 8.5 - 10.5 mg/dL LAB CHEMISTRY METHOD 09/16/2025 7:25 AM EST [facility] Blood Venous blood specimen / Unknown Venipuncture / Unknown 09/16/2025 6:22 AM EST 09/16/2025 6:52 AM EST Vargas Morales MD LAB BLOOD ORDERABLES Final Result [facility] [address] [place] [address], * (ABNORMAL) Lipid panel with reflex to direct LDL (09/15/2025 11:56 AM EST) Cholesterol 107 0 - 200 mg/dL LAB CHEMISTRY METHOD 09/15/2025 10:25 PM [facility] Triglycerides 261(H) 0 - 150 mg/dL LAB CHEMISTRY METHOD 09/15/2025 10:25 PM [facility] HDL 47 >=40 mg/dL LAB CHEMISTRY METHOD 09/15/2025 10:25 PM [facility] LDL Calculated 8 0 - 100 mg/dL LAB CHEMISTRY METHOD 09/15/2025 10:25 PM [facility] Comment:Estimated LDL Calcul ated using equation: Total cholesterol - HDL cholesterol - (Triglycerides/5) VLDL Cholesterol Leobardo 52.2 mg/dL LAB CHEMISTRY METHOD 09/15/2025 10:25 PM [facility] Non HDL Chol. (LDL+VLDL) 60 <145 mg/dL LAB CHEMISTRY METHOD 09/15/2025 10:25 PM [facility] Chol/HDL Ratio 2.3 0.0 - 4.4 LAB CHEMISTRY METHOD 09/15/2025 10:25 PM [facility] Blood Venous blood specimen / Unknown Venipuncture / Unknown 09/15/2025 11:56 AM EST 09/15/2025 12:08 PM EST Vargas SON LAB BLOOD ORDERABLES Liana l Result Performing Organization Address [facility]/ZIP Co de Phone Number [facility] [address] [place] [address], [place] [phone] * Phosphorus (09/15/2025 11:56 AM EST) Phosphorus 2.8 2.5 - 4.5 mg/dL LAB CHEMISTRY METHOD 09/15/2025 12:36 PM EST [facility] Blood Venous blood specimen / Unknown Venipuncture / Unknown 09/15/2025 11:56 AM EST 09/15/2025 12:08 PM EST Palomo SON LAB BLOOD ORDERABLES Final Result Performing Organization Address [facility] Co de Phone Number [facility] [address] [place] [address], * Magnesium (09/15/2025 11:56 AM EST) Magnesium 2.1 1.9 - 2.6 mg/dL LAB CHEMISTRY METHOD 09/15/2025 12:36 PM EST [facility] Blood Venous blood specimen / Unknown Venipuncture / Unknown 09/15/2025 11:56 AM EST 09/15/2025 12:08 PM EST Palomo SON LAB BLOOD ORDERABLES Final Result Performing Organization Address [facility]/ZIP Co de Phone Number [facility] [address] [place] [address], [place] [phone] * Potassium (09/15/2025 11:56 AM EST) Potassium 3.7 3.5 - 5.5 mmol/L LAB CHEMISTRY METHOD 09/15/2025 12:36 PM EST [facility] Blood Venous blood specimen / Unknown Venipuncture / Unknown 09/15/2025 11:56 AM EST 09/15/2025 12:08 PM EST us Palomo SON LAB BLOOD ORDERABLES Final Result Performing Organization Address [facility] Co de Phone Number [facility] [address] [place] [address], [place] [phone] * Troponin I high sensitivity (NOW and then in 1 hour) (09/15/2025 11:56 AM EST) High Sensitivity Troponin I 48 <=79 ng/L LAB CHEMISTRY METHOD 09/15/2025 12:38 PM EST [facility] Blood Venous blood specimen / Unknown Venipuncture / Unknown 09/15/2025 11:56 AM EST 09/15/2025 12:08 PM EST Narrative [facility] - 09/15/2025 12:38 PM EST High levels of biotin in samples may falsely decrease hsTroponin values. Use caution when interpreting hsTroponin results in patients taking biotin who exhibit renal impairment (eGFR <60) or in patients taking more than 20 mg/day of biotin. us Palomo SON LAB BLOOD ORDERABLES Final Result Performing Organization Address [facility] de Phone Number [facility] [address] [place] [address], [place] [phone] * CT Abdomen Pelvis w Contrast (09/15/2025 [...] Signed Date: 09/15/2025 11:52 ET Workstation ID: [id number] Transcribed By: Self Edit Transcribed Date: 09/15/2025 [...] Signed Date: 09/15/2025 11:52 ET Workstation ID: [id number] Transcribed By: Self Edit Transcribed Date: 09/15/2025 [...] Signed Date: 09/15/2025 10:03 ET Workstation ID: [id number] Transcribed By: Self Edit Transcribed Date: 09/15/2025 [...] Signed Date: 09/15/2025 10:03 ET Workstation ID: [id number] Transcribed By: Self Edit Transcribed Date: 09/15/2025 09:59 ET us Palomo SON IMG XR PROCEDURES Final Res ult * 12-Lead ECG (09/15/2025 8:49 AM EST) Ventricular Rate ECG 92 BPM GEMUSE Atrial Rate 92 BPM GEMUSE P-R Interval 124 ms GEMUSE QRS Duration 84 ms GEMUSE Q-T Interval 376 ms GEMUSE QTc 464 ms GEMUSE P Wave Elfrida 64 degrees GEMUSE R Elfrida -19 degrees GEMUSE T Elfrida 7 degrees GEMUSE ECG Interpretation Normal sinus rhythm Normal ECG When compared with ECG of 13-SEP-2025 14:19, No significant change was found Confirmed by MARIANO CASAS ([id number]) on 09/15/2025 10:12:24 PM GEMUSE 09/15/2025 8:49 AM EST 09/15/2025 10:12 PM EST us Palomo SON ECG ORDERABLES Final Resul t GEMUSE * (ABNORMAL) Culture urine (09/15/2025 8:46 AM EST) Culture, Urine 50,000-100,000 CFU/mL Pseudomonas aeruginosa(A) KULWANT 09/17/2025 10:17 AM EST [facility] Comment: This is an edited result. [...] GENERAL ORDERABLES Final Result Performing Organization Address City/[facility]/ZIP Co de Phone Number [facility] [address] [place] [address], [place] [phone] * Hernandez urine culture tube (09/15/2025 8:46 AM EST) Extra Tube Hold for add-ons. 09/15/2025 10:01 AM EST [facility] Comment:Auto resulted. Urine Urine specimen obtained by clean catch procedure / Unknown Non-blood Collection / Unknown 09/15/2025 8:46 AM EST 09/15/2025 8:52 AM EST Palomo SON LAB URINE ORDERABLES Final Result [facility] [address] [place] [address], [place] [phone] * (ABNORMAL) Urinalysis with reflex microscopic and culture (09/15/2025 8:46 AM EST) Specific [place] Urine 1.010 1.003 - 1.030 LAB URINALYSIS - AUTOMATED METHOD 09/15/2025 9:13 AM [facility] pH, Urine 6.5 5.0 - 8.0 pH LAB URINALYSIS - AUTOMATED METHOD 09/15/2025 9:13 AM [facility] Leukocytes, Urine Large(A) Negative LAB URINALYSIS - AUTOMATED METHOD 09/15/2025 9:13 AM [facility] Nitrite, Urine Negative Negative LAB URINALYSIS - AUTOMATED METHOD 09/15/2025 9:13 AM [facility] Protein, Urine 30(A) <=Trace mg/dL LAB URINALYSIS - AUTOMATED METHOD 09/15/2025 9:13 AM [facility] Glucose, Urine Negative Negative mg/dL LAB URINALYSIS - AUTOMATED METHOD 09/15/2025 9:13 AM [facility] Ketones, Urine Negative Negative mg/dL LAB URINALYSIS - AUTOMATED METHOD 09/15/2025 9:13 AM [facility] Urobilinogen , Urine 0.2 0.2 - 1.0 mg/dL LAB URINALYSIS - AUTOMATED METHOD 09/15/2025 9:13 AM [facility] Bilirubin, Urine Negative Negative LAB URINALYSIS - AUTOMATED METHOD 09/15/2025 9:13 AM [facility] Blood, Urine Small(A) Negative LAB URINALYSIS - AUTOMATED METHOD 09/15/2025 9:13 AM [facility] RBC, Urine 5(H) 0 - 4 /HPF 09/15/2025 9:13 AM [facility] WBC, Urine 75(H) 0 - 4 /HPF 09/15/2025 9:13 AM [facility] Squamous Epithelial, Urine 2 0 - 60 /LPF 09/15/2025 9:13 AM [facility] Bacteria, Urine Moderate(A) Negative /HPF 09/15/2025 9:13 AM [facility] Urine Urine specimen obtained by clean catch procedure / Unknown Non-blood Collection / Unknown 09/15/2025 8:46 AM EST 09/15/2025 8:52 AM EST Palomo SON LAB URINE ORDERABLES Final Result [facility] [address] [place] [address], * Respiratory virus panel molecular study (09/15/2025 8:05 AM EST) Adenovirus Detection by PCR Not Detected Not Detected LAB MICROBIOLOGY METHOD 09/15/2025 9:18 AM [facility] Influenza A PCR Not Detected Not Detected LAB MICROBIOLOGY METHOD 09/15/2025 9:18 AM [facility] Influenza B PCR Not Detected Not Detected LAB MICROBIOLOGY METHOD 09/15/2025 9:18 AM [facility] Coronavirus 229E Not Detected Not Detected LAB MICROBIOLOGY METHOD 09/15/2025 9:18 AM [facility] Coronavirus HKU1 Not Detected Not Detected LAB MICROBIOLOGY METHOD 09/15/2025 9:18 AM [facility] Coronavirus OC43 Not Detected Not Detected LAB MICROBIOLOGY METHOD 09/15/2025 9:18 AM [facility] Coronavirus NL63 Not Detected Not Detected LAB MICROBIOLOGY METHOD 09/15/2025 9:18 AM [facility] Parainfluenza Virus 1 Not Detected Not Detected LAB MICROBIOLOGY METHOD 09/15/2025 9:18 AM [facility] Parainfluenza Virus 2 Not Detected Not Detected LAB MICROBIOLOGY METHOD 09/15/2025 9:18 AM [facility] Parainfluenza Virus 3 Not Detected Not Detected LAB MICROBIOLOGY METHOD 09/15/2025 9:18 AM [facility] Parainfluenza Virus 4 Not Detected Not Detected LAB MICROBIOLOGY METHOD 09/15/2025 9:18 AM [facility] RSV PCR Not Detected Not Detected LAB MICROBIOLOGY METHOD 09/15/2025 9:18 AM [facility] Human Metapneumovirus A and B Not Detected Not Detected LAB MICROBIOLOGY METHOD 09/15/2025 9:18 AM [facility] Rhinovirus/Entero virus Not Detected Not Detected LAB MICROBIOLOGY METHOD 09/15/2025 9:18 AM [facility] Bordetella pertussis Not Detected Not Detected LAB MICROBIOLOGY METHOD 09/15/2025 9:18 AM [facility] Bordetella parapertussis Not Detected Not Detected LAB MICROBIOLOGY METHOD 09/15/2025 9:18 AM [facility] Mycoplasma pneumo by PCR Not Detected Not Detected LAB MICROBIOLOGY METHOD 09/15/2025 9:18 AM [facility] Chlamydia pneumoniae Not Detected Not Detected LAB MICROBIOLOGY METHOD 09/15/2025 9:18 AM [facility] SARS COV-2 Not Detected Not Detected LAB MICROBIOLOGY METHOD 09/15/2025 9:18 AM [facility] Swab Both anterior nares / Unknown Non-blood Collection / Unknown 09/15/2025 8:05 AM EST 09/15/2025 8:16 AM [facility] - 09/15/2025 9:18 AM EST Testing was performed using the [employer] Respiratory Pathogen PCR Assay. All results must [...] GENERAL ORDERABLES Final Result Performing Organization Address [facility]/ZIP Co de Phone Number [facility] [address] [place] [address], [place] [phone] * Troponin I high sensitivity (NOW and then in 1 hour) (09/15/2025 7:33 AM EST) Pathologist [facility] High Sensitivity Troponin I 50 <=79 ng/L LAB CHEMISTRY METHOD 09/15/2025 8:17 AM EST [facility] Blood Venous blood specimen / Unknown Venipuncture / Unknown 09/15/2025 7:33 AM EST 09/15/2025 7:41 AM EST Narrative [facility] - 09/15/2025 8:17 AM EST High levels of biotin in samples may falsely decrease hsTroponin values. Use caution when interpreting hsTroponin results in patients taking biotin who exhibit renal impairment (eGFR <60) or in patients taking more than 20 mg/day of biotin. Palomo SON LAB BLOOD ORDERABLES Final Result Performing Organization Address [facility] Co de Phone Number [facility] [address] [place] [address], [place] [phone] * (ABNORMAL) Ammonia (09/15/2025 7:33 AM EST) [facility] Ammonia 56(H) 11 - 35 mcmol/L LAB CHEMISTRY METHOD 09/15/2025 8:28 AM EST [facility] Comment:Hemolysis present Blood Venous blood specimen / Unknown Venipuncture / Unknown 09/15/2025 7:33 AM EST 09/15/2025 7:42 AM EST Palomo SON LAB BLOOD ORDERABLES Final Result Performing Organization Address City/[facility]/ZIP Co de Phone Number [facility] [address] [place] [address], [place] [phone] * (ABNORMAL) Venous blood gas (09/15/2025 7:33 AM EST) pH, Santos 7.45(H) 7.32 - 7.42 pH 09/15/2025 7:39 AM [facility] pCO2, Santos 35(L) 41 - 51 mmHg 09/15/2025 7:39 AM EST [facility] pO2, Santos 81(H) 25 - 40 mmHg 09/15/2025 7:39 AM [facility] HCO3, Venous 25.4 22.0 - 26.0 mmol/L 09/15/2025 7:39 AM [facility] O2 Sat, Santos 98.4 % 09/15/2025 7:39 AM [facility] Base Excess, Santos 0.7 -2.0 - 2.0 mmol/L 09/15/2025 7:39 AM EST [facility] Blood Venous blood specimen / Unknown Venipuncture / Unknown 09/15/2025 7:33 AM EST 09/15/2025 7:37 AM EST us Palomo SON LAB BLOOD ORDERABLES Final Result Performing Organization Address City/[facility] Co de Phone Number [facility] [address] [place] [address], * (ABNORMAL) Ethanol (09/15/2025 6:40 AM EST) Ethanol Level 153(H) 0 - 10 mg/dL LAB CHEMISTRY METHOD 09/15/2025 8:13 AM EST [facility] Blood Venous blood specimen / Unknown Venipuncture / Unknown 09/15/2025 6:40 AM EST 09/15/2025 8:13 AM EST us Palomo SON LAB BLOOD ORDERABLES Final Result [facility] [address] [place] [address], [place] [phone] * Magnesium (09/15/2025 6:40 AM EST) [facility] Magnesium 2.3 1.9 - 2.6 mg/dL LAB CHEMISTRY METHOD 09/15/2025 8:13 AM EST [facility] Blood Venous blood specimen / Unknown Venipuncture / Unknown 09/15/2025 6:40 AM EST 09/15/2025 8:13 AM EST Palomo SON LAB BLOOD ORDERABLES Final Result Performing Organization Address [facility] Co de Phone Number [facility] [address] [place] [address], * (ABNORMAL) CBC auto differential (09/15/2025 6:40 AM EST) [facility] WBC 7.9 4.8 - 10.8 K/mcL LAB HEMETOLOGY METHOD 09/15/2025 8:00 AM [facility] RBC 4.10(L) 4.50 - 5.50 M/mcL LAB HEMETOLOGY METHOD 09/15/2025 8:00 AM [facility] Hemoglobin 12.8(L) 13.5 - 17.5 g/dL LAB HEMETOLOGY METHOD 09/15/2025 8:00 AM [facility] Hematocrit 37.3(L) 42.0 - 54.0 % LAB HEMETOLOGY METHOD 09/15/2025 8:00 AM [facility] MCV 90.8 79.0 - 98.0 FL LAB HEMETOLOGY METHOD 09/15/2025 8:00 AM [facility] [facility] MCH 31.1 27.0 - 32.0 pcg LAB HEMETOLOGY METHOD 09/15/2025 8:00 AM [facility] MCHC 34.3 32.0 - 37.0 g/dL LAB HEMETOLOGY METHOD 09/15/2025 8:00 AM [facility] RDW 13.5 11.0 - 15.0 % LAB HEMETOLOGY METHOD 09/15/2025 8:00 AM [facility] LAB Platelets 302 130 - 400 K/mcL LAB HEMETOLOGY METHOD 09/15/2025 8:00 AM [facility] MPV 9.1 7.0 - 11.0 FL LAB HEMETOLOGY METHOD 09/15/2025 8:00 AM [facility] NRBC 0.0 <1.0 % LAB HEMETOLOGY METHOD 09/15/2025 8:00 AM [facility] NRBC Absolute 0.00 <0.10 K/mcL LAB HEMETOLOGY METHOD 09/15/2025 8:00 AM [facility] Neutrophils Relative 69.1 % LAB HEMETOLOGY METHOD 09/15/2025 8:00 AM [facility] Lymphocytes Relative 18.4 % LAB HEMETOLOGY METHOD 09/15/2025 8:00 AM [facility] Monocytes Relative 8.5 % LAB HEMETOLOGY METHOD 09/15/2025 8:00 AM [facility] Eosinophils Relative 2.5 % LAB HEMETOLOGY METHOD 09/15/2025 8:00 AM [facility] Basophils Relative 1.0 % LAB HEMETOLOGY METHOD 09/15/2025 8:00 AM [facility] Immature Granulocytes Relative 0.5 % LAB HEMETOLOGY METHOD 09/15/2025 8:00 AM [facility] Neutrophils Absolute 5.45 1.50 - 7.00 K/mcL LAB HEMETOLOGY METHOD 09/15/2025 8:00 AM [facility] LAB Lymphocytes Absolute 1.45 1.00 - 5.00 K/[facility] LAB HEMETOLOGY METHOD 09/15/2025 8:00 AM EST [facility] LAB Monocytes Absolute 0.67 0.20 - 1.00 K/[facility] LAB HEMETOLOGY METHOD 09/15/2025 8:00 AM EST [facility] Eosinophils Absolute 0.20 0.00 - 0.50 K/[facility] LAB HEMETOLOGY METHOD 09/15/2025 8:00 AM EST [facility] Basophils Absolute 0.08 0.00 - 0.20 K/[facility] LAB HEMETOLOGY METHOD 09/15/2025 8:00 AM EST [facility] Immature Granulocytes Absolute 0.04(H) 0.00 - 0.03 K/[facility] LAB HEMETOLOGY METHOD 09/15/2025 8:00 AM EST [facility] Blood Venous blood specimen / Unknown Venipuncture / Unknown 09/15/2025 6:40 AM EST 09/15/2025 8:00 AM EST us Palomo SON LAB BLOOD ORDERABLES Final Result [facility] [address] [place] [address], [place] [phone] * Lipase (09/15/2025 6:40 AM EST) Lipase 24 13 - 75 unit/L LAB CHEMISTRY METHOD 09/15/2025 8:13 AM EST [facility] Blood Venous blood specimen / Unknown Venipuncture / Unknown 09/15/2025 6:40 AM EST 09/15/2025 8:13 AM EST us Palomo SON LAB BLOOD ORDERABLES Final Result Performing Organization Address City/[facility]/ZIP Co de Phone Number [facility] [address] [place] [address], [place] [phone] * (ABNORMAL) Comprehensive metabolic panel (09/15/2025 6:40 AM EST) Sodium 142 133 - 145 mmol/L LAB CHEMISTRY METHOD 09/15/2025 8:13 AM [facility] Potassium 3.4(L) 3.5 - 5.5 mmol/L LAB CHEMISTRY METHOD 09/15/2025 8:13 AM [facility] Chloride 109 96 - 110 mmol/L LAB CHEMISTRY METHOD 09/15/2025 8:13 AM [facility] CO2 26 21 - 32 mmol/L LAB CHEMISTRY METHOD 09/15/2025 8:13 AM [facility] Anion Gap 7 3 - 11 LAB CHEMISTRY METHOD 09/15/2025 8:13 AM [facility] Glucose 123(H) 70 - 100 mg/dL LAB CHEMISTRY METHOD 09/15/2025 8:13 AM [facility] BUN 9 5 - 25 mg/dL LAB CHEMISTRY METHOD 09/15/2025 8:13 AM [facility] Creatinine 0.84 0.70 - 1.30 mg/dL LAB CHEMISTRY METHOD 09/15/2025 8:13 AM [facility] eGFR 96 >=60 mL/min/1. 73m2 LAB CHEMISTRY METHOD 09/15/2025 8:13 AM [facility] Comment:Calculation based on the Chronic Kidney Disease Epidemiology Collaboration (CKD-EPI) equation refit without adjustment for race. BUN/Creatinine Ratio 10.7 LAB CHEMISTRY METHOD 09/15/2025 8:13 AM [facility] Calcium 8.2(L) 8.5 - 10.5 mg/dL LAB CHEMISTRY METHOD 09/15/2025 8:13 AM [facility] AST (SGOT) 30 10 - 42 unit/L LAB CHEMISTRY METHOD 09/15/2025 8:13 AM [facility] ALT (SGPT) 39 10 - 60 unit/L LAB CHEMISTRY METHOD 09/15/2025 8:13 AM EST [facility] Alkaline Phosphatase 89 42 - 121 unit/L LAB CHEMISTRY METHOD 09/15/2025 8:13 AM EST [facility] Total Protein 6.4 6.0 - 8.0 g/dL LAB CHEMISTRY METHOD 09/15/2025 8:13 AM EST [facility] Albumin 3.2 3.2 - 5.0 g/dL LAB CHEMISTRY METHOD 09/15/2025 8:13 AM EST [facility] Total Bilirubin 0.5 0.0 - 1.4 mg/dL LAB CHEMISTRY METHOD 09/15/2025 8:13 AM EST [facility] Blood Venous blood specimen / Unknown Venipuncture / Unknown 09/15/2025 6:40 AM EST 09/15/2025 8:13 AM EST [facility] LAB BLOOD ORDERABLES Final Result [facility] [address] [place] [address], documented in this encounter Visit Diagnoses Diagnosis Postobstructive diuresis- Primary Postobstructive diuresis Sepsis, due to unspecified organism, unspecified whether acute organ dysfunction present (CMS/[facility] V24, [facility] V28) documented in this encounter Admitting Diagnoses Diagnosis Postobstructive diuresis documented in this encounter Administered Medications Inactive Administered Medications - up to 3 most recent administrations Medication Order MAR Action Action Date Dose Rate Site acetaminophen (TYLENOL) tablet 650 mg 650 mg, oral, Every 4 hours PRN, mild pain, headaches, fever - temperature GREATER than 38 C (100.4 F), Starting on Sat09/15/25 at 2020 Given 09/16/2025 12:19 AM EST 650 mg [...] at 2019, 2nd Line Option: -ONLY give UT if patient is unable to take orally [...] needed, line care, Starting on Sat09/15/25 at 2020 tamsulosin (FLOMAX) 24 hr capsule 0.4 mg [...] on Sat09/16/25 at 0900, Indication: VTE/PE Prophylaxis 0955 (Given [...] Daily, First dose on Sat09/16/25 at 0900 0955 (Given - Provid er: Concetta Griffin RN) gabapentin (NEURONTIN) capsule 300 mg 300 mg, oral, Every 8 hours scheduled, First dose on Sat09/15/25 at 0701 0722 (Given - Provider: Liana Arellano RN)1326 (Given - Provider: Renetta Healy RN) 0018 (Given - Provider: Carmen Marquez, RN)0528 (Given - Provider: Leonides Caceres RN)1335 (Given - Provider: Concetta Griffin, HEMALATHA) iopamidoL (ISOVUE-370) 370 mg iodine /mL (76 [...] On Sat09/15/25 at 1322, For 1 dose 132 (Given - Provider: Renetta Healy RN) sodium chloride 0.9 % bolus 1,000 mL (COMPLETED) 1,000 mL, intravenous, at 1,000 mL/hr, Administer over 1 Hours, Once, On Sat09/15/25 at 1924, For 1 dose 1941 (New Bag - Provider: Mak Fleming RN) 0016 (Stopped - Provider: Carmen Marquez, RN) sodium chloride 0.9 % flush 10 mL (COMPLETED) 10 mL, intravenous, Once, On Sat09/15/25 at 1113, For 1 dose 1117 (Given - Provider: Francine Trammell) sodium chloride 0.9 % flush 10 mL(Linked Group 1) 10 mL, intravenous, 2 times daily, First dose on Sat09/15/25 at 2100 0020 (Given - Provid er: Carmen Marquez, HEMALATHA)0956 (Given - Provider: Concetta Griffin, HEMALATHA) tamsulosin (FLOMAX) 24 hr capsule 0.4 mg 0.4 mg, oral, Daily, First dose on Sat09/15/25 at 2020, For 21 days, For oral administration: capsules should be swallowed whole (Do not crush, chew, or open). For tube administration: open capsule and administer with water (granules should NOT be crushed). 2122 (Hold - Provider: Lela WhiteD - Reason: [...] mg, intravenous, Every 1 hour PRN, CIWA-Ar 08-21, Starting on Sat09/15/25 at 2020, Re-assess CIWA-Ar [...] at 2019, 2nd Line Option: -ONLY give UT if patient is unable to take orally [...] at 2019, 2nd Line Option: -ONLY give UT if patient is unable to take orally and cannot receive IV/IM. -If inadequate response within 30 minutes, proceed to next-line agent or contact provider if no further options ordered. documented in this encounter Orders Medications Ordered That Juan A ht Not Have Been Administered Count Last Ordered Date First Ordered Date LORazepam (ATIVAN) injection 2 mg 1 025 LORazepam (ATIVAN) injection 3 mg 1 025 LORazepam (ATIVAN) injection 4 mg 1 025 ondansetron (PF) (ZOFRAN) injection 4 mg 1 09/15/2025 ondansetron ODT (ZOFRAN-ODT) disintegrating tablet 4 mg 1 09/15/2025 prochlorperazine (COMPAZINE) injection 10 mg 1 09/15/2025 prochlorperazine (COMPAZINE) suppository 25 mg 1 09/15/2025 prochlorperazine (COMPAZINE) tablet 10 mg 1 09/15/2025 sodium chloride 0.9 % flush 10 mL 1 025 General Supply Count Last Ordered Date First [...] documented as of this encounter Care Teams [employer]is[employer] Operator Relationship Specialty Start Date End Date Juan Manuel Marquez PA [address] [place] [address] PCP - General Refinery Operator Assistant 07/12/20 documented as of this encounter
[2025-09-17] VITALS (7 sets, daily range): BP systolic 102–164; BP diastolic 47–98; PULSE 81–118; RESP 15–20; TEMP 37.1–37.5; O2SAT 94–98; BMI 26.1
--- NOTE | ~2025-09-17 | CT_ITS ---
EXAMINATION: CT HEAD WITHOUT CONTRAST CLINICAL INFORMATION: Following: COMPARISON: CT brain 07/29/2025 TECHNIQUE: Contiguous axial imaging was performed from the skull base to vertex without intravenous administration of contrast. This CT examination was performed using dose optimization techniques as appropriate, variously including the following: *Automated exposure control *Adjustment of mA and/or kV according to patient size (this includes techniques or standardized protocols for targeted exams where dose is matched to indication/reason for exam; i.e. extremities or head) *Use of iterative reconstruction technique DLP: 692 mGy/cm. FINDINGS: There is no acute intra-axial, extra-axial bleed, masses or midline shift. There is no acute infarction evolution. There is no edema. The mendoza to white matter differentiation is maintained normal. The lateral ventricles are symmetrical in size and configuration without enlargement. Bone windows reveal no calvarial abnormality. There is no scalp soft tissue abnormality. Bilateral paranasal sinuses and mastoid air cells are well-aerated. CT/CT head/brain wo IV con IMPRESSION: No acute intracranial process seen. Electronically signed by: Rhett Sim MD 09/17/2025 05:07 PM [facility]
--- NOTE | ~2025-09-17 | CT_ITS ---
EXAMINATION: CT ABDOMEN AND PELVIS WITH CONTRAST CLINICAL INFORMATION: Abdominal pain COMPARISON: None available. TECHNIQUE: Multidetector volumetric images were obtained from the superior aspect of the liver through the pubic symphysis following administration 85 mL of Omnipaque 350 intravenous contrast. Sagittal and coronal reformatted images were obtained on the technologist's workstation. Oral contrast: No This CT examination was performed using dose optimization techniques as appropriate, variously including the following: *Automated exposure control *Adjustment of mA and/or kV according to patient size (this includes techniques or standardized protocols for targeted exams where dose is matched to indication/reason for exam; i.e. extremities or head) *Use of iterative reconstruction technique FINDINGS: LUNG BASES: The visualized lung bases are unremarkable. LIVER, GALLBLADDER, AND BILIARY TREE: Mild diffuse low attenuation is again demonstrated in the liver. The gallbladder is unremarkable with no evidence of radiopaque gallstones, gallbladder wall thickening, or obvious pericholecystic inflammatory changes. PANCREAS: Unremarkable. SPLEEN: Unremarkable. ADRENAL GLANDS: Unremarkable. KIDNEYS AND URETERS: The kidneys are normal in size, shape, and attenuation. There are no kidney stones. Moderate hydronephrosis and hydroureter present on the prior examination has resolved. BLADDER: Gross bladder distention present on prior examination has resolved. There is a [place] catheter in place. There is a moderate volume of complex heterogeneous material within the bladder including a small amount of gas. GASTROINTESTINAL TRACT: Again seen are numerous pseudodiverticula in the descending and sigmoid colon without wall thickening or inflammation. The appendix is within normal limits. ABDOMINAL WALL: No significant hernia is appreciated. LYMPH NODES: Normal. VASCULAR: Multifocal atherosclerotic calcifications are present. PELVIC VISCERA: Unremarkable. OSSEOUS STRUCTURES: Schmorl's node with mild superior endplate wedging is stable at T12. Multilevel degenerative changes are present throughout the imaged spine. There is moderate right hip osteoarthritis with superior lateral joint space narrowing and marginal osteophytes. Total hip replacement is present on the left. CT/CT abdomen pelvis w IV con IMPRESSION: The bladder is partially distended with heterogeneous material that raises concern for blood products. Infection is also the differential. Mild hepatic steatosis. Diverticulosis is present in the descending and sigmoid colon without evidence of infection. Fleischner guidelines were followed. Electronically signed by: Bernardo Rich MD 09/17/2025 12:21 PM [facility]
--- NOTE | ~2025-09-17 | XR_ITS ---
EXAMINATION: XR CHEST CLINICAL INFORMATION: cough COMPARISON: Previous chest x-ray most recent July 2025 TECHNIQUE: Frontal view of the chest was obtained. FINDINGS: Lungs are clear. No consolidation or pulmonary edema. No pleural effusion or pneumothorax. Cardiac and mediastinal contours are stable. Degenerative changes of the spine and shoulders. XR/XR chest 1V IMPRESSION: No evidence for acute disease in the chest. Electronically signed by: Maribell Zamudio MD 09/17/2025 11:23 AM [facility]
--- NOTE | 2025-09-17 10:08 | PC.NURSE ---
Pt roomed and changed placed on full monitor. VSS Provider in to eval. Pt c/o withdrawal symptoms.
--- NOTE | 2025-09-17 10:15 | PC.NURSE ---
seizure precautions in place
--- NOTE | 2025-09-17 10:15 | ED.ALCOHOL ---
HPI - Alcohol General Chief Complaint: ETOH/Substance Use Stated Complaint: low abd pain, d/c from [facility] yesterday w/ catheter Time Seen by Provider: 09/17/25 09:52 Source: patient and EMS Mode of arrival: EMS Limitations: other History of Present Illness ED Provider: chapis morales HPI narrative: Chief Complaint: ?My stomach hurts and I feel nauseated. I?m shaky and can?t walk.? History of Present Illness: The patient, recently discharged from [facility] two days ago after an admission related to alcohol use, presents with progressive symptoms since returning home. He reports the following: Last alcoholic drink approximately 2?3 days ago (prior to his [facility] discharge); denies alcohol intake today. Typical daily intake: 5?6 shots of Fireball whiskey plus 3?4 tall-boy beers. No oral intake (food or fluids) since leaving the hospital; last meal was while inpatient. Persistent nausea and diffuse abdominal discomfort without vomiting, though he has dry-heaved. Generalized tremors/shakiness that began yesterday and are now severe enough that he ?can?t walk.? Intermittent confusion both in the hospital and currently; difficulty focusing during conversation. Anxiety and mild frontal headache. Pain in knees, arms, and back; pruritus of the upper back. Non-productive cough and rhinorrhea; denies chest pain or shortness of breath. Past alcohol-related events include one to two withdrawal seizures in approximately 1994. He also fell last week and struck his head. He denies visual or auditory hallucinations, denies tactile formication (?bugs crawling?), and denies illicit drug use. The patient has an indwelling urinary catheter in place. Related Data Home Medications ?Medication ?Instructions ?Recorded ?Confirmed gabapentin 300 mg capsule 300 mg PO BEDTIME 02/01/25 07/08/25 trazodone 100 mg tablet 150 mg PO BEDTIME PRN Sleep 02/01/25 07/08/25 aspirin 81 mg tablet,delayed 81 mg PO DAILY 07/08/25 07/08/25 release atorvastatin 80 mg tablet (Lipitor) 80 mg PO BEDTIME 07/08/25 07/08/25 metoprolol succinate 25 mg 25 mg PO DAILY 07/08/25 07/08/25 tablet,extended release 24 hr ticagrelor 90 mg tablet (Brilinta) 90 mg PO BID 07/08/25 07/08/25 valsartan 40 mg tablet 20 mg PO DAILY 07/08/25 07/08/25 Previous Rx's ?Medication ?Instructions ?Recorded acetaminophen 325 mg tablet 650 mg (2 x 325 mg) PO Q6H PRN 02/05/25 Pain, Mild 1-3,Fever,Headache #30 tabs folic acid 1 mg tablet 1 mg PO DAILY #30 tabs 02/05/25 nicotine 14 mg/24 hr daily 14 mg transdermal DAILY #28 ea 02/05/25 transdermal patch oxycodone 5 mg tablet 5 mg PO Q6H PRN Pain, 02/05/25 Moderate(Pain Scale 4-6) #20 tabs tamsulosin 0.4 mg capsule 0.4 mg PO BEDTIME #30 caps 02/05/25 thiamine mononitrate (vit B1) 100 100 mg PO DAILY #30 tabs 02/05/25 mg tablet Allergies Allergy/AdvReac Type Severity Reaction Status Date / Time No Known Allergies (No Known Allergy Verified 09/17/25 09:58 Allergies*) Review of Systems Review of Systems: General: Positive for tremors and inability to ambulate. HEENT: Positive for mild headache; negative for visual/auditory hallucinations. Respiratory: Positive for cough and rhinorrhea; denies dyspnea or chest pain. Gastrointestinal: Positive for abdominal discomfort and nausea; negative for vomiting, but positive for dry heaving; no oral intake since discharge. Neurologic: Positive for tremors, intermittent confusion, prior withdrawal seizure; denies new focal weakness. Psychiatric: Positive for anxiety. Dermatologic: Positive for pruritus of upper back. Musculoskeletal: Positive for pain in knees, arms, back. (All other systems not discussed.) Yes all other systems are reviewed and are negative PMFSH Past Medical History Attestation statement: The following information was validated with the patient. Source: old records reviewed and nursing notes reviewed Medical History EtOH dependence ETOH abuse Depression Anxiety Surgical History History of cardiac cath Social History Social History Household Members: None Housing: Apartment Do you presently have visiting nurse or other home services: Yes Alcohol intake: current Alcohol intake frequency: 3 or more drinks per day Alcohol type: hard liquor Patient Tobacco Use Status: Current everyday Tobacco user Tobacco use type: Cigarette Cigarettes Per Day: 5 Advance Directives: Yes Advance Directives Information Provided: Yes Advance Directives on File: No Do you have a plan to hurt others: No Plan service: Yes Physical Exam ED Vital Signs: Vital Signs - 24 hr 09/17/25 09:57 Temperature 98.8 F Pulse Rate 101 H Respiratory Rate 19 Blood Pressure 143/74 H Pulse Oximetry 96 Oxygen Delivery Method Room Air BMI result Body Mass Index 26.1 Course Reevaluation(s) Reevaluation #1: cbc unremarkable w/ normocytic anemia. Chemistry unremarkable. Ammonia normal. UA w/o infection. Ethanol negative. CHÁVEZ negative. COVID, flu negative. CT abd and pelvis The bladder is partially distended with heterogeneous material that raises concern for blood products. Infection is also the differential.Mild hepatic steatosis. Diverticulosis is present in the descending and sigmoid colon without evidence of infection. Time: 12:27 Reevaluation #2: Patient will be admitted to the hospitalist team for acute alcohol withdrawal Medical Decision Making Medical Decision Making MDM Narrative: 899 Middle-aged male with heavy daily alcohol use presenting to the ED 2?3 days after last drink with tremors, nausea, confusion, and inability to ambulate. Physical exam notable for tongue fasciculations and asterixis. Differential includes alcohol withdrawal (possible complicated), Wernicke?s encephalopathy, dehydration/malnutrition, viral upper respiratory infection, and sequelae of recent head trauma. Comprehensive ED diagnostic workup initiated. Problem #1: Alcohol withdrawal Assessment: Heavy chronic alcohol use, last drink 2?3 days ago, now with tremors, anxiety, nausea, intermittent confusion, and history of prior withdrawal seizure?concerning for [id number] withdrawal. Plan: Thorough ED work-up ordered (labs, monitoring, medications per protocol ? specifics pending). Continuous observation; provider will reassess frequently. Fall precautions and wheelchair assistance. Consider admission for monitoring and management if symptoms worsen or complicated withdrawal suspected. Problem #2: Assessment: Diffuse abdominal discomfort and persistent nausea without vomiting; likely multifactorial (withdrawal, possible gastritis, dehydration). Plan: Include abdominal assessment in initial lab/imaging orders. Monitor for signs of GI bleeding or worsening pain. Problem #3: Viral upper respiratory symptoms Assessment: Cough and rhinorrhea without dyspnea or chest pain; viral etiology possible. Plan: Supportive care; monitor for respiratory compromise. Problem #4: Possible Wernicke?s encephalopathy Assessment: Confusion and gait instability in setting of chronic alcohol use raise concern. Plan: Include in differential; diagnostic studies ordered. Initiate high-dose IV thiamine per protocol prior to any glucose-containing fluids. Problem #5: Recent head trauma Assessment: Fall last week with head strike; no detailed evaluation yet. Plan Include head imaging in ED workup if indicated by exam or history. Monitor for signs of intracranial injury. Problem #6: Indwelling urinary catheter Assessment: Patient reports having a urinary catheter in place. No current complaints related to catheter. Plan: Assess catheter site and function during evaluation. Monitor for signs of infection or malfunction. Differential Diagnosis Differential Diagnoses: The differential diagnosis associated with the presentation includes (see above ) Admission/Observation Consideration of admission/observation: Escalation of care including admission/observation considered Consult Healthcare Provider Management of the patient was discussed with: Hospitalist Lab Data MDM Lab Attestation statement: I reviewed the patient's lab results. 09/17/25 10:45 09/17/25 10:45 Labs: Lab Results 09/17/25 09/17/25 09/17/25 Range/Units 10:45 10:55 11:36 WBC 7.6 (4.8-10.8) X10*3/uL RBC 3.71 L (4.60-5.80) X10*6/uL Hgb 11.7 L (14.0-18.0) g/dl Hct 33.3 L (42.0-52.0) % MCV 89.8 (80.0-98.0) fL MCH 31.5 (27.0-33.0) pg MCHC 35.1 (31.0-36.0) g/dl RDW 13.2 (11.0-16.0) % Plt Count 220 (160-400) X10*3/uL MPV 9.0 L (9.4-12.4) fL Immature Gran % (Auto) 0.7 H (0.0-0.4) % Neut % (Auto) 80.3 H (45-73) % Lymph % (Auto) 10.7 L (20-40) % [place] % (Auto) 6.0 (2-11) % Eos % (Auto) 1.6 (0-4) % Baso % (Auto) 0.7 (0-2) % Lymph # (Auto) 0.8 L (1.2-4.9) X10*3/uL [place] # (Auto) 0.5 (0.1-1.2) X10*3/uL Eos # (Auto) 0.1 (0.0-0.4) X10*3/uL Baso # (Auto) 0.1 (0.0-0.2) X10*3/uL Abs Immat Gran (auto) 0.05 H (0.00-0.03) X10*3/uL Absolute Neuts (auto) 6.1 (2.0-8.3) x10*3/uL Absolute Nucleated RBC 0.000 (0.0-0.012) X10*3/uL Nucleated RBC % (auto) 0.0 (0.0-0.2) /100WBC Sodium 141 (135-145) mmol/L Potassium 3.5 (3.3-5.1) mmol/L Chloride 111 H (96-108) mmol/L Carbon Dioxide 25 (22-29) mmol/L Anion Gap 9 L (12-20) BUN 8 L (9-16) mg/dL Creatinine 0.75 (0.5-1.4) mg/dL Estim Creat Clear Calc 76.9 Estimated GFR > 60 Random Glucose 102 (60-115) mg/dL Calcium 8.0 L (8.4-10.2) mg/dL Magnesium 2.0 (1.6-2.6) mg/dL Total Bilirubin 0.5 (0.0-1.0) mg/dL AST 33 (5-37) U/L ALT 28 (0-40) U/L Alkaline Phosphatase 85 (39-117) U/L Ammonia 26 (13-55) umol/L Total Protein 5.5 L (6.5-8.0) g/dL Albumin 3.2 L (3.5-5.0) g/dL Lipase 13 (8-78) U/L Urine Color Yellow Urine Appearance Clear Urine pH 6.5 (5.0-9.0) Ur Specific [place] 1.015 (1.005-1.025) Urine Protein 300 (3+) H (Neg-Trace) mg/dL Urine Glucose (UA) Negative (Negative) mg/dL Urine Ketones Negative (Negative) mg/dL Urine Blood Large (3+) H (Negative) Urine Nitrite Negative (Negative) Ur Leukocyte Esterase Moderate (2+) H (Negative) Urine RBC >20 H (0-2) /HPF Urine WBC >50 H (0-5) /HPF Ur Squamous Epith Cells 0-2 (0-2) /HPF Urine Bacteria None Seen (None Seen) Hyaline Casts 0-2 (0-2) /LPF Urine Opiates Screen Not Detected (Not Detect) Ur Buprenorphine Scrn Not Detected (Not Detect) ng/mL Ur Oxycodone Screen Not Detected (Not Detect) ng/mL Urine Methadone Screen Not Detected (Not Detect) ng/mL Urine Fentanyl Screen Not Detected (Not Detect) Ur Barbiturates Screen Not Detected (Not Detect) Ur Phencyclidine Scrn Not Detected (Not Detect) Ur Amphetamines Screen Not Detected (Not Detect) U Benzodiazepines Scrn Not Detected (Not Detect) Urine Cocaine Screen Not Detected (Not Detect) U Marijuana (THC) Screen Not Detected (Not Detect) Ethyl Alcohol < 10 mg/dL COVID-19 (SYLVIA) Negative (Negative) COVID-19 Clin Com See Note Influenza Type A (MADAI) Negative (Negative) Influenza Type B (MADAI) Negative (Negative) Influenza A & B Note See Note Independent Interpretation I performed an independent interpretation of an: CT Scan (CT/CT abdomen pelvis w IV con IMPRESSION: The bladder is partially distended with heterogeneous material that raises concern for blood products. Infection is also the differential. Mild hepatic steatosis. Diverticulosis is present in the descending and sigmoid colon without evidence of infecti) Radiology Impression Discussion of test interpretation with radiology: I have reviewed the radiologist's reading. External Record Review External record reviewed: Inpatient record, Office record, Outpatient record, Prior outpatient labs, Prior outpatient radiology, Primary care record and Outside ED record Chronic Conditions Patient?s care impacted by: Other (see hpi) Social Determinants Patient?s care significantly limited by Social Determinants of Health including: Inadequate housing, Low income, Alcoholism and drug addiction in family, Problems related to primary support group, Unemployment, Problems related to employment and Other Social Determinant of Health Medications Administered Discontinued Medications Generic Name Dose Route Start Last Admin Trade Name Freq PRN Reason Stop Dose Admin Diazepam 2.5 mg 09/17/25 10:14 09/17/25 10:23 Diazepam 10 Mg/2 Ml Cartridge IVPUSH 09/17/25 10:15 2.5 mg STAT STA Administration Folic Acid 1 mg 09/17/25 10:15 09/17/25 10:26 Folic Acid 1 Mg Tablet PO 09/17/25 10:16 1 mg ONCE ONE Administration Sodium Chloride 1,000 mls @ 999 mls/hr 09/17/25 10:15 09/17/25 12:28 Ns IV 09/17/25 11:15 Infused .Q1H1M ELKIN Infusion Iohexol 100 ml 09/17/25 11:58 09/17/25 11:58 Iohexol 350 Mg/Ml 100 Ml Infus..Btl IV 09/17/25 11:59 85 ml ONCE ONE Administration Ondansetron HCl 4 mg 09/17/25 10:21 09/17/25 10:15 Ondansetron Hcl 4 Mg/2 Ml Vial IVPUSH 09/17/25 10:22 4 mg ONCE ONE Administration Phenobarbital Sodium 273 mg 09/17/25 10:30 09/17/25 10:59 Phenobarbital Sodium 130 Mg/Ml Im Once IM 09/17/25 10:31 273 mg ONCE ONE Administration Protocol Thiamine HCl 100 mg 09/17/25 10:15 09/17/25 10:26 Thiamine Hcl 100 Mg Tablet PO 09/17/25 10:16 100 mg ONCE ONE Administration Critical Care Time Critical Care Time Critical Care Time: Yes Total Critical Care Time: 35 Attestation: I attest to this time spent taking care of the patient, obtaining history, physical, reviewing labs, imaging, speaking to my attending and or speaking to specialist. Or preforming a procedure Discharge Plan Discharge Clinical Impression: Alcohol withdrawal syndrome, Abdominal pain Patient Disposition: Admitted As Inpatient Print Language: French
[2025-09-17] MEDS: diazePAM 10 MG/2 ML CARTRIDGE 2.5 MG IVPUSH (10:23)
[2025-09-17 10:54] LABS: MANUAL DIFF FLAG NO
[2025-09-17 10:59] LABS: Hematocrit 33.3 % (42.0-52.0); Hemoglobin 11.7 g/dl (14.0-18.0); Imm Gran Abs Auto 0.05 X10*3/uL (0.00-0.03); Imm Gran Pct Auto 0.7 % (0.0-0.4); Lymphocytes Absolute Auto 0.8 X10*3/uL (1.2-4.9); Mean Corpuscular HGB Conc 35.1 g/dl (31.0-36.0); Mean Corpuscular Hemoglobin 31.5 pg (27.0-33.0); Mean Corpuscular Volume 89.8 fL (80.0-98.0); NRBC Abs Auto 0.000 X10*3/uL (0.0-0.012); NRBC Pct Auto 0.0 /100WBC (0.0-0.2); Platelet Count 220 X10*3/uL (160-400); Red Blood Count 3.71 X10*6/uL (4.60-5.80); White Blood Count 7.6 X10*3/uL (4.8-10.8)
[2025-09-17] MEDS: PHENobarbitaL sodium 130 MG/ML IM ONCE 273 MG IM (10:59)
[2025-09-17 11:09] LABS: Alanine Aminotransferase 28 U/L (0-40); Albumin Level 3.2 g/dL (3.5-5.0); Alkaline Phosphatase 85 U/L (39-117); Anion Gap 9 (12-20); Aspartate Amino Transferase 33 U/L (5-37); Blood Urea Nitrogen 8 mg/dL (9-16); Calcium 8.0 mg/dL (8.4-10.2); Carbon Dioxide 25 mmol/L (22-29); Chloride 111 mmol/L (96-108); Creatinine Clr Calc Pharmacy 76.9; Estimated Glomerular Filt Rate > 60; Lipase 13 U/L (8-78); Magnesium 2.0 mg/dL (1.6-2.6); Potassium 3.5 mmol/L (3.3-5.1); Sodium 141 mmol/L (135-145); Total Protein 5.5 g/dL (6.5-8.0)
[2025-09-17 11:16] LABS: Appearance Urine Clear; Glucose Urine UA Negative (Negative); PH 6.5 (5.0-9.0); Specific Gravity - Urine 1.015 (1.005-1.025); UMIC TRIGGER UACC YES
[2025-09-17 11:19] LABS: UACC Culture Trigger YES
[2025-09-17 11:29] LABS: COVID-19 Test Negative (Negative); IDNOW Serial# 55D5AD1C; IDNOW Serial# 58CA691E; Influenza B2 Negative (Negative)
[2025-09-17 11:57] LABS: Ammonia 26 umol/L (13-55)
[2025-09-17] MEDS: iohexoL 350 MG/ML 100 ML INFUS..BTL IV (11:58)
[2025-09-17 12:01] LABS: Cannabinoid Screen Urine Not Detected (Not Detect)
--- OUTSIDE RECORDS SUMMARY | 2025-09-17 12:07 | XMS_ITS | Encounter Summary ---
[facility] Address [id number] [place] [id number] Care Team Providers Care Veneer Stock Grader Name Role Phone Juan Manuel Marquez Primary Care Provider [phone] Encounter Details Date Type Department Care Team (Late st Contact Info) Description 02/11/2025 Lab Requisition [facility] - Main Lab [address] [facility] [place] [address] Yoly Farmer, NASIR [address] [facility] [address] [place] [id number] Chronic kidney disease, unspecified Social History Tobacco [...] * Creatine kinase (02/11/2025 5:39 AM EDT) [facility] Total CK 68 22 - 269 unit/L LAB CHEMISTRY METHOD 02/11/2025 11:52 AM [facility] Blood Venous blood specimen / Unknown Venipuncture / Unknown 02/11/2025 5:39 AM EDT 02/11/2025 10:44 AM EDT Yoly Farmer IOS PROGRAMMER LAB BLOOD ORDERABLES Fin al Result [facility] [address] [place] [address], * (ABNORMAL) Basic metabolic panel (02/11/2025 5:39 AM EDT) [facility] Sodium 139 133 - 145 mmol/L [...] 73m2 LAB CHEMISTRY METHOD 02/11/2025 11:52 AM T [facility] Comment:Calculation based on the Chronic Kidney Disease Epidemiology Collaboration (CKD-EPI) equation refit without adjustment for race. BUN/Creatinine Ratio 25.4 LAB CHEMISTRY METHOD 02/11/2025 11:52 AM [facility] Calcium 8.7 8.5 - 10.5 mg/dL LAB CHEMISTRY METHOD 02/11/2025 11:52 AM T [facility] Blood Venous blood specimen / Unknown Venipuncture / Unknown 02/11/2025 5:39 AM EDT 02/11/2025 10:44 AM EDT Yoly Farmer IOS PROGRAMMER LAB BLOOD ORDERABLES Fin al Result [facility] [address] [place] [address], * (ABNORMAL) Complete blood count (02/11/2025 5:39 [...] LAB HEMETOLOGY METHOD 02/11/2025 11:21 AM EDT [facility] MCHC 33.2 32.0 - 37.0 g/dL LAB HEMETOLOGY METHOD 02/11/2025 11:21 AM EDT [facility] RDW 13.0 11.0 - 15.0 % LAB HEMETOLOGY METHOD 02/11/2025 11:21 AM EDT [facility] Platelets 291 130 - 400 K/mcL LAB HEMETOLOGY METHOD 02/11/2025 11:21 AM EDT [facility] MPV 10.0 7.0 - 11.0 FL LAB HEMETOLOGY METHOD 02/11/2025 11:21 AM EDT [facility] NRBC 0.0 <1.0 % LAB HEMETOLOGY METHOD 02/11/2025 11:21 AM EDT [facility] NRBC Absolute 0.00 <0.10 K/mcL LAB HEMETOLOGY METHOD 02/11/2025 11:21 AM T [facility] Blood Venous blood specimen / Unknown Venipuncture / Unknown 02/11/2025 5:39 AM EDT 02/11/2025 10:44 AM EDT Yoly Farmer IOS PROGRAMMER LAB BLOOD ORDERABLES Fin al Result [facility] [address] [place] [address], documented in this encounter Visit Diagnoses Diagnosis Chronic kidney disease, unspecified documented in this encounter Additional Health Concerns Infection Onset Date Last Indicated Resolved Time Respiratory Rule-Out 03/29/2025 03/29/2025 025 11:59 AM EDT COVID-19 Rule-Out 03/29/2025 03/29/2025 03/29/2025 11:59 AM EDT Respiratory Rule-Out 09/15/2025 09/15/2025 025 9:18 AM EST COVID-19 Rule-Out 09/15/2025 09/15/2025 09/15/2025 9:18 AM EST documented as of this encounter Care Teams Veneer Stock Grader Relationship Specialty Start Date End Date Juan Manuel Marquez PA [address] [place] [phone] PCP - General Rn Clinician 07/12/20 documented as of this encounter
--- OUTSIDE RECORDS SUMMARY | 2025-09-17 12:07 | XMS_ITS | Clinical Summary ---
Author Organization [facility] Address [address] [place] [phone] Phone Care Team Providers Care Audience Coordinator Name Role Phone Juan Manuel Marquez Primary Care Provider [phone] Allergies Active Allergy Reactions Criticality Noted Date Comments Levonorgestrel-Ethinyl Estrad Itching 2024 Medications FLUoxetine (PROzac) 20 mg capsule Take 1 capsule (20 mg total) by mouth 1 (one) time each day. 11/15/19 22 Active folic acid (FOLVITE) 1 mg tablet Take 1 tablet (1,000 mcg total) by mouth 1 (one) time each day. 11/27/19 18 Active gabapentin (NEURONTIN) 300 mg capsule Take 1 capsule (300 mg total) by mouth at bedtime. 03/11/20 25 Active traZODone (DESYREL) 150 mg tablet Take 1 tablet (150 mg total) by mouth at bedtime as needed for sleep. 11/15/19 22 Active aspirin 81 mg chewable tablet Chew 1 tablet (81 mg total) 1 (one) time each day. 06/24/20 25 Active atorvastatin (LIPITOR) 80 mg tablet Take 1 tablet (80 mg total) by mouth at bedtime. 06/24/20 25 Active colchicine (COLCRYS) 0.6 mg tablet Take 1 tablet (0.6 mg total) by mouth 2 (two) times a day. 06/24/20 25 Active metoprolol succinate (TOPROL-XL) 25 mg 24 hr tablet Take 1 tablet (25 mg total) by mouth 1 (one) time each day. 06/24/20 25 Active naltrexone (DEPADE) 50 mg tablet Take 1 tablet (50 mg total) by mouth 1 (one) time each day. For alcohol use disorder 11/27/19 Active nicotine (NICODERM CQ) 21 mg/24 hr Apply 1 patch topically 1 (one) time each day at the same time. 08/02/20 Active ticagrelor (BRILINTA) 90 mg tablet Take 1 tablet (90 mg total) by mouth 2 (two) times a day. 06/24/20 Active valsartan (DIOVAN) 40 mg tablet Take 0.5 tablets (20 mg total) by mouth 1 (one) time each day. For CHF 08/31/20 Active varenicline tartrate (Chantix Continuing Month Box) 1 mg tablet Take 1 tablet (1 mg total) by mouth 2 (two) times a day. Use with nicotine patch combination 06/24/20 Active finasteride (PROSCAR) 5 mg tablet Take 1 tablet (5 mg total) by mouth 1 (one) time each day. 30 each 09/16/20 Active tamsulosin (FLOMAX) 0.4 mg 24 hr capsule Take 1 capsule (0.4 mg total) by mouth 1 (one) time each day. Capsules should be taken 30 minutes following the same meal each day. 30 each 09/16/20 Active tamsulosin (Flomax) 0.4 mg 24 hr capsule Take 1 capsule (0.4 mg total) by mouth 1 (one) time each day. Capsules should be taken 30 minutes following the same meal each day. 30 each 09/17/20 25 Active cefdinir (OMNICEF) 300 mg capsule Take 1 capsule (300 mg total) by mouth 2 (two) times a day for 3 days. 6 each 09/16/20 Active finasteride (PROSCAR) 5 mg tablet Take 1 tablet (5 mg total) by mouth 1 (one) time each day. 07/02/20 Discontinued Flomax 0.4 mg 24 hr capsule Take 1 capsule (0.4 mg total) by mouth 1 (one) time each day. 08/07/20 025 Discontinued(St op Taking at Discharge) Active Problems Problem Noted Date Diagnosed Date Postobstructive diuresis 09/15/2025 Sepsis, due to unspecified o rganism, unspecified whether acute organ dysfunction present ([facility] V24, [facility] V28) 03/28/2025 Encounters Date Type Department Care Team Description 09/15/2025 6:30 AM EST - 09/16/2025 1:43 PM EST Hospital Encounter [facility] [address] [place] [address] Anna Pillai MD Jones, Christopher, MD Kela, Kashyap Devendrabhai, MD Postobstructive diuresis (Primary Dx); Sepsis, due to unspecified organism, unspecified whether acute organ dysfunction present ([facility] V24, [facility] V28) Discharge Disposition: Home or Self Care 09/13/2025 1:27 PM EST - 09/13/2025 6:17 PM EST Emergency [facility] [address] [place] [address] Chest pain, unspecified type (Primary Dx) Discharge Disposition: Home or Self Care from Last 3 Months Surgical History Surgery Date Site/Laterality Comments UPPER GASTROINTESTINAL ENDOSCOPY 05/19/2010 PROCEDURE: IN UPPER GI ENDOSCOPY PERFORMED; COMMENT: Gaping lower esophageal sphincter COLONOSCOPY 01/13/2010 PROCEDURE: HISTORICAL COLONOSCOPY; COMMENT: Negative, repeat 10 yrs HIP ARTHROPLASTY 11/06/2018 Left PROCEDURE: HISTORICAL HIP REPLACEMENT Medical History Medical History Date Comments Alcohol dependence ([facility] V24, [facility] V28) 09/02/2020 DX:Alcohol dependence ([facility]) Anxiety 09/02/2020 DX:Anxiety BPH (benign prostatic hyperplasia) 09/02/2020 DX:BPH (benign prostatic hyperplasia) Hyperlipidemia 09/02/2020 DX:Hyperlipidemi a Insomnia 09/02/2020 DX:Insomnia Major depressive disorder, r ecurrent, moderate ([facility] V24, [facility] V28) 09/02/2020 DX:Major depressiv e disorder, recurrent, moderate ([facility]) Osteoarthritis 09/02/2020 DX:Osteoarthriti s; COMMENT: Hip [...] your loved ones. For example, child care provider or elderly care for an older adult? [...] Mass Index 28.67 09/15/2025 6:33 AM EST Plan of Treatment Health Maintenance Due Date Last Done Comments Colorectal Cancer Screening: Colonoscopy 1958 RSV Immunization Adult Patients (1 - Risk 50-74 years 1-dose series) 2008 Hepatitis A Vaccines (2 of 3 - Hep A Twinrix risk 3-dose series) 07/31/2023 07/03/2023 Hepatitis B Vaccines (2 of 3 - Hep B Twinrix risk 3-dose series) 07/31/2023 07/03/2023 Depression Screening 11/04/2024 Abdominal Aortic Aneurysm (AAA) Screen 02/11/2025 Hepatitis C Screening 02/11/2025 Medicare Annual Wellness Visit 02/11/2025 COVID-19 Vaccine ( season) 2025 10/09/2022, 10/19/2021, 01/31/2021, Additional history exists Social Influencers of Health Screening 03/29/2026 03/29/2025 Falls Risk Assessment 09/16/2026 09/16/2025 Hypertension/CHF/CAD Annual BMP Blood Test 09/16/2026 09/16/2025, 09/15/2025, 09/13/2025, Additional history exists DTaP,Tdap,and Td Vaccines (9 - Td or Tdap) 02/14/2028 02/13/2018, 02/13/2018, 02/03/2018, Additional history exists Cholesterol Screening (Lipid Panel) 09/15/2030 09/15/2025 Zoster Vaccines Completed 09/23/2018, 01/10/2018 Influenza Vaccine Completed 07/09/2025, , 09/04/2023, Additional history exists Pneumococcal Vaccine: 50+ Years Completed 07/09/2025, 07/05/2022, 09/21/2020, Additional history exists HIB Vaccines Aged Out [...] on patient's age to complete this topic Procedures Procedure Name Priority Date/Time Associated Diagnosis Comments CBC WITH AUTO DIFFERENTIAL Routine 09/16/2025 6:22 AM EST CBC AND DIFFERENTIAL Routine 09/16/2025 6:22 AM EST BASIC METABOLIC PANEL Routine 09/16/2025 6:22 AM EST LIPID PANEL WITH REFLEX TO DIRECT LDL Add-On 09/15/2025 11:56 AM EST PHOSPHORUS STAT 09/15/2025 11:56 AM EST MAGNESIUM STAT 09/15/2025 11:56 AM EST POTASSIUM STAT 09/15/2025 11:56 AM EST TROPONIN I HIGH SENSITIVITY Timed 09/15/2025 11:[address] ABDOMEN PELVIS W CONTRAST STAT 09/15/2025 11:19 AM EST XR CHEST 2 VIEWS STAT 09/15/2025 9:50 AM EST ECG 12-LEAD STAT 09/15/2025 8:49 AM EST HERNANDEZ URINE CULTURE TUBE STAT 09/15/2025 8:46 AM EST URINALYSIS WITH REFLEX MICROSCOPIC AND CULTURE STAT 09/15/2025 8:46 AM EST URINALYSIS WITH REFLEX MICROSCOPIC AND CULTURE STAT 09/15/2025 8:46 AM EST CULTURE URINE STAT 09/15/2025 8:46 AM EST RESPIRATORY VIRUS PANEL MOLECULAR STUDY STAT 09/15/2025 8:05 AM EST TROPONIN I HIGH SENSITIVITY Timed 09/15/2025 7:33 AM EST AMMONIA STAT 09/15/2025 7:33 AM EST VENOUS BLOOD GAS STAT 09/15/2025 7:33 AM EST ETHANOL Add-On 09/15/2025 6:40 AM EST MAGNESIUM Add-On 09/15/2025 6:40 AM EST CBC WITH AUTO DIFFERENTIAL STAT 09/15/2025 6:40 AM EST LIPASE STAT 09/15/2025 6:40 AM EST COMPREHENSIVE METABOLIC PANEL STAT 09/15/2025 6:40 AM EST CBC AND DIFFERENTIAL STAT 09/15/2025 6:40 AM EST TROPONIN I HIGH SENSITIVITY STAT 09/13/2025 4:20 PM EST XR CHEST 2 VIEWS STAT 09/13/2025 3:06 PM EST ECG 12-LEAD STAT 09/13/2025 2:19 PM EST CBC WITH AUTO DIFFERENTIAL STAT 09/13/2025 2:13 PM EST LIPASE STAT 09/13/2025 2:13 PM EST MAGNESIUM STAT 09/13/2025 2:13 PM EST CBC AND DIFFERENTIAL STAT 09/13/2025 2:13 PM EST TROPONIN I HIGH SENSITIVITY STAT 09/13/2025 2:13 PM EST COMPREHENSIVE METABOLIC PANEL STAT 09/13/2025 2:13 PM EST POCT GLUCOSE BLOOD Routine 09/13/2025 1: 58 PM EST from Last 3 Months Results * (ABNORMAL) CBC auto differential (09/16/2025 6:22 AM EST) Only the most recent of3 resultswithin the time period is included. WBC 6.9 4.8 - 10.8 K/mcL LAB HEMETOLOGY METHOD 09/16/2025 7:02 AM EST [facility] RBC 3.80(L) 4.50 - 5.50 M/mcL LAB HEMETOLOGY METHOD 09/16/2025 7:02 AM EST [facility] Hemoglobin 11.8(L) 13.5 - 17.5 g/dL LAB HEMETOLOGY METHOD 09/16/2025 7:02 AM [facility] Hematocrit 34.5(L) 42.0 - 54.0 % LAB HEMETOLOGY METHOD 09/16/2025 7:02 AM [facility] MCV 91.0 79.0 - 98.0 FL LAB HEMETOLOGY METHOD 09/16/2025 7:02 AM [facility] MCH 31.1 27.0 - 32.0 pcg LAB HEMETOLOGY METHOD 09/16/2025 7:02 AM [facility] MCHC 34.2 32.0 - 37.0 g/dL LAB HEMETOLOGY METHOD 09/16/2025 7:02 AM [facility] RDW 13.2 11.0 - 15.0 % LAB HEMETOLOGY METHOD 09/16/2025 7:02 AM [facility] Platelets 234 130 - 400 K/mcL LAB HEMETOLOGY METHOD 09/16/2025 7:02 AM [facility] MPV 9.3 7.0 - 11.0 FL LAB HEMETOLOGY METHOD 09/16/2025 7:02 AM [facility] NRBC 0.0 <1.0 % LAB HEMETOLOGY METHOD 09/16/2025 7:02 AM [facility] NRBC Absolute 0.00 <0.10 K/mcL LAB HEMETOLOGY METHOD 09/16/2025 7:02 AM [facility] Neutrophils Relative 68.8 % LAB HEMETOLOGY METHOD 09/16/2025 7:02 AM [facility] Lymphocytes Relative 17.2 % LAB HEMETOLOGY METHOD 09/16/2025 7:02 AM [facility] Monocytes Relative 8.8 % LAB HEMETOLOGY METHOD 09/16/2025 7:02 AM [facility] Eosinophils Relative 4.2 % LAB HEMETOLOGY METHOD 09/16/2025 7:02 AM [facility] Basophils Relative 0.7 % LAB HEMETOLOGY METHOD 09/16/2025 7:02 AM EST [facility] Immature Granulocytes Relative 0.3 % LAB HEMETOLOGY METHOD 09/16/2025 7:02 AM [facility] Neutrophils Absolute 4.71 1.50 - 7.00 K/mcL LAB HEMETOLOGY METHOD 09/16/2025 7:02 AM [facility] Lymphocytes Absolute 1.18 1.00 - 5.00 K/mcL LAB HEMETOLOGY METHOD 09/16/2025 7:02 AM [facility] Monocytes Absolute 0.60 0.20 - 1.00 K/mcL LAB HEMETOLOGY METHOD 09/16/2025 7:02 AM [facility] Eosinophils Absolute 0.29 0.00 - 0.50 K/mcL LAB HEMETOLOGY METHOD 09/16/2025 7:02 AM [facility] Basophils Absolute 0.05 0.00 - 0.20 K/mcL LAB HEMETOLOGY METHOD 09/16/2025 7:02 AM [facility] Immature Granulocytes Absolute 0.02 0.00 - 0.03 K/mcL LAB HEMETOLOGY METHOD 09/16/2025 7:02 AM [facility] Blood Venous blood specimen / Unknown Venipuncture / Unknown 09/16/2025 6:22 AM EST 09/16/2025 6:53 AM EST us Vargas Morales MD LAB BLOOD ORDERABLES Final Result [facility] [address] [place] [address], * (ABNORMAL) Basic metabolic panel (09/16/2025 6:22 AM EST) Sodium 142 133 - 145 mmol/L LAB CHEMISTRY METHOD 09/16/2025 7:25 AM EST [facility] Potassium 3.7 3.5 - 5.5 mmol/L LAB CHEMISTRY METHOD 09/16/2025 7:25 AM [facility] Chloride 108 96 - 110 mmol/L LAB CHEMISTRY METHOD 09/16/2025 7:25 AM [facility] CO2 29 21 - 32 mmol/L LAB CHEMISTRY METHOD 09/16/2025 7:25 AM [facility] Anion Gap 5 3 - 11 LAB CHEMISTRY METHOD 09/16/2025 7:25 AM [facility] Glucose 101(H) 70 - 100 mg/dL LAB CHEMISTRY METHOD 09/16/2025 7:25 AM [facility] BUN 10 5 - 25 mg/dL LAB CHEMISTRY METHOD 09/16/2025 7:25 AM [facility] Creatinine 0.98 0.70 - 1.30 mg/dL LAB CHEMISTRY METHOD 09/16/2025 7:25 AM [facility] eGFR 85 >=60 mL/min/1. 73m2 LAB CHEMISTRY METHOD 09/16/2025 7:25 AM [facility] Comment:Calculation based on the Chronic Kidney Disease Epidemiology Collaboration (CKD-EPI) equation refit without adjustment for race. BUN/Creatinine Ratio 10.2 LAB CHEMISTRY METHOD 09/16/2025 7:25 AM [facility] Calcium 8.2(L) 8.5 - 10.5 mg/dL LAB CHEMISTRY METHOD 09/16/2025 7:25 AM [facility] Blood Venous blood specimen / Unknown Venipuncture / Unknown 09/16/2025 6:22 AM EST 09/16/2025 6:52 AM EST us Vargas Morales MD LAB BLOOD ORDERABLES Final Result [facility] [address] [place] [address], * Troponin I high sensitivity (NOW and then in 1 hour) (09/15/2025 11:56 AM EST) Only the most recent of4 resultswithin the time period is included. Pathologist [facility] High Sensitivity Troponin I 48 <=79 ng/L LAB CHEMISTRY METHOD 09/15/2025 12:38 PM EST [facility] Blood Venous blood specimen / Unknown Venipuncture / Unknown 09/15/2025 11:56 AM EST 09/15/2025 12:08 PM EST [facility] - 09/15/2025 12:38 PM EST High levels of biotin in samples may falsely decrease hsTroponin values. Use caution when interpreting hsTroponin results in patients taking biotin who exhibit renal impairment (eGFR <60) or in patients taking more than 20 mg/day of biotin. us Palomo SON LAB BLOOD ORDERABLES Final Result [facility] [address] [place] [address], * (ABNORMAL) Lipid panel with reflex to direct LDL (09/15/2025 11:56 AM EST) [facility] Cholesterol 107 0 - 200 mg/dL LAB CHEMISTRY METHOD 09/15/2025 10:25 PM [facility] Triglycerides 261(H) 0 - 150 mg/dL LAB CHEMISTRY METHOD 09/15/2025 10:25 PM [facility] HDL 47 >=40 mg/dL LAB CHEMISTRY METHOD 09/15/2025 10:25 PM [facility] LDL Calculated 8 0 - 100 mg/dL LAB CHEMISTRY METHOD 09/15/2025 10:25 PM [facility] Comment:Estimated LDL Calcul ated using equation: Total cholesterol - HDL cholesterol - (Triglycerides/5) VLDL Cholesterol Leobardo 52.2 mg/dL LAB CHEMISTRY METHOD 09/15/2025 10:25 PM [facility] Non HDL Chol. (LDL+VLDL) 60 <145 mg/dL LAB CHEMISTRY METHOD 09/15/2025 10:25 PM EST [facility] Chol/HDL Ratio 2.3 0.0 - 4.4 LAB CHEMISTRY METHOD 09/15/2025 10:25 PM EST [facility] Blood Venous blood specimen / Unknown Venipuncture / Unknown 09/15/2025 11:56 AM EST 09/15/2025 12:08 PM EST Vargas SON LAB BLOOD ORDERABLES Liana l Result [facility] [address] [place] [address], [place] [phone] * Potassium (09/15/2025 11:56 AM EST) Potassium 3.7 3.5 - 5.5 mmol/L LAB CHEMISTRY METHOD 09/15/2025 12:36 PM EST [facility] Blood Venous blood specimen / Unknown Venipuncture / Unknown 09/15/2025 11:56 AM EST 09/15/2025 12:08 PM EST Palomo SON LAB BLOOD ORDERABLES Final Result [facility] [address] [place] [address], [place] [phone] * Phosphorus (09/15/2025 11:56 AM EST) Phosphorus 2.8 2.5 - 4.5 mg/dL LAB CHEMISTRY METHOD 09/15/2025 12:36 PM EST [facility] Blood Venous blood specimen / Unknown Venipuncture / Unknown 09/15/2025 11:56 AM EST 09/15/2025 12:08 PM EST us Palomo SON LAB BLOOD ORDERABLES Final Result [facility] [address] [place] [address], [place] [phone] * Magnesium (09/15/2025 11:56 AM EST) Only the most recent of3 resultswithin the time period is included. Magnesium 2.1 1.9 - 2.6 mg/dL LAB CHEMISTRY METHOD 09/15/2025 12:36 PM EST [facility] Blood Venous blood specimen / Unknown Venipuncture / Unknown 09/15/2025 11:56 AM EST 09/15/2025 12:08 PM EST Palomo SON LAB BLOOD ORDERABLES Final Result Performing Organization Address City/State/[facility] Co de Phone Number [facility] [address] [place] [address], [place] [phone] * CT Abdomen Pelvis w Contrast (09/15/2025 [...] steatosis. -------- FINAL REPORT -------- Dictated By: RONNELL LAINEZ Dictated Date: 09/15/2025 11:39 ET Assigned Physician: RONNELL LAINEZ Reviewed and Electronically Signed By: RONNELL LAINEZ Signed Date: 09/15/2025 11:52 ET Workstation ID: [id number] Transcribed By: Self Edit Transcribed Date: 09/15/2025 [...] ORGANS/BLADDER: Circumferential thickening of the bladder with [place] catheter in the decompressed bladder. Prostate is [...] and Schmorl's node at T12. Procedure Note Ronnell Lainez MD - 09/15/2025 PROCEDURE: CT ABDOMEN/PELVIS INDICATION: [...] steatosis. -------- FINAL REPORT -------- Dictated By: RONNELL LAINEZ Dictated Date: 09/15/2025 11:39 ET Assigned Physician: RONNELL LAINEZ Reviewed and Electronically Signed By: RONNELL LAINEZ Signed Date: 09/15/2025 11:52 ET Workstation ID: [id number] Transcribed By: Self Edit Transcribed Date: 09/15/2025 11:39 ET Palomo SON IMG CT PROCEDURES Final Res ult * XR Chest 2 Views (09/15/2025 9:50 AM EST) Only the most recent of2 resultswithin the time period is included. Anatomical Region Laterality Modality Body Radiographic Ana Paula ging 09/15/2025 9:59 AM EST Impressions 09/15/2025 10:03 AM EST FINDINGS/IMPRESSION: No pneumonia or pulmonary edema. Right apical pleural-parenchymal scarring is unchanged. No pleural effusion or pneumothorax. Cardiac silhouette is normal in size. Degenerative changes seen throughout the bones. -------- FINAL REPORT -------- Dictated By: RONNELL LAINEZ Dictated Date: 09/15/2025 09:59 ET Assigned Physician: RONNELL LAINEZ Reviewed and Electronically Signed By: RONNELL LAINEZ Signed Date: 09/15/2025 10:03 ET Workstation ID: [id number] Transcribed By: Self Edit Transcribed Date: 09/15/2025 09:59 ET Narrative 09/15/2025 10:03 AM EST XR CHEST 2 VIEWS INDICATION: Cough TECHNIQUE: XR CHEST 2 VIEWS COMPARISON: 09/13/2025 Procedure Note Ronnell Lainez MD - 09/15/2025 XR CHEST 2 VIEWS INDICATION: Cough TECHNIQUE: XR CHEST 2 VIEWS COMPARISON: 09/13/2025 IMPRESSION: FINDINGS/IMPRESSION: No pneumonia or pulmonary edema. Right apicalpleural- parenchymal scarring is unchanged. No pleural effusion orpneumothorax. Cardiac silhouette is normal in size. Degenerative changesseen throughout the bones. -------- FINAL REPORT -------- Dictated By: RONNELL LAINEZ Dictated Date: 09/15/2025 09:59 ET Assigned Physician: RONNELL LAINEZ Reviewed and Electronically Signed By: RONNELL LAINEZ Signed Date: 09/15/2025 10:03 ET Workstation ID: [id number] Transcribed By: Self Edit Transcribed Date: 09/15/2025 09:59 ET Palomo SON IMG XR PROCEDURES Final Res ult * 12-Lead ECG (09/15/2025 8:49 AM EST) Only the most recent of2 resultswithin the time period is included. Ventricular Rate ECG 92 BPM GEMUSE Atrial Rate 92 BPM GEMUSE P-R Interval 124 ms GEMUSE QRS Duration 84 ms GEMUSE Q-T Interval 376 ms GEMUSE QTc 464 ms GEMUSE P Wave [place] 64 degrees GEMUSE R [place] -19 degrees GEMUSE T [place] 7 degrees GEMUSE ECG Interpretation Normal sinus rhythm Normal ECG When compared with ECG of 13-SEP-2025 14:19, No significant change was found Confirmed by MARIANO CASAS ([id number]) on 09/15/2025 10:12:24 PM GEMUSE 09/15/2025 8:49 AM EST 09/15/2025 10:12 PM EST us Palomo SON ECG ORDERABLES Final Resul t GEMUSE * (ABNORMAL) Urinalysis with reflex microscopic and culture (09/15/2025 8:46 AM EST) Pathologist [facility] Specific [place] Urine 1.010 1.003 - 1.030 LAB URINALYSIS - AUTOMATED METHOD 09/15/2025 9:13 AM EST [facility] pH, Urine 6.5 5.0 - 8.0 pH LAB URINALYSIS - AUTOMATED METHOD 09/15/2025 9:13 AM [facility] Leukocytes, Urine Large(A) Negative LAB URINALYSIS - AUTOMATED METHOD 09/15/2025 9:13 AM [facility] Nitrite, Urine Negative Negative LAB URINALYSIS - AUTOMATED METHOD 09/15/2025 9:13 AM [facility] Protein, Urine 30(A) <=Trace mg/dL LAB URINALYSIS - AUTOMATED METHOD 09/15/2025 9:13 AM [facility] Glucose, Urine Negative Negative mg/dL LAB URINALYSIS - AUTOMATED METHOD 09/15/2025 9:13 AM [facility] Ketones, Urine Negative Negative mg/dL LAB URINALYSIS - AUTOMATED METHOD 09/15/2025 9:13 AM [facility] Urobilinogen , Urine 0.2 0.2 - 1.0 mg/dL LAB URINALYSIS - AUTOMATED METHOD 09/15/2025 9:13 AM [facility] Bilirubin, Urine Negative Negative LAB URINALYSIS - AUTOMATED METHOD 09/15/2025 9:13 AM [facility] Blood, Urine Small(A) Negative LAB URINALYSIS - AUTOMATED METHOD 09/15/2025 9:13 AM [facility] RBC, Urine 5(H) 0 - 4 /HPF 09/15/2025 9:13 AM [facility] WBC, Urine 75(H) 0 - 4 /HPF 09/15/2025 9:13 AM [facility] Squamous Epithelial, Urine 2 0 - 60 /LPF 09/15/2025 9:13 AM [facility] Bacteria, Urine Moderate(A) Negative /HPF 09/15/2025 9:13 AM [facility] Urine Urine specimen obtained by clean catch procedure / Unknown Non-blood Collection / Unknown 09/15/2025 8:46 AM EST 09/15/2025 8:52 AM EST Palomo SON LAB URINE ORDERABLES Final Result Performing Organization Address City/[facility]/ZIP Co de Phone Number [facility] [address] [place] [address], [place] [phone] * Hernandez urine culture tube (09/15/2025 8:46 AM EST) Pathologist [facility] Extra Tube Hold for add-ons. 09/15/2025 10:01 AM EST [facility] Comment:Auto resulted. Urine Urine specimen obtained by clean catch procedure / Unknown Non-blood Collection / Unknown 09/15/2025 8:46 AM EST 09/15/2025 8:52 AM EST Palomo SON LAB URINE ORDERABLES Final Result Performing Organization Address [facility] de Phone Number [facility] [address] [place] [address], [place] [phone] * (ABNORMAL) Culture urine (09/15/2025 8:46 AM EST) Culture, Urine 50,000-100,000 CFU/mL Pseudomonas aeruginosa(A) KULWANT 09/17/2025 10:17 AM EST [facility] Comment: This is an edited [...] LAB MICROBIOLOGY - GENERAL ORDERABLES Final Result [facility] [address] [place] [address], * Respiratory virus panel molecular study (09/15/2025 8:05 AM EST) Pathologist [facility] Adenovirus Detection by PCR Not Detected Not Detected LAB MICROBIOLOGY METHOD 09/15/2025 9:18 AM EST [facility] Influenza A PCR Not Detected Not Detected LAB MICROBIOLOGY METHOD 09/15/2025 9:18 AM EST [facility] Influenza B PCR Not Detected Not Detected LAB MICROBIOLOGY METHOD 09/15/2025 9:18 AM EST [facility] Coronavirus 229E Not Detected Not Detected LAB MICROBIOLOGY METHOD 09/15/2025 9:18 AM EST [facility] Coronavirus HKU1 Not Detected Not Detected LAB MICROBIOLOGY METHOD 09/15/2025 9:18 AM EST [facility] Coronavirus OC43 Not Detected Not Detected LAB MICROBIOLOGY METHOD 09/15/2025 9:18 AM EST [facility] Coronavirus NL63 Not Detected Not Detected LAB MICROBIOLOGY METHOD 09/15/2025 9:18 AM [facility] Parainfluenza Virus 1 Not Detected Not Detected LAB MICROBIOLOGY METHOD 09/15/2025 9:18 AM [facility] Parainfluenza Virus 2 Not Detected Not Detected LAB MICROBIOLOGY METHOD 09/15/2025 9:18 AM [facility] Parainfluenza Virus 3 Not Detected Not Detected LAB MICROBIOLOGY METHOD 09/15/2025 9:18 AM [facility] Parainfluenza Virus 4 Not Detected Not Detected LAB MICROBIOLOGY METHOD 09/15/2025 9:18 AM [facility] RSV PCR Not Detected Not Detected LAB MICROBIOLOGY METHOD 09/15/2025 9:18 AM EST [facility] Human Metapneumovirus A and B Not Detected Not Detected LAB MICROBIOLOGY METHOD 09/15/2025 9:18 AM EST [facility] Rhinovirus/Entero virus Not Detected Not Detected LAB MICROBIOLOGY METHOD 09/15/2025 9:18 AM [facility] Bordetella pertussis Not Detected Not Detected LAB MICROBIOLOGY METHOD 09/15/2025 9:18 AM [facility] Bordetella parapertussis Not Detected Not Detected LAB MICROBIOLOGY METHOD 09/15/2025 9:18 AM [facility] Mycoplasma pneumo by PCR Not Detected Not Detected LAB MICROBIOLOGY METHOD 09/15/2025 9:18 AM [facility] Chlamydia pneumoniae Not Detected Not Detected LAB MICROBIOLOGY METHOD 09/15/2025 9:18 AM [facility] SARS COV-2 Not Detected Not Detected LAB MICROBIOLOGY METHOD 09/15/2025 9:18 AM [facility] Swab Both anterior nares / Unknown Non-blood Collection / Unknown 09/15/2025 8:05 AM EST 09/15/2025 8:16 AM EST [facility] LAB - 09/15/2025 9:18 AM EST Testing was performed using the BioIntelliDOTe Respiratory Pathogen PCR Assay. All results must [...] that are below the limit of detection. us Palomo SON LAB MICROBIOLOGY - GENERAL ORDERABLES Final Result [facility] [address] [place] [address], * (ABNORMAL) Venous blood gas (09/15/2025 7:33 AM EST) Pathologist [facility] pH, Santos 7.45(H) 7.32 - 7.42 pH 09/15/2025 7:39 AM [facility] pCO2, Santos 35(L) 41 - 51 mmHg 09/15/2025 7:39 AM [facility] pO2, Santos 81(H) 25 - 40 mmHg 09/15/2025 7:39 AM [facility] HCO3, Venous 25.4 22.0 - 26.0 mmol/L 09/15/2025 7:39 AM [facility] O2 Sat, Santos 98.4 % 09/15/2025 7:39 AM [facility] Base Excess, Santos 0.7 -2.0 - 2.0 mmol/L 09/15/2025 7:39 AM [facility] Blood Venous blood specimen / Unknown Venipuncture / Unknown 09/15/2025 7:33 AM EST 09/15/2025 7:37 AM EST us Palomo SON LAB BLOOD ORDERABLES Final Result [facility] [address] [place] [address], [place] [phone] * (ABNORMAL) Ammonia (09/15/2025 7:33 AM EST) Ammonia 56(H) 11 - 35 mcmol/L LAB CHEMISTRY METHOD 09/15/2025 8:28 AM EST [facility] Comment:Hemolysis present Blood Venous blood specimen / Unknown Venipuncture / Unknown 09/15/2025 7:33 AM EST 09/15/2025 7:42 AM EST us Palomo SON LAB BLOOD ORDERABLES Final Result Performing Organization Address City/[facility]/ZIP Co de Phone Number [facility] [address] [place] [address], [place] [phone] * Lipase (09/15/2025 6:40 AM EST) Only the most recent of2 resultswithin the time period is included. Lipase 24 13 - 75 unit/L LAB CHEMISTRY METHOD 09/15/2025 8:13 AM EST [facility] Blood Venous blood specimen / Unknown Venipuncture / Unknown 09/15/2025 6:40 AM EST 09/15/2025 8:13 AM EST Palomo SON LAB BLOOD ORDERABLES Final Result Performing Organization Address City/[facility]/ZIP Co de Phone Number [facility] [address] [place] [address], * (ABNORMAL) Ethanol (09/15/2025 6:40 AM EST) Ethanol Level 153(H) 0 - 10 mg/dL LAB CHEMISTRY METHOD 09/15/2025 8:13 AM EST [facility] Blood Venous blood specimen / Unknown Venipuncture / Unknown 09/15/2025 6:40 AM EST 09/15/2025 8:13 AM EST us Palomo SON LAB BLOOD ORDERABLES Final Result Performing Organization Address City/[facility]/ZIP Co de Phone Number [facility] [address] [place] [address], [place] [phone] * (ABNORMAL) Comprehensive metabolic panel (09/15/2025 6:40 AM EST) Only the most recent of2 resultswithin the time period is included. Sodium 142 133 - 145 mmol/L LAB CHEMISTRY METHOD 09/15/2025 8:13 AM EST [facility] Potassium 3.4(L) 3.5 - 5.5 mmol/L LAB CHEMISTRY METHOD 09/15/2025 8:13 AM EST [facility] Chloride 109 96 - 110 mmol/L LAB CHEMISTRY METHOD 09/15/2025 8:13 AM [facility] CO2 26 21 - 32 mmol/L LAB CHEMISTRY METHOD 09/15/2025 8:13 AM [facility] Anion Gap 7 3 - 11 LAB CHEMISTRY METHOD 09/15/2025 8:13 AM [facility] Glucose 123(H) 70 - 100 mg/dL LAB CHEMISTRY METHOD 09/15/2025 8:13 AM [facility] BUN 9 5 - 25 mg/dL LAB CHEMISTRY METHOD 09/15/2025 8:13 AM [facility] Creatinine 0.84 0.70 - 1.30 mg/dL LAB CHEMISTRY METHOD 09/15/2025 8:13 AM [facility] eGFR 96 >=60 mL/min/1. 73m2 LAB CHEMISTRY METHOD 09/15/2025 8:13 AM [facility] Comment:Calculation based on the Chronic Kidney Disease Epidemiology Collaboration (CKD-EPI) equation refit without adjustment for race. BUN/Creatinine Ratio 10.7 LAB CHEMISTRY METHOD 09/15/2025 8:13 AM [facility] Calcium 8.2(L) 8.5 - 10.5 mg/dL LAB CHEMISTRY METHOD 09/15/2025 8:13 AM [facility] AST (SGOT) 30 10 - 42 unit/L LAB CHEMISTRY METHOD 09/15/2025 8:13 AM [facility] ALT (SGPT) 39 10 - 60 unit/L LAB CHEMISTRY METHOD 09/15/2025 8:13 AM [facility] Alkaline Phosphatase 89 42 - 121 unit/L LAB CHEMISTRY METHOD 09/15/2025 8:13 AM [facility] Total Protein 6.4 6.0 - 8.0 g/dL LAB CHEMISTRY METHOD 09/15/2025 8:13 AM [facility] Albumin 3.2 3.2 - 5.0 g/dL LAB CHEMISTRY METHOD 09/15/2025 8:13 AM EST [facility] Total Bilirubin 0.5 0.0 - 1.4 mg/dL LAB CHEMISTRY METHOD 09/15/2025 8:13 AM EST [facility] Blood Venous blood specimen / Unknown Venipuncture / Unknown 09/15/2025 6:40 AM EST 09/15/2025 8:13 AM EST Palomo SON LAB BLOOD ORDERABLES Final Result [facility] [address] [place] [address], [place] [phone] * (ABNORMAL) POCT Glucose, blood (09/13/2025 1:58 PM EST) [facility] Signature Glucose POCT 139(H) 70 - 100 mg/dL 09/13/2025 1:59 PM EST [facility] Blood Capillary blood specimen / Unknown 09/13/2025 1:58 PM EST 09/13/2025 2:00 PM EST Generic Provider Poct LAB POINT OF CARE TEST DOCKED DEVICE UNSOLICITED RESULTS Final Result Performing Organization Address City/[facility]/ZIP Co de Phone Number [facility] [address] [place] [address], [place] [phone] from Last 3 Months Insurance [place]ICA[place] - [place] [employer] MEDICARE Advance Directives * Full Code - Default (Latest Code Status on File) Date Activated Date Inactivated Comments 09/15/2025 8:20 PM 09/16/2025 3:53 PM This is or nona is used when code status has not been discussed with the patient, or code status is otherwise unknown/unconfirmed To update the patient's code status, place a code status order. Do not modify or discontinue any currently active code status orders. * Full Code - Default Date Activated Date Inactivated Comments 03/29/2025 2:10 [...] currently active code status orders. Care Teams Audience Coordinator Relationship Specialty Start Date End Date Juan Manuel Marquez PA [address] [place] [address] PCP - General Special Education Superintendent 07/12/20
--- OUTSIDE RECORDS SUMMARY | 2025-09-17 12:08 | XMS_ITS | Data Portability ---
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 403569318 Active 2024 Yoly Farmer NP [address], [address], [place], [address], [facility] [employer] [facility] 5 13:54:45 Retention of urine 623541755 Active 2024 Yoly Farmer NP [address], [address], [place], [address], [facility] [employer] 5 13:54:58 Fall Active 2024 Yoly Farmer NP [address], [address], [place], [address], [facility] [employer] [facility] 13:55:14 Non-traumat ic rhabdomyoly sis 523213115 Active 2024 Yoly Farmer NP [address], [address], [place], [address], [employer] 5 13:55:25 Tobacco dependence caused by cigarettes 9618843838902 9107 Active 2024 Yoly Farmer NP [address], [address], [place], [address], [employer] [facility] 5 13:55:47 Problem Notes None recorded. Medical Equipment None Reported. Allergies No known drug allergies Vitals Date Recorded Body weight Heart rate Respiratory rate Body temperature Oxygen saturation Oxygen saturation in Arterial blood by Pulse oximetry Systolic And Diastolic Provider Name and Address Organization Details Last Updated DateTime 5 73097.2 2 g 80 /min 18 /min 97.1 [degF] 99.98 % 99.98 % 119/62 mm[Hg] Yoly Farmer NP [address] [facility] [address], [facility] [address], [place], [address], [employer] 5 13:34:56 Date Recorded Body weight Heart rate Respiratory rate Body temperature Oxygen saturation Oxygen saturation in Arterial blood by Pulse oximetry Systolic And Diastolic Provider Name and Address Organization Details Last Updated DateTime 5 42438.2 2 g 78 /min 18 /min 97.4 [degF] 99 % 99 % 121/67 mm[Hg] Yoly Farmer NP [address] [facility] [address], [address], [place], [address], [employer] [facility] 5 08:46:28 Date Recorded Body weight Heart rate Respiratory rate Body temperature Oxygen saturation Oxygen saturation in Arterial blood by Pulse oximetry Systolic And Diastolic Provider Name and Address Organization Details Last Updated DateTime 5 51391.2 2 g 78 /min 18 /min 97.7 [degF] 98 % 98 % 121/67 mm[Hg] Yoly Farmer NP [address] [facility], [facility] [address], [place], [address], [employer] [facility] 5 08:02:51 Social History Question Answer Notes LastModified by Organizat ion Details LastModified Time Tobacco Smoking Status Current Every Day Smoker Yoly Farmer NP [address] [facility], [facility] [address], [place], [address], [facility] 02/08/2025 14:13:32 Do You Have An Advance Directive? No Information not available 02/08/2025 What Is Your Level Of Caffeine Consumption? None Information not available 02/08/2025 What Is Your Code Status? Full Code Information not available 02/08/2025 Where Do You Live? Apartment Information not available 02/08/2025 What Was The Date Of Your Most Recent Tobacco Screening? 02/08/2025 [facility]toh And Smoking [facility] Information not available 02/08/2025 Do You Have [...] ICD10 Code Diagnosis IMO Codes Diagnosis Note [id number] Yoly Farmer NP [facility] [address] [place] [address] 02/08/2025 13:34:17 02/15/2025 11:43:25 Phimosis 850754086 N47.1 24507 with large phimosis non reducible today after 20 minutes of pressurese nd to ER for eval and treatment Tobacco de pendence caused by cigarettes 8304787483 8704513 F17.490 1081750 cont NRTnicotin e patch 14 mcg qd Non-trauma tic rhabdomyolysis 682350175 M62.82 [id number] rhabo ?resolved with ivf in hospitalbm p and cbc with ckpush po fluids Fall W19.XXXD 8315840 fall at homeoxy prn paintyl prn painsuppor tive carept ot eval and treat Retention of urine 16032 4002 R33.9 35395 noted retention in ERfoley in place and recfu with dr erica stone for removal 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 991418081 F10.19 6828205 hx of etoh abuse with relapse treated in er, sp phenobarb proptocolr estart naltrexone and vivitrol outptabsta in for etoh Generalize d aches and pains 84833204 R52 94509 sp fall with generalize painoxy prntyl prn [id number] Yoly Farmer, [place] [facility] [address] [address] 02/10/2025 08:38:42 02/15/2025 12:33:59 Phimosis 073187938 N47.1 63480 resolved in ERfu with urology Tobacco de pendence caused by cigarettes 4625009792 8237634 F17.614 3491545 continues to smoke and plans to smokeencou rage pt to quitstop NRTstop nicotine patch 14 mcg qd Non-trauma tic rhabdomyolysis 937953651 M62.82 19382978 rhabo ?resolved with ivf in hospitalbm p and cbc with ck not done yet, will reorderpus h po fluids Fall W19.XXXD 5813384 fall at home, no falls hereoxy prn paintyl prn painsuppor tive carept ot eval and treat Retention of urine 96487 4002 R33.9 83762 noted retention in ERfoley in place and rec fu with dr erica stone for removal, however he refuses to have rose in today and will remove per request02/10 nsg to follow with monitoring abd distension and and urine outpt q shift as no bladder scanner is available heremonito r need to straight cathnsg to fu with urology 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 367761668 F10.19 5245646 hx of etoh abuse with relapse treated in er, sp phenobarb protocolre start naltrexone and vivitrol outptabsta in for etoh Generalize d aches and pains 33485365 R52 75795 sp fall with generalize paindc oxy prn as he has no pain and only used oncetyl prn [id number] Yoly Farmer NP [address] [address] [place] [address] 02/11/2025 08:01:58 02/15/2025 13:03:21 Retention of urine 813296973 R33.9 75963 noted retention in ER, now voiding without difficulty this amhosp rec fu with dr maldonado outpt for removal, however pt requested removal yest and has voiding 1000cc sinceretur n to ER for abd distention or not able to peensg to fu with urologysta rted on flomax 0.4 mg po qhs Tobacco de pendence caused by cigarettes 3475323727 8253262 F17.423 4934661 continues to smoke and plans to smokeencou rage pt to quitpt refused nicotine patch 14 mcg qdfu outpt with pcp Phimosis 151186541 N47.1 80025 resolved in ERfu with urology outpt Non-trauma tic rhabdomyolysis 132585403 M62.82 75923873 rhabo ?resolved with ivf in hospitalla bs done this am, will call him if labs abnormal as he wants to go home this ampush po fluids Fall W19.XXXD 0026283 fall at home, no falls hereoxy prn pain, will need to wean oxycodonet yl prn painsuppor tive caresafety measures 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 (MEDICARE REPLACEMENT/A DVANTAGE - PPO) [id number] Clayton Mike [id number] Clayton Mike Notes Date Note Type Note [...] whiskey daily. He is followed by the [place] and lives at [address]. Plan to restart naltrexone and [facility]. MOLST: DNR/DNI/DNHMORSE: high risk Yoly Farmer, [place] [address] [facility] [address], [address], [place], [address], [facility] [employer] 02/08/2025 14:27:39 02/10/2025 text/html Clayton is seen [...] DNR/DNI/DNHMORSE: high risk Yoly Farmer, [place] [address], [address], [place], [address], [facility] [employer] 02/10/2025 09:15:00 02/11/2025 text/html Clayton is seen [...] DNR/DNI/DNHMORSE: high risk Yoly Farmer NP [address] [facility] [address], [address], [place], [address], [facility] [employer] [facility] 02/11/2025 08:26:41
--- NOTE | 2025-09-17 12:58 | PM.IMHP ---
History of Present Illness Date of Service: 09/17/25 Attending physician on admission: Latha Toledo Chief Complaint: alcohol withdrawals HPI: 65-year-old male with past medical history of alcohol withdrawal, seizure, CAD, hypertension-patient was recently admitted to [facility] two days ago after an admission related to alcohol use, presents with progressive symptoms since returning home. His Last alcoholic drink approximately 2?3 days ago (prior to his [facility] discharge); denies alcohol intake today.Typical daily intake: 5?6 shots of Fireball whiskey plus 3?4 tall-boy beers. Decreased p.o. intake,.Persistent nausea and diffuse abdominal discomfort without vomiting. In ED patient's CIWA is 13. Generalized tremors/shakiness that began yesterday and are now severe enough that he ?can?t walk.?Intermittent confusion both in the hospital and currently, feel anxious, nonspecific body pains ,Non-productive cough and rhinorrhea. denies chest pain or shortness of breath. Past alcohol-related events include one to two withdrawal seizures in approximately 1994. He also fell last week and struck his head. . In addition Rose catheter was placed for urinary retention- The patient has an indwelling urinary catheter in place, in addition patient was started on Flomax and finasteride, also started on cefdinir for UTI, urine culture in [facility] Gram-negative bacilli-patient went home with Cefdinir. denies abd pain ,wants to eat. in ED: Lab imaging reviewed: CBC BMP seems fine. CTA abdomen: The bladder is partially distended with heterogeneous material that raises concern for blood products. Infection is also the differential. Mild hepatic steatosis. Diverticulosis is present in the descending and sigmoid colon without evidence of infection. In ED patient was started on phenobarb protocol, in addition received diazepam, Zofran and requested admission for alcohol withdrawals. Review of Systems Review of Systems: As above. Yes all other systems are reviewed and are negative [facility] Medical History EtOH dependence ETOH abuse Depression Anxiety Surgical History History of cardiac cath Social History Household Members: None Housing: Apartment Do you presently have visiting nurse or other home services: Yes Alcohol intake: current Alcohol intake frequency: 3 or more drinks per day Alcohol type: hard liquor Patient Tobacco Use Status: Current everyday Tobacco user Tobacco use type: Cigarette Cigarettes Per Day: 5 Advance Directives: Yes Advance Directives Information Provided: Yes Advance Directives on File: No Do you have a plan to hurt others: No Plan service: Yes Meds Allergies Allergy/AdvReac Type Severity Reaction Status Date / Time No Known Allergies (No Known Allergy Verified 09/17/25 09:58 Allergies*) Active Medications: Current Medications Acetaminophen (Acetaminophen 325 Mg Tablet) 650 mg PO Q6H PRN PRN Reason: Pain, Mild 1-3,fever,headache Calcium Carbonate (Calcium Carbonate 750 Mg Tab.Chew) 750 mg PO Q4H PRN PRN Reason: Heartburn Magnesium Hydroxide (Milk Of Magnesia 30 Ml Oral.Susp) 30 ml PO DAILY PRN PRN Reason: Constipation Melatonin (Melatonin 3 Mg Tablet) 6 mg PO BEDTIME PRN PRN Reason: Insomnia Pharmacy Consult (Consult Rx Etoh Phenob Im/Po) 1 each MISCELLANE ONCE PRN; Protocol PRN Reason: Consult order Phenobarbital (Phenobarbital 15 Mg Tablet) 45 mg PO BID ELKIN; Protocol Stop: 09/19/25 09:01 Phenobarbital (Phenobarbital 15 Mg Tablet) 15 mg PO BID ELKIN; Protocol Stop: 09/21/25 09:01 Phenobarbital (Phenobarbital 15 Mg Tablet) 15 mg PO DAILY ELKIN; Protocol Stop: 09/23/25 09:01 Phenobarbital Sodium (Phenobarbital Sodium 130 Mg/Ml Vial Im Q3hx2) 204.1 mg IM Q3H ELKIN; Protocol Stop: 09/17/25 16:31 Sodium Chloride (0.9 % Sodium Chloride Flush 3 Ml Syringe) 3 ml IVFLUSH QSHIFT [facility] Home Medications ?Medication ?Instructions ?Recorded ?Confirmed ?Last Taken ?Type gabapentin 300 mg capsule 300 mg PO BEDTIME 02/01/25 09/17/25 Unknown History trazodone 100 mg tablet 150 mg PO BEDTIME PRN Sleep 02/01/25 09/17/25 09/16/25 History aspirin 81 mg tablet,delayed 81 mg PO DAILY 07/08/25 09/17/25 Unknown History release atorvastatin 80 mg tablet (Lipitor) 80 mg PO BEDTIME 07/08/25 09/17/25 Unknown History metoprolol succinate 25 mg 25 mg PO DAILY 07/08/25 09/17/25 Unknown History tablet,extended release 24 hr ticagrelor 90 mg tablet (Brilinta) 90 mg PO BID 07/08/25 09/17/25 09/10/25 History valsartan 40 mg tablet 20 mg PO DAILY 07/08/25 09/17/25 09/13/25 History pantoprazole 40 mg tablet,delayed 40 mg PO DAILY PRN Acid Reflux 09/17/25 09/17/25 Unknown History release Physical Exam Vital Signs and Narrative: Vital Signs: Last Vital Signs Temp 98.8 F 09/17/25 09:57 Pulse 101 H 09/17/25 09:57 Resp 19 09/17/25 09:57 BP 143/74 H 09/17/25 09:57 Pulse Ox 96 09/17/25 09:57 O2 Del Method Room Air 09/17/25 09:57 BMI result Body Mass Index 26.1 Appearance: Alert.? Oriented X3 .?anxious /mild treemers . cvs: rrr, [id number] , no murmur res: clear to auscultation ,no rhonchii or wheezing abd: no rebound or guarding ,nt, bs present. ext pulses present , no cyanosis. neuro: axo3 , nonfocal. Results Labs 09/17/25 10:45 09/17/25 10:45 Labs: Laboratory Results - last 24 hr 09/17/25 09/17/25 09/17/25 10:45 10:55 11:36 MCV 89.8 MCH 31.5 MCHC 35.1 RDW 13.2 Plt Count 220 MPV 9.0 L Immature Gran % (Auto) 0.7 H Neut % (Auto) 80.3 H Lymph % (Auto) 10.7 L [place] % (Auto) 6.0 Eos % (Auto) 1.6 Baso % (Auto) 0.7 Lymph # (Auto) 0.8 L [place] # (Auto) 0.5 Eos # (Auto) 0.1 Baso # (Auto) 0.1 Abs Immat Gran (auto) 0.05 H Absolute Neuts (auto) 6.1 Absolute Nucleated RBC 0.000 Nucleated RBC % (auto) 0.0 Anion Gap 9 L Estim Creat Clear Calc 76.9 Estimated GFR > 60 Random Glucose 102 Calcium 8.0 L Magnesium 2.0 Total Bilirubin 0.5 AST 33 ALT 28 Alkaline Phosphatase 85 Ammonia 26 Total Protein 5.5 L Albumin 3.2 L Lipase 13 Urine Color Yellow Urine Appearance Clear Urine pH 6.5 Ur Specific [place] 1.015 Urine Protein 300 (3+) H Urine Glucose (UA) Negative Urine Ketones Negative Urine Blood Large (3+) H Urine Nitrite Negative Ur Leukocyte Esterase Moderate (2+) H Urine RBC >20 H Urine WBC >50 H Ur Squamous Epith Cells 0-2 Urine Bacteria None Seen Hyaline Casts 0-2 Urine Opiates Screen Not Detected Ur Buprenorphine Scrn Not Detected Ur Oxycodone Screen Not Detected Urine Methadone Screen Not Detected Urine Fentanyl Screen Not Detected Ur Barbiturates Screen Not Detected Ur Phencyclidine Scrn Not Detected Ur Amphetamines Screen Not Detected U Benzodiazepines Scrn Not Detected Urine Cocaine Screen Not Detected U Marijuana (THC) Screen Not Detected Ethyl Alcohol < 10 COVID-19 (SYLVIA) Negative COVID-19 Clin Com See Note Influenza Type A (MADAI) Negative Influenza Type B (MADAI) Negative Influenza A & B Note See Note Imaging Radiologist's Impressions: Impressions Chest X-Ray 09/17/25 11:02 IMPRESSION: No evidence for acute disease in the chest. Abdomen/Pelvis CT 09/17/25 11:56 IMPRESSION: The bladder is partially distended with heterogeneous material that raises concern for blood products. Infection is also the differential. Mild hepatic steatosis. Diverticulosis is present in the descending and sigmoid colon without evidence of infection. Fleischner guidelines were followed. Assessment and Plan (1) ETOH abuse: Status: Acute Plan 65 y/o M heavy daily alcohol use presenting to the ED 2?3 days after last drink with tremors, nausea, confusion, and inability to ambulate. Physical exam notable for tongue fasciculations and asterixis. Differential includes alcohol withdrawal (possible complicated), Wernicke?s encephalopathy, dehydration/malnutrition, viral upper respiratory infection, and sequelae of recent head trauma. Comprehensive ED diagnostic workup initiated. Alcohol withdrawal: Continue phenobarb protocol, monitor CIWA, addiction consult, thiamine, folic acid. Patient was strongly advised to abstain from alcohol abd pain Diffuse abdominal discomfort and persistent nausea without vomiting; likely multifactorial (withdrawal, possible gastritis, dehydration). ct abd seems as above no acute abnormality. plan: ppi IV fluid, patient is already eager to eat. Viral upper respiratory symptoms Assessment: Cough and rhinorrhea without dyspnea or chest pain; viral etiology possible. Plan: Supportive care; respiratory viral theatre manager closely Recent fall: We will add head CT Grossly no bruises on the head Urinary retention: Indwelling urinary catheter,? bph keep rose ,flomax ? UTI-patient was discharged from [facility] on Cefdinir -pharmacy we will reconcile antibiotics and then we will continue. HTn: Continue beta-gabriela and valsartan Cad: Continue beta-gabriela, Brilinta, statin Hlp: Continue statin. Generalized weak: PT evaluation added DVT prophylaxis with subQ Lovenox Patient will benefit from 2 midnight stay considering alcohol withdrawal-need phenobarb protocol, close CIWA monitoring . Quality Stroke Does the patient have a stroke diagnosis?: No VTE Prior VTE?: No VTE Risk Level:: Medical - moderate - high VTE Device Contraindication: N/A - Device Ordered VTE Drug Contraindication: N/A - Med Ordered
[2025-09-17] MEDS: PHENobarbitaL sodium 130 MG/ML VIAL IM Q3Hx2 204.1 MG IM ×2 (13:29→16:40)
--- NOTE | 2025-09-17 15:01 | PHA.MEDREC ---
Pharmacy Consult ? Medication Reconciliation Pharmacy has completed the medication reconciliation. [facility] Patient was able to confirm most medications. He said he doesn't take his meds when he drinks. He was able to confirm that he takes Brilinta 90 mg bid but said he hasn't taken it for about a week.
[2025-09-17] MEDS: Aspirin Enteric Coated 81 MG TABLET.DR PO (16:36)
[2025-09-17] MEDS: 0.9 % Sodium Chloride Flush 3 ML SYRINGE IVFLUSH ×2 (17:36→21:29)
[2025-09-17] MEDS: Throat Lozenge, Medicated LOZENGE 1 LOZENGE MUCOUS MEM ×2 (18:24→21:37)
--- NOTE | 2025-09-17 18:52 | PC.NURSE ---
Pt ambulated to BR to move bowels. ambulated well. now transferring to inpatient.
--- OUTSIDE RECORDS SUMMARY | 2025-09-17 20:59 | XMS_ITS | Clinical Summary ---
Author Organization [facility] Address [address] [place] [phone] Phone Care Team Providers Care Bead Wire Insulator Name Role Phone Juan Manuel Marquez Primary Care Provider [phone] Allergies Active Allergy Reactions Criticality Noted Date [...] rganism, unspecified whether acute organ dysfunction present ([facility], [facility] V28) 03/28/2025 Encounters Date Type Department Care Team Description 09/15/2025 6:30 AM EST - 09/16/2025 1:43 PM EST Hospital Encounter [facility]mediate Care Unit [address] [place] [address] Anna Pillai MD Jones, Christopher, MD Kela, Kashyap Devendrabhai, MD Postobstructive diuresis (Primary Dx); Sepsis, due to unspecified organism, unspecified whether acute organ dysfunction present ([facility] V24, [facility] V28) Discharge Disposition: Home or Self Care 09/13/2025 1:27 PM EST - 09/13/2025 6:17 PM EST Emergency [facility] Emergency [address] [place] [address] Chest pain, unspecified type (Primary Dx) Discharge Disposition: Home or Self Care from Last 3 Months Surgical History Surgery Date Site/Laterality Comments UPPER GASTROINTESTINAL ENDOSCOPY 05/19/2010 PROCEDURE: [place] UPPER GI ENDOSCOPY PERFORMED; COMMENT: Gaping lower esophageal sphincter COLONOSCOPY 01/13/2010 PROCEDURE: HISTORICAL COLONOSCOPY; COMMENT: Negative, repeat 10 yrs HIP ARTHROPLASTY 11/06/2018 Left PROCEDURE: HISTORICAL HIP REPLACEMENT Medical History Medical History Date Comments Alcohol dependence ([facility], [facility] V28) 09/02/2020 DX:Alcohol dependence ([facility]) Anxiety 09/02/2020 DX:Anxiety BPH (benign prostatic hyperplasia) 09/02/2020 DX:BPH (benign prostatic hyperplasia) Hyperlipidemia 09/02/2020 DX:Hyperlipidemi a Insomnia 09/02/2020 DX:Insomnia Major depressive disorder, r ecurrent, moderate ([facility], [facility] V28) 09/02/2020 DX:Major depressiv e disorder, recurrent, moderate ([facility]) Osteoarthritis 09/02/2020 DX:Osteoarthriti s; COMMENT: Hip [...] your loved ones. For example, child care giver or elderly care for an older adult? [...] EST from Last 3 Months Results * ECG-Annotated (09/17/2025) us Provider Onbase MD ECG ORDERABLES Final Result * (ABNORMAL) CBC auto differential (09/16/2025 6:22 AM EST) Only the most recent of3 resultswithin the time period is included. WBC 6.9 4.8 - 10.8 K/mcL LAB HEMETOLOGY METHOD 09/16/2025 7:02 AM EST [facility] RBC 3.80(L) 4.50 - 5.50 M/mcL LAB HEMETOLOGY METHOD 09/16/2025 7:02 AM EST [facility] Hemoglobin 11.8(L) 13.5 - 17.5 g/dL LAB HEMETOLOGY METHOD 09/16/2025 7:02 AM [facility] Hematocrit 34.5(L) 42.0 - 54.0 % LAB HEMETOLOGY METHOD 09/16/2025 7:02 AM [facility] MCV 91.0 79.0 - 98.0 FL LAB HEMETOLOGY METHOD 09/16/2025 7:02 AM [facility] MCH 31.1 27.0 - 32.0 pcg LAB HEMETOLOGY METHOD 09/16/2025 7:02 AM [facility] MCHC 34.2 32.0 - 37.0 g/dL LAB HEMETOLOGY METHOD 09/16/2025 7:02 AM [facility] RDW 13.2 11.0 - 15.0 % LAB HEMETOLOGY METHOD 09/16/2025 7:02 AM [facility] Platelets 234 130 - 400 K/mcL LAB HEMETOLOGY METHOD 09/16/2025 7:02 AM [facility] MPV 9.3 7.0 - 11.0 FL LAB HEMETOLOGY METHOD 09/16/2025 7:02 AM [facility] NRBC 0.0 <1.0 % LAB HEMETOLOGY METHOD 09/16/2025 7:02 AM [facility] NRBC Absolute 0.00 <0.10 K/mcL LAB HEMETOLOGY METHOD 09/16/2025 7:02 AM [facility] Neutrophils Relative 68.8 % LAB HEMETOLOGY METHOD 09/16/2025 7:02 AM [facility] Lymphocytes Relative 17.2 % LAB HEMETOLOGY METHOD 09/16/2025 7:02 AM [facility] Monocytes Relative 8.8 % LAB HEMETOLOGY METHOD 09/16/2025 7:02 AM [facility] Eosinophils Relative 4.2 % LAB HEMETOLOGY METHOD 09/16/2025 7:02 AM EST [facility] Basophils Relative 0.7 % LAB HEMETOLOGY METHOD 09/16/2025 7:02 AM [facility] Immature Granulocytes Relative 0.3 % LAB HEMETOLOGY METHOD 09/16/2025 7:02 AM [facility] Neutrophils Absolute 4.71 1.50 - 7.00 K/mcL LAB HEMETOLOGY METHOD 09/16/2025 7:02 AM EST [facility] Lymphocytes Absolute 1.18 1.00 - 5.00 K/mcL LAB HEMETOLOGY METHOD 09/16/2025 7:02 AM [facility] Monocytes Absolute 0.60 0.20 - 1.00 K/mcL LAB HEMETOLOGY METHOD 09/16/2025 7:02 AM [facility] Eosinophils Absolute 0.29 0.00 - 0.50 K/mcL LAB HEMETOLOGY METHOD 09/16/2025 7:02 AM [facility] Basophils Absolute 0.05 0.00 - 0.20 K/mcL LAB HEMETOLOGY METHOD 09/16/2025 7:02 AM [facility] Immature Granulocytes Absolute 0.02 0.00 - 0.03 K/mcL LAB HEMETOLOGY METHOD 09/16/2025 7:02 AM [facility] Blood Venous blood specimen / Unknown Venipuncture / Unknown 09/16/2025 6:22 AM EST 09/16/2025 6:53 AM EST us Vargas Morales MD LAB BLOOD ORDERABLES Final Result [facility] [address] [place] [address], * (ABNORMAL) Basic metabolic panel (09/16/2025 6:22 AM EST) Sodium 142 133 - 145 mmol/L LAB CHEMISTRY METHOD 09/16/2025 7:25 AM [facility] Potassium 3.7 3.5 - 5.5 mmol/L LAB CHEMISTRY METHOD 09/16/2025 7:25 AM [facility] Chloride 108 96 - 110 mmol/L LAB CHEMISTRY METHOD 09/16/2025 7:25 AM [facility] CO2 29 21 - 32 mmol/L LAB CHEMISTRY METHOD 09/16/2025 7:25 AM [facility] Anion Gap 5 3 - 11 LAB CHEMISTRY METHOD 09/16/2025 7:25 AM [facility] Glucose 101(H) 70 - 100 mg/dL LAB CHEMISTRY METHOD 09/16/2025 7:25 AM [facility] BUN 10 5 - 25 mg/dL LAB CHEMISTRY METHOD 09/16/2025 7:25 AM [facility] Creatinine 0.98 0.70 - 1.30 mg/dL LAB CHEMISTRY METHOD 09/16/2025 7:25 AM [facility] eGFR 85 >=60 mL/min/1. 73m2 LAB CHEMISTRY METHOD 09/16/2025 7:25 AM [facility] Comment:Calculation based on the Chronic Kidney Disease Epidemiology Collaboration (CKD-EPI) equation refit without adjustment for race. BUN/Creatinine Ratio 10.2 LAB CHEMISTRY METHOD 09/16/2025 7:25 AM [facility] Calcium 8.2(L) 8.5 - 10.5 mg/dL LAB CHEMISTRY METHOD 09/16/2025 7:25 AM [facility] Blood Venous blood specimen / Unknown Venipuncture / Unknown 09/16/2025 6:22 AM EST 09/16/2025 6:52 AM EST us Vargas Morales MD LAB BLOOD ORDERABLES Final Result [facility] [address] [place] [address], [place] [phone] * Troponin I high sensitivity (NOW and then in 1 hour) (09/15/2025 11:56 AM EST) Only the most recent of4 resultswithin the time period is included. [facility] High Sensitivity Troponin I 48 <=79 ng/L LAB CHEMISTRY METHOD 09/15/2025 12:38 PM EST [facility] Blood Venous blood specimen / Unknown Venipuncture / Unknown 09/15/2025 11:56 AM EST 09/15/2025 12:08 PM EST Narrative [facility] - 09/15/2025 12:38 PM EST High levels of biotin in samples may falsely decrease hsTroponin values. Use caution when interpreting hsTroponin results in patients taking biotin who exhibit renal impairment (eGFR <60) or in patients taking more than 20 mg/day of biotin. Palomo SON LAB BLOOD ORDERABLES Final Result [facility] [address] [place] [address], [place] [phone] * (ABNORMAL) Lipid panel with reflex to direct LDL (09/15/2025 11:56 AM EST) [facility] Cholesterol 107 0 - 200 mg/dL LAB CHEMISTRY METHOD 09/15/2025 10:25 PM EST [facility] Triglycerides 261(H) 0 - 150 mg/dL LAB CHEMISTRY METHOD 09/15/2025 10:25 PM [facility] HDL 47 >=40 mg/dL LAB CHEMISTRY METHOD 09/15/2025 10:25 PM [facility] LDL Calculated 8 0 - 100 mg/dL LAB CHEMISTRY METHOD 09/15/2025 10:25 PM [facility] Comment:Estimated LDL Calcul ated using equation: Total cholesterol - HDL cholesterol - (Triglycerides/5) VLDL Cholesterol Leobardo 52.2 mg/dL LAB CHEMISTRY METHOD 09/15/2025 10:25 PM EST [facility] Non HDL Chol. (LDL+VLDL) 60 <145 mg/dL LAB CHEMISTRY METHOD 09/15/2025 10:25 PM EST [facility] Chol/HDL Ratio 2.3 0.0 - 4.4 LAB CHEMISTRY METHOD 09/15/2025 10:25 PM EST [facility] Blood Venous blood specimen / Unknown Venipuncture / Unknown 09/15/2025 11:56 AM EST 09/15/2025 12:08 PM EST Vargas SON LAB BLOOD ORDERABLES Liana l Result [facility] [address] [place] [address], [place] [phone] * Potassium (09/15/2025 11:56 AM EST) Potassium 3.7 3.5 - 5.5 mmol/L LAB CHEMISTRY METHOD 09/15/2025 12:36 PM EST [facility] Blood Venous blood specimen / Unknown Venipuncture / Unknown 09/15/2025 11:56 AM EST 09/15/2025 12:08 PM EST Palomo SON LAB BLOOD ORDERABLES Final Result [facility] [address] [place] [address], [place] [phone] * Phosphorus (09/15/2025 11:56 AM EST) Phosphorus 2.8 2.5 - 4.5 mg/dL LAB CHEMISTRY METHOD 09/15/2025 12:36 PM EST [facility] Blood Venous blood specimen / Unknown Venipuncture / Unknown 09/15/2025 11:56 AM EST 09/15/2025 12:08 PM EST Palomo SON LAB BLOOD ORDERABLES Final Result Performing Organization Address [facility]/ZIP Co de Phone Number [facility] [address] [place] [address], [place] [phone] * Magnesium (09/15/2025 11:56 AM EST) Only the most recent of3 resultswithin the time period is included. Magnesium 2.1 1.9 - 2.6 mg/dL LAB CHEMISTRY METHOD 09/15/2025 12:36 PM EST [facility] Blood Venous blood specimen / Unknown Venipuncture / Unknown 09/15/2025 11:56 AM EST 09/15/2025 12:08 PM EST Palomo Caicedo [place] LAB BLOOD ORDERABLES Final Result Performing Organization Address [facility] de Phone Number [facility] [address] [place] [address], [place] [phone] * CT Abdomen Pelvis w Contrast (09/15/2025 [...] Signed Date: 09/15/2025 11:52 ET Workstation ID: [id number] Transcribed By: Self Edit Transcribed Date: 09/15/2025 [...] Signed Date: 09/15/2025 11:52 ET Workstation ID: [id number] Transcribed By: Self Edit Transcribed Date: 09/15/2025 [...] Signed Date: 09/15/2025 10:03 ET Workstation ID: [id number] Transcribed By: Self Edit Transcribed Date: 09/15/2025 [...] Signed Date: 09/15/2025 10:03 ET Workstation ID: [id number] Transcribed By: Self Edit Transcribed Date: 09/15/2025 [...] GEMUSE QTc 464 ms GEMUSE P Wave [place] 64 degrees GEMUSE R [place] -19 degrees GEMUSE T [place] 7 degrees GEMUSE ECG Interpretation Normal sinus rhythm Normal ECG When compared with ECG of 13-SEP-2025 14:19, No significant change was found Confirmed by MARIANO CASAS ([id number]) on 09/15/2025 10:12:24 PM GEMUSE 09/15/2025 8:49 AM EST 09/15/2025 10:12 PM EST us Palomo SON ECG ORDERABLES Final Resul t GEMUSE * (ABNORMAL) Urinalysis with reflex microscopic and culture (09/15/2025 8:46 AM EST) Specific [place] Urine 1.010 1.003 - 1.030 LAB URINALYSIS - AUTOMATED METHOD 09/15/2025 9:13 AM [facility] pH, Urine 6.5 5.0 - 8.0 pH LAB URINALYSIS - AUTOMATED METHOD 09/15/2025 9:13 AM [facility] Leukocytes, Urine Large(A) Negative LAB URINALYSIS - AUTOMATED METHOD 09/15/2025 9:13 AM [facility] Nitrite, Urine Negative Negative LAB URINALYSIS - AUTOMATED METHOD 09/15/2025 9:13 AM [facility] Protein, Urine 30(A) <=Trace mg/dL LAB URINALYSIS - AUTOMATED METHOD 09/15/2025 9:13 AM [facility] Glucose, Urine Negative Negative mg/dL LAB URINALYSIS - AUTOMATED METHOD 09/15/2025 9:13 AM [facility] Ketones, Urine Negative Negative mg/dL LAB URINALYSIS - AUTOMATED METHOD 09/15/2025 9:13 AM [facility] Urobilinogen , Urine 0.2 0.2 - 1.0 mg/dL LAB URINALYSIS - AUTOMATED METHOD 09/15/2025 9:13 AM [facility] Bilirubin, Urine Negative Negative LAB URINALYSIS - AUTOMATED METHOD 09/15/2025 9:13 AM [facility] Blood, Urine Small(A) Negative LAB URINALYSIS - AUTOMATED METHOD 09/15/2025 9:13 AM [facility] RBC, Urine 5(H) 0 - 4 /HPF 09/15/2025 9:13 AM [facility] WBC, Urine 75(H) 0 - 4 /HPF 09/15/2025 9:13 AM [facility] Squamous Epithelial, Urine 2 0 - 60 /LPF 09/15/2025 9:13 AM [facility] Bacteria, Urine Moderate(A) Negative /HPF 09/15/2025 9:13 AM EST [facility] Urine Urine specimen obtained by clean catch procedure / Unknown Non-blood Collection / Unknown 09/15/2025 8:46 AM EST 09/15/2025 8:52 AM EST Palomo SON LAB URINE ORDERABLES Final Result Performing Organization Address City/[facility]/ZIP Co de Phone Number [facility] [address] [place] [address], [place] [phone] * Hernandez urine culture tube (09/15/2025 8:46 AM EST) Extra Tube Hold for add-ons. 09/15/2025 10:01 AM EST [facility] Comment:Auto resulted. Urine Urine specimen obtained by clean catch procedure / Unknown Non-blood Collection / Unknown 09/15/2025 8:46 AM EST 09/15/2025 8:52 AM EST Palomo SON LAB URINE ORDERABLES Final Result Performing Organization Address City/[facility]/ZIP Co de Phone Number [facility] [address] [place] [address], [place] [phone] * (ABNORMAL) Culture urine (09/15/2025 8:46 AM EST) Culture, Urine 50,000-100,000 CFU/mL Pseudomonas aeruginosa(A) KULWANT 09/17/2025 10:17 AM EST [facility] Comment: This is an edited [...] LAB MICROBIOLOGY - GENERAL ORDERABLES Final Result [facility] [address] [place] [address], * Respiratory virus panel molecular study (09/15/2025 8:05 AM EST) Pathologist [facility] [place] Adenovirus Detection by PCR Not Detected Not Detected LAB MICROBIOLOGY METHOD 09/15/2025 9:18 AM EST [facility] Influenza A PCR Not Detected Not Detected LAB MICROBIOLOGY METHOD 09/15/2025 9:18 AM EST [facility] Influenza B PCR Not Detected Not Detected LAB MICROBIOLOGY METHOD 09/15/2025 9:18 AM EST [facility] Coronavirus 229E Not Detected Not Detected LAB MICROBIOLOGY METHOD 09/15/2025 9:18 AM EST [facility] Coronavirus HKU1 Not Detected Not Detected LAB MICROBIOLOGY METHOD 09/15/2025 9:18 AM EST [facility] Coronavirus OC43 Not Detected Not Detected LAB MICROBIOLOGY METHOD 09/15/2025 9:18 AM EST [facility] Coronavirus NL63 Not Detected Not Detected LAB MICROBIOLOGY METHOD 09/15/2025 9:18 AM EST [facility] Parainfluenza Virus 1 Not Detected Not Detected LAB MICROBIOLOGY METHOD 09/15/2025 9:18 AM EST [facility] Parainfluenza Virus 2 Not Detected Not Detected LAB MICROBIOLOGY METHOD 09/15/2025 9:18 AM EST [facility] Parainfluenza Virus 3 Not Detected Not Detected LAB MICROBIOLOGY METHOD 09/15/2025 9:18 AM [facility] Parainfluenza Virus 4 Not Detected Not Detected LAB MICROBIOLOGY METHOD 09/15/2025 9:18 AM [facility] RSV PCR Not Detected Not Detected LAB MICROBIOLOGY METHOD 09/15/2025 9:18 AM [facility] Human Metapneumovirus A and B Not Detected Not Detected LAB MICROBIOLOGY METHOD 09/15/2025 9:18 AM [facility] Rhinovirus/Entero virus Not Detected Not Detected LAB MICROBIOLOGY METHOD 09/15/2025 9:18 AM [facility] Bordetella pertussis Not Detected Not Detected LAB MICROBIOLOGY METHOD 09/15/2025 9:18 AM [facility] Bordetella parapertussis Not Detected Not Detected LAB MICROBIOLOGY METHOD 09/15/2025 9:18 AM [facility] Mycoplasma pneumo by PCR Not Detected Not Detected LAB MICROBIOLOGY METHOD 09/15/2025 9:18 AM [facility] Chlamydia pneumoniae Not Detected Not Detected LAB MICROBIOLOGY METHOD 09/15/2025 9:18 AM [facility] SARS COV-2 Not Detected Not Detected LAB MICROBIOLOGY METHOD 09/15/2025 9:18 AM [facility] Swab Both anterior nares / Unknown Non-blood Collection / Unknown 09/15/2025 8:05 AM EST 09/15/2025 8:16 AM [facility] - 09/15/2025 9:18 AM EST Testing was performed using the [employer] Respiratory Pathogen PCR Assay. All results must [...] LAB MICROBIOLOGY - GENERAL ORDERABLES Final Result [facility] [address] [place] [address], [place] [phone] * (ABNORMAL) Venous blood gas (09/15/2025 7:33 AM EST) pH, Santos 7.45(H) 7.32 - 7.42 pH 09/15/2025 7:39 AM [facility] pCO2, Santos 35(L) 41 - 51 mmHg 09/15/2025 7:39 AM [facility] pO2, Santos 81(H) 25 - 40 mmHg 09/15/2025 7:39 AM [facility] HCO3, Venous 25.4 22.0 - 26.0 mmol/L 09/15/2025 7:39 AM [facility] O2 Sat, Santos 98.4 % 09/15/2025 7:39 AM [facility] Base Excess, Santos 0.7 -2.0 - 2.0 mmol/L 09/15/2025 7:39 AM [facility] Blood Venous blood specimen / Unknown Venipuncture / Unknown 09/15/2025 7:33 AM EST 09/15/2025 7:37 AM EST us Palomo SON LAB BLOOD ORDERABLES Final Result [facility] [address] [place] [address], [place] [phone] * (ABNORMAL) Ammonia (09/15/2025 7:33 AM EST) Ammonia 56(H) 11 - 35 mcmol/L LAB CHEMISTRY METHOD 09/15/2025 8:28 AM [facility] Comment:Hemolysis present Blood Venous blood specimen / Unknown Venipuncture / Unknown 09/15/2025 7:33 AM EST 09/15/2025 7:42 AM EST us Palomo SON LAB BLOOD ORDERABLES Final Result Performing Organization Address [facility] de Phone Number [facility] [address] [place] [address], [place] [phone] * Lipase (09/15/2025 6:40 AM EST) Only the most recent of2 resultswithin the time period is included. Lipase 24 13 - 75 unit/L LAB CHEMISTRY METHOD 09/15/2025 8:13 AM EST [facility] Blood Venous blood specimen / Unknown Venipuncture / Unknown 09/15/2025 6:40 AM EST 09/15/2025 8:13 AM EST Palomo SON LAB BLOOD ORDERABLES Final Result Performing Organization Address [facility] de Phone Number [facility] [address] [place] [address], [place] [phone] * (ABNORMAL) Ethanol (09/15/2025 6:40 AM EST) Ethanol Level 153(H) 0 - 10 mg/dL LAB CHEMISTRY METHOD 09/15/2025 8:13 AM EST [facility] Blood Venous blood specimen / Unknown Venipuncture / Unknown 09/15/2025 6:40 AM EST 09/15/2025 8:13 AM EST Palomo SON LAB BLOOD ORDERABLES Final Result Performing Organization Address [facility] de Phone Number [facility] [address] [place] [address], [place] [phone] * (ABNORMAL) Comprehensive metabolic panel (09/15/2025 6:40 AM EST) Only the most recent of2 resultswithin the time period is included. Sodium 142 133 - 145 mmol/L LAB CHEMISTRY METHOD 09/15/2025 8:13 AM EST [facility] Potassium 3.4(L) 3.5 - 5.5 mmol/L LAB CHEMISTRY METHOD 09/15/2025 8:13 AM [facility] Chloride 109 96 - 110 mmol/L LAB CHEMISTRY METHOD 09/15/2025 8:13 AM [facility] CO2 26 21 - 32 mmol/L LAB CHEMISTRY METHOD 09/15/2025 8:13 AM [facility] Anion Gap 7 3 - 11 LAB CHEMISTRY METHOD 09/15/2025 8:13 AM [facility] Glucose 123(H) 70 - 100 mg/dL LAB CHEMISTRY METHOD 09/15/2025 8:13 AM [facility] BUN 9 5 - 25 mg/dL LAB CHEMISTRY METHOD 09/15/2025 8:13 AM [facility] Creatinine 0.84 0.70 - 1.30 mg/dL LAB CHEMISTRY METHOD 09/15/2025 8:13 AM [facility] eGFR 96 >=60 mL/min/1. 73m2 LAB CHEMISTRY METHOD 09/15/2025 8:13 AM [facility] Comment:Calculation based on the Chronic Kidney Disease Epidemiology Collaboration (CKD-EPI) equation refit without adjustment for race. BUN/Creatinine Ratio 10.7 LAB CHEMISTRY METHOD 09/15/2025 8:13 AM [facility] Calcium 8.2(L) 8.5 - 10.5 mg/dL LAB CHEMISTRY METHOD 09/15/2025 8:13 AM [facility] AST (SGOT) 30 10 - 42 unit/L LAB CHEMISTRY METHOD 09/15/2025 8:13 AM [facility] ALT (SGPT) 39 10 - 60 unit/L LAB CHEMISTRY METHOD 09/15/2025 8:13 AM [facility] Alkaline Phosphatase 89 42 - 121 unit/L LAB CHEMISTRY METHOD 09/15/2025 8:13 AM [facility] Total Protein 6.4 6.0 - 8.0 g/dL LAB CHEMISTRY METHOD 09/15/2025 8:13 AM EST [facility] Albumin 3.2 3.2 - 5.0 g/dL LAB CHEMISTRY METHOD 09/15/2025 8:13 AM EST [facility] Total Bilirubin 0.5 0.0 - 1.4 mg/dL LAB CHEMISTRY METHOD 09/15/2025 8:13 AM EST [facility] Blood Venous blood specimen / Unknown Venipuncture / Unknown 09/15/2025 6:40 AM EST 09/15/2025 8:13 AM EST Palomo SON LAB BLOOD ORDERABLES Final Result Performing Organization Address City/[facility]/ZIP Co de Phone Number [facility] [address] [place] [address], [place] [phone] * (ABNORMAL) POCT Glucose, blood (09/13/2025 1:58 PM EST) [facility] Glucose POCT 139(H) 70 - 100 mg/dL 09/13/2025 1:59 PM EST [facility] Blood Capillary blood specimen / Unknown 09/13/2025 1:58 PM EST 09/13/2025 2:00 PM EST Generic Provider Poct LAB POINT OF CARE TEST DOCKED DEVICE UNSOLICITED RESULTS Final Result [facility] [address] [place] [address], [place] [phone] from Last 3 Months Insurance [place]ICA[place] [employer] MEDICARE Advance Directives * Full [...] currently active code status orders. Care Teams Bead Wire Insulator Relationship Specialty Start Date End Date Juan Manuel Marquez PA [address] [place] [id number] PCP - General Maintenance Of Way Clerk 07/12/20
--- OUTSIDE RECORDS SUMMARY | 2025-09-17 20:59 | XMS_ITS | Encounter Summary ---
Author Organization [facility] Address [id number] [place] [id number] Care Team Providers Care Parking Meter Mechanic Name Role Phone Juan Manuel Marquez Primary Care Provider [phone] Encounter Details Date Type Department Care Team (Late st Contact Info) Description 02/11/2025 Lab Requisition [facility] - Main Lab [address] [facility] [place] [address] Yoly Farmer, NASIR [address] [facility] [address] [place] [phone] Chronic kidney disease, unspecified Social History Tobacco [...] * Creatine kinase (02/11/2025 5:39 AM EDT) [facility] Total CK 68 22 - 269 unit/L LAB CHEMISTRY METHOD 02/11/2025 11:52 AM [facility] Blood Venous blood specimen / Unknown Venipuncture / Unknown 02/11/2025 5:39 AM EDT 02/11/2025 10:44 AM EDT Yoly Farmer GARMENT FITTER LAB BLOOD ORDERABLES Fin al Result [facility] [address] [place] [address], * (ABNORMAL) Basic metabolic panel (02/11/2025 5:39 AM EDT) [facility] Sodium 139 133 - 145 mmol/L LAB CHEMISTRY METHOD 02/11/2025 11:52 AM [facility] Potassium 4.5 3.5 - 5.5 mmol/L LAB CHEMISTRY METHOD 02/11/2025 11:52 AM [facility] Chloride 106 96 - 110 mmol/L LAB CHEMISTRY METHOD 02/11/2025 11:52 AM [facility] CO2 27 21 - 32 mmol/L LAB CHEMISTRY METHOD 02/11/2025 11:52 AM [facility] Anion Gap 6 3 - 11 LAB CHEMISTRY METHOD 02/11/2025 11:52 AM [facility] Glucose 92 70 - 100 mg/dL LAB CHEMISTRY METHOD 02/11/2025 11:52 AM [facility] BUN 15 5 - 25 mg/dL LAB CHEMISTRY METHOD 02/11/2025 11:52 AM [facility] Creatinine 0.59(L) 0.70 - 1.30 mg/dL LAB CHEMISTRY METHOD 02/11/2025 11:52 AM [facility] eGFR 107 >=60 mL/min/1. 73m2 LAB CHEMISTRY METHOD 02/11/2025 11:52 AM T [facility] Comment:Calculation based on the Chronic Kidney Disease Epidemiology Collaboration (CKD-EPI) equation refit without adjustment for race. BUN/Creatinine Ratio 25.4 LAB CHEMISTRY METHOD 02/11/2025 11:52 AM [facility] Calcium 8.7 8.5 - 10.5 mg/dL LAB CHEMISTRY METHOD 02/11/2025 11:52 AM T [facility] Blood Venous blood specimen / Unknown Venipuncture / Unknown 02/11/2025 5:39 AM EDT 02/11/2025 10:44 AM EDT Yoly Farmer GARMENT FITTER LAB BLOOD ORDERABLES Fin al Result [facility] [address] [place] [address], * (ABNORMAL) Complete blood count (02/11/2025 5:39 AM EDT) WBC 9.6 4.8 - 10.8 K/mcL LAB HEMETOLOGY METHOD 02/11/2025 11:21 AM [facility] RBC 4.00(L) 4.50 - 5.50 M/mcL LAB HEMETOLOGY METHOD 02/11/2025 11:21 AM [facility] Hemoglobin 12.3(L) 13.5 - 17.5 g/dL LAB HEMETOLOGY METHOD 02/11/2025 11:21 AM [facility] Hematocrit 37.0(L) 42.0 - 54.0 % LAB HEMETOLOGY METHOD 02/11/2025 11:21 AM [facility] MCV 92.7 79.0 - 98.0 FL LAB HEMETOLOGY METHOD 02/11/2025 11:21 AM [facility] MCH 30.8 27.0 - 32.0 pcg LAB HEMETOLOGY METHOD 02/11/2025 11:21 AM EDT [facility] MCHC 33.2 32.0 - 37.0 g/dL LAB HEMETOLOGY METHOD 02/11/2025 11:21 AM EDT [facility] RDW 13.0 11.0 - 15.0 % LAB HEMETOLOGY METHOD 02/11/2025 11:21 AM EDT [facility] Platelets 291 130 - 400 K/mcL LAB HEMETOLOGY METHOD 02/11/2025 11:21 AM EDT [facility] MPV 10.0 7.0 - 11.0 FL LAB HEMETOLOGY METHOD 02/11/2025 11:21 AM EDT [facility] NRBC 0.0 <1.0 % LAB HEMETOLOGY METHOD 02/11/2025 11:21 AM EDT [facility] NRBC Absolute 0.00 <0.10 K/mcL LAB HEMETOLOGY METHOD 02/11/2025 11:21 AM T [facility] Blood Venous blood specimen / Unknown Venipuncture / Unknown 02/11/2025 5:39 AM EDT 02/11/2025 10:44 AM EDT Yoly Farmer GARMENT FITTER LAB BLOOD ORDERABLES Fin al Result [facility] [address] [place] [address], documented in this encounter Visit Diagnoses Diagnosis [...] documented as of this encounter Care Teams Parking Meter Mechanic Relationship Specialty Start Date End Date Juan Manuel Marquez PA [address] [place] [address] PCP - General Manager Restaurant 07/12/20 documented as of this encounter
[2025-09-17] MEDS: Thiamine HCL 200 MG in 0.9 % Sodium Chloride 100 ML 204 MG IV (21:28)
[2025-09-18] VITALS (7 sets, daily range): BP systolic 105–126; BP diastolic 53–68; PULSE 64–82; RESP 16–20; TEMP 36.2–37.2; O2SAT 96–100
[2025-09-18] MEDS: Thiamine HCL 200 MG in 0.9 % Sodium Chloride 100 ML 204 MG IV ×3 (06:34→21:23)
[2025-09-18] MEDS: Metoprolol Succinate ER 25 MG TAB.ER.24H PO (07:46)
[2025-09-18] MEDS: Aspirin Enteric Coated 81 MG TABLET.DR PO (07:47)
[2025-09-18] MEDS: 0.9 % Sodium Chloride Flush 3 ML SYRINGE IVFLUSH ×3 (07:50→21:23)
[2025-09-18 09:25] LABS: Chlamydia pneumoniae PCR Not Detected (Not Detect.); Coronavirus 229E PCR Not Detected (Not Detect.); Coronavirus HKU1 PCR Not Detected (Not Detect.); Coronavirus NL63 PCR Not Detected (Not Detect.); Coronavirus OC43 PCR Not Detected (Not Detect.); RSV PCR Not Detected (Not Detect.); Rhino/Enterovirus PCR Not Detected (Not Detect.)
[2025-09-18 10:03] LABS: Influenza A H1 PCR Not Detected (Not Detect.); Influenza A H1-2009 PCR Not Detected (Not Detect.); Influenza A H3 PCR Not Detected (Not Detect.); SARS-CoV-2 PCR Not Detected (Not Detect.)
--- NOTE | 2025-09-18 11:49 | MHC.RECOVRN ---
Consult received by Addiction Medicine for pt with alcohol use. Intention was to discuss recovery support and resources.? On approach pt was resting with eyes closed, respirations even and unlabored, no signs or symptoms of acute distress, restlessness or diaphoresis noted. Pt did not respond to name being called several times and was allowed to continue to rest.? Pt is currently on a phenobarbital taper and CIWA scores have remained below 4 for the last 12 hours.? ACS team to continue to follow, will revisit pt later today to complete Recovery/Bh assessment, and are available as needed for ongoing support
[2025-09-18] MEDS: Throat Lozenge, Medicated LOZENGE 1 LOZENGE MUCOUS MEM ×2 (14:12→22:42)
--- NOTE | 2025-09-18 15:53 | P.PNIM_ITS ---
Subjective Subjective Date of Service: 09/18/25 Interval History: Alcohol withdrawal Review of Systems seems improving Review of Systems: Yes all other systems are reviewed and are negative Physical Exam 2 Exam: Exam: Appearance: Alert.? Oriented X3 .?anxious /mild treemers . cvs: rrr, [id number] , no murmur res: clear to auscultation ,no rhonchii or wheezing abd: no rebound or guarding ,nt, bs present. ext pulses present , no cyanosis. neuro: axo3 , nonfocal. Vital Signs: Vital Signs: Last Vital Signs Temp 97.2 F 09/18/25 15:18 Pulse 80 09/18/25 15:18 Resp 18 09/18/25 15:18 BP 123/65 09/18/25 15:18 Pulse Ox 98 09/18/25 15:18 O2 Del Method Room Air 09/18/25 15:18 BMI result Body Mass Index 26.1 Objective Data Active Medications Acetaminophen (Acetaminophen 325 Mg Tablet) 650 mg PO Q6H PRN PRN Reason: Pain, Mild 1-3,fever,headache Acetaminophen (Acetaminophen 325 Mg Tablet) 650 mg PO Q6H PRN PRN Reason: Pain, Mild 1-3,fever,headache Aspirin (Aspirin Enteric Coated 81 Mg Tablet.Dr) 81 mg PO DAILY [facility] Last Admin: 09/18/25 07:47 Dose: 81 mg Documented By: MELITA Atorvastatin Calcium (Atorvastatin Calcium 80 Mg Tablet) 80 mg PO BEDTIME [facility] Last Admin: 09/17/25 21:27 Dose: 80 mg Documented By: HARLEY Benzocaine (Throat Lozenge, Medicated Lozenge) 1 lozenge MUCOUS MEM Q2H PRN PRN Reason: Sore Throat Last Admin: 09/18/25 14:12 Dose: 1 lozenge Documented By: MELITA Calcium Carbonate (Calcium Carbonate 750 Mg Tab.Chew) 750 mg PO Q4H PRN PRN Reason: Heartburn Enoxaparin Sodium (Enoxaparin Sodium 40 Mg/0.4 Ml Syringe) 40 mg SUBCUT Q24H [facility] Last Admin: 09/18/25 14:07 Dose: 40 mg Documented By: MELITA Folic Acid (Folic Acid 1 Mg Tablet) 1 mg PO DAILY [facility] Last Admin: 09/18/25 07:47 Dose: 1 mg Documented By: MELITA Gabapentin (Gabapentin 300 Mg Capsule) 300 mg PO BEDTIME [facility] Last Admin: 09/17/25 21:27 Dose: 300 mg Documented By: HARLEY Guaifenesin (Guaifenesin 200 Mg/10 Ml 10 Ml Liquid) 10 ml PO Q4H PRN PRN Reason: Cough Thiamine HCl 200 mg/ Sodium (Chloride) 102 mls @ 204 mls/hr IV Q8H [facility] Last Infusion: 09/18/25 14:53 Dose: Infused Documented By: MELITA Ceftriaxone Sodium 1 gm/ (Sodium Chloride) 50 mls @ 100 mls/hr IV Q24H [facility] Last Infusion: 09/17/25 18:19 Dose: Infused Documented By: APPLE Magnesium Hydroxide (Milk Of Magnesia 30 Ml Oral.Susp) 30 ml PO DAILY PRN PRN Reason: Constipation Melatonin (Melatonin 3 Mg Tablet) 6 mg PO BEDTIME PRN PRN Reason: Insomnia Metoprolol Succinate (Metoprolol Succinate Er 25 Mg Tab.Er.24h) 25 mg PO DAILY [facility]; Protocol Last Admin: 09/18/25 07:46 Dose: 25 mg Documented By: MELITA Omeprazole (Omeprazole 20 Mg Capsule.Dr) 20 mg PO DAILY@0630 PRN PRN Reason: Acid Reflux Pharmacy Consult (Consult Rx Etoh Phenob Im/Po) 1 each MISCELLANE ONCE PRN; Protocol PRN Reason: Consult order Phenobarbital (Phenobarbital 15 Mg Tablet) 45 mg PO BID [facility]; Protocol Stop: 09/19/25 09:01 Last Admin: 09/18/25 07:46 Dose: 45 mg Documented By: MELITA Phenobarbital (Phenobarbital 15 Mg Tablet) 15 mg PO BID [facility]; Protocol Stop: 09/21/25 09:01 Phenobarbital (Phenobarbital 15 Mg Tablet) 15 mg PO DAILY [facility]; Protocol Stop: 09/23/25 09:01 Sodium Chloride (0.9 % Sodium Chloride Flush 3 Ml Syringe) [facility] Last Admin: 09/18/25 07:50 Dose: 3 ml Documented By: MELITA Tamsulosin HCl (Tamsulosin Hcl 0.4 Mg Capsule) 0.4 mg PO BEDTIME [facility] Last Admin: 09/17/25 21:27 Dose: 0.4 mg Documented By: HO.MASEREN Thiamine HCl (Thiamine Hcl 100 Mg Tablet) 100 mg PO DAILY [facility] Last Admin: 09/18/25 07:46 Dose: 100 mg Documented By: MELITA Ticagrelor (Ticagrelor 90 Mg Tablet) 90 mg PO BID [facility] Last Admin: 09/18/25 07:46 Dose: 90 mg Documented By: MELITA Trazodone HCl (Trazodone Hcl 50 Mg Tablet) 150 mg PO BEDTIME PRN PRN Reason: Sleep Valsartan (Valsartan 40 Mg Tablet) 20 mg PO DAILY [facility]; Protocol Last Admin: 09/18/25 07:47 Dose: 20 mg Documented By: MELITA Labs 09/17/25 10:45 09/17/25 10:45 Labs: Laboratory Results - last 24 hr 09/17/25 18:12 Respiratory Panel Peres See Note Adenovirus (Rapid PCR) Not Detected B.pert (TEM-PCR) Not Detected B.parapertussis DNA PCR Not Detected C. pneumoniae DNA (PCR) Not Detected Coronavirus OC43 (PCR) Not Detected Coronavirus HKU1 (PCR) Not Detected Coronavirus 229E (PCR) Not Detected Coronavirus NL63 (PCR) Not Detected Human Metapneumovir PCR Not Detected Influenza A (RT-PCR) Not Detected Influenza A (H1) PCR Not Detected Influ A (H1/09) PCR Not Detected Influenza A (H3) PCR Not Detected Influenza B (RT-PCR) Not Detected M. pneumoniae (PCR) Not Detected Parainfluenza 1 (PCR) Not Detected Parainfluenza 2 (PCR) Not Detected Parainfluenza 3 (PCR) Not Detected Parainfluenza 4 (PCR) Not Detected RSV (PCR) Not Detected Entero/Rhino (PCR) Not Detected SARS-CoV-2 RNA (RT-PCR) Not Detected Microbiology Microbiology Results: Microbiology 09/17/25 11:36 Urine Culture - Final Urine clean catch - Clean Catch Midstream No growth. Assessment and Plan (1) Rhabdomyolysis: Status: Acute (2) Acute urinary retention: Status: Acute (3) Alcohol use disorder: Status: Acute Plan 64-year-old male with a history of alcohol use disorder presents to the emergency room after unknown downtime at home. Patient states he fell and was unable to get up after a drinking binge. He is unclear the duration of his downtime. In the emergency room workup consistent with rhabdomyolysis along with acute alcohol withdrawal 1. Acute rhabdomyolysis due to fall [place] 51662 to 797, dc IV fluids, push by mouth fluids - stable renal function - recommend ambulation out of bed to chair, consult PT of unsteady gait 2. Acute alcohol withdrawal - continue phenobarb protocol, thiamine and folic acid -seizure precautions, seen by Addiction Team patient thinking about inpatient treatment at [place]. 3. generalized pain due to fall as needed analgesics /PT/ stable potassium and magnesium. Continue home dose of gabapentin. 4. Urinary retention continue [place] catheter Flomax 0.4 mg added, patient has issues with voiding in the past takes a long time to empty bladder ,recommend outpatient urology follow-up and voiding trial in 2 weeks. 5. Tobacco use disorder Counseling done, place on nicotine patch, cough medication. Lovenox Full code ongoing need : inpatient hospitalization to treat acute rhabdomyolysis and phenobarb protocol for alcohol withdrawal, maintain on CIWA scale. This can not be achieved in less acute setting. Quality Stroke Does the patient have a stroke diagnosis?: No VTE Prior VTE?: No VTE Risk Level:: Medical - moderate - high VTE Device Contraindication: N/A - Device Ordered VTE Drug Contraindication: N/A - Med Ordered
--- NOTE | 2025-09-18 16:24 | MHC.CM.PN ---
Addendum entered by Karen Carmona 09/20/25 08:22: [facility] IS OFFERING HOWEVER THEY HAVE NOT CONFIRMED ACCEPTANCE FOR TODAY CM AWAITING RESPONSE ONCE SNF REVIEWS [facility]WA SCORES Addendum entered by Karen Carmona 09/19/25 14:56: CM MET WITH PT TO DISCUSS DCP PT AWARE STR HAS BEEN RECOMMENDED HE REPORTS BEING AGREEABLE, PER DISCUSSION, REFERRALS WILL BE MADE TO CONTRACTED SNFS, NO NAMED PREFERENCE Original Note: PT REPORTS HE LIVES ALONE AND IS INDEPENDENT WITH SELF CARE HE HAS A STRANNER ONCE PER WEEK FOR HOUSEKEEPING HE HAS A CANE, WALKER AND SCOOTER FOR DME DECLINES HCP PCP: ALENA RITCHIE AT [facility] DELIVERED DCP: HOME VIA LYFT VS C SHUTTLE
--- NOTE | 2025-09-18 18:00 | MHC.RECOVRN ---
TW met with pt in after consult received by Addiction Medicine for AUD. On approach pt was sitting in bed, watching TV, in no apparent distress, and was agreeable to meeting with TW Pt denies withdrawal symptoms except for a little weakness He reports he drinks out of boredom and feels he would benefit from attending a program. Pt also expressed interest in starting Naltrexone and is open to a referral for recovery coaching TW to return in the morning to complete Recovery/BH assessment as pt asked to be excused to use the bathroom . ACS team available as needed.
[2025-09-18] MEDS: guaiFENesin 200 MG/10 ML 10 ML LIQUID PO (22:42)
[2025-09-18 23:44] LABS: MANUAL DIFF FLAG NO
[2025-09-18 23:46] LABS: Hematocrit 33.6 % (42.0-52.0); Hemoglobin 11.6 g/dl (14.0-18.0); Imm Gran Abs Auto 0.10 X10*3/uL (0.00-0.03); Imm Gran Pct Auto 1.2 % (0.0-0.4); Lymphocytes Absolute Auto 1.3 X10*3/uL (1.2-4.9); Mean Corpuscular HGB Conc 34.5 g/dl (31.0-36.0); Mean Corpuscular Hemoglobin 31.3 pg (27.0-33.0); Mean Corpuscular Volume 90.6 fL (80.0-98.0); NRBC Abs Auto 0.000 X10*3/uL (0.0-0.012); NRBC Pct Auto 0.0 /100WBC (0.0-0.2); Platelet Count 221 X10*3/uL (160-400); Red Blood Count 3.71 X10*6/uL (4.60-5.80); White Blood Count 8.3 X10*3/uL (4.8-10.8)
[2025-09-19 00:03] LABS: Anion Gap 13 (12-20); Blood Urea Nitrogen 12 mg/dL (9-16); Calcium 8.2 mg/dL (8.4-10.2); Carbon Dioxide 21 mmol/L (22-29); Chloride 111 mmol/L (96-108); Creatinine Clr Calc Pharmacy 82.4; Estimated Glomerular Filt Rate > 60; Potassium 4.1 mmol/L (3.3-5.1); Sodium 141 mmol/L (135-145)
[2025-09-19 03:33] VITALS: BP 110/56; PULSE 67; RESP 18; TEMP 36.4; O2SAT 95
[2025-09-19 04:55] LABS: Appearance Urine Clear; Glucose Urine UA Negative (Negative); PH 5.5 (5.0-9.0); Specific Gravity - Urine 1.015 (1.005-1.025); UMIC TRIGGER UACC YES
[2025-09-19] MEDS: Thiamine HCL 200 MG in 0.9 % Sodium Chloride 100 ML 204 MG IV ×3 (05:22→21:03)
[2025-09-19 05:48] LABS: UACC Culture Trigger YES
[2025-09-19 08:00] VITALS: BP 123/62; PULSE 65; RESP 20; TEMP 36.3; O2SAT 97
[2025-09-19] MEDS: Aspirin Enteric Coated 81 MG TABLET.DR PO (09:33)
[2025-09-19] MEDS: Lidocaine 4 % Patch ADH..PATCH 2 PATCH TRANSDERMA (09:34)
[2025-09-19] MEDS: Metoprolol Succinate ER 25 MG TAB.ER.24H PO (09:34)
[2025-09-19] MEDS: 0.9 % Sodium Chloride Flush 3 ML SYRINGE IVFLUSH ×3 (09:37→21:04)
[2025-09-19 11:58] VITALS: BP 110/55; PULSE 80; RESP 20; TEMP 36.6; O2SAT 98
--- NOTE | 2025-09-19 13:15 | HO.PM.IMPN ---
Subjective Subjective Date of Service: 09/19/25 Interval History: Alcohol withdrawal Review of Systems seems improving has ch pains from many years Review of Systems: Yes all other systems are reviewed and are negative Physical Exam Exam: Exam: Appearance: Alert.? Oriented X3 .?anxious /mild treemers . cvs: rrr, [id number] , no murmur res: clear to auscultation ,no rhonchii or wheezing abd: no rebound or guarding ,nt, bs present. ch back and right hip pain-able to ambulate to the chair ,feels better after getting oob ext pulses present , no cyanosis. neuro: axo3 , nonfocal. Vital Signs: Vital Signs: Last Vital Signs Temp 97.9 F 09/19/25 11:58 Pulse 80 09/19/25 11:58 Resp 20 09/19/25 11:58 BP 110/55 L 09/19/25 11:58 Pulse Ox 98 09/19/25 11:58 O2 Del Method Room Air 09/19/25 11:58 BMI result Body Mass Index 26.1 Objective Data Active Medications Acetaminophen (Acetaminophen 325 Mg Tablet) 650 mg PO Q6H PRN PRN Reason: Pain, Mild 1-3,fever,headache Acetaminophen (Acetaminophen 325 Mg Tablet) 650 mg PO Q6H PRN PRN Reason: Pain, Mild 1-3,fever,headache Aspirin (Aspirin Enteric Coated 81 Mg Tablet.) 81 mg PO DAILY [facility] Last Admin: 09/19/25 09:33 Dose: 81 mg Documented By: MELITA Atorvastatin Calcium (Atorvastatin Calcium 80 Mg Tablet) 80 mg PO BEDTIME [facility] Last Admin: 09/18/25 21:23 Dose: 80 mg Documented By: HARLEY Benzocaine (Throat Lozenge, Medicated Lozenge) 1 lozenge MUCOUS MEM Q2H PRN PRN Reason: Sore Throat Last Admin: 09/18/25 22:42 Dose: 1 lozenge Documented By: HARLEY Calcium Carbonate (Calcium Carbonate 750 Mg Tab.Chew) 750 mg PO Q4H PRN PRN Reason: Heartburn Enoxaparin Sodium (Enoxaparin Sodium 40 Mg/0.4 Ml Syringe) 40 mg SUBCUT Q24H [facility] Last Admin: 09/18/25 14:07 Dose: 40 mg Documented By: MELITA Folic Acid (Folic Acid 1 Mg Tablet) 1 mg PO DAILY [facility] Last Admin: 09/19/25 09:34 Dose: 1 mg Documented By: MELITA Gabapentin (Gabapentin 300 Mg Capsule) 300 mg PO BEDTIME [facility] Last Admin: 09/18/25 21:23 Dose: 300 mg Documented By: HARLEY Guaifenesin (Guaifenesin 200 Mg/10 Ml 10 Ml Liquid) 10 ml PO Q4H PRN PRN Reason: Cough Last Admin: 09/18/25 22:42 Dose: 10 ml Documented By: HARLEY Hydromorphone HCl (Hydromorphone Hcl 1 Mg/Ml Syringe) 0.5 mg IVPUSH Q3H PRN; Protocol PRN Reason: Pain, Severe (Pain Scale 7-10) Last Admin: 09/18/25 22:41 Dose: 0.5 mg Documented By: HARLEY Thiamine HCl 200 mg/ Sodium (Chloride) 102 mls @ 204 mls/hr IV Q8H [facility] Last Infusion: 09/19/25 05:52 Dose: Infused Documented By: HARLEY Ceftriaxone Sodium 1 gm/ (Sodium Chloride) 50 mls @ 100 mls/hr IV Q24H [facility] Last Infusion: 09/18/25 18:10 Dose: Infused Documented By: MELITA Lidocaine (Lidocaine 4 % Patch Adh..Patch) 2 patch TRANSDERMA DAILY [facility]; Protocol Last Admin: 09/19/25 09:34 Dose: 2 patch Documented By: MELITA Magnesium Hydroxide (Milk Of Magnesia 30 Ml Oral.Susp) 30 ml PO DAILY PRN PRN Reason: Constipation Melatonin (Melatonin 3 Mg Tablet) 6 mg PO BEDTIME PRN PRN Reason: Insomnia Metoprolol Succinate (Metoprolol Succinate Er 25 Mg Tab.Er.24h) 25 mg PO DAILY [facility]; Protocol Last Admin: 09/19/25 09:34 Dose: 25 mg Documented By: MELITA Omeprazole (Omeprazole 20 Mg Capsule.Dr) 20 mg PO DAILY@0630 PRN PRN Reason: Acid Reflux Pharmacy Consult (Consult Rx Etoh Phenob Im/Po) 1 each MISCELLANE ONCE PRN; Protocol PRN Reason: Consult order Phenobarbital (Phenobarbital 15 Mg Tablet) 15 mg PO BID [facility]; Protocol Stop: 09/21/25 09:01 Phenobarbital (Phenobarbital 15 Mg Tablet) 15 mg PO DAILY [facility]; Protocol Stop: 09/23/25 09:01 Sodium Chloride (0.9 % Sodium Chloride Flush 3 Ml Syringe) 3 ml IVFLUSH QSHIFT [facility] Last Admin: 09/19/25 09:37 Dose: 3 ml Documented By: MELITA Tamsulosin HCl (Tamsulosin Hcl 0.4 Mg Capsule) 0.4 mg PO BEDTIME [facility] Last Admin: 09/18/25 21:23 Dose: 0.4 mg Documented By: HARLEY Thiamine HCl (Thiamine Hcl 100 Mg Tablet) 100 mg PO DAILY [facility] Last Admin: 09/19/25 09:34 Dose: 100 mg Documented By: MELITA Ticagrelor (Ticagrelor 90 Mg Tablet) 90 mg PO BID [facility] Last Admin: 09/19/25 09:34 Dose: 90 mg Documented By: MELITA Trazodone HCl (Trazodone Hcl 50 Mg Tablet) 150 mg PO BEDTIME PRN PRN Reason: Sleep Last Admin: 09/18/25 22:42 Dose: 150 mg Documented By: HARLEY Valsartan (Valsartan 40 Mg Tablet) 20 mg PO DAILY [facility]; Protocol Last Admin: 09/19/25 09:33 Dose: 20 mg Documented By: MELITA Labs 09/18/25 23:40 09/18/25 23:40 Labs: Laboratory Results - last 24 hr 09/18/25 09/19/25 23:40 04:43 MCV 90.6 MCH 31.3 MCHC 34.5 RDW 13.2 Plt Count 221 MPV 9.5 Immature Gran % (Auto) 1.2 H Neut % (Auto) 71.3 Lymph % (Auto) 15.7 L [place] % (Auto) 6.4 Eos % (Auto) 4.8 H Baso % (Auto) 0.6 Lymph # (Auto) 1.3 [place] # (Auto) 0.5 Eos # (Auto) 0.4 Baso # (Auto) 0.1 Abs Immat Gran (auto) 0.10 H Absolute Neuts (auto) 6.0 Absolute Nucleated RBC 0.000 Nucleated RBC % (auto) 0.0 Anion Gap 13 Estim Creat Clear Calc 82.4 Estimated GFR > 60 Random Glucose 110 Lactic Acid 1.0 Calcium 8.2 L Urine Color Yellow Urine Appearance Clear Urine pH 5.5 Ur Specific [place] 1.015 Urine Protein 30 (1+) H Urine Glucose (UA) Negative Urine Ketones Negative Urine Blood Moderate (2+) H Urine Nitrite Negative Ur Leukocyte Esterase Small (1+) H Urine RBC 11-20 H Urine WBC 11-20 H Ur Squamous Epith Cells 0-2 Urine Bacteria None Seen Hyaline Casts 0-2 Microbiology Microbiology Results: Microbiology 09/17/25 11:36 Urine Culture - Final Urine clean catch - Clean Catch Midstream No growth. Assessment and Plan (1) ETOH abuse: Status: Acute Assessment and Plan: 65 y/o M heavy daily alcohol use presenting to the ED 2?3 days after last drink with tremors, nausea, confusion, and inability to ambulate. Physical exam notable for tongue fasciculations and asterixis. Differential includes alcohol withdrawal (possible complicated), Wernicke?s encephalopathy, dehydration/malnutrition, viral upper respiratory infection, and sequelae of recent head trauma. Comprehensive ED diagnostic workup initiated. Alcohol withdrawal: Continue phenobarb protocol, monitor CIWA, addiction consult, thiamine, folic acid. Patient was strongly advised to abstain from alcohol abd pain Diffuse abdominal discomfort and persistent nausea without vomiting; likely multifactorial (withdrawal, possible gastritis, dehydration). ct abd seems as above no acute abnormality. plan: improved po ppi tolertaing diet Viral upper respiratory symptoms Assessment: Cough and rhinorrhea without dyspnea or chest pain; viral etiology possible. Plan: Supportive care; respiratory viral panel-negative Monitor closely Recent fall: head ct negative Grossly no bruises on the head Urinary retention: Indwelling urinary catheter,? bph keep rose ,flomax ? UTI-patient was [facility] on Cefdinir -currently on ceftriaxone. backpain/hip pain -pain control with tylenol ,lidodaine patch,tramdol,short course of steriods. HTn: Continue beta-gabriela and valsartan Cad: Continue beta-gabriela, Brilinta, statin Hlp: Continue statin. Generalized weak: PT evaluation-str DVT prophylaxis with subQ Lovenox ongoing need for stay : awiting placement. Quality Stroke Does the patient have a stroke diagnosis?: No VTE Prior VTE?: No VTE Risk Level:: Medical - moderate - high VTE Device Contraindication: N/A - Device Ordered VTE Drug Contraindication: N/A - Med Ordered
--- NOTE | 2025-09-19 14:10 | MHC.RECOVRN ---
Addendum entered by Karla Montano RN 09/19/25 14:23: consult sent to [facility], appt to be made for intake during business hours Original Note: Consult received by Addiction Medicine for pt with AUD.? Recovery/BH assessment complete. Please see for additional details Pt accepted referrals CSS placement as well Naltrexone for JONI which will be discussed with Addiction Provider. He declined other interventions at this time.?? Referrals faxed to [facility] and [facility].? Pt was provided TWs contact information should questions or concerns arise.?
--- NOTE | 2025-09-19 14:26 | MHC.RECOVRN ---
Consult received by Addiction Medicine for pt with AUD.? Recovery/BH assessment complete. Please see for additional details Pt interested in JONI upon discharge, which? will be discussed with Addiction Provider. He declined other interventions or out pt appt for AUD at this time.? Pt was provided TWs contact information should questions or concerns arise.? [facility] team available as needed for ongoing support and resources
[2025-09-19 16:00] VITALS: BP 112/56; PULSE 74; RESP 20; TEMP 36.9; O2SAT 97
[2025-09-19 20:00] VITALS: BP 114/60; PULSE 83; RESP 18; TEMP 36.6; O2SAT 100
[2025-09-19] MEDS: Throat Lozenge, Medicated LOZENGE 1 LOZENGE MUCOUS MEM (21:03)
[2025-09-19] MEDS: guaiFENesin 200 MG/10 ML 10 ML LIQUID PO (21:03)
[2025-09-19 23:44] VITALS: BP 159/74; PULSE 80; RESP 16; TEMP 36.4; O2SAT 98
[2025-09-20 03:39] VITALS: BP 119/64; PULSE 68; RESP 16; TEMP 36; O2SAT 95
[2025-09-20] MEDS: Thiamine HCL 200 MG in 0.9 % Sodium Chloride 100 ML 204 MG IV ×2 (05:51→15:01)
[2025-09-20 07:29] VITALS: BP 135/67; PULSE 66; RESP 20; TEMP 36.3; O2SAT 97
[2025-09-20] MEDS: Aspirin Enteric Coated 81 MG TABLET.DR PO (09:12)
[2025-09-20] MEDS: Metoprolol Succinate ER 25 MG TAB.ER.24H PO (09:14)
[2025-09-20] MEDS: Lidocaine 4 % Patch ADH..PATCH 2 PATCH TRANSDERMA (09:15)
[2025-09-20] MEDS: 0.9 % Sodium Chloride Flush 3 ML SYRINGE IVFLUSH ×2 (09:15→22:44)
--- NOTE | 2025-09-20 10:17 | HO.ADDICT_ITS ---
History of Present Illness Date of Service: 09/20/2025 Chief Complaint: Alcohol Withdrawals Reason for Consult: AUD Sources of Information: patient interviewed and chart reviewed HPI Narrative: Patient is a 65 year old male medically admitted late last week with alcohol withdrawal--tremor, confusion and difficulty ambulating CIWA 13 while in ED--phenobarbital initiated. Seen by site lead over the weekend--notes reviewed Today, patient seen in room 467. He is awake, alert, pleasant and engaged in interview. He reports feeling happy that he is shaved and washed up. Sitting in recliner, watching TV. Discussed AUD and treatment history. [facility] [address] [facility]. [facility], but states that he has not been taking it consistently-- I have almost a full bottle at home . He reports withdrawal is much improved, but still feels weak. Denies nausea, loose stools, tremor. He appears overall comfortable. Pending STR transfer. Review of Systems Constitutional: Reports as per HPI and Reports no additional constitutional complaints Diagnostics Vital Signs (24Hr): Vital Signs - 24 hr 09/19/25 11:58 09/19/25 16:00 09/19/25 20:00 Temperature 97.9 F 98.5 F 97.8 F Pulse Rate 80 74 83 Respiratory Rate 20 20 18 Blood Pressure 110/55 L 112/56 L 114/60 Pulse Oximetry 98 97 100 Oxygen Delivery Method Room Air Room Air Room Air 09/19/25 23:44 09/20/25 03:39 09/20/25 07:29 Temperature 97.5 F 96.8 F 97.3 F Pulse Rate 80 68 66 Respiratory Rate 16 16 20 Blood Pressure 159/74 H 119/64 135/67 Pulse Oximetry 98 95 97 Oxygen Delivery Method Room Air Room Air Room Air BMI result Body Mass Index 26.1 Labs 09/18/25 23:40 09/18/25 23:40 Labs: Laboratory Results - last 48 hr 09/18/25 09/19/25 23:40 04:43 WBC 8.3 RBC 3.71 L Hgb 11.6 L Hct 33.6 L MCV 90.6 MCH 31.3 MCHC 34.5 RDW 13.2 Plt Count 221 MPV 9.5 Immature Gran % (Auto) 1.2 H Neut % (Auto) 71.3 Lymph % (Auto) 15.7 L [place] % (Auto) 6.4 Eos % (Auto) 4.8 H Baso % (Auto) 0.6 Lymph # (Auto) 1.3 [place] # (Auto) 0.5 Eos # (Auto) 0.4 Baso # (Auto) 0.1 Abs Immat Gran (auto) 0.10 H Absolute Neuts (auto) 6.0 Absolute Nucleated RBC 0.000 Nucleated RBC % (auto) 0.0 Sodium 141 Potassium 4.1 Chloride 111 H Carbon Dioxide 21 L Anion Gap 13 BUN 12 Creatinine 0.70 Estim Creat Clear Calc 82.4 Estimated GFR > 60 Random Glucose 110 Lactic Acid 1.0 Calcium 8.2 L Urine Color Yellow Urine Appearance Clear Urine pH 5.5 Ur Specific [place] 1.015 Urine Protein 30 (1+) H Urine Glucose (UA) Negative Urine Ketones Negative Urine Blood Moderate (2+) H Urine Nitrite Negative Ur Leukocyte Esterase Small (1+) H Urine RBC 11-20 H Urine WBC 11-20 H Ur Squamous Epith Cells 0-2 Urine Bacteria None Seen Hyaline Casts 0-2 Imaging Radiology Impressions: ITS Impressions Chest X-Ray 09/17/25 11:02 IMPRESSION: No evidence for acute disease in the chest. Electronically signed by: Maribell Zamudio MD 09/17/2025 11:23 AM EST RP Abdomen/Pelvis CT 09/17/25 11:56 IMPRESSION: The bladder is partially distended with heterogeneous material that raises concern for blood products. Infection is also the differential. Mild hepatic steatosis. Diverticulosis is present in the descending and sigmoid colon without evidence of infection. Fleischner guidelines were followed. Electronically signed by: Bernardo Rich MD 09/17/2025 12:21 PM EST RP Head CT 09/17/25 16:42 IMPRESSION: No acute intracranial process seen. Electronically signed by: Rhett Sim MD 09/17/2025 05:07 PM EST RP Mental Status Exam Mental Status Exam Level of Consciousness: Awake, Appropriate and Alert Patient Behavior: Appropriate and Talkative Affect Description: Calm Speech Pattern: Clear Thought Process: Intact Thought Content: positive for Intact and positive for [employer] Judgement: Fair Medications Medications Current Medications Acetaminophen (Acetaminophen 325 Mg Tablet) 975 mg PO Q6H [facility] Last Admin: 09/20/25 09:12 Dose: 975 mg Aspirin (Aspirin Enteric Coated 81 Mg Tablet.) 81 mg PO DAILY [facility] Last Admin: 09/20/25 09:12 Dose: 81 mg Atorvastatin Calcium (Atorvastatin Calcium 80 Mg Tablet) 80 mg PO BEDTIME [facility] Last Admin: 09/19/25 21:04 Dose: 80 mg Benzocaine (Throat Lozenge, Medicated Lozenge) 1 lozenge MUCOUS MEM Q2H PRN PRN Reason: Sore Throat Last Admin: 09/19/25 21:03 Dose: 1 lozenge Calcium Carbonate (Calcium Carbonate 750 Mg Tab.Chew) 750 mg PO Q4H PRN PRN Reason: Heartburn Enoxaparin Sodium (Enoxaparin Sodium 40 Mg/0.4 Ml Syringe) 40 mg SUBCUT Q24H [facility] Last Admin: 09/19/25 14:40 Dose: 40 mg Folic Acid (Folic Acid 1 Mg Tablet) 1 mg PO DAILY [facility] Last Admin: 09/20/25 09:14 Dose: 1 mg Gabapentin (Gabapentin 300 Mg Capsule) 300 mg PO BEDTIME [facility] Last Admin: 09/19/25 21:03 Dose: 300 mg Guaifenesin (Guaifenesin 200 Mg/10 Ml 10 Ml Liquid) 10 ml PO Q4H PRN PRN Reason: Cough Last Admin: 09/19/25 21:03 Dose: 10 ml Thiamine HCl 200 mg/ Sodium (Chloride) 102 mls @ 204 mls/hr IV Q8H [facility] Last Infusion: 09/20/25 06:24 Dose: Infused Ceftriaxone Sodium 1 gm/ (Sodium Chloride) 50 mls @ 100 mls/hr IV Q24H [facility] Last Infusion: 09/19/25 18:12 Dose: Infused Lidocaine (Lidocaine 4 % Patch Adh..Patch) 2 patch TRANSDERMA DAILY [facility]; Protocol Last Admin: 09/20/25 09:15 Dose: 2 patch Magnesium Hydroxide (Milk Of Magnesia 30 Ml Oral.Susp) 30 ml PO DAILY PRN PRN Reason: Constipation Melatonin (Melatonin 3 Mg Tablet) 6 mg PO BEDTIME PRN PRN Reason: Insomnia Metoprolol Succinate (Metoprolol Succinate Er 25 Mg Tab.Er.24h) 25 mg PO DAILY [facility]; Protocol Last Admin: 09/20/25 09:14 Dose: 25 mg Omeprazole (Omeprazole 20 Mg Capsule.Dr) 20 mg PO DAILY@0630 PRN PRN Reason: Acid Reflux Pharmacy Consult (Consult Rx Etoh Phenob Im/Po) 1 each MISCELLANE ONCE PRN; Protocol PRN Reason: Consult order Phenobarbital (Phenobarbital 15 Mg Tablet) 15 mg PO BID [facility]; Protocol Stop: 09/21/25 09:01 Last Admin: 09/20/25 09:12 Dose: 15 mg Phenobarbital (Phenobarbital 15 Mg Tablet) 15 mg PO DAILY [facility]; Protocol Stop: 09/23/25 09:01 Prednisone (Prednisone 20 Mg Tablet) 40 mg PO DAILY [facility] Last Admin: 09/20/25 09:14 Dose: 40 mg Sodium Chloride (0.9 % Sodium Chloride Flush 3 Ml Syringe) 3 ml IVFLUSH QSHIFT [facility] Last Admin: 09/20/25 09:15 Dose: 3 ml Tamsulosin HCl (Tamsulosin Hcl 0.4 Mg Capsule) 0.4 mg PO BEDTIME [facility] Last Admin: 09/19/25 21:03 Dose: 0.4 mg Thiamine HCl (Thiamine Hcl 100 Mg Tablet) 100 mg PO DAILY [facility] Last Admin: 09/20/25 09:14 Dose: 100 mg Ticagrelor (Ticagrelor 90 Mg Tablet) 90 mg PO BID [facility] Last Admin: 09/20/25 09:12 Dose: 90 mg Tramadol HCl (Tramadol Hcl 50 Mg Tablet) 25 mg PO Q6H PRN PRN Reason: Pain, Severe (Pain Scale 7-10) Trazodone HCl (Trazodone Hcl 50 Mg Tablet) 150 mg PO BEDTIME PRN PRN Reason: Sleep Last Admin: 09/18/25 22:42 Dose: 150 mg Valsartan (Valsartan 40 Mg Tablet) 20 mg PO DAILY [facility]; Protocol Last Admin: 09/20/25 09:12 Dose: 20 mg Allergies Allergies Allergy/AdvReac Type Severity Reaction Status Date / Time No Known Allergies (No Known Allergy Verified 09/17/25 09:58 Allergies*) Assessment & Plan Assessment & Plan (1) Alcohol use disorder: Status: Acute Code(s): F10.90 - Alcohol use, unspecified, uncomplicated Assessment and Plan: * withdrawal much improved, including mentation * transition to PO thiamine at discharge * Naltrexone 50mg (re)started has not taken any opiates in the last 2 days. * patient connected to [facility] for ongoing services--will resume with them once discharged from [facility] (referral to [facility] cancelled) * no additional follow up indicated at this time Total time managing care of this patient today __30__ minutes. PMFSH Past Medical History Medical History EtOH dependence ETOH abuse Depression Anxiety Surgical History Surgical History History of cardiac cath Social History Social History Household Members: None Housing: Apartment Do you presently have visiting nurse or other home services: Yes (for cleaning) Alcohol intake: current Alcohol intake frequency: 3 or more drinks per day Alcohol type: hard liquor Patient Tobacco Use Status: Current everyday Tobacco user Tobacco use type: Cigarette Cigarette Packs Per Day: 1 Cigarettes Per Day: 20.0 Years Smoked: 50 Advance Directives Date on File: 09/16/25 service: Yes
--- NOTE | 2025-09-20 10:24 | MHC.CM.PN ---
Addendum entered by Angelina Roca 09/20/25 12:36: [facility] Windy from the [facility], Patient is not [facility] eligible for SNF benefits; has asked Juila Boland to initiate auth with [facility]. CM will follow. Original Note: Per [facility] discussion, Patient is medically cleared for dc to snf/str today. CM met with Patient at bedside to discuss PT's recommendation and he is in agreement t with the plan and accepted the bed offer from Julia Boland [facility]. Chantelle [place] Coordinator is out until tomorrow and the message instruct that CM call Windy @ [phone]. CM left a detailed message for Windy and awaits a return call from her, in order to pursue [facility] auth for STR.
[2025-09-20 12:00] VITALS: BP 118/58; PULSE 68; RESP 18; TEMP 36.7; O2SAT 99
--- NOTE | 2025-09-20 14:58 | P.PNIM_ITS ---
Subjective Subjective Date of Service: 09/20/25 Interval History: Alcohol withdrawal, urinary retention Review of Systems seems improving has ch pains from many years Review of Systems: Yes all other systems are reviewed and are negative Physical Exam 2 Exam: Exam: Appearance: Alert.? Oriented X3 .?anxious /mild treemers . cvs: rrr, [id number] , no murmur res: clear to auscultation ,no rhonchii or wheezing abd: no rebound or guarding ,nt, bs present. ch back and right hip pain-able to ambulate to the chair ,feels better after getting oob ext pulses present , no cyanosis. neuro: axo3 , nonfocal. Vital Signs: Vital Signs: Last Vital Signs Temp 98.0 F 09/20/25 12:00 Pulse 68 09/20/25 12:00 Resp 18 09/20/25 12:00 BP 118/58 L 09/20/25 12:00 Pulse Ox 99 09/20/25 12:00 O2 Del Method Room Air 09/20/25 12:00 BMI result Body Mass Index 26.1 Objective Data Active Medications Acetaminophen (Acetaminophen 325 Mg Tablet) 975 mg PO Q6H [facility] Last Admin: 09/20/25 09:12 Dose: 975 mg Documented By: PARKER Aspirin (Aspirin Enteric Coated 81 Mg Tablet.) 81 mg PO DAILY [facility] Last Admin: 09/20/25 09:12 Dose: 81 mg Documented By: PARKER Atorvastatin Calcium (Atorvastatin Calcium 80 Mg Tablet) 80 mg PO BEDTIME [facility] Last Admin: 09/19/25 21:04 Dose: 80 mg Documented By: HARLEY Benzocaine (Throat Lozenge, Medicated Lozenge) 1 lozenge MUCOUS MEM Q2H PRN PRN Reason: Sore Throat Last Admin: 09/19/25 21:03 Dose: 1 lozenge Documented By: HARLEY Calcium Carbonate (Calcium Carbonate 750 Mg Tab.Chew) 750 mg PO Q4H PRN PRN Reason: Heartburn Enoxaparin Sodium (Enoxaparin Sodium 40 Mg/0.4 Ml Syringe) 40 mg SUBCUT Q24H [facility] Last Admin: 09/19/25 14:40 Dose: 40 mg Documented By: MELITA Folic Acid (Folic Acid 1 Mg Tablet) 1 mg PO DAILY [facility] Last Admin: 09/20/25 09:14 Dose: 1 mg Documented By: PARKER Gabapentin (Gabapentin 300 Mg Capsule) 300 mg PO BEDTIME [facility] Last Admin: 09/19/25 21:03 Dose: 300 mg Documented By: HARLEY Guaifenesin (Guaifenesin 200 Mg/10 Ml 10 Ml Liquid) 10 ml PO Q4H PRN PRN Reason: Cough Last Admin: 09/19/25 21:03 Dose: 10 ml Documented By: HARLEY Thiamine HCl 200 mg/ Sodium (Chloride) 102 mls @ 204 mls/hr IV Q8H [facility] Last Infusion: 09/20/25 06:24 Dose: Infused Documented By: HARLEY Ceftriaxone Sodium 1 gm/ (Sodium Chloride) 50 mls @ 100 mls/hr IV Q24H [facility] Last Infusion: 09/19/25 18:12 Dose: Infused Documented By: MELITA Lidocaine (Lidocaine 4 % Patch Adh..Patch) 2 patch TRANSDERMA DAILY [facility]; Protocol Last Admin: 09/20/25 09:15 Dose: 2 patch Documented By: PARKER Magnesium Hydroxide (Milk Of Magnesia 30 Ml Oral.Susp) 30 ml PO DAILY PRN PRN Reason: Constipation Melatonin (Melatonin 3 Mg Tablet) 6 mg PO BEDTIME PRN PRN Reason: Insomnia Metoprolol Succinate (Metoprolol Succinate Er 25 Mg Tab.Er.24h) 25 mg PO DAILY [facility]; Protocol Last Admin: 09/20/25 09:14 Dose: 25 mg Documented By: PARKER Naltrexone HCl (Naltrexone Hcl 50 Mg Tablet) 50 mg PO DAILY [facility] Last Admin: 09/20/25 10:37 Dose: 50 mg Documented By: JAREN Omeprazole (Omeprazole 20 Mg Capsule.Dr) 20 mg PO DAILY@0630 PRN PRN Reason: Acid Reflux Pharmacy Consult (Consult Rx Etoh Phenob Im/Po) 1 each MISCELLANE ONCE PRN; Protocol PRN Reason: Consult order Phenobarbital (Phenobarbital 15 Mg Tablet) 15 mg PO BID [facility]; Protocol Stop: 09/21/25 09:01 Last Admin: 09/20/25 09:12 Dose: 15 mg Documented By: PARKER Phenobarbital (Phenobarbital 15 Mg Tablet) 15 mg PO DAILY [facility]; Protocol Stop: 09/23/25 09:01 Prednisone (Prednisone 20 Mg Tablet) 40 mg PO DAILY [facility] Last Admin: 09/20/25 09:14 Dose: 40 mg Documented By: PARKER Sodium Chloride (0.9 % Sodium Chloride Flush 3 Ml Syringe) 3 ml IVFLUSH QSHIFT [facility] Last Admin: 09/20/25 09:15 Dose: 3 ml Documented By: PARKER Tamsulosin HCl (Tamsulosin Hcl 0.4 Mg Capsule) 0.4 mg PO BEDTIME [facility] Last Admin: 09/19/25 21:03 Dose: 0.4 mg Documented By: HARLEY Thiamine HCl (Thiamine Hcl 100 Mg Tablet) 100 mg PO DAILY [facility] Last Admin: 09/20/25 09:14 Dose: 100 mg Documented By: PARKER Ticagrelor (Ticagrelor 90 Mg Tablet) 90 mg PO BID [facility] Last Admin: 09/20/25 09:12 Dose: 90 mg Documented By: PARKER Tramadol HCl (Tramadol Hcl 50 Mg Tablet) 25 mg PO Q6H PRN PRN Reason: Pain, Severe (Pain Scale 7-10) Trazodone HCl (Trazodone Hcl 50 Mg Tablet) 150 mg PO BEDTIME PRN PRN Reason: Sleep Last Admin: 09/18/25 22:42 Dose: 150 mg Documented By: HARLEY Valsartan (Valsartan 40 Mg Tablet) 20 mg PO DAILY [facility]; Protocol Last Admin: 09/20/25 09:12 Dose: 20 mg Documented By: PARKER Labs 09/18/25 23:40 09/18/25 23:40 Microbiology Microbiology Results: Microbiology 09/19/25 Unknown Urine Culture - Final Urine Catheterized - Rose Catheter No growth. Assessment and Plan (1) ETOH abuse: Status: Acute Assessment and Plan: 65 y/o M heavy daily alcohol use presenting to the ED 2?3 days after last drink with tremors, nausea, confusion, and inability to ambulate. Physical exam notable for tongue fasciculations and asterixis. Differential includes alcohol withdrawal (possible complicated), Wernicke?s encephalopathy, dehydration/malnutrition, viral upper respiratory infection, and sequelae of recent head trauma. Comprehensive ED diagnostic workup initiated. Alcohol withdrawal: Continue phenobarb protocol, monitor CIWA, addiction consult, thiamine, folic acid. Patient was strongly advised to abstain from alcohol abd pain Diffuse abdominal discomfort and persistent nausea without vomiting; likely multifactorial (withdrawal, possible gastritis, dehydration). ct abd seems as above no acute abnormality. plan: improved po ppi tolertaing diet Viral upper respiratory symptoms Assessment: Cough and rhinorrhea without dyspnea or chest pain; viral etiology possible. Plan: Supportive care; respiratory viral panel-negative Monitor closely Recent fall: head ct negative Grossly no bruises on the head Urinary retention: Indwelling urinary catheter,? bph keep rose ,flomax ? UTI-patient was discharged from [facility] on Cefdinir -currently on ceftriaxone. Waiting for paperwork from [facility] Urinary retention, UTI, foreskin swelling: Added urology evaluation backpain/hip pain -pain control with tylenol ,lidodaine patch,tramdol,short course of steriods. HTn: Continue beta-gabriela and valsartan Cad: Continue beta-gabriela, Brilinta, statin Hlp: Continue statin. Generalized weak: PT evaluation-str DVT prophylaxis with subQ Lovenox ongoing need for stay : awiting placement. Quality Stroke Does the patient have a stroke diagnosis?: No VTE Prior VTE?: No VTE Risk Level:: Medical - moderate - high VTE Device Contraindication: N/A - Device Ordered VTE Drug Contraindication: N/A - Med Ordered
[2025-09-20 16:00] VITALS: BP 124/60; PULSE 71; RESP 14; TEMP 36.5; O2SAT 97
--- NOTE | 2025-09-20 17:18 | PM.UROCN ---
History of Present Illness Consult details Consult date: 09/20/25 Narrative: BPH Urinary retention PMFSH Past Medical History Medical History EtOH dependence ETOH abuse Depression Anxiety Surgical History Surgical History History of cardiac cath Social History Social History Household Members: None Housing: Apartment Do you presently have visiting nurse or other home services: Yes (for cleaning) Alcohol intake: current Alcohol intake frequency: 3 or more drinks per day Alcohol type: hard liquor Patient Tobacco Use Status: Current everyday Tobacco user Tobacco use type: Cigarette Cigarette Packs Per Day: 1 Cigarettes Per Day: 20.0 Years Smoked: 50 Advance Directives Date on File: 09/16/25 service: Yes Meds Allergies Allergy/AdvReac Type Severity Reaction Status Date / Time No Known Allergies (No Known Allergy Verified 09/17/25 09:58 Allergies*) Active Medications: Current Medications Acetaminophen (Acetaminophen 325 Mg Tablet) 975 mg PO Q6H [facility] Last Admin: 09/20/25 15:02 Dose: 975 mg Aspirin (Aspirin Enteric Coated 81 Mg Tablet.Dr) 81 mg PO DAILY [facility] Last Admin: 09/20/25 09:12 Dose: 81 mg Atorvastatin Calcium (Atorvastatin Calcium 80 Mg Tablet) 80 mg PO BEDTIME [facility] Last Admin: 09/19/25 21:04 Dose: 80 mg Benzocaine (Throat Lozenge, Medicated Lozenge) 1 lozenge MUCOUS MEM Q2H PRN PRN Reason: Sore Throat Last Admin: 09/19/25 21:03 Dose: 1 lozenge Calcium Carbonate (Calcium Carbonate 750 Mg Tab.Chew) 750 mg PO Q4H PRN PRN Reason: Heartburn Enoxaparin Sodium (Enoxaparin Sodium 40 Mg/0.4 Ml Syringe) 40 mg SUBCUT Q24H [facility] Last Admin: 09/20/25 15:05 Dose: 40 mg Folic Acid (Folic Acid 1 Mg Tablet) 1 mg PO DAILY [facility] Last Admin: 09/20/25 09:14 Dose: 1 mg Gabapentin (Gabapentin 300 Mg Capsule) 300 mg PO BEDTIME [facility] Last Admin: 09/19/25 21:03 Dose: 300 mg Guaifenesin (Guaifenesin 200 Mg/10 Ml 10 Ml Liquid) 10 ml PO Q4H PRN PRN Reason: Cough Last Admin: 09/19/25 21:03 Dose: 10 ml Thiamine HCl 200 mg/ Sodium (Chloride) 102 mls @ 204 mls/hr IV Q8H [facility] Last Infusion: 09/20/25 15:53 Dose: Infused Ceftriaxone Sodium 1 gm/ (Sodium Chloride) 50 mls @ 100 mls/hr IV Q24H [facility] Last Infusion: 09/19/25 18:12 Dose: Infused Lidocaine (Lidocaine 4 % Patch Adh..Patch) 2 patch TRANSDERMA DAILY [facility]; Protocol Last Admin: 09/20/25 09:15 Dose: 2 patch Magnesium Hydroxide (Milk Of Magnesia 30 Ml Oral.Susp) 30 ml PO DAILY PRN PRN Reason: Constipation Melatonin (Melatonin 3 Mg Tablet) 6 mg PO BEDTIME PRN PRN Reason: Insomnia Metoprolol Succinate (Metoprolol Succinate Er 25 Mg Tab.Er.24h) 25 mg PO DAILY [facility]; Protocol Last Admin: 09/20/25 09:14 Dose: 25 mg Naltrexone HCl (Naltrexone Hcl 50 Mg Tablet) 50 mg PO DAILY [facility] Last Admin: 09/20/25 10:37 Dose: 50 mg Omeprazole (Omeprazole 20 Mg Capsule.Dr) 20 mg PO DAILY@0630 PRN PRN Reason: Acid Reflux Pharmacy Consult (Consult Rx Etoh Phenob Im/Po) 1 each MISCELLANE ONCE PRN; Protocol PRN Reason: Consult order Phenobarbital (Phenobarbital 15 Mg Tablet) 15 mg PO BID [facility]; Protocol Stop: 09/21/25 09:01 Last Admin: 09/20/25 09:12 Dose: 15 mg Phenobarbital (Phenobarbital 15 Mg Tablet) 15 mg PO DAILY [facility]; Protocol Stop: 09/23/25 09:01 Prednisone (Prednisone 20 Mg Tablet) 40 mg PO DAILY [facility] Last Admin: 09/20/25 09:14 Dose: 40 mg Sodium Chloride (0.9 % Sodium Chloride Flush 3 Ml Syringe) 3 ml IVFLUSH QSHIFT [facility] Last Admin: 09/20/25 15:54 Dose: Not Given Tamsulosin HCl (Tamsulosin Hcl 0.4 Mg Capsule) 0.4 mg PO BEDTIME [facility] Last Admin: 09/19/25 21:03 Dose: 0.4 mg Thiamine HCl (Thiamine Hcl 100 Mg Tablet) 100 mg PO DAILY [facility] Last Admin: 09/20/25 09:14 Dose: 100 mg Ticagrelor (Ticagrelor 90 Mg Tablet) 90 mg PO BID [facility] Last Admin: 09/20/25 09:12 Dose: 90 mg Tramadol HCl (Tramadol Hcl 50 Mg Tablet) 25 mg PO Q6H PRN PRN Reason: Pain, Severe (Pain Scale 7-10) Trazodone HCl (Trazodone Hcl 50 Mg Tablet) 150 mg PO BEDTIME PRN PRN Reason: Sleep Last Admin: 09/18/25 22:42 Dose: 150 mg Valsartan (Valsartan 40 Mg Tablet) 20 mg PO DAILY [facility]; Protocol Last Admin: 09/20/25 09:12 Dose: 20 mg Home Medications ?Medication ?Instructions ?Recorded ?Confirmed ?Last Taken ?Type gabapentin 300 mg capsule 300 mg PO BEDTIME 02/01/25 09/17/25 Unknown History trazodone 100 mg tablet 150 mg PO BEDTIME PRN Sleep 02/01/25 09/17/25 09/16/25 History aspirin 81 mg tablet,delayed 81 mg PO DAILY 07/08/25 09/17/25 Unknown History release atorvastatin 80 mg tablet (Lipitor) 80 mg PO BEDTIME 07/08/25 09/17/25 Unknown History metoprolol succinate 25 mg 25 mg PO DAILY 07/08/25 09/17/25 Unknown History tablet,extended release 24 hr ticagrelor 90 mg tablet (Brilinta) 90 mg PO BID 07/08/25 09/17/25 09/10/25 History valsartan 40 mg tablet 20 mg PO DAILY 07/08/25 09/17/25 09/13/25 History cefdinir 300 mg capsule 300 mg PO BID 09/17/25 09/17/25 Unknown History pantoprazole 40 mg tablet,delayed 40 mg PO DAILY PRN Acid Reflux 09/17/25 09/17/25 Unknown History release Physical Exam Vital Signs: Vital Signs: Last Vital Signs Temp 98.0 F 09/20/25 12:00 Pulse 68 09/20/25 12:00 Resp 18 09/20/25 12:00 BP 118/58 L 09/20/25 12:00 Pulse Ox 99 09/20/25 12:00 O2 Del Method Room Air 09/20/25 12:00 BMI result Body Mass Index 26.1 Results Labs 09/18/25 23:40 09/18/25 23:40 Labs: Urine 09/17/25 09/19/25 Range/Units 10:55 04:43 Urine Color Yellow Yellow Urine Appearance Clear Clear Urine pH 6.5 5.5 (5.0-9.0) Ur Specific [place] 1.015 1.015 (1.005-1.025) Urine Protein 300 (3+) H 30 (1+) H (Neg-Trace) mg/dL Urine Glucose (UA) Negative Negative (Negative) mg/dL All other labs normal. Imaging Additional studies: Date of Service: 09/17/25 Procedure(s): CT abdomen pelvis w IV con Accession Number(s): [id number] cc: ALENA RITCHIE MD; Yue Ruiz~ Report Number: [id number]: Total DLP = 479.00 mGy-cm Reason for Exam: abd pain EXAMINATION: CT ABDOMEN AND PELVIS WITH CONTRAST CLINICAL INFORMATION: Abdominal pain COMPARISON: None available. TECHNIQUE: Multidetector volumetric images were obtained from the superior aspect of the liver through the pubic symphysis following administration 85 mL of Omnipaque 350 intravenous contrast. Sagittal and coronal reformatted images were obtained on the technologist's workstation. Oral contrast: No This CT examination was performed using dose optimization techniques as appropriate, variously including the following: *Automated exposure control *Adjustment of mA and/or kV according to patient size (this includes techniques or standardized protocols for targeted exams where dose is matched to indication/reason for exam; i.e. extremities or head) *Use of iterative reconstruction technique FINDINGS: LUNG BASES: The visualized lung bases are unremarkable. LIVER, GALLBLADDER, AND BILIARY TREE: Mild diffuse low attenuation is again demonstrated in the liver. The gallbladder is unremarkable with no evidence of radiopaque gallstones, gallbladder wall thickening, or obvious pericholecystic inflammatory changes. PANCREAS: Unremarkable. SPLEEN: Unremarkable. ADRENAL GLANDS: Unremarkable. KIDNEYS AND URETERS: The kidneys are normal in size, shape, and attenuation. There are no kidney stones. Moderate hydronephrosis and hydroureter present on the prior examination has resolved. BLADDER: Gross bladder distention present on prior examination has resolved. There is a [place] catheter in place. There is a moderate volume of complex heterogeneous material within the bladder including a small amount of gas. GASTROINTESTINAL TRACT: Again seen are numerous pseudodiverticula in the descending and sigmoid colon without wall thickening or inflammation. The appendix is within normal limits. ABDOMINAL WALL: No significant hernia is appreciated. LYMPH NODES: Normal. VASCULAR: Multifocal atherosclerotic calcifications are present. PELVIC VISCERA: Unremarkable. OSSEOUS STRUCTURES: Schmorl's node with mild superior endplate wedging is stable at T12. Multilevel degenerative changes are present throughout the imaged spine. There is moderate right hip osteoarthritis with superior lateral joint space narrowing and marginal osteophytes. Total hip replacement is present on the left. IMPRESSION: The bladder is partially distended with heterogeneous material that raises concern for blood products. Infection is also the differential. Mild hepatic steatosis. Diverticulosis is present in the descending and sigmoid colon without evidence of infection. Assessment and Plan (1) Urinary retention: Status: Acute (2) Paraphimosis: Status: Acute Plan Paraphimosis reduced Hematuria, urine currently clear Continue [place] pt on Flomax, recommend add proscar Procedures Date of Service Date of Service: 09/20/25
[2025-09-20 20:00] VITALS: BP 147/72; PULSE 72; RESP 16; TEMP 36.6; O2SAT 96
[2025-09-20] MEDS: Throat Lozenge, Medicated LOZENGE 1 LOZENGE MUCOUS MEM (22:43)
[2025-09-20] MEDS: guaiFENesin 200 MG/10 ML 10 ML LIQUID PO (22:43)
[2025-09-20 23:31] VITALS: BP 110/57; PULSE 56; RESP 17; TEMP 36.2; O2SAT 98
[2025-09-21] VITALS (7 sets, daily range): BP systolic 101–128; BP diastolic 56–65; PULSE 57–70; RESP 16–18; TEMP 36.4–37.1; O2SAT 96–98
[2025-09-21] MEDS: Metoprolol Succinate ER 25 MG TAB.ER.24H PO (09:01)
[2025-09-21] MEDS: Aspirin Enteric Coated 81 MG TABLET.DR PO (09:01)
[2025-09-21] MEDS: Lidocaine 4 % Patch ADH..PATCH 2 PATCH TRANSDERMA (09:02)
--- NOTE | 2025-09-21 14:55 | MHC.CM.PN ---
[facility] is asking for a Peer to Peer; [facility] has supplied MD with the contact information([phone], Option # 5); is calling now (deadline is 9AM tomorrow/ is aware).
--- NOTE | 2025-09-21 16:49 | P.PNIM_ITS ---
Subjective Subjective Date of Service: 09/21/25 Interval History: Alcohol withdrawal, retention Review of Systems Seems to be improved significantly No new complaints Review of Systems: Yes all other systems are reviewed and are negative Physical Exam 2 Exam: Exam: Appearance: Alert.? Oriented X3 .?anxious /mild treemers . cvs: rrr, [id number] , no murmur res: clear to auscultation ,no rhonchii or wheezing abd: no rebound or guarding ,nt, bs present. ch back and right hip pain chronic . ext pulses present , no cyanosis. neuro: axo3 , nonfocal. Vital Signs: Vital Signs: Last Vital Signs Temp 98.1 F 09/21/25 15:07 Pulse 67 09/21/25 15:07 Resp 18 09/21/25 15:07 BP 114/58 L 09/21/25 15:07 Pulse Ox 98 09/21/25 15:07 O2 Del Method Room Air 09/21/25 15:07 BMI result Body Mass Index 26.1 Objective Data Active Medications Acetaminophen (Acetaminophen 325 Mg Tablet) 975 mg PO Q6H [facility] Last Admin: 09/21/25 15:03 Dose: 975 mg Documented By: JAREN Aspirin (Aspirin Enteric Coated 81 Mg Tablet.) 81 mg PO DAILY [facility] Last Admin: 09/21/25 09:01 Dose: 81 mg Documented By: JAREN Atorvastatin Calcium (Atorvastatin Calcium 80 Mg Tablet) 80 mg PO BEDTIME [facility] Last Admin: 09/20/25 20:07 Dose: 80 mg Documented By: LOYD Benzocaine (Throat Lozenge, Medicated Lozenge) 1 lozenge MUCOUS MEM Q2H PRN PRN Reason: Sore Throat Last Admin: 09/20/25 22:43 Dose: 1 lozenge Documented By: LOYD Calcium Carbonate (Calcium Carbonate 750 Mg Tab.Chew) 750 mg PO Q4H PRN PRN Reason: Heartburn Cefuroxime Axetil (Cefuroxime Axetil 500 Mg Tablet) 500 mg PO Q12H [facility] Last Admin: 09/21/25 05:57 Dose: 500 mg Documented By: LOYD Enoxaparin Sodium (Enoxaparin Sodium 40 Mg/0.4 Ml Syringe) 40 mg SUBCUT Q24H [facility] Last Admin: 09/21/25 15:03 Dose: 40 mg Documented By: JAREN Finasteride (Finasteride 5 Mg Tablet) 5 mg PO DAILY [facility] Last Admin: 09/21/25 09:00 Dose: 5 mg Documented By: JAREN Folic Acid (Folic Acid 1 Mg Tablet) 1 mg PO DAILY [facility] Last Admin: 09/21/25 09:00 Dose: 1 mg Documented By: JAREN Gabapentin (Gabapentin 300 Mg Capsule) 300 mg PO BEDTIME [facility] Last Admin: 09/20/25 20:07 Dose: 300 mg Documented By: LOYD Guaifenesin (Guaifenesin 200 Mg/10 Ml 10 Ml Liquid) 10 ml PO Q4H PRN PRN Reason: Cough Last Admin: 09/20/25 22:43 Dose: 10 ml Documented By: LOYD Lidocaine (Lidocaine 4 % Patch Adh..Patch) 2 patch TRANSDERMA DAILY [facility]; Protocol Last Admin: 09/21/25 09:02 Dose: 2 patch Documented By: JAREN Magnesium Hydroxide (Milk Of Magnesia 30 Ml Oral.Susp) 30 ml PO DAILY PRN PRN Reason: Constipation Melatonin (Melatonin 3 Mg Tablet) 6 mg PO BEDTIME PRN PRN Reason: Insomnia Metoprolol Succinate (Metoprolol Succinate Er 25 Mg Tab.Er.24h) 25 mg PO DAILY [facility]; Protocol Last Admin: 09/21/25 09:01 Dose: 25 mg Documented By: JAREN Naltrexone HCl (Naltrexone Hcl 50 Mg Tablet) 50 mg PO DAILY [facility] Last Admin: 09/21/25 09:03 Dose: 50 mg Documented By: JAREN Omeprazole (Omeprazole 20 Mg Capsule.Dr) 20 mg PO DAILY@0630 PRN PRN Reason: Acid Reflux Pharmacy Consult (Consult Rx Etoh Phenob Im/Po) 1 each MISCELLANE ONCE PRN; Protocol PRN Reason: Consult order Phenobarbital (Phenobarbital 15 Mg Tablet) 15 mg PO DAILY [facility]; Protocol Stop: 09/23/25 09:01 Prednisone (Prednisone 20 Mg Tablet) 40 mg PO DAILY [facility] Last Admin: 09/21/25 09:02 Dose: 40 mg Documented By: JAREN Sodium Chloride (0.9 % Sodium Chloride Flush 3 Ml Syringe) [facility] Last Admin: 09/21/25 15:08 Dose: Not Given Documented By: JAREN Non-Admin Reason: No Access Tamsulosin HCl (Tamsulosin Hcl 0.4 Mg Capsule) 0.4 mg PO BEDTIME [facility] Last Admin: 09/20/25 20:07 Dose: 0.4 mg Documented By: LOYD Thiamine HCl (Thiamine Hcl 100 Mg Tablet) 100 mg PO DAILY [facility] Last Admin: 09/21/25 09:01 Dose: 100 mg Documented By: JAREN Thiamine HCl (Thiamine Hcl 100 Mg Tablet) 100 mg PO DAILY [facility] Last Admin: 09/21/25 09:09 Dose: Not Given Documented By: JAREN Non-Admin Reason: Duplicate Order Ticagrelor (Ticagrelor 90 Mg Tablet) 90 mg PO BID [facility] Last Admin: 09/21/25 09:00 Dose: 90 mg Documented By: JAREN Tramadol HCl (Tramadol Hcl 50 Mg Tablet) 25 mg PO Q6H PRN PRN Reason: Pain, Severe (Pain Scale 7-10) Trazodone HCl (Trazodone Hcl 50 Mg Tablet) 150 mg PO BEDTIME PRN PRN Reason: Sleep Last Admin: 09/20/25 20:07 Dose: 150 mg Documented By: LOYD Valsartan (Valsartan 40 Mg Tablet) 20 mg PO DAILY [facility]; Protocol Last Admin: 09/21/25 09:09 Dose: 20 mg Documented By: JAREN Labs 09/18/25 23:40 09/18/25 23:40 Microbiology Microbiology Results: Microbiology 09/19/25 Unknown Urine Culture - Final Urine Catheterized - Rose Catheter No growth. Assessment and Plan (1) ETOH abuse: Status: Acute Assessment and Plan: 65 y/o M heavy daily alcohol use presenting to the ED 2?3 days after last drink with tremors, nausea, confusion, and inability to ambulate. Physical exam notable for tongue fasciculations and asterixis. Differential includes alcohol withdrawal (possible complicated), Wernicke?s encephalopathy, dehydration/malnutrition, viral upper respiratory infection, and sequelae of recent head trauma. Comprehensive ED diagnostic workup initiated. Alcohol withdrawal: Continue phenobarb protocol, monitor CIWA, addiction consult, thiamine, folic acid. Patient was strongly advised to abstain from alcohol abd pain Diffuse abdominal discomfort and persistent nausea without vomiting; likely multifactorial (withdrawal, possible gastritis, dehydration). ct abd seems as above no acute abnormality. plan: improved po ppi tolertaing diet Viral upper respiratory symptoms Assessment: Cough and rhinorrhea without dyspnea or chest pain; viral etiology possible. Plan: Supportive care; respiratory viral panel-negative Monitor closely Recent fall: head ct negative Grossly no bruises on the head Urinary retention: Indwelling urinary catheter,? bph keep rose ,flomax ? UTI-patient was discharged from [facility] on Cefdinir -currently on ceftriaxone. Waiting for paperwork from [facility] Urinary retention, UTI, foreskin swelling: Added urology evaluation backpain/hip pain -pain control with tylenol ,lidodaine patch,tramdol,short course of steriods. HTn: Continue beta-gabriela and valsartan Cad: Continue beta-gabriela, Brilinta, statin Hlp: Continue statin. Generalized weak: PT evaluation-str DVT prophylaxis with subQ Lovenox ongoing need for stay : please see cm documentation/peer to peer done -options given to patient Quality Stroke Does the patient have a stroke diagnosis?: No VTE Prior VTE?: No VTE Risk Level:: Medical - moderate - high VTE Device Contraindication: N/A - Device Ordered VTE Drug Contraindication: N/A - Med Ordered
--- NOTE | 2025-09-21 17:00 | P.DS_ITS ---
DS: Providers Provider Date of Service: 09/21/25 <Latha Toledo MD - Last Filed: 09/21/25 17:13> 09/22/25 <Milton Albarran MD - Last Filed: 09/22/25 14:42> Date of admission: 09/17/25 12:53 <Latha Toledo MD - Last Filed: 09/21/25 17:13> Date of discharge: 09/21/25 <Latha Toledo MD - Last Filed: 09/21/25 17:13> 09/22/25 <Milton Albarran MD - Last Filed: 09/22/25 14:42> Primary care physician: Angelina Henry MD <Latha Toledo MD - Last Filed: 09/21/25 17:13> Consults: 09/17/25 16:42 Addiction Medicine Provider Routine Consulting Provider: Addiction Covering Reason for consultation: alcohol withdrawals 09/17/25 21:12 Addiction Medicine Provider Routine Consulting Provider: Addiction Covering Reason for consultation: etoh use 09/20/25 14:21 Consult to Urology Routine Consulting Provider: [facility] Reason for consultation: Urinary retention, UTI, question of paraphimosis. Has provider been notified: No <Latha Toledo MD - Last Filed: 09/21/25 17:13> DS: Diagnosis Discharge Diagnosis (1) ETOH abuse: Status: Acute <Latha Toledo MD - Last Filed: 09/21/25 17:13> DS: Summary Hospital Course Hospital Course: hpi: 65-year-old male with past medical history of alcohol withdrawal, seizure, CAD, hypertension-patient was recently admitted to [facility] two days ago after an admission related to alcohol use, presents with progressive symptoms since returning home. His Last alcoholic drink approximately 2?3 days ago (prior to his [facility] discharge); denies alcohol intake today.Typical daily intake: 5?6 shots of Fireball whiskey plus 3?4 tall-boy beers. Decreased p.o. intake,.Persistent nausea and diffuse abdominal discomfort without vomiting. In ED patient's CIWA is 13. Generalized tremors/shakiness that began yesterday and are now severe enough that he ?can?t walk.?Intermittent confusion both in the hospital and currently, feel anxious, nonspecific body pains ,Non-productive cough and rhinorrhea. denies chest pain or shortness of breath. Past alcohol-related events include one to two withdrawal seizures in approximately 1994. He also fell last week and struck his head. . In addition [place] catheter was placed for urinary retention- The patient has an indwelling urinary catheter in place, in addition patient was started on Flomax and finasteride, also started on cefdinir for UTI, urine culture in [facility] Gram-negative bacilli-patient went home with Cefdinir. denies abd pain ,wants to eat. in ED: Lab imaging reviewed: CBC BMP seems fine. CTA abdomen: The bladder is partially distended with heterogeneous material that raises concern for blood products. Infection is also the differential. Mild hepatic steatosis. Diverticulosis is present in the descending and sigmoid colon without evidence of infection. In ED patient was started on phenobarb protocol, in addition received diazepam, Zofran and requested admission for alcohol withdrawals. Hospital course: 65 y/o M heavy daily alcohol use presenting to the ED 2?3 days after last drink with tremors, nausea, confusion, and inability to ambulate. Physical exam notable for tongue fasciculations and asterixis. Differential includes alcohol withdrawal (possible complicated), Wernicke?s encephalopathy, dehydration/malnutrition, viral upper respiratory infection, and sequelae of recent head trauma. Comprehensive ED diagnostic workup initiated. Alcohol withdrawal: Continue phenobarb protocol, monitor CIWA, addiction consult, thiamine, folic acid. Seems to be improved with the above. abd pain Diffuse abdominal discomfort and persistent nausea without vomiting; likely multifactorial (withdrawal, possible gastritis, dehydration). ct abd seems as above no acute abnormality. plan: improved po ppi,tolertaing diet. Viral upper respiratory symptoms Assessment: Cough and rhinorrhea without dyspnea or chest pain; viral etiology possible. Plan:Supportive care; respiratory viral panel-negative Monitor closely Recent fall: head ct negative Grossly no bruises on the head Urinary retention: Indwelling urinary catheter,? bph ? UTI-patient was discharged from [facility] on Cefdinir -currently on ceftriaxone. Waiting for paperwork from [facility] urology evaluation-continue Esp[place], Flomax and Proscar, Paraphimosis reduced by Urology-had small episode of bleeding, improved, urine is clear now. Patient will need to follow up out patiently with Urology. backpain/hip pain -pain control with tylenol ,lidodaine patch,tramdol,short course of steriods. HTn: Continue beta-gabriela and valsartan Cad: Continue beta-gabriela, Brilinta, statin Hlp: Continue statin. will discharge to SNF expected to require less than 30 days <Latha Toledo MD - Last Filed: 09/21/25 17:13> Time Attestation Discharge Coordination Time (in mins): 36 <Milton Albarran MD - Last Filed: 09/22/25 14:42> Quality: Safe Use of Opioids Does Pt have an Active Cancer Diagnosis on the Problem List?: No <Milton Albarran MD - Last Filed: 09/22/25 14:42> Quality: Stroke Does the patient have a stroke diagnosis?: No <Milton Albarran MD - Last Filed: 09/22/25 14:42> Physical Exam Exam: Exam: Appearance: Alert.? Oriented X3 .?anxious /mild treemers . cvs: rrr, [id number] , no murmur res: clear to auscultation ,no rhonchii or wheezing abd: no rebound or guarding ,nt, bs present. ch back and right hip pain. ext pulses present , no cyanosis. neuro: axo3 , nonfocal. <Latha Toledo MD - Last Filed: 09/21/25 17:13> Exam: Appearance: Alert.? Oriented X3 . cvs: rrr, [id number] , no murmur res: clear to auscultation ,no rhonchii or wheezing abd: no rebound or guarding ,nt, bs present. ch back and right hip pain. ext pulses present , no cyanosis. neuro: axo3 , nonfocal. <Milton Albarran MD - Last Filed: 09/22/25 14:42> Vital Signs: Vital Signs: Last Vital Signs Temp 98.1 F 09/21/25 15:07 Pulse 67 09/21/25 15:07 Resp 18 09/21/25 15:07 BP 114/58 L 09/21/25 15:07 Pulse Ox 98 09/21/25 15:07 O2 Del Method Room Air 09/21/25 15:07 BMI result Body Mass Index 26.1 <Latha Toledo MD - Last Filed: 09/21/25 17:13> DS: Data Data Completed and Pending Completed studies during hospitalization [Text1]: Procedures Detoxification Services for Substance Abuse Treatment (02/01/25) <Latha Toledo MD - Last Filed: 09/21/25 17:13> Discharge Plan Discharge Anticipated Discharge Date/Time: 09/21/25 16:55 <Latha Toledo MD - Last Filed: 09/21/25 17:13> Patient Disposition: Xfer SNF <Latha Toledo MD - Last Filed: 09/21/25 17:13> Discharge Diagnosis: Alcohol withdrawal, UTI, urinary retention, possible paraphimosis reduced <Latha Toledo MD - Last Filed: 09/21/25 17:13> Alcohol withdrawal, UTI, urinary retention, possible paraphimosis reduced <Milton Albarran MD - Last Filed: 09/22/25 14:42> Referrals: Angelina Henry MD [Primary Care Provider, Internal Medicine] - 1 Week <Latha Toledo MD - Last Filed: 09/21/25 17:13> Discharge Medications: New finasteride 5 mg Tablet 5 mg PO DAILY Qty: 0 0RF Continued trazodone 100 mg Tablet 150 mg PO BEDTIME PRN (Reason: Sleep) gabapentin 300 mg Capsule 300 mg PO BEDTIME thiamine mononitrate (vit B1) 100 mg Tablet 100 mg PO DAILY Qty: 30 0RF folic acid 1 mg Tablet 1 mg PO DAILY Qty: 30 0RF acetaminophen 325 mg Tablet 650 mg PO Q6H PRN (Reason: Pain, Mild 1-3,Fever,Headache) Qty: 30 0RF tamsulosin 0.4 mg Capsule 0.4 mg PO BEDTIME Qty: 30 0RF pantoprazole 40 mg tablet,delayed release (DR/EC) 40 mg PO DAILY PRN (Reason: Acid Reflux) aspirin 81 mg tablet,delayed release (DR/EC) 81 mg PO DAILY ticagrelor [Brilinta] 90 mg tablet 90 mg PO BID metoprolol succinate 25 mg tablet extended release 24 hr 25 mg PO DAILY valsartan 40 mg tablet 20 mg PO DAILY atorvastatin [Lipitor] 80 mg tablet 80 mg PO BEDTIME Discontinued cefdinir 300 mg Capsule 300 mg PO BID Rx Instructions: patient didnt start. ordered from [facility] <Latha Toledo MD - Last Filed: 09/21/25 17:13> Discharge Orders: Discharge Order (Routine); Ordered 09/22/25 Ordered By: Milton Albarran <Latha Toledo MD - Last Filed: 09/21/25 17:13> Diet: Advance to usual diet <Latha Toledo MD - Last Filed: 09/21/25 17:13> Advance to usual diet <Milton Albarran MD - Last Filed: 09/22/25 14:42> Activity on Discharge: As tolerated <Latha Toledo MD - Last Filed: 09/21/25 17:13> As tolerated <Milton Albarran MD - Last Filed: 09/22/25 14:42> Stand Alone Forms: Patient Portal Discharge page <Latha Toledo MD - Last Filed: 09/21/25 17:13> Print Language: Faroese <Latha Toledo MD - Last Filed: 09/21/25 17:13> Care Plan Goals: Strongly advised to abstain from alcohol Urinary retention rosa-continue Esp[place], Proscar, finasteride. Follow up with the Urology for voiding trial outpatient <Latha Toledo MD - Last Filed: 09/21/25 17:13> Health Concerns: As above. <Latha Toledo MD - Last Filed: 09/21/25 17:13> Plan of Treatment: As above. <Latha Toledo MD - Last Filed: 09/21/25 17:13> Assessment: As above. <Latha Toledo MD - Last Filed: 09/21/25 17:13>
[2025-09-21] MEDS: Milk of Magnesia 30 ML ORAL.SUSP PO (22:04)
[2025-09-21] MEDS: Throat Lozenge, Medicated LOZENGE 1 LOZENGE MUCOUS MEM (22:04)
[2025-09-22 03:48] VITALS: BP 93/52; PULSE 54; RESP 16; TEMP 36.3; O2SAT 98
[2025-09-22 07:41] VITALS: BP 94/48; PULSE 59; RESP 18; TEMP 36.8; O2SAT 98
[2025-09-22] MEDS: Aspirin Enteric Coated 81 MG TABLET.DR PO (08:12)
[2025-09-22] MEDS: Lidocaine 4 % Patch ADH..PATCH 2 PATCH TRANSDERMA (08:13)
[2025-09-22] MEDS: Metoprolol Succinate ER 25 MG TAB.ER.24H PO (08:13)
[2025-09-22] MEDS: Nicotine 21 MG PATCH.TD24 TRANSDERMA (10:38)
--- NOTE | 2025-09-22 10:51 | MHC.CM.PN ---
Patient has been accepted at [facility] under his [employer] (# [phone]);MDS has been faxed to [facility]. CM will continue to follow.
--- NOTE | 2025-09-22 11:16 | HO.PM.IMPN ---
Subjective Subjective Date of Service: 09/22/25 Interval History: no new complaints Physical Exam Exam: Exam: General: AO X 3, no acute distress Resp: CTA bilateral, no accessory muscles used CVS: S1,S2,RRR GI: soft, non tender, non distended Neuro: motor grossly intact, alert Psych: appropriate affect, appropriate insight rose in place Vital Signs: Vital Signs: Last Vital Signs Temp 98.3 F 09/22/25 07:41 Pulse 59 09/22/25 07:41 Resp 18 09/22/25 07:41 BP 94/48 L 09/22/25 07:41 Pulse Ox 98 09/22/25 07:41 O2 Del Method Room Air 09/22/25 07:41 BMI result Body Mass Index 26.1 Objective Data Active Medications Acetaminophen (Acetaminophen 325 Mg Tablet) 975 mg PO Q6H [facility] Last Admin: 09/22/25 08:15 Dose: Not Given Documented By: CIARA Non-Admin Reason: Patient Refused Aspirin (Aspirin Enteric Coated 81 Mg Tablet.) 81 mg PO DAILY [facility] Last Admin: 09/22/25 08:12 Dose: 81 mg Documented By: CIARA Atorvastatin Calcium (Atorvastatin Calcium 80 Mg Tablet) 80 mg PO BEDTIME [facility] Last Admin: 09/21/25 22:03 Dose: 80 mg Documented By: CHERI Benzocaine (Throat Lozenge, Medicated Lozenge) 1 lozenge MUCOUS MEM Q2H PRN PRN Reason: Sore Throat Last Admin: 09/21/25 22:04 Dose: 1 lozenge Documented By: CHERI Calcium Carbonate (Calcium Carbonate 750 Mg Tab.Chew) 750 mg PO Q4H PRN PRN Reason: Heartburn Cefuroxime Axetil (Cefuroxime Axetil 500 Mg Tablet) 500 mg PO Q12H [facility] Last Admin: 09/22/25 05:37 Dose: 500 mg Documented By: CHERI Enoxaparin Sodium (Enoxaparin Sodium 40 Mg/0.4 Ml Syringe) 40 mg SUBCUT Q24H [facility] Last Admin: 09/21/25 15:03 Dose: 40 mg Documented By: JAREN Finasteride (Finasteride 5 Mg Tablet) 5 mg PO DAILY [facility] Last Admin: 09/22/25 08:11 Dose: 5 mg Documented By: CIARA Folic Acid (Folic Acid 1 Mg Tablet) 1 mg PO DAILY [facility] Last Admin: 09/22/25 08:13 Dose: 1 mg Documented By: CIARA Gabapentin (Gabapentin 300 Mg Capsule) 300 mg PO BEDTIME [facility] Last Admin: 09/21/25 22:03 Dose: 300 mg Documented By: CHERI Guaifenesin (Guaifenesin 200 Mg/10 Ml 10 Ml Liquid) 10 ml PO Q4H PRN PRN Reason: Cough Last Admin: 09/20/25 22:43 Dose: 10 ml Documented By: LOYD Lidocaine (Lidocaine 4 % Patch Adh..Patch) 2 patch TRANSDERMA DAILY [facility]; Protocol Last Admin: 09/22/25 08:13 Dose: 2 patch Documented By: CIARA Magnesium Hydroxide (Milk Of Magnesia 30 Ml Oral.Susp) 30 ml PO DAILY PRN PRN Reason: Constipation Last Admin: 09/21/25 22:04 Dose: 30 ml Documented By: CHERI Melatonin (Melatonin 3 Mg Tablet) 6 mg PO BEDTIME PRN PRN Reason: Insomnia Metoprolol Succinate (Metoprolol Succinate Er 25 Mg Tab.Er.24h) 25 mg PO DAILY [facility]; Protocol Last Admin: 09/22/25 08:13 Dose: 25 mg Documented By: CIARA Naltrexone HCl (Naltrexone Hcl 50 Mg Tablet) 50 mg PO DAILY [facility] Last Admin: 09/22/25 08:13 Dose: 50 mg Documented By: CIARA Nicotine (Nicotine 21 Mg Patch.Td24) 21 mg TRANSDERMA DAILY [facility] Last Admin: 09/22/25 10:38 Dose: 21 mg Documented By: CIARA Omeprazole (Omeprazole 20 Mg Capsule.Dr) 20 mg PO DAILY@0630 PRN PRN Reason: Acid Reflux Pharmacy Consult (Consult Rx Etoh Phenob Im/Po) 1 each MISCELLANE ONCE PRN; Protocol PRN Reason: Consult order Phenobarbital (Phenobarbital 15 Mg Tablet) 15 mg PO DAILY [facility]; Protocol Stop: 09/23/25 09:01 Last Admin: 09/22/25 08:11 Dose: 15 mg Documented By: CIARA Prednisone (Prednisone 20 Mg Tablet) 40 mg PO DAILY [facility] Last Admin: 09/22/25 08:13 Dose: 40 mg Documented By: CIARA Sodium Chloride (0.9 % Sodium Chloride Flush 3 Ml Syringe) 3 ml IVFLUSH QSHIFT [facility] Last Admin: 09/22/25 08:14 Dose: Not Given Documented By: CIARA Non-Admin Reason: No Access Tamsulosin HCl (Tamsulosin Hcl 0.4 Mg Capsule) 0.4 mg PO BEDTIME [facility] Last Admin: 09/21/25 22:03 Dose: 0.4 mg Documented By: CHERI Thiamine HCl (Thiamine Hcl 100 Mg Tablet) 100 mg PO DAILY [facility] Last Admin: 09/22/25 08:12 Dose: 100 mg Documented By: CIARA Thiamine HCl (Thiamine Hcl 100 Mg Tablet) 100 mg PO DAILY [facility] Last Admin: 09/22/25 07:46 Dose: Not Given Documented By: CIARA Non-Admin Reason: Duplicate Order Ticagrelor (Ticagrelor 90 Mg Tablet) 90 mg PO BID [facility] Last Admin: 09/22/25 08:13 Dose: 90 mg Documented By: CIARA Tramadol HCl (Tramadol Hcl 50 Mg Tablet) 25 mg PO Q6H PRN PRN Reason: Pain, Severe (Pain Scale 7-10) Trazodone HCl (Trazodone Hcl 50 Mg Tablet) 150 mg PO BEDTIME PRN PRN Reason: Sleep Last Admin: 09/21/25 22:03 Dose: 150 mg Documented By: CHERI Valsartan (Valsartan 40 Mg Tablet) 20 mg PO DAILY [facility]; Protocol Last Admin: 09/22/25 08:13 Dose: 20 mg Documented By: CIARA Labs 09/18/25 23:40 09/18/25 23:40 Assessment and Plan (1) EtOH dependence: Status: Acute Plan 65M PMH Alcohol dependence hypertension, coronary artery disease, hyperlipidemia presented with nausea vomiting and weakness alcohol dependence with withdrawal withdrawal resolved with phenobarbital protocol alcoholic gastritis improved urinary retention with paraphimosis appreciated, paraphimosis reduced, recommend continueing rose, flomax, proscar, and voiding trial in about 1 week hypertension valsartan Toprol CAD asa, Brilinta, statin hyperlipidemia statin generalized weakness physical therapy recommended short-term rehab DVT prophylaxis with Lovenox full code reason for continued hospitalization:dispo planning Quality Stroke Does the patient have a stroke diagnosis?: No VTE Prior VTE?: No VTE Risk Level:: Medical - moderate - high VTE Device Contraindication: N/A - Device Ordered VTE Drug Contraindication: N/A - Med Ordered
[2025-09-22 11:40] VITALS: BP 96/47; PULSE 62; RESP 18; TEMP 36.9; O2SAT 98
--- NOTE | 2025-09-22 14:25 | MHC.CM.PN ---
CM updated Patient on progress of dc planning.
--- NOTE | 2025-09-22 14:56 | MHC.CM.PN ---
Patient is medically cleared [facility] his [facility].Kareen REESE booked for 6:30 PM.
[2025-09-22 15:57] VITALS: BP 118/55; PULSE 74; RESP 18; TEMP 36.8; O2SAT 96
[2025-09-22 19:01] VITALS: BP 127/60; PULSE 80; RESP 15; TEMP 36.6; O2SAT 97
== END 2025-09-22 19:25 | disposition skilled nursing facility (03) | DRG 897 ==
LOC: HO.ED 12:30 → HO.EDOVER 14:04 → HO.IMC 17:52
PROVIDERS: Internal Medicine; Physician Assistant; Admitting Provider Internal Medicine; Emergency Provider Emergency Medicine; PCP Family Medicine; Referring Provider Internal Medicine; Visit Provider Internal Medicine
DX: F10.239 Alcohol dependence with withdrawal, unspecified (principal); M62.82 Rhabdomyolysis; N39.0 Urinary tract infection, site not specified; I25.10 Atherosclerotic heart disease of native coronary artery without angina pectoris; I10 Essential (primary) hypertension; N40.1 Benign prostatic hyperplasia with lower urinary tract symptoms; K29.20 Alcoholic gastritis without bleeding; R33.8 Other retention of urine; E78.5 Hyperlipidemia, unspecified; R53.81 Other malaise; K57.30 Diverticulosis of large intestine without perforation or abscess without bleeding; J06.9 Acute upper respiratory infection, unspecified; K76.0 Fatty (change of) liver, not elsewhere classified; N47.2 Paraphimosis; R31.9 Hematuria, unspecified; W19.XXXA Unspecified fall, initial encounter; F17.210 Nicotine dependence, cigarettes, uncomplicated; Z71.6 Tobacco abuse counseling; Z20.822 Contact with and (suspected) exposure to COVID-19; Z79.82 Long term (current) use of aspirin; Z79.899 Other long term (current) drug therapy
CPT/HCPCS: 36415; 70450; 71045; 74177; 80048; 80053; 80307; 81001; 81003; 82140; 83605; 83690; 83735; 85025; 87086; 87502; 87633; 87635; 97162; 97530; 99285; J0696; J1171; J1650; J2405; J2560; J3360; J3411; Q9967; S9485

== ENCOUNTER → 2025-09-17 10:21 | Outpatient (BNV) | payer OTHER, MEDICARE, SELFPAY | PROVIDERS: Emergency Provider Emergency Medicine; PCP Family Medicine; Visit Provider Radiology Diagnostic Radiology | DX: K57.30 Diverticulosis of large intestine without perforation or abscess without bleeding (principal); K76.0 Fatty (change of) liver, not elsewhere classified; Z04.3 Encounter for examination and observation following other accident; R05.9 Cough, unspecified | CPT/HCPCS: 70450; 71045; 74177 ==

== ENCOUNTER → 2025-09-17 12:53 | Outpatient (BNV) | payer OTHER, MEDICARE, SELFPAY | PROVIDERS: Admitting Provider Internal Medicine; Emergency Provider Emergency Medicine; PCP Family Medicine; Visit Provider Nurse Practitioner Psychiatric/Mental Health | DX: F10.90 Alcohol use, unspecified, uncomplicated (principal) | CPT/HCPCS: 99222 ==

== ENCOUNTER → 2025-09-17 12:53 | Outpatient (BNV) | payer OTHER, MEDICARE, SELFPAY | PROVIDERS: Admitting Provider Internal Medicine; Emergency Provider Emergency Medicine; PCP Family Medicine; Visit Provider Internal Medicine | DX: T79.6XXA Traumatic ischemia of muscle, initial encounter (principal); R33.8 Other retention of urine; F10.90 Alcohol use, unspecified, uncomplicated | CPT/HCPCS: 99223; 99231; 99232 ==

== ENCOUNTER 2025-10-29 08:34 | Outpatient (AMB) | payer OTHER, SELFPAY ==
--- OUTSIDE RECORDS SUMMARY | 2025-10-29 08:37 | XMS_ITS | Encounter Summary ---
Author Organization [facility] Address [id number] [place] [id number] Care Team Providers Care Varnish Melter Helper Name Role Phone Juan Manuel Marquez Primary Care Provider [phone] Encounter Details Date Type Department Care Team (Late st Contact Info) Description 02/11/2025 Lab Requisition [facility] - Main Lab [address] [facility] [place] [address] Yoly Farmer, NASIR [address] [facility] [address] [place] [phone] Chronic kidney disease, unspecified Social History Tobacco [...] * Creatine kinase (02/11/2025 5:39 AM EDT) [facility] Total CK 68 22 - 269 unit/L LAB CHEMISTRY METHOD 02/11/2025 11:52 AM [facility] Blood Venous blood specimen / Unknown Venipuncture / Unknown 02/11/2025 5:39 AM EDT 02/11/2025 10:44 AM EDT Yoly Farmer [employer] LAB BLOOD ORDERABLES Fin al Result [facility] [address] [place] [address], * (ABNORMAL) Basic metabolic panel (02/11/2025 5:39 AM EDT) [facility] Sodium 139 133 - 145 mmol/L LAB CHEMISTRY METHOD 02/11/2025 11:52 AM [facility] Potassium 4.5 3.5 - 5.5 mmol/L LAB CHEMISTRY METHOD 02/11/2025 11:52 AM [facility] Chloride 106 96 - 110 mmol/L LAB CHEMISTRY METHOD 02/11/2025 11:52 AM [facility] CO2 27 21 - 32 mmol/L LAB CHEMISTRY METHOD 02/11/2025 11:52 AM [facility] Anion Gap 6 3 - 11 LAB CHEMISTRY METHOD 02/11/2025 11:52 AM [facility] Glucose 92 70 - 100 mg/dL LAB CHEMISTRY METHOD 02/11/2025 11:52 AM [facility] BUN 15 5 - 25 mg/dL LAB CHEMISTRY METHOD 02/11/2025 11:52 AM [facility] Creatinine 0.59(L) 0.70 - 1.30 mg/dL LAB CHEMISTRY METHOD 02/11/2025 11:52 AM [facility] eGFR 107 >=60 mL/min/1. 73m2 LAB CHEMISTRY METHOD 02/11/2025 11:52 AM T [facility] Comment:Calculation based on the Chronic Kidney Disease Epidemiology Collaboration (CKD-EPI) equation refit without adjustment for race. BUN/Creatinine Ratio 25.4 LAB CHEMISTRY METHOD 02/11/2025 11:52 AM [facility] Calcium 8.7 8.5 - 10.5 mg/dL LAB CHEMISTRY METHOD 02/11/2025 11:52 AM T [facility] Blood Venous blood specimen / Unknown Venipuncture / Unknown 02/11/2025 5:39 AM EDT 02/11/2025 10:44 AM EDT Yoly Farmer [employer] LAB BLOOD ORDERABLES Fin al Result [facility] [address] [place] [address], * (ABNORMAL) Complete blood count (02/11/2025 5:39 AM EDT) WBC 9.6 4.8 - 10.8 K/mcL LAB HEMETOLOGY METHOD 02/11/2025 11:21 AM [facility] RBC 4.00(L) 4.50 - 5.50 M/mcL LAB HEMETOLOGY METHOD 02/11/2025 11:21 AM [facility] Hemoglobin 12.3(L) 13.5 - 17.5 g/dL LAB HEMETOLOGY METHOD 02/11/2025 11:21 AM [facility] Hematocrit 37.0(L) 42.0 - 54.0 % LAB HEMETOLOGY METHOD 02/11/2025 11:21 AM [facility] MCV 92.7 79.0 - 98.0 FL LAB HEMETOLOGY METHOD 02/11/2025 11:21 AM [facility] MCH 30.8 27.0 - 32.0 pcg LAB HEMETOLOGY METHOD 02/11/2025 11:21 AM EDT [facility] MCHC 33.2 32.0 - 37.0 g/dL LAB HEMETOLOGY METHOD 02/11/2025 11:21 AM EDT [facility] RDW 13.0 11.0 - 15.0 % LAB HEMETOLOGY METHOD 02/11/2025 11:21 AM EDT [facility] Platelets 291 130 - 400 K/mcL LAB HEMETOLOGY METHOD 02/11/2025 11:21 AM EDT [facility] MPV 10.0 7.0 - 11.0 FL LAB HEMETOLOGY METHOD 02/11/2025 11:21 AM EDT [facility] NRBC 0.0 <1.0 % LAB HEMETOLOGY METHOD 02/11/2025 11:21 AM EDT [facility] NRBC Absolute 0.00 <0.10 K/mcL LAB HEMETOLOGY METHOD 02/11/2025 11:21 AM T [facility] Blood Venous blood specimen / Unknown Venipuncture / Unknown 02/11/2025 5:39 AM EDT 02/11/2025 10:44 AM EDT Yoly Farmer [employer] LAB BLOOD ORDERABLES Fin al Result [facility] [address] [place] [address], documented in this encounter Visit Diagnoses Diagnosis [...] documented as of this encounter Care Teams Varnish Melter Helper Relationship Specialty Start Date End Date Juan Manuel Marqeuz PA [address] [place] [address] PCP - General Language Pathologist 07/12/20 documented as of this encounter
--- OUTSIDE RECORDS SUMMARY | 2025-10-29 08:37 | XMS_ITS | Clinical Summary ---
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 2 Active folic acid (FOLVITE) 1 mg tablet Take 1 tablet (1,000 mcg total) by mouth 1 (one) time each day. 8 Active gabapentin (NEURONTIN) 300 mg capsule Take 1 capsule (300 mg total) by mouth at bedtime. 5 Active traZODone (DESYREL) 150 mg tablet Take 1 tablet (150 mg total) by mouth at bedtime as needed for sleep. 2 Active aspirin 81 mg chewable tablet Chew 1 tablet (81 mg total) 1 (one) time each day. 5 Active atorvastatin (LIPITOR) 80 mg tablet Take 1 tablet (80 mg total) by mouth at bedtime. 5 Active colchicine (COLCRYS) 0.6 mg tablet Take 1 tablet (0.6 mg total) by mouth 2 (two) times a day. 5 Active metoprolol succinate (TOPROL-XL) 25 mg 24 hr tablet Take 1 tablet (25 mg total) by mouth 1 (one) time each day. 5 Active naltrexone (DEPADE) 50 mg tablet Take 1 tablet (50 mg total) by mouth 1 (one) time each day. For alcohol use disorder 8 Active nicotine (NICODERM CQ) 21 mg/24 hr Apply 1 patch topically 1 (one) time each day at the same time. 5 Active ticagrelor (BRILINTA) 90 mg tablet Take 1 tablet (90 mg total) by mouth 2 (two) times a day. 5 Active valsartan (DIOVAN) 40 mg tablet Take 0.5 tablets (20 mg total) by mouth 1 (one) time each day. For CHF 5 Active varenicline tartrate (Chantix Continuing Month Box) 1 mg tablet Take 1 tablet (1 mg total) by mouth 2 (two) times a day. Use with nicotine patch combination 5 11/21/19 26 Active tamsulosin (FLOMAX) 0.4 mg 24 hr capsule Take 1 capsule (0.4 mg total) by mouth 1 (one) time each day. Capsules should be taken 30 minutes following the same meal each day. 30 each 5 09/16/20 26 Active finasteride (PROSCAR) 5 mg tablet Take 1 tablet (5 mg total) by mouth 1 (one) time each day. 30 each 5 10/16/20 25 tamsulosin (Flomax) 0.4 mg 24 hr capsule Take 1 capsule (0.4 mg total) by mouth 1 (one) time each day. Capsules should be taken 30 minutes following the same meal each day. 30 each 5 10/17/20 25 Active Problems Problem Noted Date Diagnosed Date Postobstructive diuresis 09/15/2025 Sepsis, due to unspecified o rganism, unspecified whether acute organ dysfunction present 03/28/2025 Encounters Date Type Department Care Team Description 09/15/2025 6:30 AM EST - 09/16/2025 1:43 PM EST Hospital Encounter [facility] [address] [place] [id number] Anna Pillai MD Jones, Christopher, MD Kela, Kashyap Devendrabhai, MD Postobstructive diuresis (Primary Dx); Sepsis, due to unspecified organism, unspecified whether acute organ dysfunction present ([facility] V24, [facility] V28) Discharge Disposition: Home or Self Care 09/13/2025 1:27 PM EST - 09/13/2025 6:17 PM EST Emergency [facility] Emergency [address] [place] [address] Chest pain, unspecified type (Primary Dx) Discharge Disposition: Home or Self Care from Last 3 Months Surgical History Surgery Date Site/Laterality Comments UPPER GASTROINTESTINAL ENDOSCOPY 05/19/2010 PROCEDURE: SC UPPER GI ENDOSCOPY PERFORMED; COMMENT: Gaping lower esophageal sphincter COLONOSCOPY 01/13/2010 PROCEDURE: HISTORICAL COLONOSCOPY; COMMENT: Negative, repeat 10 yrs HIP ARTHROPLASTY 11/06/2018 Left PROCEDURE: HISTORICAL HIP REPLACEMENT Medical History Medical History Date Comments Alcohol dependence ([facility] V24, [facility] V28) 09/02/2020 DX:Alcohol dependence ([facility]) Anxiety 09/02/2020 DX:Anxiety BPH (benign prostatic hyperplasia) 09/02/2020 DX:BPH (benign prostatic hyperplasia) Hyperlipidemia 09/02/2020 DX:Hyperlipidemi a Insomnia 09/02/2020 DX:Insomnia Major depressive disorder, r ecurrent, moderate ([facility] V24, [facility] V28) 09/02/2020 DX:Major depressiv e disorder, recurrent, moderate ([facility]) Osteoarthritis 09/02/2020 DX:Osteoarthriti s; COMMENT: Hip S/P [...] care for your loved ones. For example, children's institution attendant or elderly care for an older adult? [...] on file Sexual Orientation Not on file Last Filed Vital Signs Vital Sign Reading [...] K/mcL LAB HEMETOLOGY METHOD 09/16/2025 7:02 AM [facility] RBC 3.80(L) 4.50 - 5.50 M/mcL LAB HEMETOLOGY METHOD 09/16/2025 7:02 AM [facility] Hemoglobin 11.8(L) 13.5 - 17.5 g/dL LAB HEMETOLOGY METHOD 09/16/2025 7:02 AM [facility] Hematocrit 34.5(L) 42.0 - 54.0 % LAB HEMETOLOGY METHOD 09/16/2025 7:02 AM [facility] MCV 91.0 79.0 - 98.0 FL LAB HEMETOLOGY METHOD 09/16/2025 7:02 AM [facility] MCH 31.1 27.0 - 32.0 pcg LAB HEMETOLOGY METHOD 09/16/2025 7:02 AM [facility] MCHC 34.2 32.0 - 37.0 g/dL LAB HEMETOLOGY METHOD 09/16/2025 7:02 AM [facility] RDW 13.2 11.0 - 15.0 % LAB HEMETOLOGY METHOD 09/16/2025 7:02 AM [facility] Platelets 234 130 - 400 K/mcL LAB HEMETOLOGY METHOD 09/16/2025 7:02 AM [facility] MPV 9.3 7.0 - 11.0 FL LAB HEMETOLOGY METHOD 09/16/2025 7:02 AM [facility] NRBC 0.0 <1.0 % LAB HEMETOLOGY METHOD 09/16/2025 7:02 AM [facility] NRBC Absolute 0.00 <0.10 K/mcL LAB HEMETOLOGY METHOD 09/16/2025 7:02 AM [facility] Neutrophils Relative 68.8 % LAB HEMETOLOGY METHOD 09/16/2025 7:02 AM [facility] Lymphocytes Relative 17.2 % LAB HEMETOLOGY METHOD 09/16/2025 7:02 AM [facility] Monocytes Relative 8.8 % LAB HEMETOLOGY METHOD 09/16/2025 7:02 AM [facility] Eosinophils Relative 4.2 % LAB HEMETOLOGY METHOD 09/16/2025 7:02 AM [facility] Basophils Relative 0.7 % LAB HEMETOLOGY METHOD 09/16/2025 7:02 AM [facility] Immature Granulocytes Relative 0.3 % LAB HEMETOLOGY METHOD 09/16/2025 7:02 AM [facility] Neutrophils Absolute 4.71 1.50 - 7.00 K/mcL LAB HEMETOLOGY METHOD 09/16/2025 7:02 AM [facility] Lymphocytes Absolute 1.18 1.00 - 5.00 K/mcL LAB HEMETOLOGY METHOD 09/16/2025 7:02 AM EST [facility] Monocytes Absolute 0.60 0.20 - 1.00 K/[facility] LAB HEMETOLOGY METHOD 09/16/2025 7:02 AM [facility] Eosinophils Absolute 0.29 0.00 - 0.50 K/mcL LAB HEMETOLOGY METHOD 09/16/2025 7:02 AM EST [facility] Basophils Absolute 0.05 0.00 - 0.20 K/mcL LAB HEMETOLOGY METHOD 09/16/2025 7:02 AM [facility] Immature Granulocytes Absolute 0.02 0.00 - 0.03 K/[facility] LAB HEMETOLOGY METHOD 09/16/2025 7:02 AM [facility] Blood Venous blood specimen / Unknown Venipuncture / Unknown 09/16/2025 6:22 AM EST 09/16/2025 6:53 AM EST us Vargas Morales MD LAB BLOOD ORDERABLES Final Result [facility] [address] [place] [address], * (ABNORMAL) Basic metabolic panel (09/16/2025 6:22 AM EST) Sodium 142 133 - 145 mmol/L LAB CHEMISTRY METHOD 09/16/2025 7:25 AM [facility] Potassium 3.7 3.5 - 5.5 mmol/L LAB CHEMISTRY METHOD 09/16/2025 7:25 AM [facility] Chloride 108 96 - 110 mmol/L LAB CHEMISTRY METHOD 09/16/2025 7:25 AM [facility] CO2 29 21 - 32 mmol/L LAB CHEMISTRY METHOD 09/16/2025 7:25 AM [facility] Anion Gap 5 3 - 11 LAB CHEMISTRY METHOD 09/16/2025 7:25 AM [facility] Glucose 101(H) 70 - 100 mg/dL LAB CHEMISTRY METHOD 09/16/2025 7:25 AM [facility] BUN 10 5 - 25 mg/dL LAB CHEMISTRY METHOD 09/16/2025 7:25 AM [facility] Creatinine 0.98 0.70 - 1.30 mg/dL LAB CHEMISTRY METHOD 09/16/2025 7:25 AM [facility] eGFR 85 >=60 mL/min/1. 73m2 LAB CHEMISTRY METHOD 09/16/2025 7:25 AM [facility] Comment:Calculation based on the Chronic Kidney Disease Epidemiology Collaboration (CKD-EPI) equation refit without adjustment for race. BUN/Creatinine Ratio 10.2 LAB CHEMISTRY METHOD 09/16/2025 7:25 AM [facility] Calcium 8.2(L) 8.5 - 10.5 mg/dL LAB CHEMISTRY METHOD 09/16/2025 7:25 AM [facility] Blood Venous blood specimen / Unknown Venipuncture / Unknown 09/16/2025 6:22 AM EST 09/16/2025 6:52 AM EST us Vargas Morales MD LAB BLOOD ORDERABLES Final Result [facility] [address] [place] [address], * Troponin I high sensitivity (NOW and then in 1 hour) (09/15/2025 11:56 AM EST) Only the most recent of4 resultswithin the time period is included. High Sensitivity Troponin I 48 <=79 ng/L LAB CHEMISTRY METHOD 09/15/2025 12:38 PM [facility] Blood Venous blood specimen / Unknown Venipuncture / Unknown 09/15/2025 11:56 AM EST 09/15/2025 12:08 PM EST Narrative [facility] - 09/15/2025 12:38 PM EST High levels of biotin in samples may falsely decrease hsTroponin values. Use caution when interpreting hsTroponin results in patients taking biotin who exhibit renal impairment (eGFR <60) or in patients taking more than 20 mg/day of biotin. us Palomo SON LAB BLOOD ORDERABLES Final Result [facility] [address] [place] [address], [place] [phone] * (ABNORMAL) Lipid panel with reflex to direct LDL (09/15/2025 11:56 AM EST) Cholesterol 107 0 - 200 mg/dL LAB CHEMISTRY METHOD 09/15/2025 10:25 PM EST [facility] Triglycerides 261(H) 0 - 150 mg/dL LAB CHEMISTRY METHOD 09/15/2025 10:25 PM EST [facility] HDL 47 >=40 mg/dL LAB CHEMISTRY METHOD 09/15/2025 10:25 PM EST [facility] LDL Calculated 8 0 - 100 mg/dL LAB CHEMISTRY METHOD 09/15/2025 10:25 PM EST [facility] Comment:Estimated LDL Calcul ated using equation: Total cholesterol - HDL cholesterol - (Triglycerides/5) VLDL Cholesterol Leobardo 52.2 mg/dL LAB CHEMISTRY METHOD 09/15/2025 10:25 PM EST [facility] Non HDL Chol. (LDL+VLDL) 60 <145 mg/dL LAB CHEMISTRY METHOD 09/15/2025 10:25 PM EST [facility] Chol/HDL Ratio 2.3 0.0 - 4.4 LAB CHEMISTRY METHOD 09/15/2025 10:25 PM [facility] Blood Venous blood specimen / Unknown Venipuncture / Unknown 09/15/2025 11:56 AM EST 09/15/2025 12:08 PM EST Vargas SON LAB BLOOD ORDERABLES Liana l Result Performing Organization Address City/[facility]/ZIP Co de Phone Number [facility] [address] [place] [address], [place] [phone] * Potassium (09/15/2025 11:56 AM EST) Potassium 3.7 3.5 - 5.5 mmol/L LAB CHEMISTRY METHOD 09/15/2025 12:36 PM EST [facility] Blood Venous blood specimen / Unknown Venipuncture / Unknown 09/15/2025 11:56 AM EST 09/15/2025 12:08 PM EST Palomo SON LAB BLOOD ORDERABLES Final Result Performing Organization Address [facility] Co de Phone Number [facility] [address] [place] [address], [place] [phone] * Phosphorus (09/15/2025 11:56 AM EST) Phosphorus 2.8 2.5 - 4.5 mg/dL LAB CHEMISTRY METHOD 09/15/2025 12:36 PM EST [facility] Blood Venous blood specimen / Unknown Venipuncture / Unknown 09/15/2025 11:56 AM EST 09/15/2025 12:08 PM EST us Palomo SON LAB BLOOD ORDERABLES Final Result Performing Organization Address [facility]/ZIP Co de Phone Number [facility] [address] [place] [address], [place] [phone] * Magnesium (09/15/2025 11:56 AM EST) Only the most recent of3 resultswithin the time period is included. Magnesium 2.1 1.9 - 2.6 mg/dL LAB CHEMISTRY METHOD 09/15/2025 12:36 PM EST [facility] Blood Venous blood specimen / Unknown Venipuncture / Unknown 09/15/2025 11:56 AM EST 09/15/2025 12:08 PM EST Palomo SON LAB BLOOD ORDERABLES Final Result [facility] [address] [place] [address], [place] [phone] * CT Abdomen Pelvis w Contrast (09/15/2025 [...] -------- FINAL REPORT -------- Dictated By: TUSHAR LAINEZ Dictated Date: 09/15/2025 11:39 ET Assigned Physician: TUSHAR LAINEZ Reviewed and Electronically Signed By: TUSHAR LAINEZ Signed Date: 09/15/2025 11:52 ET Workstation ID: [id number] Transcribed By: Self Edit Transcribed Date: 09/15/2025 [...] Schmorl's node at T12. Procedure Note Tushar Lainez MD - 09/15/2025 PROCEDURE: CT ABDOMEN/PELVIS [...] -------- FINAL REPORT -------- Dictated By: TUSHAR LAINEZ Dictated Date: 09/15/2025 11:39 ET Assigned Physician: TUSHAR LAINEZ Reviewed and Electronically Signed By: TUSHAR LAINEZ Signed Date: 09/15/2025 11:52 ET Workstation ID: [id number] Transcribed By: Self Edit Transcribed Date: 09/15/2025 [...] -------- FINAL REPORT -------- Dictated By: TUSHAR LAINEZ Dictated Date: 09/15/2025 09:59 ET Assigned Physician: TUSHAR LAINEZ Reviewed and Electronically Signed By: TUSHAR LAINEZ Signed Date: 09/15/2025 10:03 ET Workstation ID: [id number] Transcribed By: Self Edit Transcribed Date: 09/15/2025 09:59 ET Narrative 09/15/2025 10:03 AM EST XR CHEST 2 VIEWS INDICATION: Cough TECHNIQUE: XR CHEST 2 VIEWS COMPARISON: 09/13/2025 Procedure Note Tushar Lainez MD - 09/15/2025 XR CHEST 2 VIEWS INDICATION: Cough TECHNIQUE: XR CHEST 2 VIEWS COMPARISON: 09/13/2025 IMPRESSION: FINDINGS/IMPRESSION: No pneumonia or pulmonary edema. Right apicalpleural- parenchymal scarring is unchanged. No pleural effusion orpneumothorax. Cardiac silhouette is normal in size. Degenerative changesseen throughout the bones. -------- FINAL REPORT -------- Dictated By: TUSHAR LAINEZ Dictated Date: 09/15/2025 09:59 ET Assigned Physician: TUSHAR LAINEZ Reviewed and Electronically Signed By: TUSHAR LAINEZ Signed Date: 09/15/2025 10:03 ET Workstation ID: [id number] Transcribed By: Self Edit Transcribed Date: 09/15/2025 [...] GEMUSE QTc 464 ms GEMUSE P Wave [place] 64 degrees GEMUSE R [place] -19 degrees GEMUSE T [place] 7 degrees GEMUSE ECG Interpretation Normal sinus rhythm Normal ECG When compared with ECG of 13-SEP-2025 14:19, No significant change was found Confirmed by MARIANO CASAS ([id number]) on 09/15/2025 10:12:24 PM GEMUSE 09/15/2025 8:49 AM EST 09/15/2025 10:12 PM EST us Palomo SON ECG ORDERABLES Final Resul t GEMUSE * (ABNORMAL) Urinalysis with reflex microscopic and culture (09/15/2025 8:46 AM EST) [facility] Specific Tarkio Urine 1.010 1.003 - 1.030 LAB URINALYSIS - AUTOMATED METHOD 09/15/2025 9:13 AM [facility] pH, Urine 6.5 5.0 - 8.0 pH LAB URINALYSIS - AUTOMATED METHOD 09/15/2025 9:13 AM [facility] Leukocytes, Urine Large(A) Negative LAB URINALYSIS - AUTOMATED METHOD 09/15/2025 9:13 AM [facility] Nitrite, Urine Negative Negative LAB URINALYSIS - AUTOMATED METHOD 09/15/2025 9:13 AM [facility] Protein, Urine 30(A) <=Trace mg/dL LAB URINALYSIS - AUTOMATED METHOD 09/15/2025 9:13 AM [facility] Glucose, Urine Negative Negative mg/dL LAB URINALYSIS - AUTOMATED METHOD 09/15/2025 9:13 AM [facility] Ketones, Urine Negative Negative mg/dL LAB URINALYSIS - AUTOMATED METHOD 09/15/2025 9:13 AM [facility] Urobilinogen , Urine 0.2 0.2 - 1.0 mg/dL LAB URINALYSIS - AUTOMATED METHOD 09/15/2025 9:13 AM [facility] Bilirubin, Urine Negative Negative LAB URINALYSIS - AUTOMATED METHOD 09/15/2025 9:13 AM [facility] Blood, Urine Small(A) Negative LAB URINALYSIS - AUTOMATED METHOD 09/15/2025 9:13 AM [facility] RBC, Urine 5(H) 0 - 4 /HPF 09/15/2025 9:13 AM [facility] WBC, Urine 75(H) 0 - 4 /HPF 09/15/2025 9:13 AM [facility] Squamous Epithelial, Urine 2 0 - 60 /LPF 09/15/2025 9:13 AM [facility] Bacteria, Urine Moderate(A) Negative /HPF 09/15/2025 9:13 AM [facility] Urine Urine specimen obtained by clean catch procedure / Unknown Non-blood Collection / Unknown 09/15/2025 8:46 AM EST 09/15/2025 8:52 AM EST us Palomo SON LAB URINE ORDERABLES Final Result [facility] [address] [place] [address], * Hernandez urine culture tube (09/15/2025 8:46 AM EST) [facility] Extra Tube Hold for add-ons. 09/15/2025 10:01 AM EST [facility] Comment:Auto resulted. Urine Urine specimen obtained by clean catch procedure / Unknown Non-blood Collection / Unknown 09/15/2025 8:46 AM EST 09/15/2025 8:52 AM EST us Palomo SON LAB URINE ORDERABLES Final Result Performing Organization Address City/[facility]/ZIP Co de Phone Number [facility] [address] [place] [address], [place] [phone] * (ABNORMAL) Culture urine (09/15/2025 8:46 AM EST) [facility] Culture, Urine 50,000-100,000 CFU/mL Pseudomonas aeruginosa(A) KULWANT 09/17/2025 10:17 AM EST [facility] Comment: This is an edited [...] Pseudomonas aeruginosa Levofloxacin KULWANT 0.5 ug/ml: Susceptible us Palomo SON LAB MICROBIOLOGY - GENERAL ORDERABLES Final Result Performing Organization Address City/[facility]/ZIP Co de Phone Number [facility] [address] [place] [address], [place] [phone] * Respiratory virus panel molecular study (09/15/2025 8:05 AM EST) [facility] Adenovirus Detection by PCR Not Detected Not Detected LAB MICROBIOLOGY METHOD 09/15/2025 9:18 AM [facility] Influenza A PCR Not Detected Not Detected LAB MICROBIOLOGY METHOD 09/15/2025 9:18 AM [facility] Influenza B PCR Not Detected Not Detected LAB MICROBIOLOGY METHOD 09/15/2025 9:18 AM [facility] Coronavirus 229E Not Detected Not Detected LAB MICROBIOLOGY METHOD 09/15/2025 9:18 AM [facility] Coronavirus HKU1 Not Detected Not Detected LAB MICROBIOLOGY METHOD 09/15/2025 9:18 AM [facility] Coronavirus OC43 Not Detected Not Detected LAB MICROBIOLOGY METHOD 09/15/2025 9:18 AM [facility] Coronavirus NL63 Not Detected Not Detected LAB MICROBIOLOGY METHOD 09/15/2025 9:18 AM [facility] Parainfluenza Virus 1 Not Detected Not Detected LAB MICROBIOLOGY METHOD 09/15/2025 9:18 AM [facility] Parainfluenza Virus 2 Not Detected Not Detected LAB MICROBIOLOGY METHOD 09/15/2025 9:18 AM [facility] Parainfluenza Virus 3 Not Detected Not Detected LAB MICROBIOLOGY METHOD 09/15/2025 9:18 AM [facility] Parainfluenza Virus 4 Not Detected Not Detected LAB MICROBIOLOGY METHOD 09/15/2025 9:18 AM [facility] RSV PCR Not Detected Not Detected LAB MICROBIOLOGY METHOD 09/15/2025 9:18 AM [facility] Human Metapneumovirus A and B Not Detected Not Detected LAB MICROBIOLOGY METHOD 09/15/2025 9:18 AM [facility] Rhinovirus/Entero virus Not Detected Not Detected LAB MICROBIOLOGY METHOD 09/15/2025 9:18 AM [facility] Bordetella pertussis Not Detected Not Detected LAB MICROBIOLOGY METHOD 09/15/2025 9:18 AM [facility] Bordetella parapertussis Not Detected Not Detected LAB MICROBIOLOGY METHOD 09/15/2025 9:18 AM [facility] Mycoplasma pneumo by PCR Not Detected Not Detected LAB MICROBIOLOGY METHOD 09/15/2025 9:18 AM [facility] Chlamydia pneumoniae Not Detected Not Detected LAB MICROBIOLOGY METHOD 09/15/2025 9:18 AM [facility] SARS COV-2 Not Detected Not Detected LAB MICROBIOLOGY METHOD 09/15/2025 9:18 AM [facility] Swab Both anterior nares / Unknown Non-blood Collection / Unknown 09/15/2025 8:05 AM EST 09/15/2025 8:16 AM EST [facility] - 09/15/2025 9:18 AM EST Testing was performed using the Back[employer] Respiratory Pathogen PCR Assay. All results must [...] LAB MICROBIOLOGY - GENERAL ORDERABLES Final Result [facility] [address] [place] [address], * (ABNORMAL) Venous blood gas (09/15/2025 7:33 AM EST) pH, Santos 7.45(H) 7.32 - 7.42 pH 09/15/2025 7:39 AM [facility] pCO2, Santos 35(L) 41 - 51 mmHg 09/15/2025 7:39 AM [facility] pO2, Santos 81(H) 25 - 40 mmHg 09/15/2025 7:39 AM [facility] HCO3, Venous 25.4 22.0 - 26.0 mmol/L 09/15/2025 7:39 AM EST [facility] O2 Sat, Santos 98.4 % 09/15/2025 7:39 AM EST [facility] Base Excess, Santos 0.7 -2.0 - 2.0 mmol/L 09/15/2025 7:39 AM EST [facility] Blood Venous blood specimen / Unknown Venipuncture / Unknown 09/15/2025 7:33 AM EST 09/15/2025 7:37 AM EST us Palomo SON LAB BLOOD ORDERABLES Final Result Performing Organization Address City/[facility]/ZIP Co de Phone Number [facility] [address] [place] [address], [place] [phone] * (ABNORMAL) Ammonia (09/15/2025 7:33 AM EST) Ammonia 56(H) 11 - 35 mcmol/L LAB CHEMISTRY METHOD 09/15/2025 8:28 AM EST [facility] Comment:Hemolysis present Blood Venous blood specimen / Unknown Venipuncture / Unknown 09/15/2025 7:33 AM EST 09/15/2025 7:42 AM EST us Palomo SON LAB BLOOD ORDERABLES Final Result [facility] [address] [place] [address], [place] [phone] * Lipase (09/15/2025 6:40 AM EST) Only the most recent of2 resultswithin the time period is included. Lipase 24 13 - 75 unit/L LAB CHEMISTRY METHOD 09/15/2025 8:13 AM EST [facility] Blood Venous blood specimen / Unknown Venipuncture / Unknown 09/15/2025 6:40 AM EST 09/15/2025 8:13 AM EST us Palomo SON LAB BLOOD ORDERABLES Final Result Performing Organization Address [facility]/ZIP Co de Phone Number [facility] [address] [place] [address], [place] [phone] * (ABNORMAL) Ethanol (09/15/2025 6:40 AM EST) Pathologist [facility] Ethanol Level 153(H) 0 - 10 mg/dL LAB CHEMISTRY METHOD 09/15/2025 8:13 AM EST [facility] Blood Venous blood specimen / Unknown Venipuncture / Unknown 09/15/2025 6:40 AM EST 09/15/2025 8:13 AM EST us Palomo SON LAB BLOOD ORDERABLES Final Result Performing Organization Address [facility]/ZIP Co de Phone Number [facility] [address] [place] [address], [place] [phone] * (ABNORMAL) Comprehensive metabolic panel (09/15/2025 6:40 AM EST) Only the most recent of2 resultswithin the time period is included. Pathologist [facility] Sodium 142 133 - 145 mmol/L LAB CHEMISTRY METHOD 09/15/2025 8:13 AM [facility] Potassium 3.4(L) 3.5 - 5.5 mmol/L LAB CHEMISTRY METHOD 09/15/2025 8:13 AM [facility] Chloride 109 96 - 110 mmol/L LAB CHEMISTRY METHOD 09/15/2025 8:13 AM [facility] CO2 26 21 - 32 mmol/L LAB CHEMISTRY METHOD 09/15/2025 8:13 AM [facility] Anion Gap 7 3 - 11 LAB CHEMISTRY METHOD 09/15/2025 8:13 AM [facility] Glucose 123(H) 70 - 100 mg/dL LAB CHEMISTRY METHOD 09/15/2025 8:13 AM [facility] BUN 9 5 - 25 mg/dL LAB CHEMISTRY METHOD 09/15/2025 8:13 AM [facility] Creatinine 0.84 0.70 - 1.30 mg/dL LAB CHEMISTRY METHOD 09/15/2025 8:13 AM [facility] eGFR 96 >=60 mL/min/1. 73m2 LAB CHEMISTRY METHOD 09/15/2025 8:13 AM [facility] Comment:Calculation based on the Chronic Kidney Disease Epidemiology Collaboration (CKD-EPI) equation refit without adjustment for race. BUN/Creatinine Ratio 10.7 LAB CHEMISTRY METHOD 09/15/2025 8:13 AM [facility] Calcium 8.2(L) 8.5 - 10.5 mg/dL LAB CHEMISTRY METHOD 09/15/2025 8:13 AM [facility] AST (SGOT) 30 10 - 42 unit/L LAB CHEMISTRY METHOD 09/15/2025 8:13 AM [facility] ALT (SGPT) 39 10 - 60 unit/L LAB CHEMISTRY METHOD 09/15/2025 8:13 AM [facility] Alkaline Phosphatase 89 42 - 121 unit/L LAB CHEMISTRY METHOD 09/15/2025 8:13 AM [facility] Total Protein 6.4 6.0 - 8.0 g/dL LAB CHEMISTRY METHOD 09/15/2025 8:13 AM [facility] Albumin 3.2 3.2 - 5.0 g/dL LAB CHEMISTRY METHOD 09/15/2025 8:13 AM [facility] Total Bilirubin 0.5 0.0 - 1.4 mg/dL LAB CHEMISTRY METHOD 09/15/2025 8:13 AM [facility] Blood Venous blood specimen / Unknown Venipuncture / Unknown 09/15/2025 6:40 AM EST 09/15/2025 8:13 AM EST Palomo SON LAB BLOOD ORDERABLES Final Result [facility] [address] [place] [address], [place] [phone] * (ABNORMAL) POCT Glucose, blood (09/13/2025 1:58 PM EST) Glucose POCT 139(H) 70 - 100 mg/dL 09/13/2025 1:59 PM EST [facility] Blood Capillary blood specimen / Unknown 09/13/2025 1:58 PM EST 09/13/2025 2:00 PM EST Generic Provider Poct LAB POINT OF CARE TEST DOCKED DEVICE UNSOLICITED RESULTS Final Result Performing Organization Address [facility]/ZIP Co de Phone Number [facility] [address] [place] [address], [place] [phone] from Last 3 Months Insurance MEDICAID - [place] [employer] MEDICARE Advance Directives * Full [...] currently active code status orders. Care Teams Livestock Exhibitor Relationship Specialty Start Date End Date Juan Manuel Marquez PA [address] [place] [address] PCP - General Pearl Stringer 07/12/20
--- OUTSIDE RECORDS SUMMARY | 2025-10-29 08:37 | XMS_ITS | Data Portability ---
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, [address], [place], [address], [facility] [employer] [facility] 5 13:54:45 Retention of urine 768415219 Active 2024 Yoly Farmer NP [address], [address], [place], [address], [facility] [employer] 5 13:54:58 Fall Active 2024 Yoly Farmer NP [address], [address], [place], [address], [facility] [employer] [facility] 13:55:14 Non-traumat ic rhabdomyoly sis 399188089 Active 2024 Yoly Farmer NP [address], [address], [place], [address], [facility] 5 13:55:25 Tobacco dependence caused by cigarettes 6439961954026 9107 Active 2024 Yoly Farmer NP [address], [address], [place], [address], [employer] [facility] 5 13:55:47 Notes:Some problems listed i n Document: #[id number] could not be added to this patient's chart. Please review this document and add these problems to the patient's chart manually as needed. Problem Notes None recorded. Medical Equipment None Reported. Allergies No known drug allergies Vitals Date Recorded Body weight Heart rate Respiratory rate Body temperature Oxygen saturation Systolic And Diastolic Provider Name and Address Organization Details Last Updated DateTime 5 26114.2 2 g 80 /min 18 /min 97.1 [degF] 99.98 % 119/62 mm[Hg] Yoly Farmer NP [address], [facility] [address], [place], [address], [facility] 5 13:34:56 Date Recorded Body weight Heart rate Respiratory rate Body temperature Oxygen saturation Systolic And Diastolic Provider Name and Address Organization Details Last Updated DateTime 5 56858.2 2 g 78 /min 18 /min 97.4 [degF] 99 % 121/67 mm[Hg] Yoly Farmer NP [address], [facility] [address], [place], [address], [facility] 5 08:46:28 Date Recorded Body weight Heart rate Respiratory rate Body temperature Oxygen saturation Systolic And Diastolic Provider Name and Address Organization Details Last Updated DateTime 5 41322.2 2 g 78 /min 18 /min 97.7 [degF] 98 % 121/67 mm[Hg] Yoly Farmer NP [address], [facility] [address], [place], [address], [place] [employer] 5 08:02:51 Social History Question Answer Notes LastModified by Organizat ion Details LastModified Time Tobacco Smoking Status Current Every Day Smoker Yoly Farmer NP [address], [facility] [address], [place], [address], [facility] 02/08/2025 14:13:32 Do You Have An Advance Directive? No Information not available 02/08/2025 What Is Your Level Of Caffeine Consumption? None Information not available 02/08/2025 What Is Your Code Status? Full Code Information not available 02/08/2025 Where Do You Live? Apartment Information not available 02/08/2025 What Was The Date Of Your Most Recent Tobacco Screening? 02/08/2025 Etoh And Smoking [facility] Information not available 02/08/2025 Do You Have [...] ICD10 Code Diagnosis IMO Codes Diagnosis Note [id number] Yoly Farmer NP [facility] [address] [address] 02/08/2025 13:34:17 02/15/2025 11:43:25 Phimosis 605954677 N47.1 79766 with large phimosis non reducible today after 20 minutes of pressurese nd to ER for eval and treatment Tobacco de pendence caused by cigarettes 9641599383 9366032 F17.360 4424824 cont NRTnicotin e patch 14 mcg qd Non-trauma tic rhabdomyolysis 800183871 M62.82 79036494 rhabo ?resolved with ivf in hospitalbm p and cbc with ckpush po fluids Fall W19.XXXD 7677405 fall at homeoxy prn paintyl prn painsuppor tive carept ot eval and treat Retention of urine 32585 4002 R33.9 40282 noted retention in ERfoley in place and recfu with dr erica stone for removal 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 841850329 F10.19 1955048 hx of etoh abuse with relapse treated in er, sp phenobarb proptocolr estart naltrexone and vivitrol outptabsta in for etoh Generalize d aches and pains 25816772 R52 74107 sp fall with generalize painoxy prntyl prn [id number] Yoly Farmer NP [facility] [address] 02/10/2025 08:38:42 02/15/2025 12:33:59 Phimosis 057366399 N47.1 44340 resolved in ERfu with urology Tobacco de pendence caused by cigarettes 7345342782 0962267 F17.627 4082061 continues to smoke and plans to smokeencou rage pt to quitstop NRTstop nicotine patch 14 mcg qd Non-trauma tic rhabdomyolysis 795358728 M62.82 95933235 rhabo ?resolved with ivf in hospitalbm p and cbc with ck not done yet, will reorderpus h po fluids Fall W19.XXXD 2443737 fall at home, no falls hereoxy prn paintyl prn painsuppor tive carept ot eval and treat Retention of urine 09714 4002 R33.9 69126 noted retention in ERfoley in place and rec fu with dr erica stone for removal, however he refuses to have rose in today and will remove per request02/10 nsg to follow with monitoring abd distension and and urine outpt q shift as no bladder scanner is available heremonito r need to straight cathnsg to fu with urology 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 951061251 F10.19 6087461 hx of etoh abuse with relapse treated in er, sp phenobarb protocolre start naltrexone and vivitrol outptabsta in for etoh Generalize d aches and pains 35227544 R52 66316 sp fall with generalize paindc oxy prn as he has no pain and only used oncetyl prn [id number] Yoly Farmer, [place] [facility] [address] [place] [address] 02/11/2025 08:01:58 02/15/2025 13:03:21 Retention of urine 249869720 R33.9 38601 noted retention in ER, now voiding without difficulty this amhosp rec fu with dr maldonado outpt for removal, however pt requested removal yest and has voiding 1000cc sinceretur n to ER for abd distention or not able to peensg to fu with urologysta rted on flomax 0.4 mg po qhs Tobacco de pendence caused by cigarettes 7363327660 7041831 F17.703 2728294 continues to smoke and plans to smokeencou rage pt to quitpt refused nicotine patch 14 mcg qdfu outpt with pcp Phimosis 627159175 N47.1 29659 resolved in ERfu with urology outpt Non-trauma tic rhabdomyolysis 246747246 M62.82 43461664 rhabo ?resolved with ivf in hospitalla bs done this am, will call him if labs abnormal as he wants to go home this ampush po fluids Fall W19.XXXD 1358128 fall at home, no falls hereoxy prn pain, will need to wean oxycodonet yl prn painsuppor tive caresafety measures 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 046000814 F10.19 2402421 hx of etoh abuse with relapse treated in er, sp phenobarb protocolre start naltrexone and vivitrol outptabsta in for etohfu with pcp outpt Generalize d aches and pains 41687171 R52 06271 sp fall with generalize painwean oxycodone 14 [...] ID Guarantor Name 02/08/2025 1 [place]IC[place] B-[place]: [employer] Clayton Mike [id number] Clayton Mike 02/15/2025 1 [facility] (MEDICARE REPLACEMENT/A DVANTAGE - PPO) [id number] Clayton Mike [id number] Clayton Mike Notes Date Note Type Note [...] whiskey daily. [facility] and lives at [place]. Plan to restart naltrexone and [facility]. MOLST: DNR/DNI/DNHMORSE: high risk Yoly Farmer, [place] [address], [address], [place], [address], [facility] 02/08/2025 14:27:39 02/10/2025 text/html Clayton is seen [...] clear. MOLST: DNR/DNI/DNHMORSE: high risk Yoly Farmer, [employer] [address], [address], [place], [address], [facility] [employer] 02/10/2025 09:15:00 02/11/2025 text/html Clayton is seen [...] DNR/DNI/DNHMORSE: high risk Yoly Farmer NP [address], [address], [place], [address], [facility] 02/11/2025 08:26:41
--- NOTE | 2025-10-29 08:51 | MHC.OFFVIS ---
Intake Visit Reasons: Retention/UTI/Paraphimosis/VoidingTrial(set) Intake Note: Reason for Visit: New Patient Urinary Retention/UTI/Para phimosis/Voiding Trial Urology Meds: Tamsulosin, Finasteride, Blood Thinners: Aspirin Labs: BUN: 12 Creatinine: 0.70 (09/18/2025) Imaging: Abdomen/Pelvis (09/17/2025) Last PVR: 1300mls Family History: Prostate Cancer? no Bladder Cancer? no Kidney Cancer?no Smoking History? Current Previous Urology? No PVR: Initial 451ml 2nd PVR: 568 Patient reports that catheter was removed 2 weeks ago [facility] [place] in [place], Patient does not remember the name of facility Analysis Manager Required: No Accompanied by: Self / Same As Patient Allergies No Known Allergies (No Known Allergies*) Allergy (Verified 10/29/25 09:03) Medication List - Last Reconciled 10/29/25 by Levar King MD acetaminophen 650 mg (2 x 325 mg) PO Q6H PRN aspirin 81 mg PO DAILY atorvastatin (Lipitor) 80 mg PO BEDTIME cefdinir 300 mg PO BID finasteride 5 mg PO DAILY folic acid 1 mg PO DAILY gabapentin 300 mg PO BEDTIME metoprolol succinate ER (Kapspargo Sprinkle) 25 mg PO DAILY pantoprazole 40 mg PO DAILY PRN tamsulosin 0.4 mg PO BEDTIME thiamine mononitrate (vit B1) 100 mg PO DAILY ticagrelor (Brilinta) 90 mg PO BID trazodone 150 mg PO BEDTIME valsartan 20 mg PO DAILY HPI Comments Details: 10/29/2025--Clayton is a 65-year-old male who is here for new patient evaluation. The patient has a history of alcohol abuse. The patient was seen in the emergency room in September he had a catheter placed due to urinary retention. The patient is prescribed Proscar and tamsulosin. The patient has since had the catheter removed and has been voiding. Bladder scan postvoid residuals greater than 500 mL today. Labs: BUN: 12 Creatinine: 0.70 (09/18/2025) No recent PSA Results - CT abdomen and pelvis with contrast (09/17/25): Findings included normal kidneys without stones, moderate hydronephrosis and hydroureter that resolved with a [place] catheter, and moderate complex heterogeneous material in the bladder, possibly representing blood. I discussed with the patient that he is not emptying his bladder adequately and risk for kidney compromise due to urinary retention. Discussed use of lidocaine jelly. The patient is adamantly refusing having the catheter replaced. Recommend cystoscopy on follow-up. Patient left without making an appointment. [facility] Medical History EtOH dependence ETOH abuse Depression Anxiety Surgical History History of cardiac cath Social History Household Members: None Housing: Apartment Do you presently have visiting nurse or other home services: Yes (for cleaning) Alcohol intake: current Alcohol intake frequency: 3 or more drinks per day Alcohol type: hard liquor Patient Tobacco Use Status: Current everyday Tobacco user Tobacco use type: Cigarette Cigarette Packs Per Day: 1 Cigarettes Per Day: 20.0 Years Smoked: 50 Advance Directives Date on File: 09/16/25 service: Yes Review of Systems Const All systems reviewed & are unremarkable except as noted in HPI and below Reports no additional complaints Eyes Reports no additional complaints ENT Reports no additional complaints Card Reports no additional complaints Resp Reports no additional complaints GI Reports no additional complaints Reports as per HPI Musc Reports no additional complaints Skin/Breast Reports system reviewed and no additional complaints, except as documented Neuro Reports no additional complaints Psych Reports no additional complaints Endo Reports no additional complaints Constantin/Lymph Reports no additional complaints Aller/Immun Reports no additional complaints Physical Exam Const General: healthy appearing, no acute distress and well developed Orientation/consciousness: patient oriented x3 HEENT Head: Yes normocephalic and Yes atraumatic Eyes Conjunctivae: conjunctivae normal Neck Neck: Yes normal visual inspection Chest Chest palpation & inspection: normal inspection of the chest Resp Effort & Inspection: normal respiratory effort GI Inspection: Yes normal to inspection Neuro General: patient oriented x3 Psych Appearance: grossly normal Affect: normal affect Office Procedures Post Void Residual Post Residual Void Post Void Residual (PVR): 568 [id number] Void Residual by ultrasound Results Reviewed Results Reviewed: Date of Service: 09/17/25 Reason for Exam: abd pain EXAMINATION: CT ABDOMEN AND PELVIS WITH CONTRAST CLINICAL INFORMATION: Abdominal pain COMPARISON: None available. TECHNIQUE: Multidetector volumetric images were obtained from the superior aspect of the liver through the pubic symphysis following administration 85 mL of Omnipaque 350 intravenous contrast. Sagittal and coronal reformatted images were obtained on the technologist's workstation. Oral contrast: No This CT examination was performed using dose optimization techniques as appropriate, variously including the following: *Automated exposure control *Adjustment of mA and/or kV according to patient size (this includes techniques or standardized protocols for targeted exams where dose is matched to indication/reason for exam; i.e. extremities or head) *Use of iterative reconstruction technique FINDINGS: LUNG BASES: The visualized lung bases are unremarkable. LIVER, GALLBLADDER, AND BILIARY TREE: Mild diffuse low attenuation is again demonstrated in the liver. The gallbladder is unremarkable with no evidence of radiopaque gallstones, gallbladder wall thickening, or obvious pericholecystic inflammatory changes. PANCREAS: Unremarkable. SPLEEN: Unremarkable. ADRENAL GLANDS: Unremarkable. KIDNEYS AND URETERS: The kidneys are normal in size, shape, and attenuation. There are no kidney stones. Moderate hydronephrosis and hydroureter present on the prior examination has resolved. BLADDER: Gross bladder distention present on prior examination has resolved. There is a [place] catheter in place. There is a moderate volume of complex heterogeneous material within the bladder including a small amount of gas. GASTROINTESTINAL TRACT: Again seen are numerous pseudodiverticula in the descending and sigmoid colon without wall thickening or inflammation. The appendix is within normal limits. ABDOMINAL WALL: No significant hernia is appreciated. LYMPH NODES: Normal. VASCULAR: Multifocal atherosclerotic calcifications are present. PELVIC VISCERA: Unremarkable. OSSEOUS STRUCTURES: Schmorl's node with mild superior endplate wedging is stable at T12. Multilevel degenerative changes are present throughout the imaged spine. There is moderate right hip osteoarthritis with superior lateral joint space narrowing and marginal osteophytes. Total hip replacement is present on the left. IMPRESSION: The bladder is partially distended with heterogeneous material that raises concern for blood products. Infection is also the differential. Mild hepatic steatosis. Diverticulosis is present in the descending and sigmoid colon without evidence of infection. Assessment & Plan Assessment & Plan (1) EtOH dependence: Code(s): F10.20 - Alcohol dependence, uncomplicated Category: Medical Qualifiers: Substance use status: uncomplicated Qualified Code(s): F10.20 - Alcohol dependence, uncomplicated (2) Urinary retention: Code(s): R33.9 - Retention of urine, unspecified Category: Medical (3) Nicotine dependence: Code(s): F17.200 - Nicotine dependence, unspecified, uncomplicated Category: Medical Plan Urinary Retention - pt is prescribed proscar and tamsulosin - It was discussed that the patient is not emptying his bladder adequately, which poses a risk for kidney compromise due to urinary retention. - Re-insertion of a catheter was recommended to address the retention. - The use of lidocaine jelly to numb the area during catheter placement was discussed. - An alternative to a continuous drainage bag was offered, involving a plug or valve on the catheter for intermittent drainage every three to four hours. - The patient was adamant in his refusal to have a catheter replaced. - A cystoscopy was recommended for follow-up. - The patient left without scheduling a follow-up appointment. Orders: Orders AMB Post Void Residual by ultrasound Today R33.9 - Retention of urine, unspecified Medications: Refilled tamsulosin 0.4 mg PO BEDTIME 90 caps 3RF Coding Level of Care Code New Pt Level 4 (38080) Diagnoses EtOH dependence F10.20 Substance use status: uncomplicated Urinary retention R33.9 Nicotine dependence F17.200 CPT Codes Post Residual Void - PVR CPT Code: 94627-Ounw Void Residual by ultrasound ([id number])
== END 2025-10-29 11:13 | disposition home or self-care (01) ==
LOC: HO.HUSH 08:35
PROVIDERS: PCP Family Medicine; Visit Provider Urology
DX: F10.20 Alcohol dependence, uncomplicated (principal); R33.9 Retention of urine, unspecified; F17.200 Nicotine dependence, unspecified, uncomplicated
CPT/HCPCS: 99214

== ENCOUNTER → 2025-10-29 08:34 | Outpatient (BNVA) | payer OTHER, SELFPAY | PROVIDERS: PCP Family Medicine; Visit Provider Urology | DX: R33.9 Retention of urine, unspecified (principal); F10.20 Alcohol dependence, uncomplicated; F17.210 Nicotine dependence, cigarettes, uncomplicated; Z79.899 Other long term (current) drug therapy; Z96.0 Presence of urogenital implants | CPT/HCPCS: 51798; 99212 ==